=== PATIENT | female | born 1965 | race Caucasian/White ===

== ENCOUNTER 2017-05-16 14:00 | Outpatient (RCR) | payer MEDICARE, SELFPAY ==
--- NOTE | 2017-05-10 11:33 | HP.PTEVAL_ITS ---
Patient's Visit Information CHANTAL SINGH is a 51 year old F referred to Physical Therapy by ROMAINE Hannah with a diagnosis of BACK PAIN AND NECK PAIN. Date of Evaluation: 05/10/17 Physical Therapist: Navid Wiggins PT, - Visit Plan Frequency: 2x /Week Duration: 4 Weeks Plan: AQUATIC PT CERVICAL/LUMBAR ROM,STRENGTH,DLS,UE/LE ROM, - Subjective Subjective: This 51 y/o female presents to physical therapy with back pain and neck pain. Patient has neck and lumbar pain for one year. Patient has been under care DR Kowalski for year with epidural injections which has temporarly helped . Last injection about one month ago. Location of cervical righ side, L- S symmtrical ocassionally left leg. Symptoms worse with standing 5 mins,walking with cane,bending,lifting,sitting 15min. Symptoms better with pain MEDS. C/O GUTIERREZ ,denies tinnutus,nausea. Symptoms worse with sitting,lifting arms,flexion , turning neck . Paient sleeping okay at night. Pain in cedrvical and lumbar affects ADL'S and housework tasks.Patient has rollator. VOCATION: disablity. SOCAIL: single,lives alone Adult day care 4days week. TOOLING MECHANIC 2 days assist bathing ,laundry ,moms meal dilivered - Pain Bilateral Back Pain Intensity (Out of 10): 7 Pain Intensity Range: 8, 10 Right Neck Pain Intensity (Out of 10): 5 Pain Intensity Range: 10 - Objective POSTURE: mild foward posture. PALAPTION: tender L-S symmtrical spinals eretor, UT/levator. NEURO: denies parathesia/tingling,refexes C5-6-7.L3-4,L4-5,L5S1. GAIT: reciprocal pattern with cane,slow kris mild foward posture. AROM: BE WFL. CERVICAL AROM: flexion min loss,lateral flexion /rotation/extension/ mod loss. MMT: BUE 4-/5 grossly,quads/hams/hips 4-/5 ankle 4/5. LUMBAR ROM: flexion /extension mod loss,side glides mod loss. FLEXABLITY: hams mod tight, piriformis mod tight. SPECIAL TEST: diminished heel/toe walking - Special Tests C/S Radiculapathy - Left Upper limb tension test: Negative C/S Radiculapathy - Right Upper limb tension test: Negative C/S Radiculapathy - Left Spurlings: Positive C/S Radiculapathy - Right Spurlings: Positive C/S Radiculapathy - Left Cervical distraction: Negative C/S Radiculapathy - Right Cervical distraction: Negative Vertebral Artery Test: Negative Cervical Sitting: Protrusion - Mechanical Response: No effect Cervical Sitting: Protrusion - Symptoms During Testing: Increases Cervical Sitting: Protrusion - Symptoms After Testing: Worse Cervical Sitting: Retraction - Mechanical Response: No effect Cervical Sitting: Retraction - Symptoms During Testing: Increases Cervical Sitting: Retraction - Symptoms After Testing: Worse L/S Slump test left side: Negative L/S Slump test right side: Negative L/S Left Straight Leg Raise: Negative L/S Right Straight Leg Raise: Negative Lumbar Standing: Flexion - Mechanical Response: No effect Lumbar Standing: Flexion - Symptoms During Testing: Increases Lumbar Standing: Flexion - Symptoms After Testing: Worse Lumbar Standing: Extension - Mechanical Response: No effect Lumbar Standing: Extension - Symptoms During Testing: Increases Lumbar Standing: Extension - Symptoms After Testing: Worse - Goals Goal 1:: Independant with Aquatic therapy. Goal Time Frame: 4-6 Weeks Goal 2:: Patient pain by 40 % or greater to improve function and ADLS' Goal Time Frame: 4-6 Weeks Goal 3:: Patient improve cervical /lumbar ROM to WFL for function of recovery Goal Time Frame: 4-6 Weeks Goal 4:: Patient increase strength of UE/LE 4/5 to improve function. Goal Time Frame: 4-6 Weeks Goal 5:: Patient improve function with ADL'S and housework tasks with min limiations Goal Time Frame: 4-6 Weeks - Rehabilitation Potential Physical Therapy Diagnosis: This patient has multiple comormidities with lumbar and cervical pain with decrease strength ,ROM ,function ,impairs ADL'S and gait walking with decrease endurance Rehabilitation Potential: Good - Anticipated Interventions Patient/Client Instruction: Educate patient on: Condition, Plan of Care For the Purpose of:: To decrease pain, To increase ROM, To improve muscle performance and motor function, To improve ability to perform ADL's, To increase tolerance to activity/condition/position, To decrease level of supervision to perform tasks, To improve ability of physical actions for home/ community/work/leisure, To improve health of tissue, To decrease soft tissue restriction, To increase flexibility/ROM, To improve endurance, To improve health and function, To improve ability to perform tasks related to life management Therapeutic Exercise to Include: Strength training, Endurance training, Body mechanics, Postural training, Flexibilty training, In an aquatic setting, Active ROM For the Purpose of:: To decrease pain, To improve muscle performance and motor function, To increase tolerance to activity/condition/position, To improve performance and independence with ADL's, To improve ability of physical actions for home/community/work/leisure, To improve health of tissue, To decrease soft tissue restriction, To increase flexibility/ROM, To improve endurance, To improve health and function, To improve ability to perform tasks related to life management Thank you for the opportunity to evaluate your patient. For Medicare and Medicare HMO plans, please review the plan of care and approve it. It will need to be FAXED BACK to us at [phone] for Medicare purposes. Please let me know if there are questions or concerns regarding this plan of care. Physician Signature: Date:
--- NOTE | 2017-07-26 10:47 | HP.PTDCNRP_ITS ---
HP - Discharge Summary (1) - Patient Information CHANTAL SINGH was seen in my office for initial evaluation on 05/10/17. The following Plan of Care was established for this patient: Initial Frequency: 2x /Week Initial Duration: 4 Weeks - Anticipated Interventions Patient/Client Instruction: Educate patient on: Condition, Plan of Care For the Purpose of:: To decrease pain, To increase ROM, To improve muscle performance and motor function, To improve ability to perform ADL's, To increase tolerance to activity/condition/position, To decrease level of supervision to perform tasks, To improve ability of physical actions for home/ community/work/leisure, To improve health of tissue, To decrease soft tissue restriction, To increase flexibility/ROM, To improve endurance, To improve health and function, To improve ability to perform tasks related to life management Therapeutic Exercise to Include: Strength training, Endurance training, Body mechanics, Postural training, Flexibilty training, In an aquatic setting, Active ROM For the Purpose of:: To decrease pain, To improve muscle performance and motor function, To increase tolerance to activity/condition/position, To improve performance and independence with ADL's, To improve ability of physical actions for home/community/work/leisure, To improve health of tissue, To decrease soft tissue restriction, To increase flexibility/ROM, To improve endurance, To improve health and function, To improve ability to perform tasks related to life management This patient was last seen in our office 05/16/17. Pertinent comments regarding their Physical therapy will appear below: Patient seen for PT for back and neck pain for Aquatic PT for postural ex's, cervical/lumbar ROM ,strengthening,DLS,thus is d/c. At this point I will be discontinuing this patient from physical therapy. I would be happy to see this patient again in the future if found appropriate by the physician. Thank you! Navid Wiggins, PT,
== END 2017-05-16 19:00 | disposition home or self-care (01) ==
LOC: PT 14:00
PROVIDERS: Visit Provider Anesthesiology Pain Medicine
DX: M54.2 Cervicalgia (principal); M54.9 Dorsalgia, unspecified
CPT/HCPCS: 97113; 97162

== ENCOUNTER 2017-07-04 14:25 | Emergency (ER) | payer MEDICARE, SELFPAY ==
[2017-07-04 14:26] VITALS: BP 114/45; PULSE 74; RESP 20; TEMP 36.8; O2SAT 96; BMI 71.2
--- NOTE | 2017-07-04 15:10 | ED.VISSUMM ---
- ER Visit Summary Date of Service: 07/04/17 Chief Complaint: Hyperglycemia History of Present Illness: The patient is a 51 F evaluation of hypoglycemia over the past week. She is on insulin same doses for the past 4-5 years. Levemir 60 units twice daily, NovoLog 19 units in the morning, 14 units at lunch, 19 units at dinner. Denies any missed doses. No changes in her diet. Complains of polyuria and polydipsia. Patient postop day 1 of umbilical hernia repair by Dr. Quesada at [place]. States her sugars was near 400. After leaving her surgery yesterday, states she had jaw pain which she was taken to [place] ED and evaluated. Her sugars were elevated then also. Try to get reestablished with PCP Dr. Prince. Currently does not see endocrinology. States her sugar was 535 this morning. Status post 60 units of Levemir in 19 units of NovoLog at 6 AM. Also gave herself additional 14 units of NovoLog at noon today when her glucose was 398. Her last meal 9 AM. No upper respiratory symptoms. No vomiting or diarrhea. No nausea. Physical Examination: General: Alert and oriented ?3, no acute distress HEENT: Normocephalic, atraumatic. Moist mucosa membranes Neck: supple, nontender. Cardiovascular: Regular rate and rhythm, no murmurs Respiratory: Normal breath sounds, symmetric, no distress Abdomen: Soft, nontender, nondistended paulie across umbilicus, clean, dry, intact. Extremities: Nontender, no edema, pulses intact ?4 Neuro: no focal neurological deficits. . Test Results: Creatinine 1.26, glucose 403, anion gap 11. UA glucose with no infection Emergency Department Course and Treatment: Patient nontoxic. Initial blood glucose was 441. Given a liter fluids, BMP with a normal anion gap. She given 15 units of NovoLog in the ED. Glucose trending down to 327. Patient monitor her glucose, she is given follow-up with KRYSTIN abad for Endocrinology evaluation. She did state she is seen her in the past and would like to get reestablished. Treatment Plan: [] Disposition: Discharge Impression: Hyperglycemia with history of diabetes This note was generated with Veekeration software. It may contain incorrect words, spelling, and punctuation that were not noted in review of the chart prior to signing ED Disposition - Plan for ED Patient: Disposition: Home or Assisted Living Chief Complaint: Hyperglycemia Diagnosis: Hyperglycemia Instructions: ED Hyperglycemia Diabetic Referrals: [facility] Doctor,Out of [NON-STAFF] - Skye Abad BRICKLAYER'S ASSISTANT-C [Nurse Practitioner] - 2 Days
--- NOTE | 2017-07-04 15:14 | ED.DCSUM_ITS ---
- ER Visit Summary Date of Service: 07/04/17 Chief Complaint: Hyperglycemia History of Present Illness: The patient is a 51 F evaluation of hypoglycemia over the past week. She is on insulin same doses for the past 4-5 years. Levemir 60 units twice daily, NovoLog 19 units in the morning, 14 units at lunch , 19 units at dinner. Denies any missed doses. No changes in her diet. Complains of polyuria and polydipsia. Patient postop day 1 of umbilical hernia repair by Dr. Quesada at [place]. States her sugars was near 400. After leaving her surgery yesterday, states she had jaw pain which she was taken to [place] ED and evaluated. Her sugars were elevated then also. Try to get reestablished with PCP Dr. Prince. Currently does not see endocrinology. States her sugar was 535 this morning. Status post 60 units of Levemir in 19 units of NovoLog at 6 AM. Also gave herself additional 14 units of NovoLog at noon today when her glucose was 398. Her last meal 9 AM. No upper respiratory symptoms. No vomiting or diarrhea. No nausea. Physical Examination: General: Alert and oriented ?3, no acute distress HEENT: Normocephalic, atraumatic. Moist mucosa membranes Neck: supple, nontender. Cardiovascular: Regular rate and rhythm, no murmurs Respiratory: Normal breath sounds, symmetric, no distress Abdomen: Soft, nontender, nondistended paulie across umbilicus, clean, dry, intact. Extremities: Nontender, no edema, pulses intact ?4 Neuro: no focal neurological deficits. . Test Results: Creatinine 1.26, glucose 403, anion gap 11. UA glucose with no infection Emergency Department Course and Treatment: Patient nontoxic. Initial blood glucose was 441. Given a liter fluids, BMP with a normal anion gap. She given 15 units of NovoLog in the ED. Glucose trending down to 327. Patient monitor her glucose, she is given follow-up with KRYSTIN abad for Endocrinology evaluation. She did state she is seen her in the past and would like to get reestablished. Treatment Plan: [] Disposition: Discharge Impression: Hyperglycemia with history of diabetes This note was generated with Explorer.ioation software. It may contain incorrect words, spelling, and punctuation that were not noted in review of the chart prior to signing ED Disposition - Plan for ED Patient: Disposition: Home or Assisted Living Chief Complaint: Hyperglycemia Diagnosis: Hyperglycemia Instructions: ED Hyperglycemia Diabetic Referrals: [facility] Doctor,Out of [NON-STAFF] - Skye Abad MICROFABRICATION ENGINEER MANAGER-C [Nurse Practitioner] - 2 Days
[2017-07-04 15:36] LABS: Bedside Glucose 441 mg/dL (70-110)
[2017-07-04] MEDS: 0.9% Normal Saline 1,000 ML 1000 ML IV (15:44)
[2017-07-04 16:00] LABS: Anion Gap 11 (5-15); BUN 21 mg/dL (7-18); BUN/Creat Ratio 16.7 RATIO (10-20); Calcium,Total 8.2 mg/dL (8.5-10.1); Chloride 101 mmol/L (98-107); Creatinine, Serum 1.26 mg/dL (0.55-1.02); EST Glomerular Filtration Rate 47 mL/min (>60); Est Glom Filt Rate - Afr Amer 57 mL/min (>60); Estimated Creatinine Clearance 130.45 ml/min; Glucose 406 mg/dL (74-106); Potassium 3.8 mmol/L (3.5-5.1); Sodium Level 137 mmol/L (136-145)
[2017-07-04 17:23] LABS: Bacteria 0 SEEN /hpf (None Seen); Mucous, Urine 0 SEEN /hpf (<or=2+); Red Blood Cells-Urine 0 SEEN /hpf (0-5)
[2017-07-04 17:29] LABS: Color, Urine Yellow (Yellow); Glucose, Dipstick 1000 mg/dl (Normal); Ketone-Dipstick Negative (Negative); Leukocyte Esterase-Dipstick Negative /ul (Negative); Nitrite-Dipstick Negative (Negative); Occult Blood-Urine Negative /ul (Negative); Protein-Dipstick Negative (Negative); Specific Gravity, Urine 1.015 (1.002-1.030); Urine Bilirubin Dipstick Negative (Negative); Urine Clarity Sl. Cloudy (Clear); Urine Urobilinogen Normal (Normal)
[2017-07-04 17:49] VITALS: PULSE 70; RESP 18; O2SAT 97
[2017-07-04 18:06] LABS: Squamous Epithelial Cells - UA 0-5 SEEN /hpf (5-10)
[2017-07-04 18:07] LABS: White Blood Cells 0-5 SEEN /hpf (0-5)
[2017-07-04 18:31] LABS: Bedside Glucose 327 mg/dL (70-110)
[2017-07-04 18:40] VITALS: BP 118/74; PULSE 71; RESP 20; O2SAT 98
== END 2017-07-04 18:41 | disposition home or self-care (01) ==
PROVIDERS: Emergency Provider Emergency Medicine
DX: E11.65 Type 2 diabetes mellitus with hyperglycemia (principal); Z79.4 Long term (current) use of insulin; I25.10 Atherosclerotic heart disease of native coronary artery without angina pectoris; I10 Essential (primary) hypertension; E78.00 Pure hypercholesterolemia, unspecified; E66.9 Obesity, unspecified; Z68.45 Body mass index [BMI] 70 or greater, adult; G47.33 Obstructive sleep apnea (adult) (pediatric); F32.9 Major depressive disorder, single episode, unspecified; F41.9 Anxiety disorder, unspecified; Z79.82 Long term (current) use of aspirin; Z79.899 Other long term (current) drug therapy
CPT/HCPCS: 80048; 81001; 82962; 96360; 96361; 99284; J7030; A4216

== ENCOUNTER → 2017-07-25 10:19 | Outpatient (CLI) | payer MEDICARE, SELFPAY ==
--- NOTE | 2017-07-25 10:34 | RAD_ITS ---
STUDY: X-RAY - LEFT KNEE REASON FOR EXAM: Female, 51 years old. Knee pain, no known trauma TECHNIQUE: 4 view(s) of the knee. COMPARISON: Report from prior study of 04/17/2010 FINDINGS: Normal visualized distal femur. Normal visualized proximal tibia and fibula. Normal proximal tibiofibular articulation. There is no demonstrated fracture. There is severe degenerative arthrosis of the medial femorotibial compartment with severe joint space narrowing. There is moderate degenerative arthrosis of the lateral femorotibial compartment with moderate joint space narrowing. There is severe degenerative arthrosis of the patellofemoral articulation. There is no demonstrated joint effusion. The soft tissue structures are unremarkable. RAD/Knee 4 or More Views IMPRESSION: Diffuse degenerative changes. No acute bony abnormality. Electronically Signed: Macario Montgomery DO at 10:27 EDT Tel , Service support ,
== END ==
PROVIDERS: Visit Provider Anesthesiology Pain Medicine
DX: M17.12 Unilateral primary osteoarthritis, left knee (principal)
CPT/HCPCS: 73564

== ENCOUNTER → 2017-08-24 14:38 | Outpatient (CLI) | payer MEDICARE, SELFPAY ==
[2017-08-24 15:19] LABS: Hemoglobin A1c 9.1 % (4.2-6.3)
[2017-08-24 15:20] LABS: AST(SGOT) 15 U/L (15-37); Alanine Aminotransfer ALT/SGPT 35 U/L (13-56); Albumin, Serum 3.8 g/dL (3.2-5.0); Alkaline Phosphatase 144 U/L (45-117); Anion Gap 10 (5-15); BUN 23 mg/dL (7-18); BUN/Creat Ratio 19.5 RATIO (10-20); Chloride 99 mmol/L (98-107); Creatinine, Serum 1.18 mg/dL (0.55-1.02); EST Glomerular Filtration Rate 51 mL/min (>60); Est Glom Filt Rate - Afr Amer 61 mL/min (>60); Glucose 204 mg/dL (74-106); Potassium 4.2 mmol/L (3.5-5.1); Protein, Total 7.8 g/dL (6.4-8.2); Sodium Level 136 mmol/L (136-145)
[2017-08-24 15:24] LABS: Microalbumin,Random Urine 35.3 mg/L (NO RANGE EST.); Microalbumin:Creatinine Ratio 27.4 mg/g CRE (<30 mg/g CRE)
== END ==
PROVIDERS: Family Provider Family Medicine; Visit Provider Nurse Practitioner
DX: E11.9 Type 2 diabetes mellitus without complications (principal)
CPT/HCPCS: 36415; 80053; 82043; 82570; 83036

== ENCOUNTER → 2017-09-15 07:44 | Outpatient (CLI) | payer MEDICARE, SELFPAY ==
[2017-09-15 09:24] LABS: ALB/GLOB Ratio 0.8 RATIO (0.9-2.4); AST(SGOT) 22 U/L (15-37); Alanine Aminotransfer ALT/SGPT 38 U/L (13-56); Albumin, Serum 3.5 g/dL (3.2-5.0); Alkaline Phosphatase 172 U/L (45-117); Anion Gap 11 (5-15); BUN 21 mg/dL (7-18); BUN/Creat Ratio 21.2 RATIO (10-20); Calcium,Total 9.1 mg/dL (8.5-10.1); Chloride 101 mmol/L (98-107); Creatinine, Serum 0.99 mg/dL (0.55-1.02); EST Glomerular Filtration Rate 62 mL/min (>60); Est Glom Filt Rate - Afr Amer 75 mL/min (>60); Globulin 4.2 g/dL (2.2-4.2); Glucose 256 mg/dL (74-106); Potassium 4.4 mmol/L (3.5-5.1); Protein, Total 7.7 g/dL (6.4-8.2); Sodium Level 135 mmol/L (136-145)
== END ==
PROVIDERS: Family Provider Family Medicine; Visit Provider Nurse Practitioner
DX: E11.9 Type 2 diabetes mellitus without complications (principal)
CPT/HCPCS: 36415; 80053

== ENCOUNTER 2017-10-25 17:11 | Emergency (ER) | payer MEDICARE, SELFPAY ==
[2017-10-25 17:12] VITALS: BP 153/78; PULSE 69; RESP 18; TEMP 36.3; O2SAT 97; BMI 68.5
[2017-10-25 17:48] VITALS: RESP 18
--- NOTE | 2017-10-25 18:09 | ED.DCSUM_ITS ---
- ER Visit Summary Date of Service: 10/25/17 Chief Complaint: Frontal headache History of Present Illness: The patient is a 52 F states that she had a frontal headache about 3 hours ago. Gradual in onset. No history of intracranial bleeds or aneurysms. She has had prior CAT scans in the past which were negative. She has had headaches like this in the past. She is on aspirin but no blood thinners. She denies any head trauma, fever or sinus congestion. She denies any neurological symptoms. She does have associated nausea and photophobia. She denies any specific diagnosis for her prior headaches but does get chronic headaches. Physical Examination: Middle-aged obese female vital signs are stable and afebrile. Blood pressure 153/78. She does not look septic or toxic she is in no acute distress. H EENT exam pupils round reactive light. Extra motions are intact. No facial droop. Tongue midline. Normal speech. She has no frontal or maxillary sinus tenderness. Neck is nontender no meningismus. Trachea midline. Able to touch chin to chest. Lungs clear to auscultation bilaterally. Heart regular rhythm no murmur. Abdomen is soft and nontender normal bowel sounds no peritoneal signs. She is moving all 4 extremities. They are neurovascularly intact. She has equal symmetrical 5 out of 5 supervisor curing room strength. She is equal and symmetrical 5 out of 5 dorsi plantarflexion. Fingertip to nose and heel to jane within normal limits. Neurologic exam is normal. Her NIH is 0. Test Results: None Emergency Department Course and Treatment: She will be treated with IV fluids, Toradol, Benadryl and Phenergan. Treatment Plan: Repeat exam 0 patient is doing well. Her headache is resolved completely. Her neurologic exam remains normal. We did obtain a BG T which was 139. She is comfortable be discharged home. Disposition: Discharge Impression: Acute cephalgia with a history of chronic headaches History of insulin-dependent diabetes This note was generated with Tout dictation software. It may contain incorrect words, spelling, and punctuation that were not noted in review of the chart prior to signing ED Disposition - Plan for ED Patient: Chief Complaint: Headache Referrals: Mike Prince [Primary Care Provider] -
[2017-10-25] MEDS: Ketorolac 30 MG/ML Syringe IV (18:32)
[2017-10-25] MEDS: DiphenhydrAMINE 50 MG/ML Syringe 25 MG IV (18:32)
[2017-10-25] MEDS: 0.9% Normal Saline 1,000 ML 1000 ML IV (18:33)
[2017-10-25] MEDS: proMETHazine 25 MG/ML Syringe 12.5 MG IV (18:33)
[2017-10-25 18:46] LABS: Bedside Glucose 139 mg/dL (70-110)
--- NOTE | 2017-10-25 19:13 | ED.DEP ---
ED Disposition - Plan for ED Patient: Disposition: Home or Assisted Living Chief Complaint: Headache Instructions: ED Cephalgia Unspecified Referrals: Mike Prince [Primary Care Provider] - 1-2 Days if not improving Additional Instructions: P.o. fluids and rest. Tylenol and Motrin as needed for headaches. Return if worse.
[2017-10-25 19:25] VITALS: PULSE 74; RESP 18; O2SAT 99
== END 2017-10-25 19:26 | disposition home or self-care (01) ==
PROVIDERS: Emergency Provider Emergency Medicine; Family Provider Family Medicine
DX: R51 Headache (principal); E11.9 Type 2 diabetes mellitus without complications; I25.10 Atherosclerotic heart disease of native coronary artery without angina pectoris; I10 Essential (primary) hypertension; Z79.82 Long term (current) use of aspirin; Z79.4 Long term (current) use of insulin; Z79.899 Other long term (current) drug therapy
CPT/HCPCS: 82962; 96361; 96374; 96375; 99283; J7030; A4216

== ENCOUNTER 2018-05-03 00:36 | Emergency (ER) | payer MEDICARE, SELFPAY ==
[2018-05-03 00:38] VITALS: BP 140/52; PULSE 61; RESP 19; TEMP 36.7; O2SAT 96; BMI 67.9
[2018-05-03 00:46] LABS: Bedside Glucose 65 mg/dL (70-110)
[2018-05-03] MEDS: Dextrose 50%-Water 25 GM/50 ML DISP.SYRIN IV (00:59)
[2018-05-03 01:03] VITALS: BP 133/63; PULSE 61; RESP 26; O2SAT 96
[2018-05-03 01:09] LABS: Absolute Lymphocyte Count 2.39 X10^3/ul (0.83-4.51); Absolute Neutrophil Count 7.7 X10^3/uL (2.0-7.7); Basophil# 0.02 X10^3/uL; Basophil% 0.2 % (0-1); Differential Indicated SCAN CRITERIA MET; Eosinophil# 0.26 X10^3/uL; Eosinophils% 2.3 % (0-5); Hematocrit 44.7 % (37-47); Hemoglobin 14.5 g/dl (12.0-15.0); Lymphocyte # 2.39 X10^3/ul (4.0); Lymphocyte % 20.8 % (19-41); Mean Corp Hgb Conc 32.4 g/gl (32-36); Mean Corpuscular Hgb 28.8 pg (27.0-32.0); Mean Corpuscular Volume 88.9 fL (81-99); Monocyte# 1.06 X10^3/uL; Monocyte% 9.2 % (0-10); Neutrophil # 7.73 X10^3/uL (2.7-7.7); Neutrophil % 67.2 % (47-70); POSITIVE COUNT NO; POSITIVE DIFFERENTIAL NO; POSITIVE MORPHOLOGY YES; Platelet Count 330 K/mm3 (150-450); RBC Distribution Width CV 13.9 % (11.6-14.6); RBC Distribution Width SD 45.2 fl (35.1-43.9); Red Blood Count 5.03 M/mm3 (4.2-5.4); White Blood Count 11.5 K/mm3 (4.4-11.0)
[2018-05-03 01:15] LABS: BUN 19 mg/dL (7-18); Creatinine, Serum 0.97 mg/dL (0.55-1.02); Estimated Creatinine Clearance 159.72 ml/min; Glucose 70 mg/dL (74-106)
[2018-05-03 01:16] LABS: Anion Gap 8 (5-15); BUN/Creat Ratio 19.6 RATIO (10-20); Calcium,Total 8.6 mg/dL (8.5-10.1); Chloride 103 mmol/L (98-107); EST Glomerular Filtration Rate 64 mL/min (>60); Est Glom Filt Rate - Afr Amer 77 mL/min (>60); Potassium 3.6 mmol/L (3.5-5.1); Sodium Level 139 mmol/L (136-145)
[2018-05-03 01:27] LABS: Differential Comment SCANNED
--- NOTE | 2018-05-03 01:31 | ED.RN ---
DR. ELMORE MADE AWARE OF REPEAT BLOOD GLUCOSE OF 159.
[2018-05-03 01:36] LABS: Bedside Glucose 159 mg/dL (70-110)
[2018-05-03 02:01] VITALS: BP 129/67; PULSE 59; RESP 25; O2SAT 95
--- NOTE | 2018-05-03 02:10 | EKG12_ITS ---
Test Reason : HYPOGLYCEMIA Blood Pressure : / mmHG Vent. Rate : 058 BPM Atrial Rate : 058 BPM P-R Int : 172 ms QRS Dur : 138 ms QT Int : 468 ms P-R-T Axes : 054 -05 021 degrees QTc Int : 459 ms Sinus bradycardia Right bundle branch block Possible Lateral infarct , age undetermined Abnormal ECG Confirmed by HEATH ROSENBERG, JESÚS ([id number]), editorial manager SKIP DEVINE ([id number]) on 05/07/2018 1:13:56 PM Referred By: RAMÍREZ Confirmed By:JESÚS JOE MD
[2018-05-03 03:15] LABS: Bedside Glucose 169 mg/dL (70-110)
--- NOTE | 2018-05-03 03:15 | ED.DEP ---
ED Disposition - Plan for ED Patient: Chief Complaint: Hypoglycemia Instructions: ED Diabetes Hypoglycemia Insulin React Referrals: Mike Prince [Primary Care Provider] -
[2018-05-03 03:20] VITALS: BP 126/56; PULSE 63; RESP 18; O2SAT 95
--- NOTE | 2018-05-03 06:55 | ED.VISSUMM ---
- ER Visit Summary Date of Service: 05/03/18 Chief Complaint: Low blood sugar History of Present Illness: The patient is a 52 F who presents with low blood sugar. She began to feel weak dizzy nauseated and sweaty at home. She checked her blood sugar and it was 42. EMS was contacted. She did eat some jelly. Her blood sugar came up to about 90 in route however she was back down in the 60s on arrival here. She is mildly symptomatic currently. He is on insulin and oral medications. No recent medication changes or changes in dosing. Physical Examination: Afebrile vitals unremarkable Heart regular rate and rhythm Lungs clear Abdomen soft Alert Test Results: Initial BG T 65. Labs notable for glucose of 70. She was given D50 and something to eat. On repeat she was 159 and then after period of observation 169. Emergency Department Course and Treatment: Patient was observed here. On reevaluation her glucose has remained above normal. She feels much better. She was discharged. Treatment Plan: [] Disposition: Discharge Impression: Diabetic hypoglycemia This note was generated with [employer] dictation software. It may contain incorrect words, spelling, and punctuation that were not noted in review of the chart prior to signing ED Disposition - Plan for ED Patient: Disposition: Home or Assisted Living Chief Complaint: Hypoglycemia Instructions: ED Diabetes Hypoglycemia Insulin React Referrals: Mike Prince [Primary Care Provider] -
== END 2018-05-03 03:27 | disposition home or self-care (01) ==
LOC: ED 01:24
PROVIDERS: Emergency Provider Emergency Medicine; Family Provider Family Medicine
DX: E11.649 Type 2 diabetes mellitus with hypoglycemia without coma (principal); I25.10 Atherosclerotic heart disease of native coronary artery without angina pectoris; I10 Essential (primary) hypertension; Z79.4 Long term (current) use of insulin; Z79.899 Other long term (current) drug therapy
CPT/HCPCS: 80048; 82962; 85025; 93005; 96374; 99284; A4216

== ENCOUNTER 2018-06-29 12:09 | Day surgery (SDC) | payer MEDICARE, SELFPAY ==
[2018-06-29 12:54] VITALS: BP 127/52; PULSE 67; RESP 18; TEMP 36.9; O2SAT 98; BMI 65.9
[2018-06-29 13:06] LABS: Bedside Glucose 175 mg/dL (70-110)
--- NOTE | 2018-06-29 14:18 | RAD_ITS ---
PROCEDURE: Caudal block. DATE OF EXAMINATION: June 29, 2018. INDICATION: Female, 52 years old. Chronic low back pain. FLUOROSCOPY TIME (if supplied): (0:11) minutes/seconds. Single spot image. Intraoperative imaging provided for caudal block. RAD/Fluor Guidance for Spine Inj IMPRESSION: Intraoperative imaging provided for caudal block. Electronically Signed: Frederick Slater MD at 10:37 EST , Service support ,
[2018-06-29] MEDS: Triamcinolone Acetonide 40 MG/ML Vial (14:27)
[2018-06-29 14:34] VITALS: BP 127/52; BP 82/55; PULSE 65; RESP 18; TEMP 37.1; O2SAT 100
[2018-06-29 14:37] VITALS: BP 103/71; BP 127/52; PULSE 66; RESP 18; O2SAT 97
[2018-06-29 14:40] VITALS: BP 127/52; BP 91/76; PULSE 66; RESP 18; O2SAT 97
[2018-06-29 14:45] VITALS: BP 123/78; BP 127/52; PULSE 69; RESP 18; O2SAT 96
[2018-06-29 14:50] VITALS: BP 127/52; BP 131/68; PULSE 65; RESP 18; TEMP 37.3; O2SAT 98
== END 2018-06-29 15:28 | disposition home or self-care (01) ==
LOC: SDC 12:10 → AC 12:12
PROVIDERS: Family Provider Family Medicine; Referring Provider Anesthesiology Pain Medicine; Visit Provider Anesthesiology Pain Medicine
PROC: 3E0S3BZ Introduction of Anesthetic Agent into Epidural Space, Percutaneous Approach (ICD-10-PCS; CPT 62282; principal; 2018-06-29 13:40)
DX: M54.17 Radiculopathy, lumbosacral region (principal); M54.16 Radiculopathy, lumbar region; M19.90 Unspecified osteoarthritis, unspecified site; I10 Essential (primary) hypertension; E11.9 Type 2 diabetes mellitus without complications; K50.90 Crohn's disease, unspecified, without complications; K21.9 Gastro-esophageal reflux disease without esophagitis; E78.00 Pure hypercholesterolemia, unspecified; F32.9 Major depressive disorder, single episode, unspecified; F41.9 Anxiety disorder, unspecified; I45.10 Unspecified right bundle-branch block; I48.91 Unspecified atrial fibrillation; G47.30 Sleep apnea, unspecified; G25.81 Restless legs syndrome; E66.01 Morbid (severe) obesity due to excess calories; Z68.44 Body mass index [BMI] 60.0-69.9, adult; Z95.5 Presence of coronary angioplasty implant and graft; Z79.4 Long term (current) use of insulin; Z79.82 Long term (current) use of aspirin; Z79.899 Other long term (current) drug therapy; Z79.891 Long term (current) use of opiate analgesic; Z87.891 Personal history of nicotine dependence
CPT/HCPCS: 62323; 64483; 77003; 82962; J7120

== ENCOUNTER 2018-07-01 15:43 | Emergency (ER) | payer MEDICARE, SELFPAY ==
[2018-07-01 15:44] VITALS: BP 133/61; PULSE 60; RESP 18; TEMP 36.4; O2SAT 97; BMI 66.6
--- NOTE | 2018-07-01 15:59 | CT_ITS ---
STUDY: CT BRAIN WITHOUT CONTRAST REASON FOR EXAM: Female, 52 years old. Fell off of toilet hitting head, bruising above the right eye RADIATION DOSAGE (If Supplied By Facility): CTDIvol = ( 44.99 ) mGy, DLP = ( 796.11 ) mGycm TECHNIQUE: Transaxial CT imaging of the brain was performed without administration of intravenous contrast material. Individualized dose optimization techniques were used for this CT. COMPARISON: None. FINDINGS: Localized soft tissue swelling of the right supraorbital scalp. No demonstrated fracture of the calvarium or visualized maxillofacial structures, including orbit. Normal calvarium. Normal size ventricles and extra-axial spaces for the patient's age. Normal white matter tracts of the cerebral hemispheres. Normal basal ganglia and thalami. Normal brainstem. Normal cerebellum. There is no intracranial hemorrhage. There are no findings of an acute ischemic infarction. Normal visualized paranasal sinuses. CT/Brain/Head without Contrast IMPRESSION: 1. No acute intracranial hemorrhage or mass effect. No orbital or calvarial fracture demonstrated. 2. Right supraorbital soft tissue swelling. Electronically Signed: Bhaskar Jordan MD at 16:53 EST , Service support ,
--- NOTE | 2018-07-01 16:18 | RAD_ITS ---
STUDY: X-RAY - LEFT KNEE REASON FOR EXAM: Female, 52 years old. Fall, pain TECHNIQUE: 4 view(s) of the knee. COMPARISON: 07/25/2017 FINDINGS: Normal visualized distal femur. Normal visualized proximal tibia and fibula. Normal proximal tibiofibular articulation. There is severe degenerative arthrosis of the medial femorotibial compartment with severe joint space narrowing. There is moderate degenerative arthrosis of the lateral femorotibial compartment with moderate joint space narrowing. There is severe degenerative arthrosis of the patellofemoral articulation. Sizable enthesophyte of the superior patella noted. Osseous density at the insertion of the patellar tendon suggest old injury. There is no demonstrated joint effusion. The soft tissue structures are unremarkable. RAD/Knee 4 or More Views IMPRESSION: 1. No fracture or malalignment. 2. Tricompartmental osteoarthrosis. Electronically Signed: Bhaskar Jordan MD at 16:32 EST , Service support ,
--- NOTE | 2018-07-01 16:55 | ED.VISSUMM ---
- ER Visit Summary Date of Service: 07/01/18 Chief Complaint: Fall History of Present Illness: The patient is a 52 F who was at a store using the bathroom. She was sitting down when she lost her balance and fell forward. She tried to catch herself with her and struck her head on unknown object. She not sure she lost consciousness. Notes abrasion to her nose. She notes pain in the left knee and bruising to the left hand. She is transported by EMS. She takes a baby aspirin every other day Physical Examination: Afebrile vital signs are stable Gen: Well-nourished well-developed Head: Normocephalic large right forehead hematoma Eyes: Perrl EOMI ENT: TMs clear no rhinorrhea moist mucous membranes there is a superficial nasal abrasion on the right side of the nose. Neck: Supple no lymphadenopathy no JVD nontender CVS: Regular rate rhythm no murmurs normal S1-S2 Respiratory: No distress clear to auscultation bilaterally chest nontender Abdomen: Soft nontender nondistended normal bowel sounds no masses Back: Nontender Extremity: The left knee is tender to palpation. There is significant obesity which limits good examination of the knee there is a small contusion to the palm of the left hand. Normal range of motion. Skin: Normal color no rash Neuro: alert orientated ?3 CN II-XII intact normal strength sensation reflexes gait cerebellar Psych: Normal affect normal mood Test Results: CT the brain was negative for intracranial hemorrhage or fracture. X-ray of the knee demonstrated arthritis but no fracture. Emergency Department Course and Treatment: Patient will be discharged home with follow-up return if worsening or concerns Impression: 1. Forehead hematoma 2. Nasal abrasion 3. Left knee contusion 4. Left hand contusion This note was generated with [employer] dictation software. It may contain incorrect words, spelling, and punctuation that were not noted in review of the chart prior to signing ED Disposition - Plan for ED Patient: Disposition: Home or Assisted Living Instructions: ED Hematoma, ED Head Injury Closed Referrals: Mike Prince [Primary Care Provider] - As Needed
== END 2018-07-01 17:25 | disposition home or self-care (01) ==
PROVIDERS: Emergency Provider Emergency Medicine; Family Provider Family Medicine
DX: S00.83XA Contusion of other part of head, initial encounter (principal); S80.02XA Contusion of left knee, initial encounter; S60.222A Contusion of left hand, initial encounter; S00.31XA Abrasion of nose, initial encounter; W18.11XA Fall from or off toilet without subsequent striking against object, initial encounter; Y93.89 Activity, other specified; Y92.512 Supermarket, store or market as the place of occurrence of the external cause; I25.10 Atherosclerotic heart disease of native coronary artery without angina pectoris; I10 Essential (primary) hypertension; E11.9 Type 2 diabetes mellitus without complications; E66.9 Obesity, unspecified; Z68.44 Body mass index [BMI] 60.0-69.9, adult; Z79.82 Long term (current) use of aspirin; Z79.4 Long term (current) use of insulin; Z79.899 Other long term (current) drug therapy
CPT/HCPCS: 70450; 73564; 99284

== ENCOUNTER 2018-08-18 21:16 | Emergency (ER) | payer MEDICARE, SELFPAY ==
[2018-08-18 21:17] VITALS: BP 108/65; PULSE 64; RESP 20; TEMP 36.4; O2SAT 97; BMI 66.7
--- NOTE | 2018-08-18 21:22 | EKG12_ITS ---
Test Reason : SOB Blood Pressure : / mmHG Vent. Rate : 062 BPM Atrial Rate : 062 BPM P-R Int : 142 ms QRS Dur : 132 ms QT Int : 450 ms P-R-T Axes : 058 -12 005 degrees QTc Int : 456 ms Normal sinus rhythm Right bundle branch block Abnormal ECG Confirmed by NABEEL ROSENBERG, HERI ([id number]), school photograph editor SKIP DEVINE ([id number]) on 08/22/2018 9:00:30 AM Referred By: DANIEL Confirmed By:HERI LEES MD
--- NOTE | 2018-08-18 21:30 | RAD_ITS ---
STUDY: X-RAY CHEST REASON FOR EXAM: Female, 52 years old. Shortness of breath. TECHNIQUE: Single frontal view of the chest. COMPARISON: March 30, 2017 FINDINGS: There is no new focal consolidation. There is cardiomegaly. Normal mediastinum and lakeisha. Normal visualized pulmonary arteries. Normal visualized aortic arch and descending thoracic aorta. There are diffuse degenerative changes of the visualized thoracic spine. Normal visualized ribs, clavicles, and shoulders. There is no demonstrated abnormality of the visualized soft tissue structures of the upper abdomen. RAD/Chest 1 View (Portable) IMPRESSION: Cardiomegaly. Electronically Signed: Josi Horner MD at 21:54 EDT Tel , Service support ,
[2018-08-18 21:34] VITALS: PULSE 62; RESP 16; TEMP 36.4; O2SAT 96
--- NOTE | 2018-08-18 21:40 | ED.VISSUMM ---
- ER Visit Summary Date of Service: 08/18/18 Chief Complaint: [] Runny nose harsh cough for 3 or 4 days History of Present Illness: The patient is a 52 F [] history of diabetes Crohn's disease CAD with 1 stent report she is generally been in good health but over the last few days she has developed a harsh cough with a runny nose she was seen Monday by her physician started on prednisone and inhaler reports that the coughing and the harshness of the breathing intensified and she was brought in for evaluation by EMS she was given aerosol she is feeling better, she had no anginal type chest pain she is been eating and drinking well bowel bladder habits been normal Physical Examination: [] Vital signs are within normal range she has a pulse ox of 97% on room air she has a dry harsh cough General, no distress resting comfortably HEENT is generally unremarkable The neck is supple no adenopathy Cardiovascular, regular rate and rhythm Lungs, clear bilateral very minimal wheezing Abdomen, soft nontender Extremities, no clubbing cyanosis or edema Neurologic, awake alert answering questions appropriately moving all 4 extremities Test Results: [] Emergency Department Course and Treatment: [] All the above she will receive aerosols IV fluid screening labs she is feeling better after aerosols with EMS her other health conditions have been stable she has had no issues with her cardiovascular disease and coronary artery disease, she denies history of DVT or PE Treatment Plan: [] She is screening lab and checks x-ray are unremarkable, on reevaluation she is resting company she states she feels much better she wants to go home, she does not have an inhaler she will be prescribed a Proventil inhaler to use she was given Decadron p.o. I recommended she use Flonase nasal spray as well to help with the rhinorrhea and follow with her doctors continue all of their other recommendations and return for change in symptoms Disposition: [] Home stable Impression: [] URI with harsh cough improved This note was generated with [employer] dictation software. It may contain incorrect words, spelling, and punctuation that were not noted in review of the chart prior to signing ED Disposition - Plan for ED Patient: Referrals: Mike Prince [Primary Care Provider] -
[2018-08-18 21:45] VITALS: PULSE 71; RESP 18; O2SAT 96
[2018-08-18] MEDS: Ipratropium/Albuterol Sulfate 3 ML AMPUL.NEB INHALATION (21:46)
[2018-08-18 21:58] LABS: Absolute Neutrophil Count 10.4 X10^3/uL (2.0-7.7); Hematocrit 41.7 % (37-47); Hemoglobin 13.8 g/dl (12.0-15.0); Lymphocyte % 10.7 % (19-41); Mean Corp Hgb Conc 33.1 g/gl (32-36); Mean Corpuscular Hgb 29.1 pg (27.0-32.0); Mean Platelet Vol. 9.2 fl (6.2-12.0); Monocyte# 0.51 X10^3/uL; Monocyte% 4.2 % (0-10); Neutrophil # 10.36 X10^3/uL (2.7-7.7); Neutrophil % 84.9 % (47-70); Platelet Count 310 K/mm3 (150-450); RBC Distribution Width CV 14.5 % (11.6-14.6); RBC Distribution Width SD 46.6 fl (35.1-43.9); Red Blood Count 4.74 M/mm3 (4.2-5.4); White Blood Count 12.2 K/mm3 (4.4-11.0)
[2018-08-18 22:00] LABS: POSITIVE COUNT NO; POSITIVE DIFFERENTIAL NO; POSITIVE MORPHOLOGY NO
[2018-08-18] MEDS: Oxymetazoline 0.05% 1 SPRAY SPRAY.BTL 2 SPRAY NASAL (22:07)
[2018-08-18 22:09] LABS: Anion Gap 7 (5-15); BUN 32 mg/dL (7-18); BUN/Creat Ratio 28.1 RATIO (10-20); Calcium,Total 8.9 mg/dL (8.5-10.1); Chloride 104 mmol/L (98-107); Creatinine, Serum 1.14 mg/dL (0.55-1.02); EST Glomerular Filtration Rate 53 mL/min (>60); Est Glom Filt Rate - Afr Amer 64 mL/min (>60); Glucose 278 mg/dL (74-106); Sodium Level 138 mmol/L (136-145)
[2018-08-18 22:40] VITALS: BP 133/71; PULSE 63; RESP 16; TEMP 36.8; O2SAT 95
--- NOTE | 2018-08-18 22:56 | ED.DEP ---
ED Disposition - Plan for ED Patient: Instructions: ED Upper Resp Infec No Abx Tx Referrals: Mike Prince [Primary Care Provider] -
--- NOTE | 2018-08-18 22:58 | ED.DEP ---
ED Disposition - Plan for ED Patient: Instructions: ED Upper Resp Infec No Abx Tx Prescriptions: Albuterol Inhaler [Ventolin Hfa] 1 - 2 puff INHALATION Q4H PRN PRN #1 inhaler PRN Reason: Wheezing Referrals: Mike Prince [Primary Care Provider] -
[2018-08-18 23:17] VITALS: BP 134/74; PULSE 65; RESP 16; O2SAT 98
== END 2018-08-18 23:17 | disposition home or self-care (01) ==
LOC: ED 21:51
PROVIDERS: Emergency Provider Emergency Medicine; Family Provider Family Medicine
DX: J06.9 Acute upper respiratory infection, unspecified (principal); R06.09 Other forms of dyspnea; I25.10 Atherosclerotic heart disease of native coronary artery without angina pectoris; E11.9 Type 2 diabetes mellitus without complications; K50.90 Crohn's disease, unspecified, without complications; Z79.82 Long term (current) use of aspirin; Z79.4 Long term (current) use of insulin; Z79.899 Other long term (current) drug therapy
CPT/HCPCS: 71045; 80048; 83880; 84484; 85025; 93005; 94640; 99285; A4216

== ENCOUNTER 2018-10-05 11:10 | Day surgery (SDC) | payer MEDICARE, SELFPAY ==
[2018-10-05 11:34] VITALS: BP 121/55; PULSE 72; RESP 18; TEMP 36.1; O2SAT 99; BMI 64.0
[2018-10-05 11:50] LABS: Bedside Glucose 166 mg/dL (70-110)
--- NOTE | 2018-10-05 14:50 | RAD_ITS ---
PROCEDURE: RIGHT SACROILIAC JOINT INJECTION INDICATION: Female, 52 years old. No clinical history provided. PHYSICIAN: Syd Kowalski MD FLUOROSCOPY TIME (if supplied): 15.2 second. A single fluoroscopic spot view is submitted. RADIATION DOSAGE (If Supplied By Facility): 12.68 mGy TECHNIQUE: Fluoroscopic assistance was provided to Dr. Kowalski. Image demonstrates a needle directed to the inferior margin of the right sacroiliac joint. Mild vague increased density over the mid sacroiliac joint raises question of degenerative subarticular sclerosis versus contrast injection through the needle. RAD/Fluoro Guided Needle Placement IMPRESSION: Fluoroscopic guidance for right sacroiliac joint injection. Electronically Signed: Perez Padron MD at 19:39 EDT , Service support ,
[2018-10-05] MEDS: Bupivacaine 0.25% 30 ML Vial (14:53)
[2018-10-05] MEDS: Triamcinolone Acetonide 40 MG/ML Vial (14:53)
--- NOTE | 2018-10-05 14:55 | RAD_ITS ---
PROCEDURE: LEFT SACROILIAC JOINT INJECTION INDICATION: Female, 52 years old. No clinical history provided. PHYSICIAN: Syd Kowalski MD FLUOROSCOPY TIME (if supplied): 15.2 second. Single fluoroscopic spot view is submitted. RADIATION DOSAGE (If Supplied By Facility): 12.68 mGy TECHNIQUE: Fluoroscopic assistance was provided to Dr. Kowalski. Image demonstrates a needle directed to the inferior margin of the left sacroiliac joint. There is mild hyperlucency within the inferior aspect of the left sacroiliac joint that may reflect infusion of small volume of gas. RAD/Fluoro Guided Needle Placement IMPRESSION: Fluoroscopic guidance for left sacroiliac joint injection. Electronically Signed: Perez Padron MD at 19:25 EDT , Service support ,
[2018-10-05 15:00] VITALS: BP 109/83; BP 121/55; PULSE 63; RESP 18; TEMP 36.8; O2SAT 100
[2018-10-05 15:05] VITALS: BP 121/55; BP 131/85; PULSE 57; RESP 18; O2SAT 99
[2018-10-05 15:10] VITALS: BP 121/55; BP 132/95; PULSE 69; RESP 18; O2SAT 98
[2018-10-05 15:15] VITALS: BP 121/55; BP 123/63; PULSE 67; RESP 18; TEMP 36.9; O2SAT 99
[2018-10-05 15:34] VITALS: BP 121/55
== END 2018-10-05 15:35 | disposition home or self-care (01) ==
LOC: SDC 11:11 → AC 11:13
PROVIDERS: Family Provider Family Medicine; Referring Provider Anesthesiology Pain Medicine; Visit Provider Anesthesiology Pain Medicine
PROC: 3E0U3GC Introduction of Other Therapeutic Substance into Joints, Percutaneous Approach (ICD-10-PCS; CPT 27096; principal; 2018-10-05 12:25)
DX: M46.1 Sacroiliitis, not elsewhere classified (principal); M51.37 Other intervertebral disc degeneration, lumbosacral region; I45.10 Unspecified right bundle-branch block; I10 Essential (primary) hypertension; E11.9 Type 2 diabetes mellitus without complications; E78.00 Pure hypercholesterolemia, unspecified; F32.9 Major depressive disorder, single episode, unspecified; F41.9 Anxiety disorder, unspecified; K21.9 Gastro-esophageal reflux disease without esophagitis; G47.30 Sleep apnea, unspecified; G25.81 Restless legs syndrome; G43.909 Migraine, unspecified, not intractable, without status migrainosus; M19.90 Unspecified osteoarthritis, unspecified site; Z95.5 Presence of coronary angioplasty implant and graft; Z79.82 Long term (current) use of aspirin; Z79.4 Long term (current) use of insulin; Z79.899 Other long term (current) drug therapy; Z87.891 Personal history of nicotine dependence
CPT/HCPCS: 27096; 76000; 77002; 82962; J7120

== ENCOUNTER → 2019-05-07 13:19 | Outpatient (CLI) | payer MEDICARE, SELFPAY ==
[2019-04-16 12:53] VITALS: BMI 67.2
--- NOTE | 2019-05-07 13:20 | ECHOCS_ITS ---
Reason For Study: RAMON Procedure This was a 2D Doppler, Color Flow transthoracic echocardiogram. The study was technically difficult. Exam performed in department. Left Ventricle Normal LV size. The estimated ejection fraction is 65 %. No evidence for diastolic dysfunction. No regional wall motion abnormalities noted. Right Ventricle Normal RV size. Normal systolic function. Atria Normal left atrium. Normal right atrium. No doppler evidence for ASD. Mitral Valve There is no mitral valve stenosis. No mitral valve insufficiency. Tricuspid Valve There is no tricuspid stenosis. No tricuspid valve insufficiency. Unable to estimate RV systolic pressure due to insufficient tricuspid regurgitant envelope. Aortic Valve There is no aortic stenosis. No aortic valve insufficiency. Pulmonic Valve There is no pulmonic valvular stenosis. No pulmonic valve insufficiency. Great Vessels Normal aortic root. Pericardium/Pleural No pericardial effusion. Medication 22 gauge I.V. with prn adaptor inserted into right arm. Diluted definity 3ml given slow IV push to enhance endocardial definition. MMode/2D Measurements & Calculations LVIDd: 4.1 cm IVSd: 1.3 cm Ao root diam: 2.5 cm LVIDs: 2.9 cm LVPWd: 1.3 cm FS: 28.7 % LAV(MOD-bp): 32.0 ml LA A4 area: 16.5 cm2 LA dimension(2D): 3.9 cm LAV(MOD-bp) Indexed: 14.2 ml/m2 LAV(MOD-sp2): 25.6 ml LAV(MOD-sp4): 40.3 ml RA A4 area: 12.9 cm2 Doppler Measurements & Calculations MV E max pete: 69.6 cm/sec Lat Peak E' Pete: 7.8 cm/sec Med Peak E' Pete: 7.2 cm/sec MV A max ptee: 62.3 cm/sec E/E' lat: 9.0 E/E' med: 9.7 MV E/A: 1.1 Ao V2 max: 194.8 cm/sec LV V1 max: 140.1 cm/sec PA V2 max: 120.2 cm/sec Ao max P.2 mmHg LV V1 max P.9 mmHg Ao V2 mean: 125.1 cm/sec LV V1 mean P.1 mmHg Ao mean P.1 mmHg LV V1 mean: 95.4 cm/sec Ao V2 VTI: 34.3 cm LV V1 VTI: 26.5 cm Interpretation Summary The estimated ejection fraction is 65 %. No evidence for diastolic dysfunction. Diluted definity 3ml given slow IV push to enhance endocardial definition. The study was technically difficult. Ordering Physician: Peri Arriaga Referring Physician: Mike Prince Performed By: Maryam Gonzalez RDCS
== END ==
PROVIDERS: Family Provider Family Medicine; Referring Provider Specialist; Visit Provider Specialist
DX: I25.10 Atherosclerotic heart disease of native coronary artery without angina pectoris (principal); I10 Essential (primary) hypertension; R06.09 Other forms of dyspnea; R60.0 Localized edema
CPT/HCPCS: 93306; Q9957; A4216; C8929

== ENCOUNTER 2019-05-13 18:13 | Inpatient (IN) | payer MEDICARE, SELFPAY ==
[2019-04-16 12:53] VITALS: BMI 67.2
[2019-05-13 18:15] VITALS: BP 187/80; PULSE 85; RESP 20; TEMP 36.9; O2SAT 95; BMI 66.2
--- NOTE | 2019-05-13 18:30 | EKG12_ITS ---
Test Reason : DYSRHYTHMIA Blood Pressure : / mmHG Vent. Rate : 068 BPM Atrial Rate : 068 BPM P-R Int : 154 ms QRS Dur : 138 ms QT Int : 438 ms P-R-T Axes : 042 -08 015 degrees QTc Int : 465 ms Normal sinus rhythm Right bundle branch block Possible Lateral infarct , age undetermined , cannot be excluded Abnormal ECG Confirmed by HEATH ROSENBERG, JESÚS ([id number]), offline editor SKIP DEVINE ([id number]) on 05/15/2019 11:01:29 AM Referred By: KESHA Confirmed By:JESÚS JOE MD
[2019-05-13 18:41] VITALS: O2SAT 96
--- NOTE | 2019-05-13 18:47 | RAD_ITS ---
STUDY: X-RAY CHEST REASON FOR EXAM: Female, 53 years old. Short of breath. EKG changes. TECHNIQUE: 2 view chest. COMPARISON: 08/18/2018 chest radiograph. FINDINGS: No evidence of pneumonia, pulmonary edema, pneumothorax or pleural effusion. Cardiac silhouette, hilar and mediastinal contours with no acute findings. Heart size normal. Atherosclerosis of the thoracic aorta. Degenerative osseous changes with no acute osseous abnormality. Surgical clips right upper quadrant of the abdomen. RAD/Chest PA and Lateral IMPRESSION: No acute findings. Electronically Signed: Jayme Mckeon, at 19:11 EST Tel , Service support ,
--- NOTE | 2019-05-13 18:48 | ED.VISSUMM ---
- ER Visit Summary Date of Service: 05/13/19 Chief Complaint: Shortness of breath History of Present Illness: The patient is a 53 F who presents with shortness of breath that is been getting worse over the past 3 days. Patient states her breathing is worse with any exertion. Patient states her breathing improves somewhat with rest. Patient admits to a cough but denies any sputum production. Patient denies any rhinorrhea, sore throat, or ear pain. Patient denies any fevers or chills. Patient denies any chest pain. Patient does admit to some increased swelling in her lower extremities. Physical Examination: Vital signs are stable. Patient is afebrile. Patient is in no acute distress. Oral mucosa is pink and moist. Neck is supple. Trachea is midline. There is no JVD. Heart was regular rate and rhythm. Lungs are clear and equal bilaterally. Abdomen is soft and nontender. Extremities are intact. There is 2+ edema of the lower extremities. Cranial nerves II through XII are intact. There are no focal motor or sensory deficits noted. Test Results: EKG showed sinus rhythm with a rate of 68. There is right bundle branch block pattern noted. There are nonspecific ST-T wave changes noted in V2 which are new compared to previous EKG dated 08/18/2018. CBC and basic metabolic profile were essentially within normal limits. Troponin was normal. BNP was normal. UA and lateral chest x-ray was obtained. There is no acute cardiopulmonary process. This was interpreted by the radiologist and myself. Emergency Department Course and Treatment: Patient was maintained the telemetry monitor. Patient had episode of supraventricular tachycardia with a rate of 145. This converted back to a sinus rhythm spontaneously. Given the new subtle EKG changes and episode of SVT, I recommended to the patient that she be admitted to the hospital. Case was discussed with the hospitalist. Patient will be admitted for observation. Patient understood and was agreeable with the plan. All questions were answered. Disposition: Admit to hospital Impression: 1. SVT 2. EKG changes This note was generated with [email or web address] dictation software. It may contain incorrect words, spelling, and punctuation that were not noted in review of the chart prior to signing ED Disposition - Plan for ED Patient: Disposition: Acute Care Hospital [facility] Diagnosis: Paroxysmal SVT (supraventricular tachycardia), Acute electrocardiogram changes Referrals: Mike Prince [Primary Care Provider] -
[2019-05-13 19:11] LABS: Absolute Lymphocyte Count 2.74 X10^3/uL (0.83-4.51); Absolute Neutrophil Count 5.4 X10^3/uL (2.0-7.7); Basophil# 0.04 X10^3/uL; Basophil% 0.4 % (0-1); Eosinophil# 0.16 X10^3/uL; Eosinophils% 1.8 % (0-5); Hematocrit 44.5 % (37-47); Hemoglobin 14.4 g/dL (12.0-15.0); Lymphocyte # 2.74 X10^3/ul (4.0); Mean Corp Hgb Conc 32.4 g/dL (32-36); Mean Corpuscular Hgb 28.1 pg (27.0-32.0); Mean Corpuscular Volume 86.9 fL (81-99); Mean Platelet Vol. 9.3 fl (6.2-12.0); Monocyte# 0.76 X10^3/uL; Monocyte% 8.3 % (0-10); NRBC Flagged by Analyzer 0 % (0-5); Neutrophil % 59.1 % (47-70); Platelet Count 342 K/mm3 (150-450); RBC Distribution Width CV 14.6 % (11.6-14.6); RBC Distribution Width SD 46.6 fl (35.1-43.9); Red Blood Count 5.12 M/mm3 (4.2-5.4); White Blood Count 9.1 K/mm3 (4.4-11.0)
[2019-05-13 19:14] LABS: Anion Gap 4 (5-15); BUN 15 mg/dL (7-18); BUN/Creat Ratio 13.9 RATIO (10-20); Calcium,Total 9.3 mg/dL (8.5-10.1); Chloride 105 mmol/L (98-107); Creatinine, Serum 1.08 mg/dL (0.55-1.02); EST Glomerular Filtration Rate 56 mL/min (>60); Est Glom Filt Rate - Afr Amer 68 mL/min (>60); Estimated Creatinine Clearance 138.26 ml/min; Glucose 170 mg/dL (74-106); Potassium 3.4 mmol/L (3.5-5.1); Sodium Level 139 mmol/L (136-145)
[2019-05-13 19:49] LABS: BNP,B-Type NATRIURETIC PEPTIDE 27.6 pg/mL (0-100)
[2019-05-13 20:14] VITALS: BP 141/68; PULSE 77; RESP 22; O2SAT 96
--- NOTE | 2019-05-13 20:59 | PCM.HP.STD ---
Problem List (1) Paroxysmal SVT (supraventricular tachycardia) Status: Acute (2) Acute electrocardiogram changes Status: Acute (3) Morbid obesity Status: Chronic (4) Essential hypertension Status: Chronic (5) HLD (hyperlipidemia) Status: Chronic Qualifiers: History of Present Illness Date of Admission: 05/13/19 Chief Complaint: ekg changes, shortness of breath The patient is a 53 year old male patient with a past medical history of coronary artery disease, diabetes, hypertension, hyperlipidemia, anxiety depression, and obstructive sleep apnea presents the emergency room after visiting her primary care physician and found to have EKG changes in the office. Patient states over the past 3 days she has had increase in swelling of her lower extremities is accompanied by increasing shortness of breath with exertion. An EKG was done in the office which showed inverted T waves in the anterior leads V1 through V3. Also during her observation. In the emergency room she was found to go through a bout of supraventricular tachycardia that spontaneously converted. Laboratory studies reveal a white blood cell count of 9.1, hemoglobin 14.4, hematocrit 44.5, platelets 342, sodium 139, potassium 3.4, chloride 105, bicarb 30, BUN 15, creatinine 1.08, blood sugar 170, BNP 27.6, troponin negative, chest x-ray negative for acute findings. Patient denies chest pain at this present time and she will be admitted to progressive care unit for observation and further cardiac work-up Past Medical History Past Medical History (Chronic Problems): Chronic Problems (Last Reviewed 04/16/19 @ 13:26 by Peri Arriaga MD) Atherosclerosis of coronary artery of [place] heart without angina pectoris (Chronic) Xience 2.75 x 23 mm ANU to OM2 01/2010 Morbid obesity (Chronic) Essential hypertension (Chronic) HLD (hyperlipidemia) (Chronic) Medical History: Medical History (Last Reviewed 04/16/19 @ 13:26 by Peri Arriaga MD) Atherosclerosis of coronary artery of [place] heart without angina pectoris (Chronic) I25.10 Xience 2.75 x 23 mm ANU to OM2 01/2010 Morbid obesity (Chronic) E66.01 Essential hypertension (Chronic) I10 HLD (hyperlipidemia) (Chronic) E78.5 Anxiety and depression F41.9, F32.9 Cataracts, bilateral H26.9 Degenerative disc disease GERD (gastroesophageal reflux disease) K21.9 Hearing loss H91.90 Wears hearing aids Hypothyroidism E03.9 JEWELS on CPAP G47.33, Z99.89 Osteoarthritis M19.90 SVT (supraventricular tachycardia) I47.1 Seasonal allergies J30.2 Type 2 diabetes mellitus without complication E11.9 Vision problems H54.7 Acute bronchitis (Resolved) J20.9 Back problem M53.9 GI problem R19.8 Headache R51 History of kidney stones Z87.442 Hypokalemia (Resolved) E87.6 Kidney stones N20.0 Pneumonia J18.9 Crohn's disease K50.90 Anxiety and depression (Inactive) F41.8 Has been on treatment for a period of time. She feels she is doing better over time. No issues with thoughts of self harm or harming others. Diabetes type 2, controlled (Inactive) E11.9 Dx : 2007 Last exacerbation : DKA : 06/25 Hypoglycemic episode : never ER visit : 06/25 Type 2 diabetes mellitus (Inactive) E11.9 Labs obtained. Has checked Bg for this review. BG do climb after breakfast but also drop before dinner. Is doing better with checking her Bg. Did have an injection in her baack for pain control which did create mucher higher Bg for about one week Allergies isosorbide [From Imdur] Allergy (Severe, Verified 05/13/19 18:14) Diarrhea lisinopril [From Zestril] Allergy (Verified 05/13/19 18:14) Anaphylaxis metoprolol tartrate [From Lopressor] Allergy (Verified 05/13/19 18:14) Anaphylaxis bupropion [From Wellbutrin] Adverse Reaction (Verified 05/13/19 18:14) Other enalapril maleate [From Vasotec] Adverse Reaction (Verified 05/13/19 18:14) Swelling enalaprilat dihydrate [From Vasotec] Adverse Reaction (Verified 05/13/19 18:14) Swelling levetiracetam [From Keppra] Adverse Reaction (Verified 05/13/19 18:14) Swelling metformin Adverse Reaction (Verified 05/13/19 18:14) Diarrhea oxcarbazepine [From Trileptal] Adverse Reaction (Verified 05/13/19 18:14) Other tremors pregabalin [From Lyrica] Adverse Reaction (Verified 05/13/19 18:14) Abd cramps/diarrhea rofecoxib [From Vioxx] Adverse Reaction (Verified 05/13/19 18:14) Swelling Home Medications: Ambulatory Orders Medication Instructions Recorded Aspirin [Aspirin, Baby] 81 mg PO QODAY 07/21/14 Atorvastatin Calcium [Lipitor] 40 mg PO QHS 07/21/14 Carvedilol [Coreg (Beta Radha)] 25 mg PO BID 07/21/14 Furosemide [Lasix] 40 mg PO DAILY 07/21/14 Pantoprazole Sodium [Protonix] 40 mg PO BID 07/21/14 Ropinirole HCl [Requip] 0.5 mg PO QHS 07/21/14 Spironolactone [Aldactone] 25 mg PO DAILY 07/21/14 Nitroglycerin (INPATIENT USE) 0.4 mg SUBLINGUAL PRN PRN 03/30/17 [Nitrostat] cetirizine 10 mg tablet 10 mg PO DAILY 08/24/17 insulin aspart U-100 100 unit/mL See Rx Instructions SC TID ml 08/24/17 (3 mL) subcutaneous pen insulin detemir U-100 100 unit/mL 49 units SC BID ml 08/24/17 (3 mL) subcutaneous pen dapagliflozin 5 mg tablet 5 mg PO QAM 10/18/18 dicyclomine 20 mg tablet 20 mg PO Q6H PRN tab 10/18/18 diltiazem HCl 120 mg 120 mg PO DAILY 10/18/18 capsule,extended release 24 hr docusate sodium 100 mg capsule 100 mg PO DAILY PRN PRN 10/18/18 levothyroxine 25 mcg tablet 25 mcg PO DAILY 10/18/18 potassium chloride 10 mEq 10 meq PO DAILY cap 10/18/18 capsule,extended release Surgical History: Surgical History (Last Reviewed 04/16/19 @ 13:26 by Peri Arriaga MD) Presence of stent in coronary artery Z95.5 Xience 2.75 x 23 mm ANU to OM2 01/2010 History of bilateral salpingo-oophorectomy (BSO) Z90.79, Z90.722 and cystoscopy History of carpal tunnel release Z98.890 left History of cholecystectomy Z90.49 History of removal of cyst Z98.890 left foot History of toe surgery Z98.890 removal of 3rd toenail History of umbilical hernia repair Z98.890, Z87.19 Surgical History: - - PCI x 1, cholecystectomy, Partial Hysterectomy. Psychiatric History: Anxiety, Depression INSURANCE RISK MANAGER History: No pertinent INSURANCE RISK MANAGER history Smoking Status: Never smoker - *Family History Maternal Family History: Family History (Last Reviewed 04/16/19 @ 13:26 by Peri Arriaga MD) Sister Asthma Arthritis Diabetes Hypertension High cholesterol Heart disease Sleep apnea Brother Diabetes Hypertension CAD (coronary artery disease) Cancer Mother Diabetes Hypertension CVA (cerebral vascular accident) CAD (coronary artery disease) Grandmother Heart disease Father CVA (cerebral vascular accident) History Items: Diabetes, High Cholesterol, Heart Disease, Hypertension Paternal Family History: Family History (Last Reviewed 04/16/19 @ 13:26 by Peri Arriaga MD) Sister Asthma Arthritis Diabetes Hypertension High cholesterol Heart disease Sleep apnea Brother Diabetes Hypertension CAD (coronary artery disease) Cancer Mother Diabetes Hypertension CVA (cerebral vascular accident) CAD (coronary artery disease) Grandmother Heart disease Father CVA (cerebral vascular accident) History Items: Diabetes, High Cholesterol, Heart Disease, Hypertension Review of Systems Constitutional: Denies: Chills, Fever, Weight Change HEENT: Denies: Head Aches, Sinus Congestion, Sinus Drainage Cardiovascular: Reports: Edema. Denies: Chest Pain, Palpitations Respiratory: Reports: Shortness of breath upon exertion. Denies: Cough, Shortness of breath at rest, Sputum production Gastrointestinal: Denies: Abdominal Pain, Nausea, Vomiting Genitourinary: Denies: Dysuria Musculoskeletal: Denies: Joint Pain, Joint Tenderness Skin: Denies: Rash, Wounds Neurological: Denies: Numbness, Tingling, Focal weakness Psychiatric: Denies: Anxiety, Depression, Homicidal Ideations, Suicidal Ideations Hematologic/ Lymphatic: Denies: Easy Bruising, Easy Bleeding VTE Information - Inpt Only VTE Present on Admission: No VTE Mechan Device Prophylaxis: None VTE Pharm Prophylaxis ordered?: Yes Patient Problems: Active and Suspected Problems (Last Reviewed 04/16/19 @ 13:26 by Peri Arriaga MD) Paroxysmal SVT (supraventricular tachycardia) (Acute) Acute electrocardiogram changes (Acute) - Physical Exam Vitals/I&O's: Vital Signs Temp Pulse Resp BP Pulse Ox 98.5 F 77 22 H 141/68 H 96 05/13/19 18:15 05/13/19 20:14 05/13/19 20:14 05/13/19 20:14 05/13/19 20:14 Oxygen Flow Rate (L/min) 2 Oxygen Delivery Method Nasal Cannula Weight: 328 lb 0.765 oz Body Mass Index (BMI) 66.2 Finger Stick Blood Glucose 169 General: Alert, Oriented x3, Cooperative HEENT: Atraumatic, Normocephalic Neck: Supple Lungs: Clear to auscultation, Normal air movement Cardiovascular: Regular rate, Normal S1, Normal S2, No murmurs Abdomen: Bowel Sounds Present, Soft, Non Tender, Obese Extremities: Capillary Refill Less than 3 Seconds, Edema - 2+ Skin: No rashes Musculoskeletal: No Tenderness to Palpation of Joints or Extremities Neurological: Neuro grossly intact Psych/Mental Status: Normal Affect, Appropriate Laboratory Results 05/13/19 18:40: WBC 9.1, RBC 5.12, Hgb 14.4, Hct 44.5, MCV 86.9, MCH 28.1, MCHC 32.4, RDW Std Deviation 46.6 H, RDW Coeff of Veronica 14.6, Plt Count 342, MPV 9.3, Immature Gran % (Auto) 0.400, Neut % (Auto) 59.1, Lymph % (Auto) 30.0, [place] % (Auto) 8.3, Eos % (Auto) 1.8, Baso % (Auto) 0.4, Absolute Neuts (auto) 5.4, Absolute Lymphs (auto) 2.74, Nucleated RBC % 0 05/13/19 18:40: Sodium 139, Potassium 3.4 L, Chloride 105, Carbon Dioxide 30.0, Anion Gap 4 L, BUN 15, Creatinine 1.08 H, Estim Creat Clear Calc 138.26, Est GFR (MDRD) Af Amer 68, Est GFR (MDRD) Non-Af 56 L, BUN/Creatinine Ratio 13.9, Glucose 170 H, Calcium 9.3, Troponin I < 0.015 05/13/19 18:40: B-Natriuretic Peptide 27.6 Assessment/Plan All Active Problems (Last Reviewed 04/16/19 @ 13:26 by Peri Arriaga MD) Paroxysmal SVT (supraventricular tachycardia) (Acute) Acute electrocardiogram changes (Acute) Preop cardiovascular exam (Acute) Acute bronchitis (Resolved) Hypokalemia (Resolved) Chronic Problems (Last Reviewed 04/16/19 @ 13:26 by Peri Arriaga MD) Atherosclerosis of coronary artery of [place] heart without angina pectoris (Chronic) Xience 2.75 x 23 mm ANU to OM2 01/2010 Morbid obesity (Chronic) Essential hypertension (Chronic) HLD (hyperlipidemia) (Chronic) Plan 1. shortness of breath with exertion, edema, EKG changes?admit to progressive care unit for observation cycle cardiac markers, order nuclear exercise stress test for the a.m. patient states she thinks she can do the treadmill, CBC BMP in the morning 2. Diabetes?continue home medication 3. Hypertension?continue home medication 4. Anxiety and depression?call [facility] in the morning to find out her new SSRI 5. Obstructive sleep apnea?continue CPAP 6. DVT prophylaxis?low molecular weight heparin Code Visit OBSV E&M: [id number] Initial observation care L2
[2019-05-13 21:38] VITALS: BMI 65.6; BMI 66.3
[2019-05-13 21:42] VITALS: PULSE 68
[2019-05-13 21:45] VITALS: BP 153/48; PULSE 68; RESP 18; TEMP 36.7; O2SAT 98
[2019-05-13 22:00] VITALS: PULSE 68; RESP 18; O2SAT 98
[2019-05-13] MEDS: Pantoprazole Sodium 40 MG Tablet PO (22:02)
[2019-05-13] MEDS: Carvedilol 25 MG Tablet PO (22:02)
[2019-05-13] MEDS: Pramipexole Di-HCl 0.25 MG Tablet PO (22:02)
[2019-05-13] MEDS: Atorvastatin Calcium 40 MG Tablet PO (22:02)
[2019-05-13] MEDS: Insulin Lispro 100 UNIT/ML INSULN.PEN SC (22:09)
[2019-05-13 22:11] LABS: Bedside Glucose 218 mg/dL (70-110)
[2019-05-14] VITALS (12 sets, daily range): BP systolic 107–150; BP diastolic 60–73; PULSE 59–74; RESP 15–20; TEMP 36.3–36.6; O2SAT 97–100
[2019-05-14 04:46] LABS: Absolute Lymphocyte Count 2.53 X10^3/uL (0.83-4.51); Absolute Neutrophil Count 4.6 X10^3/uL (2.0-7.7); Basophil# 0.03 X10^3/uL; Basophil% 0.4 % (0-1); Eosinophil# 0.21 X10^3/uL; Eosinophils% 2.6 % (0-5); Hematocrit 41.7 % (37-47); Hemoglobin 13.1 g/dL (12.0-15.0); Lymphocyte # 2.53 X10^3/ul (4.0); Lymphocyte % 31.1 % (19-41); Mean Corp Hgb Conc 31.4 g/dL (32-36); Mean Corpuscular Hgb 27.4 pg (27.0-32.0); Mean Corpuscular Volume 87.2 fL (81-99); Mean Platelet Vol. 9.1 fl (6.2-12.0); Monocyte# 0.77 X10^3/uL; Monocyte% 9.5 % (0-10); NRBC Flagged by Analyzer 0 % (0-5); Neutrophil # 4.58 X10^3/uL (2.7-7.7); Neutrophil % 56.2 % (47-70); Platelet Count 297 K/mm3 (150-450); RBC Distribution Width CV 14.9 % (11.6-14.6); RBC Distribution Width SD 47.8 fl (35.1-43.9); Red Blood Count 4.78 M/mm3 (4.2-5.4); White Blood Count 8.1 K/mm3 (4.4-11.0)
[2019-05-14 05:19] LABS: Anion Gap 3 (5-15); BUN 14 mg/dL (7-18); BUN/Creat Ratio 14.8 RATIO (10-20); Calcium,Total 8.4 mg/dL (8.5-10.1); Chloride 106 mmol/L (98-107); Creatinine, Serum 0.95 mg/dL (0.55-1.02); EST Glomerular Filtration Rate 65 mL/min (>60); Est Glom Filt Rate - Afr Amer 79 mL/min (>60); Glucose 141 mg/dL (74-106); Potassium 3.4 mmol/L (3.5-5.1); Sodium Level 141 mmol/L (136-145); Thyroid Stim Hormone (TSH) 3.85 uIU/mL (0.358-3.74)
[2019-05-14] MEDS: Levothyroxine 25 MCG TABLET PO (05:51)
--- NOTE | 2019-05-14 05:55 | EKG12_ITS ---
Test Reason : AM EKG Blood Pressure : / mmHG Vent. Rate : 055 BPM Atrial Rate : 055 BPM P-R Int : 154 ms QRS Dur : 138 ms QT Int : 492 ms P-R-T Axes : 045 -08 008 degrees QTc Int : 470 ms Sinus bradycardia Right bundle branch block Abnormal ECG Confirmed by HEATH ROSENBERG, JESÚS ([id number]), editor publications SKIP DEVINE ([id number]) on 05/15/2019 11:43:34 AM Referred By: DR HARRIS Confirmed By:JESÚS JOE MD
[2019-05-14 07:00] LABS: Bedside Glucose 121 mg/dL (70-110)
[2019-05-14 07:51] LABS: Free T3 2.9 pg/mL (2.18-3.98); Magnesium 2.2 mg/dL (1.6-2.6); T4 Free Direct 1.15 ng/dL (0.76-1.46); T4 Total, Thyroxin 9.3 ug/dL (4.8-13.9)
--- NOTE | 2019-05-14 09:02 | STRESSREP ---
Stress Test Report Date: 05-14-2019 Procedure: Pharmacologic stress nuclear imaging study Indications: Shortness of breath/dyspnea on exertion; abnormal ECG; CAD; PCI Consent: Per the patient Procedure: The patient underwent pharmacologic (Regadenoson) evaluation with a peak heart rate of 86 beats per minute (52 %predicted maximal heart rate) and a peak blood pressure of 102/68 mmHg. The baseline ECG demonstrated sinus bradycardia; right bundle branch block. The peak pharmacologic ECG demonstrated continued right bundle branch block with nonspecific T wave abnormality. There were no cardiac dysrhythmias pretest, during pharmacologic infusion, or recovery. There was no complaint of chest discomfort during pharmacologic infusion or recovery. The examination was discontinued secondary to completion of protocol. Impression: 1. Pharmacologic (Regadenoson) evaluation 2. Peak pharmacologic ECG with continued right bundle branch block with nonspecific T wave abnormality. 3. There were no cardiac dysrhythmias pretest, during pharmacologic infusion, or recovery. 4. Nuclear images pending Myocardial perfusion imaging study: Technique: The patient was injected with 14.7 millicuries of technetium 99m Cardiolite and subsequently rest SPECT Cardiolite nuclear imaging was obtained in the horizontal long, vertical long, and short axis views. The patient underwent pharmacologic (Regadenoson) evaluation with a peak heart rate of 86 beats per minute (52 % percent predicted maximal heart rate) and a peak blood pressure of 102/68 mmHg. The patient was injected with 45.0 millicuries of technetium 99m Cardiolite and subsequently stress SPECT Cardiolite nuclear imaging was obtained in the horizontal long, vertical long, and short axis views. A gated Cardiolite study at peak stress was obtained. Interpretation: Rest and stress SPECT Cardiolite nuclear imaging status post realignment, normalization, and attenuation correction demonstrate at rest the appearance of relative uniform tracer uptake. Status post stress there is an area of diminished tracer uptake in portions of the distal anterolateral segments. There are similar type findings on the stress polar map images. There is end systolic thickening and brightening. The gated Cardiolite study demonstrates myocardial thickening and inward wall motion. The reported LVEF is 80 %. Impression: 1. Rest and stress SPECT Cardiolite nuclear imaging demonstrate myocardial perfusion changes concerning for an area of stress-induced myocardial ischemia in portions of the distal anterolateral segments. 2. The gated Cardiolite study reports an LVEF of 80 %. This note was generated with Dragon dictation software. It may contain incorrect words, spelling, and punctuation that were not noted in checking the note before signing.
[2019-05-14] MEDS: Pantoprazole Sodium 40 MG Tablet PO ×2 (11:01→21:32)
[2019-05-14] MEDS: Loratadine 10 MG Tablet PO (11:02)
[2019-05-14] MEDS: Carvedilol 25 MG Tablet PO ×2 (11:02→21:31)
[2019-05-14] MEDS: Furosemide 40 MG Tablet PO (11:02)
[2019-05-14] MEDS: dilTIAZem CD 120 MG Capsule PO (11:03)
[2019-05-14] MEDS: Spironolactone 25 MG Tablet PO (11:03)
[2019-05-14] MEDS: Empagliflozin 10 MG Tablet PO (11:17)
[2019-05-14] MEDS: Insulin Lispro 100 UNIT/ML INSULN.PEN SC ×3 (11:19→22:28)
[2019-05-14 11:35] LABS: Bedside Glucose 173 mg/dL (70-110)
--- NOTE | 2019-05-14 12:11 | PCM.PROGNOTE ---
Patient Problems: Active and Suspected Problems (Last Updated 05/14/19 @ 12:01 by Naresh Walls MD) Paroxysmal SVT (supraventricular tachycardia) (Acute) Acute electrocardiogram changes (Acute) Subjective: Chief complaint: Follow-up after admission for shortness of breath and questionable EKG changes as well as episode of SVT. Patient seen and examined. No acute events overnight. Today, she denied any shortness of breath or chest pain. She feels okay. He mentioned that over the last couple of weeks, she has been having episodes of shortness of breath with palpitation, lasts for several seconds and resolve spontaneously. During those episodes, she denied any chest pain, syncope or presyncope. At this time, her vital signs are stable. - Physical Exam Vitals/I&O's: Vital Signs Temp Pulse Resp BP Pulse Ox 97.8 F 65 15 124/73 H 98 05/14/19 10:57 05/14/19 10:57 05/14/19 10:57 05/14/19 10:57 05/14/19 11:27 Oxygen Flow Rate (L/min) 2 Oxygen Delivery Method Room Air Weight: 324 lb 15.382 oz Body Mass Index (BMI) 65.6 Finger Stick Blood Glucose 169 Intake and Output for Last 24 Hours 05/12/19 05/13/19 05/14/19 23:59 23:59 23:59 Intake Total 1160 / 1160 Balance 1160 / 1160 General: Alert, Oriented x3, Cooperative, No apparent distress HEENT: Atraumatic, PERRLA, EOMI, Normocephalic Oral: Moist Mucosa, No Gingival or Mucosal Lesions/ Ulcerations Neck: Supple, No JVD, Negative Carotid Bruits, Trachea Midline, Thyroid Normal Size and Texture Lungs: Clear to auscultation, Normal air movement, No rhonchi, No wheeze, No rales, Diminished Cardiovascular: Regular rate, Regular Rhythm, Normal S1, Normal S2, PMI Normal Abdomen: Bowel Sounds Present, Soft, Non Tender, Non-Distended, No Hepato-splenomegaly, Obese Extremities: No clubbing, No cyanosis, No edema Skin: No rashes, No breakdown Lymphatic: No Cervical, Supraclavicular, or Inguinal Adenopathy Neurological: Cranial nerves II-XII grossly intact, Motor Exam 5/5 strength throughout Psych/Mental Status: Normal Affect, Appropriate, Alert and oriented to time, place, person, mood and affect Laboratory Results 05/13/19 18:40: WBC 9.1, RBC 5.12, Hgb 14.4, Hct 44.5, MCV 86.9, MCH 28.1, MCHC 32.4, RDW Std Deviation 46.6 H, RDW Coeff of Veronica 14.6, Plt Count 342, MPV 9.3, Immature Gran % (Auto) 0.400, Neut % (Auto) 59.1, Lymph % (Auto) 30.0, [place] % (Auto) 8.3, Eos % (Auto) 1.8, Baso % (Auto) 0.4, Absolute Neuts (auto) 5.4, Absolute Lymphs (auto) 2.74, Nucleated RBC % 0 05/13/19 18:40: Sodium 139, Potassium 3.4 L, Chloride 105, Carbon Dioxide 30.0, Anion Gap 4 L, BUN 15, Creatinine 1.08 H, Estim Creat Clear Calc 138.26, Est GFR (MDRD) Af Amer 68, Est GFR (MDRD) Non-Af 56 L, BUN/Creatinine Ratio 13.9, Glucose 170 H, Calcium 9.3, Troponin I < 0.015 05/13/19 18:40: B-Natriuretic Peptide 27.6 05/13/19 21:53: Troponin I < 0.015 05/13/19 21:59: POC Glucose 218 H 05/14/19 00:38: Troponin I < 0.015 05/14/19 04:36: WBC 8.1, RBC 4.78, Hgb 13.1, Hct 41.7, MCV 87.2, MCH 27.4, MCHC 31.4 L, RDW Std Deviation 47.8 H, RDW Coeff of Veronica 14.9 H, Plt Count 297, MPV 9.1, Immature Gran % (Auto) 0.200, Neut % (Auto) 56.2, Lymph % (Auto) 31.1, [place] % (Auto) 9.5, Eos % (Auto) 2.6, Baso % (Auto) 0.4, Absolute Neuts (auto) 4.6, Absolute Lymphs (auto) 2.53, Nucleated RBC % 0 05/14/19 04:36: Sodium 141, Potassium 3.4 L, Chloride 106, Carbon Dioxide 32.0, Anion Gap 3 L, BUN 14, Creatinine 0.95, Estim Creat Clear Calc 155.70, Est GFR (MDRD) Af Amer 79, Est GFR (MDRD) Non-Af 65, BUN/Creatinine Ratio 14.8, Glucose 141 H, Calcium 8.4 L, TSH 3.85 H 05/14/19 04:36: Magnesium 2.2, Free T4 1.15, Thyroxine (T4) 9.3, Free T3 pg/dL 2.9 05/14/19 06:50: POC Glucose 121 H 05/14/19 11:06: POC Glucose 173 H Clinical Impression(s) from Imaging Studies Chest X-Ray 05/13/19 18:47 IMPRESSION: No acute findings. Electronically Signed: Jayme Mckeon, at 19:11 EST Tel , Service support , Current Medications Acetaminophen (Tylenol) 650 mg PO Q6H PRN PRN PRN Reason: Pain Score 1-10/Temp > 100.7 F Aspirin (Aspirin, Baby) 81 mg PO QODAY@0800 [facility] Atorvastatin Calcium (Lipitor) 40 mg PO QHS [facility] Last Admin: 05/13/19 22:02 Dose: 40 mg Documented by: Carvedilol (Coreg) 25 mg PO BID [facility] Last Admin: 05/14/19 11:02 Dose: 25 mg Documented by: Dicyclomine HCl (Bentyl) 20 mg PO Q6H PRN PRN Diltiazem HCl (Cardizem Cd) 120 mg PO DAILY [facility] Last Admin: 05/14/19 11:03 Dose: 120 mg Documented by: Docusate Sodium (Colace) 100 mg PO DAILY PRN PRN PRN Reason: Constipation Empagliflozin (Jardiance) 10 mg PO QAM [facility] Last Admin: 05/14/19 11:17 Dose: 10 mg Documented by: Enoxaparin Sodium (Lovenox) 40 mg SC DAILY [facility] Furosemide (Lasix) 40 mg PO DAILY [facility] Last Admin: 05/14/19 11:02 Dose: 40 mg Documented by: Glucagon () 1 mg IM .X1 PRN PRN Reason: Hypoglycemia Dextrose (Dextrose 10%-Water) 250 mls @ 999 mls/hr IV .Q16M PRN; Protocol PRN Reason: HYPOGLYCEMIA Sodium Chloride () 250 mls @ 15 mls/hr IV .[id number] PRN PRN Reason: Saline Flush Sodium Chloride () 250 mls @ 15 mls/hr IV .[id number] PRN PRN Reason: Additional IVPB Infusion Insulin Glargine (Lantus ([facility])) 49 units SC BID [facility] Last Admin: 05/14/19 11:17 Dose: 49 units Documented by: Insulin Human Lispro (Humalog Kwikpen ([facility])) 0 unit SC ACHS [facility]; Protocol Last Admin: 05/14/19 11:19 Dose: 2 units Documented by: Levothyroxine Sodium (Synthroid) 25 mcg PO DAILY@0600 [facility] Last Admin: 05/14/19 05:51 Dose: 25 mcg Documented by: Loratadine (Claritin) 10 mg PO DAILY [facility] Last Admin: 05/14/19 11:02 Dose: 10 mg Documented by: Nitroglycerin (Nitrostat) 0.4 mg SUBLINGUAL PRN PRN PRN Reason: chest pain Pantoprazole Sodium (Protonix) 40 mg PO BID [facility] Last Admin: 05/14/19 11:01 Dose: 40 mg Documented by: Potassium Chloride (K-Dur) 10 meq PO DAILY [facility] Last Admin: 05/14/19 11:02 Dose: 10 meq Documented by: Pramipexole Dihydrochloride (Mirapex) 0.25 mg PO QHS [facility] Last Admin: 05/13/19 22:02 Dose: 0.25 mg Documented by: Sodium Chloride () 10 - 40 ml IV UD PRN PRN Reason: SALINE FLUSH Spironolactone (Aldactone) 25 mg PO DAILY [facility] Last Admin: 05/14/19 11:03 Dose: 25 mg Documented by: Medical Necessity - Tobacco Use Smoking Status: Never smoker Tobacco Use: Non-smoker Assessment/Plan All Active Problems (Last Updated 05/14/19 @ 12:01 by Naresh Walls MD) Paroxysmal SVT (supraventricular tachycardia) (Acute) Acute electrocardiogram changes (Acute) This is a 53 years old female patient presented to the emergency room because of shortness of breath, found to have questionable EKG changes and she had episode of SVT and was admitted for evaluation. #1 shortness of breath/questionable EKG changes: EKG reviewed, no evidence of acute ischemic changes, revealed nonspecific T wave changes with PVCs. Troponin negative x3. Patient mentioned that she has been having intermittent episodes of shortness of breath with palpitation over the last couple of weeks, denies chest pain. Chest x-ray showed no acute findings. Her vital signs are stable. She will history of CAD status post stents. Repeat EKG from today reviewed, no acute segment changes. She underwent never stress test which reported as abnormal with evidence of area of stress-induced myocardial ischemia of the distal anterolateral segment. She is on aspirin, Plavix, statins, Coreg. Plan: Cardiology consult. #2 CAD status post stents x1: Plan as above, continue aspirin, statins, beta-blockers and Plavix. #3 type 2 diabetes mellitus: Blood sugar stable, continue Lantus twice daily, Jardiance and sliding scale. #4 hypertension: Blood pressure stable, continue Coreg and Aldactone. #5 hyperlipidemia: Continue statins. #6 hypothyroidism: Continue levothyroxine. TSH was slight elevated, T4 and T3 were normal. #7 Crohn's disease: Stable, no acute issues. Patient was on budesonide but she has been off it for the last 3 months and she has no symptoms. Denied abdominal pain, diarrhea or bloody stool. #8 DVT prophylaxis: Subcu Lovenox. This note was generated with Hum dictation software. It may contain incorrect words, spelling, and punctuation that were not noted in checking the note before signing. Code Visit OBSV E&M: 87098 Subsequent observation care L2
--- NOTE | 2019-05-14 14:22 | CON.PCM_ITS ---
Problem List (1) Abnormal stress test Status: Acute (2) CAD in [place] artery Status: Chronic (3) S/P PTCA (percutaneous transluminal coronary angioplasty) Status: Chronic (4) Paroxysmal SVT (supraventricular tachycardia) Status: Acute (5) HLD (hyperlipidemia) Status: Chronic Qualifiers: (6) Essential hypertension Status: Chronic (7) Type 2 diabetes mellitus Status: Chronic (8) Obstructive sleep apnea Status: Chronic (9) Morbid obesity Status: Chronic Reason for Consult Date of Consultation: 05/14/19 History of Present Illness: The patient is a 53 year [id number]-jja white female who has previously been diagnosed with underlying CAD, status post PCI-to the [id number], PSVT, hyperlipidemia, hypertension, diabetes mellitus, obstructive sleep apnea, and morbid obesity who presents for cardiovascular consultation based upon concerns of shortness of breath/dyspnea and an abnormal pharmacologic stress nuclear imaging study. She states her main concerns have been progressive shortness of breath/dyspnea and lower extremity edema. She was evaluated by her PCP and recommended to present to the hospital for further evaluation. She has been undergoing noninvasive evaluation thus far. This has included cardiac enzymes which have been negative. An ECG demonstrated sinus rhythm/sinus bradycardia with a right bundle branch block pattern. A chest x- ray interpreted by radiology was reported as demonstrating no acute findings. She underwent a pharmacologic stress nuclear imaging study. This raise concerns of an area of stress-induced myocardial ischemia in portions of the distal anterolateral segments. She was referred for additional cardiovascular consultation. She has denied any episodes of acute orthopnea or PND. She states she has had peripheral pitting edema. There has been no near syncope or syncope. She was noted to have telemetry recordings compatible with an underlying PSVT although she does not appear to recall any obvious palpitations or rapid heart rate sensations. There is been no near syncope or syncope. [] Past Medical History Allergies/Adverse Reactions: Allergies isosorbide [From Imdur] Allergy (Severe, Verified 05/13/19 21:44) Diarrhea lisinopril [From Zestril] Allergy (Verified 05/13/19 21:44) Anaphylaxis metoprolol tartrate [From Lopressor] Allergy (Verified 05/13/19 21:44) Anaphylaxis bupropion [From Wellbutrin] Adverse Reaction (Verified 05/13/19 21:44) Other enalapril maleate [From Vasotec] Adverse Reaction (Verified 05/13/19 21:44) Swelling enalaprilat dihydrate [From Vasotec] Adverse Reaction (Verified 05/13/19 21:44) Swelling levetiracetam [From Keppra] Adverse Reaction (Verified 05/13/19 21:44) Swelling metformin Adverse Reaction (Verified 05/13/19 21:44) Diarrhea oxcarbazepine [From Trileptal] Adverse Reaction (Verified 05/13/19 21:44) Other tremors pregabalin [From Lyrica] Adverse Reaction (Verified 05/13/19 21:44) Abd cramps/diarrhea rofecoxib [From Vioxx] Adverse Reaction (Verified 05/13/19 21:44) Swelling Home Medications: Ambulatory Orders Medication Instructions Recorded Aspirin [Aspirin, Baby] 81 mg PO QODAY 07/21/14 Atorvastatin Calcium [Lipitor] 40 mg PO QHS 07/21/14 Carvedilol [Coreg (Beta Radha)] 25 mg PO BID 07/21/14 Furosemide [Lasix] 40 mg PO DAILY 07/21/14 Pantoprazole Sodium [Protonix] 40 mg PO BID 07/21/14 Ropinirole HCl [Requip] 0.5 mg PO QHS 07/21/14 Spironolactone [Aldactone] 25 mg PO DAILY 07/21/14 Nitroglycerin (INPATIENT USE) 0.4 mg SUBLINGUAL PRN PRN 03/30/17 [Nitrostat] cetirizine 10 mg tablet 10 mg PO DAILY 08/24/17 insulin aspart U-100 100 unit/mL See Rx Instructions SC TID ml 08/24/17 (3 mL) subcutaneous pen insulin detemir U-100 100 unit/mL 49 units SC BID ml 08/24/17 (3 mL) subcutaneous pen dapagliflozin 5 mg tablet 5 mg PO QAM 10/18/18 dicyclomine 20 mg tablet 20 mg PO Q6H PRN tab 10/18/18 diltiazem HCl 120 mg 120 mg PO DAILY 10/18/18 capsule,extended release 24 hr docusate sodium 100 mg capsule 100 mg PO DAILY PRN PRN 10/18/18 levothyroxine 25 mcg tablet 25 mcg PO DAILY 10/18/18 potassium chloride 10 mEq 10 meq PO DAILY cap 10/18/18 capsule,extended release Past Medical History (Chronic Problems): Chronic Problems (Last Updated 05/14/19 @ 12:01 by Naresh Walls MD) CAD in [place] artery (Chronic) S/P PTCA (percutaneous transluminal coronary angioplasty) (Chronic) Hypothyroidism (Chronic) Obstructive sleep apnea (Chronic) Type 2 diabetes mellitus (Chronic) Atherosclerosis of coronary artery of [place] heart without angina pectoris (Chronic) Xience 2.75 x 23 mm ANU to OM2 01/2010 Morbid obesity (Chronic) Essential hypertension (Chronic) HLD (hyperlipidemia) (Chronic) Surgical History: - - PCI x 1, cholecystectomy, Partial Hysterectomy. 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 - *Family History Maternal Family History: Family History (Last Reviewed 04/16/19 @ 13:26 by Peri Arriaga MD) Sister Asthma Arthritis Diabetes Hypertension High cholesterol Heart disease Sleep apnea Brother Diabetes Hypertension CAD (coronary artery disease) Cancer Mother Diabetes Hypertension CVA (cerebral vascular accident) CAD (coronary artery disease) Grandmother Heart disease Father CVA (cerebral vascular accident) History Items: Diabetes, High Cholesterol, Heart Disease, Hypertension Paternal Family History: Family History (Last Reviewed 04/16/19 @ 13:26 by Peri Arriaga MD) Sister Asthma Arthritis Diabetes Hypertension High cholesterol Heart disease Sleep apnea Brother Diabetes Hypertension CAD (coronary artery disease) Cancer Mother Diabetes Hypertension CVA (cerebral vascular accident) CAD (coronary artery disease) Grandmother Heart disease Father CVA (cerebral vascular accident) History Items: Diabetes, High Cholesterol, Heart Disease, Hypertension Smoking Status: Never smoker Tobacco Use: Non-smoker Review of Systems - Review of Systems General: Denies: Fever, Night Sweats, Fatigue Cardiovascular: Reports: Shortness of Breath, Shortness of Breath with Exertion, Peripheral Edema. Denies: Chest Discomfort, Orthopnea, PND, Palpitations, Lightheadedness, Dizziness, Near Syncope, Syncope Respiratory: Denies: Cough, Sputum Production, Hemoptysis Gastrointestinal: Denies: Hematemesis, Hematochezia, Melena Genitourinary: Denies: Dysuria, Hematuria Skin: Denies: Rash Subjectve: This is a 53-year-old obese white female who appears to be resting comfortably at the moment in no acute distress. Objective: Vital Signs Temp Pulse Resp BP Pulse Ox 97.8 F 61 15 124/73 H 98 05/14/19 10:57 05/14/19 11:55 05/14/19 10:57 05/14/19 10:57 05/14/19 11:27 Oxygen Flow Rate (L/min) 2 Oxygen Delivery Method Room Air Weight: 324 lb 15.382 oz Body Mass Index (BMI) 65.6 Finger Stick Blood Glucose 169 Intake and Output for Last 24 Hours 05/12/19 05/13/19 05/14/19 23:59 23:59 23:59 Intake Total 1160 / 1160 Balance 1160 / 1160 General: Awake, Alert, Oriented x 3, Cooperative, No Acute Distress, Obese HEENT: Atraumatic, Normocephalic, PERRL, EOMI, Sclera Non Icteric Oral: Moist Mucosa Neck: Supple, Good ROM, No JVD Lungs: - - No obvious rales or rhonchi Cardiovascular: Regular Rhythm, Normal S1, Normal S2 Vascular: No Carotid Bruits Abdomen: Bowel Sounds Present, Soft, Non Tender Extremities: No edema Neurological: No Focal Motor or Sensory Deficit Psych/Mental Status: Appropriate 05/13/19 18:40: WBC 9.1, RBC 5.12, Hgb 14.4, Hct 44.5, MCV 86.9, MCH 28.1, MCHC 32.4, Plt Count 342, MPV 9.3, Immature Gran % (Auto) 0.400, Neut % (Auto) 59.1, Lymph % (Auto) 30.0, Miller % (Auto) 8.3, Eos % (Auto) 1.8, Baso % (Auto) 0.4, Absolute Neuts (auto) 5.4, Nucleated RBC % 0 05/13/19 18:40: Sodium 139, Potassium 3.4 L, Chloride 105, Carbon Dioxide 30.0, Anion Gap 4 L, BUN 15, Creatinine 1.08 H, Est GFR (MDRD) Af Amer 68, Est GFR (MDRD) Non-Af 56 L, BUN/Creatinine Ratio 13.9, Glucose 170 H, Calcium 9.3, Troponin I < 0.015 05/13/19 18:40: B-Natriuretic Peptide 27.6 05/13/19 21:53: Troponin I < 0.015 05/14/19 00:38: Troponin I < 0.015 05/14/19 04:36: WBC 8.1, RBC 4.78, Hgb 13.1, Hct 41.7, MCV 87.2, MCH 27.4, MCHC 31.4 L, Plt Count 297, MPV 9.1, Immature Gran % (Auto) 0.200, Neut % (Auto) 56.2, Lymph % (Auto) 31.1, Miller % (Auto) 9.5, Eos % (Auto) 2.6, Baso % (Auto) 0.4, Absolute Neuts (auto) 4.6, Nucleated RBC % 0 05/14/19 04:36: Sodium 141, Potassium 3.4 L, Chloride 106, Carbon Dioxide 32.0, Anion Gap 3 L, BUN 14, Creatinine 0.95, Est GFR (MDRD) Af Amer 79, Est GFR (MDRD) Non-Af 65, BUN/Creatinine Ratio 14.8, Glucose 141 H, Calcium 8.4 L 05/14/19 04:36: Magnesium 2.2 Rhythm: Sinus rhythm; PSVT EKG: As noted above ECHO: 05-10-19: Technically diminished quality study; left ventricle reported as normal with respect to systolic function with an LVEF at 65%; please see official report Stress Test: Stress Test Report Date: 05-14-2019 Procedure: Pharmacologic stress nuclear imaging study Indications: Shortness of breath/dyspnea on exertion; abnormal ECG; CAD; PCI Consent: Per the patient Procedure: The patient underwent pharmacologic (Regadenoson) evaluation with a peak heart rate of 86 beats per minute (52 %predicted maximal heart rate) and a peak blood pressure of 102/68 mmHg. The baseline ECG demonstrated sinus bradycardia; right bundle branch block. The peak pharmacologic ECG demonstrated continued right bundle branch block with nonspecific T wave abnormality. There were no cardiac dysrhythmias pretest, during pharmacologic infusion, or recovery. There was no complaint of chest discomfort during pharmacologic infusion or recovery. The examination was discontinued secondary to completion of protocol. Impression: 1. Pharmacologic (Regadenoson) evaluation 2. Peak pharmacologic ECG with continued right bundle branch block with nonspecific T wave abnormality. 3. There were no cardiac dysrhythmias pretest, during pharmacologic infusion, or recovery. 4. Nuclear images pending Myocardial perfusion imaging study: Technique: The patient was injected with 14.7 millicuries of technetium 99m Cardiolite and subsequently rest SPECT Cardiolite nuclear imaging was obtained in the horizontal long, vertical long, and short axis views. The patient underwent pharmacologic (Regadenoson) evaluation with a peak heart rate of 86 beats per minute (52 % percent predicted maximal heart rate) and a peak blood pressure of 102/68 mmHg. The patient was injected with 45.0 millicuries of technetium 99m Cardiolite and subsequently stress SPECT Cardiolite nuclear imaging was obtained in the horizontal long, vertical long, and short axis views. A gated Cardiolite study at peak stress was obtained. Interpretation: Rest and stress SPECT Cardiolite nuclear imaging status post realignment, normalization, and attenuation correction demonstrate at rest the appearance of relative uniform tracer uptake. Status post stress there is an area of diminished tracer uptake in portions of the distal anterolateral segments. There are similar type findings on the stress polar map images. There is end systolic thickening and brightening. The gated Cardiolite study demonstrates myocardial thickening and inward wall motion. The reported LVEF is 80 %. Impression: 1. Rest and stress SPECT Cardiolite nuclear imaging demonstrate myocardial perfusion changes concerning for an area of stress-induced myocardial ischemia in portions of the distal anterolateral segments. 2. The gated Cardiolite study reports an LVEF of 80 %. This note was generated with Spect[employer] dictation software. It may contain incorrect words, spelling, and punctuation that were not noted in checking the note before signing. Cardiac Cath/PCI: 02-02-2010: [facility] Per the report left main coronary artery normal; LAD no significant disease; LCx/OM1 90% stenosis; RCA reported as having stenosis greater than 50%; PCI of the LCx/OM1 system with a ANU CXR: As noted above: Please see official report Assessment/Plan 1. Abnormal stress nuclear imaging study The patient does have an abnormal stress nuclear imaging study. It is unclear whether this represents ongoing CAD with myocardial ischemia to explain her symptoms or whether this could be related to soft tissue attenuation/artifact based upon her morbid obesity, etc. At the present time based upon her cardiovascular history and her ongoing symptoms and her pharmacologic stress nuclear imaging findings it would be reasonable to continue to monitor her, continue cardiovascular medical therapy as deemed appropriate, and to proceed with further evaluation of her coronary anatomy with diagnostic cardiac catheterization. The procedure and risks were discussed with her. She was agreeable to this approach. In the interim she will continue medical management as deemed appropriate. 2. CAD status post PCI-remote Her previous cardiac catheterization/PCI report is as noted above. The present time she presents with symptoms of progressive shortness of breath and dyspnea mainly with exertional activity and an abnormal stress nuclear imaging study. Thus she will continue medical management and be referred for further evaluation with diagnostic cardiac catheterization. 3. Hyperlipidemia She will need to continue medical therapy as deemed appropriate. 4. Hypertension Her blood pressure will be monitored. Her medications can be adjusted as needed. 5. Diabetes mellitus She will continue under the care of internal medicine. 6. Obstructive sleep apnea She will continue evaluation care by internal medicine as deemed appropriate. 8. Morbid obesity She has been counseled on the need to manage diet and activity as well as her other medical conditions in attempt to bring her weight under better control to improve her overall cardiovascular risk factors/status. Comment: The above was discussed and reviewed with the patient and her primary piece goods packer Dr. Arriaga. This note was generated using a voice recognition system and there may be incorrect words, spelling or punctuation that were not noted when reviewing the office note prior to saving.
--- NOTE | 2019-05-14 14:30 | CASEMGMT ---
According to the [facility] website, the following are in-network tertiary facilities: [facility], [facility], [facility], [facility], [facility], [facility], [facility], and . Kei MARLOW CM
--- NOTE | 2019-05-14 14:54 | CASEMGMT ---
This RN SKYE to room with YUNG form at this time, explanation done-pt voices understanding, and signs YUNG form at this time. Original to chart and copy to pt at this time. Pt voices no further questions/concerns/needs at this time. SStaten ELE CHEUNG
[2019-05-14] MEDS: Clopidogrel Bisulfate 300 MG Tablet PO (15:41)
[2019-05-14 18:21] LABS: Bedside Glucose 234 mg/dL (70-110)
[2019-05-14] MEDS: Pramipexole Di-HCl 0.25 MG Tablet PO (21:32)
[2019-05-14] MEDS: Atorvastatin Calcium 40 MG Tablet PO (21:32)
[2019-05-14] MEDS: Acetaminophen 325 MG Tablet 650 MG PO (21:34)
[2019-05-14 23:01] LABS: Bedside Glucose 172 mg/dL (70-110)
--- NOTE | 2019-05-14 23:33 | CPS ---
PT STATES WANTS TO TRY 2-3 L/M VIA NC FOR TONIGHT AND IF HAVE TO BE HERE ANOTHER NIGHT WILL HAVE FAMILY BRING IN OWN
[2019-05-15] VITALS (26 sets, daily range): BP systolic 115–162; BP diastolic 58–94; PULSE 57–84; RESP 16–27; TEMP 36.4–36.7; O2SAT 92–100; BMI 65.4
[2019-05-15 05:15] LABS: Bedside Glucose 156 mg/dL (70-110)
[2019-05-15] MEDS: 0.9% Saline Lock 10 ML Syringe IV (05:40)
[2019-05-15] MEDS: Ondansetron 4 MG/2 ML Vial IV ×2 (05:40→17:32)
--- NOTE | 2019-05-15 05:55 | EKG12_ITS ---
Test Reason : AM Blood Pressure : / mmHG Vent. Rate : 054 BPM Atrial Rate : 054 BPM P-R Int : 162 ms QRS Dur : 134 ms QT Int : 466 ms P-R-T Axes : 047 -04 019 degrees QTc Int : 441 ms Sinus bradycardia Right bundle branch block Abnormal ECG When compared with ECG of 14-MAY-2019 06:05, MANUAL COMPARISON REQUIRED, DATA IS UNCONFIRMED Confirmed by ARNALDO SAUL ([id number]), newspaper photo editor SKIP DEVINE ([id number]) on 05/16/2019 11:24:12 AM Referred By: ISHAN Confirmed By:ARNALDO SAUL
[2019-05-15 06:14] LABS: Prothrombin Time (Protime)PT. 13.4 SECONDS (11.7-14.9)
[2019-05-15] MEDS: Clopidogrel Bisulfate 75 MG Tablet PO (06:15)
[2019-05-15] MEDS: Levothyroxine 25 MCG TABLET PO (06:15)
[2019-05-15] MEDS: Carvedilol 25 MG Tablet PO ×2 (06:15→21:52)
[2019-05-15] MEDS: Aspirin 81 MG TAB.CHEW PO (06:15)
[2019-05-15] MEDS: dilTIAZem CD 120 MG Capsule PO (06:15)
[2019-05-15] MEDS: Pantoprazole Sodium 40 MG Tablet PO ×2 (06:16→21:53)
[2019-05-15 06:36] LABS: Anion Gap 5 (5-15); BUN 15 mg/dL (7-18); BUN/Creat Ratio 15.6 RATIO (10-20); Calcium,Total 9.6 mg/dL (8.5-10.1); Chloride 105 mmol/L (98-107); Creatinine, Serum 0.96 mg/dL (0.55-1.02); EST Glomerular Filtration Rate 64 mL/min (>60); Est Glom Filt Rate - Afr Amer 77 mL/min (>60); Estimated Creatinine Clearance 154.07 ml/min; Glucose 169 mg/dL (74-106); Potassium 3.5 mmol/L (3.5-5.1); Sodium Level 139 mmol/L (136-145)
[2019-05-15 06:45] LABS: Bedside Glucose 162 mg/dL (70-110)
--- NOTE | 2019-05-15 08:31 | NURSING ---
Report called to matlab developer given to Mirna MARLOW
--- NOTE | 2019-05-15 11:00 | EKG12_ITS ---
Test Reason : POST PROCEDURE Blood Pressure : / mmHG Vent. Rate : 064 BPM Atrial Rate : 326 BPM P-R Int : 000 ms QRS Dur : 124 ms QT Int : 474 ms P-R-T Axes : 000 -17 016 degrees QTc Int : 489 ms Normal sinus rhythm Right bundle branch block Abnormal ECG No previous ECGs available Confirmed by ARNALDO SAUL ([id number]), manuscript editor SKIP DEVINE ([id number]) on 05/16/2019 11:24:57 AM Referred By: Iam GOTTLIEB Confirmed By:ARNALDO SAUL
--- NOTE | 2019-05-15 11:16 | CL.I_ITS ---
Patient Name: CHANTAL SINGH Study Date: 05/15/2019 Performing: Edmundo Arriaga MD Ht: 59.05 inches 150 cm : 1965 Wt: 324.08 lbs 147 kg Age: 53 Gender: female BSA: 2.27 PROCEDURE(S) PERFORMED [id number]/LV [id number] GUIDED ACCESS [id number] W OR WO PTCA, SINGLE CORONARY ARTERY CLINICAL PROFILE AND CO-MORBIDITIES Indications: Suspected CAD Heart Failure: None Stress/Imaging Stress Test w/SPECT MPI: Yes Result: Positive Intermediate Risk Stress Test with S PECT MPI: Positive Intermediate Risk CAD Presentations: Unstable angina. CONCLUSIONS CAD as described. Preserved EF. No significant or MR. Successful PCI of RCA with ANU RECOMMENDATIONS ASA Indefinitley Plavix for at least 12 months Follow up with primary manager of merchandising DESCRIPTION OF PROCEDURE The patient arrived to the procedure lab. The risks and benefits of the procedure as well as a full d escription of our services here and lack of surgical backup were fully explained to the patient and/o r their significant other prior to the catheterization. The Timeout was completed, verifying the danny ect patient and procedure. The patient's procedural site was prepped and draped in the usual fashion. Local anesthetic was given subcutaneously to right radial region with Lidocaine 2%. Using a modified Seldinger technique, and ultrasound guidance,arterial access was obtained via the right radial arter y, a 6Fr sheath was inserted.. LV to AO pullback pressures were then recorded. Left Coronary Artery selective angiography was performed in multiple views using a 5 Fr. JL3.5 catheter. Right Coronary Ar mary selective angiography was then performed in multiple views using a 5 Fr. JR 4 catheter. Left Yuan triculography was performed in [place] projection using a 5 Fr JR 4.The images were reviewed and options discussed. A decision was then made to proceed with an Intervention, IVUS or other adjunc t procedure. JR 4 Guide catheter was inserted and engaged into the RCA. BMW Guide wire was advanced to the RCA . 2.0 x 12 Emerge Balloon catheter was advanced across lesion in the right coronary, mid. Angiogram p erformed pre balloon dilatation. PTCA balloon inflated at 10 atms for 15 secs. PTCA balloon inflated at 10 atms for 8 secs. PTCA balloon inflated at 10 atms for 8 secs. Angiogram performed post balloon dilatation. 2.5 x 38 Synergy Drug Eluting stent was advanced across the lesion in the right coronary, mid. Angiogram performed pre stent deployment. Angiogram performed post stent deployment. 2.5 x 15 N C Emerge Balloon catheter was inserted post stent. Angiogram performed pre balloon dilatation. Angiog linad performed post balloon dilatation. The arterial sheath was pulled and a TR Band was applied for hemostasis 14cc air CORONARY ANGIOGRAPHY DOMINANCE: Co- Dominant LEFT HEART ASSESSMENT Left Ventricular Ejection Fraction: by LV Gram 70 % Normal LV wall motion LEFT MAIN: Angiographically normal LEFT ANTERIOR DESCENDING ARTERY: Previously placed stent is patent PROX LAD: 50 % Stenosis MID LAD: 60 % Stenosis CIRCUMFLEX ARTERY: Mild luminal irregularities RIGHT CORONARY ARTERY: 90 % Stenosis PROX RCA: 70 % Stenosis VALVE FINDINGS: No Aortic Valve Stenosis No Mitral Insufficency INTERVENTION INFORMATION LESION SITE: RCA (Mid) Lesion Complexity: High/C, chronic total occlusion: No, lesion at bifurcation: Yes, thrombus present: No, lesion length: 18 mm, culprit lesion: Yes, Previously treated lesion: No Pre Stenosis: 90 % Pre intervention HARRIETT flow: 3 PROCEDURE: Drug Eluting Stent with pre and post dilatation The stent was deployed to cover the proximal lesion in addition to the mid lesion. Post Stenosis: 0 % Post intervention HARRIETT flow: 3 Lesion Devices: Cardinal 6 Fr JR4 100cm Guide Catheter Garcia .014 BMW [place] Straight 190cm Haseeb Sci EMERGE MR 2.00x12 BALLOON Haseeb Sci Synergy MR ANU 2.50x38 Haseeb Sci NC EMERGE MR 2.50x15 BALLOON COMPLICATIONS No Complications PROCEDURE MEDICATIONS Fentanyl 50 mcg IV Versed 1 mg IV Oxygen: 2 L/min via nasal cannula Heparin given IA 05/15/2019 10:05:40 Heparin 6000 unit(s) IV 05/15/2019 10:21:08 Plavix 300 mg PO 05/15/2019 10:57:24 Verapamil 2.5mg, Ntg 100mcgs, 3000 units of Heparin given IA 05/15/2019 10:05:40 SUMMARY OF HEMODYNAMIC DATA Time AIR REST LV 140/-6, 0 10:08:47 LV 146/-8, -1 10:08:52 LVp 147/-7, 7 10:08:57 AOp 115/62 (77) 10:09:02 AO 116/64 (84) SA 10:09:11 LV 131/6, 25 10:15:18 LV 134/3, 0 10:15:23 LVp 129/6, 21 10:16:11 AOp 126/60 (88) 10:16:16 Signed By Edmundo Arriaga MD On 05/15/2019 11:15:47 Edmundo Arriaga MD
--- NOTE | 2019-05-15 11:38 | NURSING ---
Report called to ICU. Report given to ELE Adames.
[2019-05-15] MEDS: 0.9% Normal Saline 1,000 ML 75 ML IV (12:03)
[2019-05-15 12:20] LABS: Bedside Glucose 161 mg/dL (70-110)
--- NOTE | 2019-05-15 12:37 | PCM.PROGNOTE ---
Patient Problems: Active and Suspected Problems (Last Updated 05/14/19 @ 12:01 by Naresh Walls MD) Abnormal stress test (Acute) Paroxysmal SVT (supraventricular tachycardia) (Acute) Acute electrocardiogram changes (Acute) Subjective: Chief complaint: From after admission for shortness of breath, EKG changes as well as an episode of SVT, found to have abnormal stress test status post cardiac catheterization today. Patient seen and examined. No acute events overnight. Today, she denies any more shortness of breath, no chest pain. She denied palpitation, dizziness or lightheadedness. Her vitals are stable. - Physical Exam Vitals/I&O's: Vital Signs Temp Pulse Resp BP Pulse Ox 97.6 F L 60 19 H 162/74 H 100 05/15/19 12:00 05/15/19 12:00 05/15/19 12:00 05/15/19 12:00 05/15/19 12:00 Oxygen Flow Rate (L/min) 2 Oxygen Delivery Method Nasal Cannula Weight: 324 lb 15.382 oz Body Mass Index (BMI) 65.6 Finger Stick Blood Glucose 169 Intake and Output for Last 24 Hours 05/13/19 05/14/19 05/15/19 23:59 23:59 23:59 Intake Total 2109 Balance 2109 General: Alert, Oriented x3, Cooperative, No apparent distress HEENT: Atraumatic, PERRLA, EOMI, Normocephalic Oral: Moist Mucosa, No Gingival or Mucosal Lesions/ Ulcerations Neck: Supple, No JVD, Negative Carotid Bruits, Trachea Midline, Thyroid Normal Size and Texture Lungs: Clear to auscultation, Normal air movement, No rhonchi, No wheeze, No rales, Diminished Cardiovascular: Regular rate, Regular Rhythm, Normal S1, Normal S2 Abdomen: Bowel Sounds Present, Soft, Non Tender, Non-Distended, No Hepato-splenomegaly, Obese Extremities: No clubbing, No cyanosis, No edema Skin: No rashes, No breakdown Lymphatic: No Cervical, Supraclavicular, or Inguinal Adenopathy Neurological: Cranial nerves II-XII grossly intact, Neuro grossly intact Psych/Mental Status: Normal Affect, Appropriate, Alert and oriented to time, place, person, mood and affect Laboratory Results 05/14/19 18:12: POC Glucose 234 H 05/14/19 21:30: POC Glucose 172 H 05/15/19 05:08: POC Glucose 156 H 05/15/19 05:25: PT 13.4, INR 1.0 05/15/19 05:25: Sodium 139, Potassium 3.5, Chloride 105, Carbon Dioxide 29.0, Anion Gap 5, BUN 15, Creatinine 0.96, Estim Creat Clear Calc 154.07, Est GFR (MDRD) Af Amer 77, Est GFR (MDRD) Non-Af 64, BUN/Creatinine Ratio 15.6, Glucose 169 H, Calcium 9.6 05/15/19 06:23: POC Glucose 162 H 05/15/19 12:13: POC Glucose 161 H Current Medications Acetaminophen (Tylenol) 650 mg PO Q6H PRN PRN PRN Reason: Pain Score 1-10/Temp > 100.7 F Last Admin: 05/14/19 21:34 Dose: 650 mg Documented by: Aspirin (Aspirin, Baby) 81 mg PO QODAY@0800 [facility] Last Admin: 05/15/19 06:15 Dose: 81 mg Documented by: Atorvastatin Calcium (Lipitor) 40 mg PO QHS [facility] Last Admin: 05/14/19 21:32 Dose: 40 mg Documented by: Atropine Sulfate () 0.5 mg IV UD PRN PRN Reason: HR <50 bpm Carvedilol (Coreg) 25 mg PO BID [facility] Last Admin: 05/15/19 06:15 Dose: 25 mg Documented by: Clopidogrel Bisulfate (Plavix) 75 mg PO DAILY [facility] Last Admin: 05/15/19 06:15 Dose: 75 mg Documented by: Dicyclomine HCl (Bentyl) 20 mg PO Q6H PRN PRN Diltiazem HCl (Cardizem Cd) 120 mg PO DAILY [facility] Last Admin: 05/15/19 06:15 Dose: 120 mg Documented by: Docusate Sodium (Colace) 100 mg PO DAILY PRN PRN PRN Reason: Constipation Empagliflozin (Jardiance) 10 mg PO QAM [facility] Last Admin: 05/14/19 11:17 Dose: 10 mg Documented by: Enoxaparin Sodium (Lovenox) 40 mg SC DAILY [facility] Last Admin: 05/15/19 06:44 Dose: Not Given Documented by: Furosemide (Lasix) 40 mg PO DAILY [facility] Last Admin: 05/14/19 11:02 Dose: 40 mg Documented by: Glucagon () 1 mg IM .X1 PRN PRN Reason: Hypoglycemia Heparin Sodium (Beef Lung) (Heparin 500 Unit/5 Ml (100/Ml)) 500 unit IV UD PRN PRN Reason: HEPARIN FLUSH Dextrose (Dextrose 10%-Water) 250 mls @ 999 mls/hr IV .Q16M PRN; Protocol PRN Reason: HYPOGLYCEMIA Sodium Chloride () 250 mls @ 15 mls/hr IV .[id number] PRN PRN Reason: Saline Flush Sodium Chloride () 250 mls @ 15 mls/hr IV .[id number] PRN PRN Reason: Additional IVPB Infusion Sodium Chloride () 1,000 mls @ 0 mls/hr IV .Q0M DUSTIN Sodium Chloride () 1,000 mls @ 75 mls/hr IV .[id number] [facility] Last Admin: 05/15/19 12:03 Dose: 75 mls/hr Documented by: Insulin Glargine (Lantus ([facility])) 49 units SC BID [facility] Last Admin: 05/14/19 23:07 Dose: Not Given Documented by: Insulin Human Lispro (Humalog Kwikpen ([facility])) 0 unit SC ACHS [facility]; Protocol Last Admin: 05/15/19 06:46 Dose: Not Given Documented by: Levothyroxine Sodium (Synthroid) 25 mcg PO DAILY@0600 [facility] Last Admin: 05/15/19 06:15 Dose: 25 mcg Documented by: Loratadine (Claritin) 10 mg PO DAILY [facility] Last Admin: 05/14/19 11:02 Dose: 10 mg Documented by: Nitroglycerin (Nitrostat) 0.4 mg SUBLINGUAL PRN PRN PRN Reason: chest pain Ondansetron HCl (Zofran) 4 mg IV Q6H PRN PRN PRN Reason: NAUSEA Last Admin: 05/15/19 05:40 Dose: 4 mg Documented by: Pantoprazole Sodium (Protonix) 40 mg PO BID [facility] Last Admin: 05/15/19 06:16 Dose: 40 mg Documented by: Potassium Chloride (K-Dur) 10 meq PO DAILY [facility] Last Admin: 05/15/19 06:15 Dose: 10 meq Documented by: Pramipexole Dihydrochloride (Mirapex) 0.25 mg PO QHS [facility] Last Admin: 05/14/19 21:32 Dose: 0.25 mg Documented by: Sodium Chloride () 10 - 40 ml IV UD PRN PRN Reason: SALINE FLUSH Last Admin: 05/15/19 05:40 Dose: 10 ml Documented by: Sodium Chloride () 500 ml IV BOLUS PRN PRN Reason: VASO-VAGAL PROTOCOL Spironolactone (Aldactone) 25 mg PO DAILY [facility] Last Admin: 05/14/19 11:03 Dose: 25 mg Documented by: Medical Necessity - Tobacco Use Smoking Status: Never smoker Tobacco Use: Non-smoker Assessment/Plan All Active Problems (Last Updated 05/14/19 @ 12:01 by Naresh Walls MD) Abnormal stress test (Acute) Paroxysmal SVT (supraventricular tachycardia) (Acute) Acute electrocardiogram changes (Acute) This is a 53 years old female patient presented to the emergency room because of shortness of breath, found to have questionable EKG changes and she had episode of SVT and was admitted for evaluation. #1 Unstable angina/EKG changes/abnormal nuclear stress test: Status post cardiac catheterization, found to have 90% stenosis of the mid RCA, status post PTCA/ANU. She is on aspirin, Plavix, statins, Coreg. Troponin negative x3. Vital signs are stable. Chest x-ray showed no acute findings. Her vital signs are stable. Reportedly, patient had episode of SVT in the ED, heart rate went up to 160s and she returned back to normal sinus rhythm. She has been in sinus rhythm since then, heart rate stable. Serum electrolytes are normal. Cardiology on the case. Plan to continue same treatment. #2 CAD status post stents x1: Plan as above, continue aspirin, statins, beta-blockers and Plavix. #3 type 2 diabetes mellitus: Blood sugar stable, continue Lantus twice daily, Jardiance and sliding scale. #4 hypertension: Blood pressure stable, continue Coreg and Aldactone. #5 hyperlipidemia: Continue statins. #6 hypothyroidism: Continue levothyroxine. TSH was slight elevated, T4 and T3 were normal. #7 Crohn's disease: Stable, no acute issues. Patient was on budesonide but she has been off it for the last 3 months and she has no symptoms. #8 DVT prophylaxis: Subcu Lovenox. This note was generated with [employer] software. It may contain incorrect words, spelling, and punctuation that were not noted in checking the note before signing. Code Visit Inpatient E&M: 35804 Subs Hosp L2
[2019-05-15] MEDS: Spironolactone 25 MG Tablet PO (13:11)
[2019-05-15] MEDS: Empagliflozin 10 MG Tablet PO (13:12)
[2019-05-15] MEDS: Furosemide 40 MG Tablet PO (13:12)
[2019-05-15] MEDS: Loratadine 10 MG Tablet PO (13:12)
[2019-05-15] MEDS: Insulin Lispro 100 UNIT/ML INSULN.PEN SC ×3 (13:12→21:50)
--- NOTE | 2019-05-15 15:00 | CASEMGMT ---
RN CM SHADE MAKER CM to room to meet with patient for initial transition planning/care coordination assessment. ELE CHEUNG introduced self and role at [facility]. Pt voices understanding and consents to assessment at this time. Pt resting in bed in no distress at this time. Pt is A/O at this time and answers all questions appropriately. Care providers, pharmacy, and demographics verified/updated at this time. PCP: Dr Prince Specialists: Dr Arriaga--cardiology [facility]erred [facility]acy[facility] Insurance: [employer] [facility] Dual Prescription Benefit: Yes Living Will/HPOA: has both LW and HCPOA, who is her sister, Kiesha. Pt is going to try and have paperwork brought in to be placed on file @ [facility]. LNOK: 4 sisters and 1 brother Living Arrangements: Lives alone. Has Waiver program and has aides through [facility] Mon and Wed for 4 hrs each day to assist with bathing, dressing, grocery shopping, laundry, and cleaning. [facility] her sister assists w/bathing on days the aide is not there. [facility] has transit planning manager, Samina Conner. Silke SPENCE, made aware Transportation: Gets transportation through [employer] for appts. DME: [facility] has the following DME: shower chair, cane, grab bars, hand held shower, rollator, medical alert button, CPAP through [employer] in [place]. [facility] would like to get a regular walker. [facility] she did get her rollator through insurance. Was made aware that insurance will not cover for cost of standard walker in addition to the rollator. HHC/SNF: No hx of SNF. [facility] has had therapy through [facility] in the past. Denies need for HHC. [facility] plans on following up with Cardiac Rehab. Pt wishes to return home and [facility] has no concerns with going home at time of discharge. CM to follow for any further discharge planning/needs. Pt voices no further concerns/needs at this time. Advised pt to ask for CM if any further questions/concerns/needs arise. Voices understanding. PLAN: Home w/continuation of aides through [facility]. PCI 05/15. Anticipate home on Plavix and ASA. Cardiac Rehab when ready. Ana HURST RN, CM
--- NOTE | 2019-05-15 15:15 | CRPHASE1_ITS ---
Patient Communication PHII Cardiac Rehab Discussed with Patient:: Yes Guide to Cardiac Rehab Given to Patient:: Yes Cardiac Rehab Facility Choice List Given to Patient:: Yes - [facility] Choice Program [facility] CR PHII:: Communication Given to CR Career Placement Services Counselor:: Peri Arriaga PCP:: Mike Prince Sessions:: 36 sessions - 3 days/wk, 12 weeks Risk Factors/Lifestyle Smoking Status: Never smoker Hx Hypertension: Yes Hx Diabetes Mellitus Type 2: Yes Hx Metabolic Disorders: Yes Hx Dyslipidemia: Yes Hx Obesity: Yes Height: 1.5 m Weight:: 147.4 kg BMI: 65.4 Post-Menopausal: Yes ETOH: No Caffeine: Yes Substance Abuse: No Risk Factor for Sedentary Lifestyle: Highest Risk Family History: Family History (Last Reviewed 04/16/19 @ 13:26 by Peri Arriaga MD) Sister Asthma Arthritis Diabetes Hypertension High cholesterol Heart disease Sleep apnea Brother Diabetes Hypertension CAD (coronary artery disease) Cancer Mother Diabetes Hypertension CVA (cerebral vascular accident) CAD (coronary artery disease) Grandmother Heart disease Father CVA (cerebral vascular accident) Family History: Heart Disease, Hypertension, Pulmonary Disease Past Cardiac Illness: Coronary Artery Disease, Previous PCI w/Stent Phase I Education Given On:: [place], Nutrition, Antiplatelet medication, CHF, Smoking cessation, Diabetes - Type II Issues Affecting Care:: None Hospital Course Pain Description: Tightness Cardiac Cath Date:: 05/15/19 Medical/Surgical History Angina:: Yes Pulmonary:: Yes COPD:: Yes JEWELS:: Yes Diabetes Type II:: Yes Hypertension:: Yes Dyslipidemia:: Yes Thyroid:: Yes PTCA:: Yes Discharge/Home/Social Eval Discharge Disposition: Home Cardiac Rehabilitation Info Cardiac Rehabilitation Program Information: Cardiac Rehabilitation is important for patients like you who are recovering from a heart problem. Cardiac rehabilitation programs are recognized as integral to the continued care of the patient with coronary heart disease. The cardiac rehabilitation program is designed to optimize a patient's physical, psychological, and social functioning. Health manager primary care work in cardiac rehabilitation programs and assist you with getting the treatments you need to get stronger and healthier - like exercise, healthy eating habits, and medications. Cardiac rehabilitation has been show to help people with heart problems live longer and have better life enjoyment than people who do not go to cardiac rehabilitation. Please contact the Cardiac Rehabilitation Program at [facility] at in two weeks if you have not heard from them.
--- NOTE | 2019-05-15 15:27 | CASEMGMT ---
Social Work Per Yvette MARLOWCM, pt has services through the Waiver program. SW placed phone call to [employer] Samina Conner and VM left informing of pt hospitalization. Per pt, she has aid services Monday and Monday for 4 hours through [facility]. DARLENE Phillips
[2019-05-15 16:40] LABS: Bedside Glucose 209 mg/dL (70-110)
[2019-05-15] MEDS: Atorvastatin Calcium 40 MG Tablet PO (21:51)
[2019-05-15] MEDS: LORazepam 1 MG Tablet 2 MG PO (21:52)
[2019-05-15] MEDS: Pramipexole Di-HCl 0.25 MG Tablet PO (21:52)
[2019-05-15 22:05] LABS: Bedside Glucose 192 mg/dL (70-110)
[2019-05-16] VITALS (15 sets, daily range): BP systolic 95–142; BP diastolic 57–77; PULSE 62–81; RESP 15–26; TEMP 36.4–36.7; O2SAT 91–100
[2019-05-16 03:47] LABS: Hemoglobin 13.9 g/dL (12.0-15.0); Mean Corp Hgb Conc 31.6 g/dL (32-36); Mean Corpuscular Hgb 27.3 pg (27.0-32.0); Mean Corpuscular Volume 86.4 fL (81-99); Mean Platelet Vol. 8.9 fl (6.2-12.0); Platelet Count 304 K/mm3 (150-450); RBC Distribution Width CV 15.1 % (11.6-14.6); RBC Distribution Width SD 47.8 fl (35.1-43.9); Red Blood Count 5.09 M/mm3 (4.2-5.4); White Blood Count 9.5 K/mm3 (4.4-11.0)
[2019-05-16 05:05] LABS: ALB/GLOB Ratio 0.8 RATIO (0.9-2.4); AST(SGOT) 33 U/L (15-37); Alanine Aminotransfer ALT/SGPT 54 U/L (13-56); Albumin, Serum 3.1 g/dL (3.2-5.0); Alkaline Phosphatase 150 U/L (45-117); Anion Gap 7 (5-15); BUN 15 mg/dL (7-18); BUN/Creat Ratio 11.6 RATIO (10-20); Calcium,Total 8.4 mg/dL (8.5-10.1); Chloride 102 mmol/L (98-107); Creatinine, Serum 1.29 mg/dL (0.55-1.02); EST Glomerular Filtration Rate 46 mL/min (>60); Est Glom Filt Rate - Afr Amer 55 mL/min (>60); Estimated Creatinine Clearance 114.66 ml/min; Globulin 3.8 g/dL (2.2-4.2); Glucose 124 mg/dL (74-106); Potassium 3.8 mmol/L (3.5-5.1); Protein, Total 6.9 g/dL (6.4-8.2); Sodium Level 141 mmol/L (136-145)
[2019-05-16] MEDS: Levothyroxine 25 MCG TABLET PO (05:11)
[2019-05-16] MEDS: 0.9% Saline Lock 10 ML Syringe IV (05:12)
[2019-05-16 07:01] LABS: Bedside Glucose 147 mg/dL (70-110)
[2019-05-16] MEDS: Spironolactone 25 MG Tablet PO (09:27)
[2019-05-16] MEDS: Furosemide 40 MG Tablet PO (09:27)
[2019-05-16] MEDS: Loratadine 10 MG Tablet PO (09:27)
[2019-05-16] MEDS: Carvedilol 25 MG Tablet PO (09:27)
[2019-05-16] MEDS: Empagliflozin 10 MG Tablet PO (09:27)
[2019-05-16] MEDS: Clopidogrel Bisulfate 75 MG Tablet PO (09:27)
[2019-05-16] MEDS: Pantoprazole Sodium 40 MG Tablet PO (09:27)
[2019-05-16] MEDS: dilTIAZem CD 120 MG Capsule PO (09:27)
[2019-05-16] MEDS: Enoxaparin 40 MG/0.4 ML Syringe SC (09:28)
--- NOTE | 2019-05-16 09:30 | DCINST_ITS ---
- Discharge Diagnoses Current Active Problems: Current Active and Chronic Problems (Last Updated 05/14/19 @ 12:01 by Naresh Walls MD) Abnormal stress test (Acute) CAD in [place] artery (Chronic) S/P PTCA (percutaneous transluminal coronary angioplasty) (Chronic) Hypothyroidism (Chronic) Obstructive sleep apnea (Chronic) Type 2 diabetes mellitus (Chronic) Paroxysmal SVT (supraventricular tachycardia) (Acute) Acute electrocardiogram changes (Acute) You will use the following diet at home:: Calorie/Carbohydrate Controlled (specify 1200, 1400, etc) - 1800 tyrese., Cardiac Your food should be the consistency of: Regular Discharge Activity: Return to Normal Activity Weight Bearing Status: Weight bearing as tolerated Call your doctor if you observe: Fever of 101 or Higher, Shortness of breath, Dizziness, Fainting spells, Swelling in the ankles, Chest pain, Increased palpitations (irregular heartbeat), Uncontrolled pain Instructions: Coronary Stents Allergies/Adverse Reactions: Allergies isosorbide [From Imdur] Allergy (Severe, Verified 05/13/19 21:44) Diarrhea lisinopril [From Zestril] Allergy (Verified 05/13/19 21:44) Anaphylaxis metoprolol tartrate [From Lopressor] Allergy (Verified 05/13/19 21:44) Anaphylaxis bupropion [From Wellbutrin] Adverse Reaction (Verified 05/13/19 21:44) Other enalapril maleate [From Vasotec] Adverse Reaction (Verified 05/13/19 21:44) Swelling enalaprilat dihydrate [From Vasotec] Adverse Reaction (Verified 05/13/19 21:44) Swelling levetiracetam [From Keppra] Adverse Reaction (Verified 05/13/19 21:44) Swelling metformin Adverse Reaction (Verified 05/13/19 21:44) Diarrhea oxcarbazepine [From Trileptal] Adverse Reaction (Verified 05/13/19 21:44) Other tremors pregabalin [From Lyrica] Adverse Reaction (Verified 05/13/19 21:44) Abd cramps/diarrhea rofecoxib [From Vioxx] Adverse Reaction (Verified 05/13/19 21:44) Swelling Medications to take at Discharge Aspirin [Aspirin, Baby] 81 mg PO QODAY 07/21/14 Atorvastatin Calcium [Lipitor] 40 mg PO QHS 07/21/14 Carvedilol [Coreg (Beta Radha)] 25 mg PO BID 07/21/14 Furosemide [Lasix] 40 mg PO DAILY 07/21/14 Pantoprazole Sodium [Protonix] 40 mg PO BID 07/21/14 Ropinirole HCl [Requip] 0.5 mg PO QHS 07/21/14 Spironolactone [Aldactone] 25 mg PO DAILY 07/21/14 Nitroglycerin (INPATIENT USE) [Nitrostat] 0.4 mg SUBLINGUAL PRN PRN 03/30/17 cetirizine 10 mg tablet 10 mg PO DAILY 08/24/17 insulin aspart U-100 100 unit/mL (3 mL) subcutaneous pen See Rx Instructions SC TID ml 08/24/17 insulin detemir U-100 100 unit/mL (3 mL) subcutaneous pen 49 units SC BID ml 08/24/17 dapagliflozin 5 mg tablet 5 mg PO QAM 10/18/18 dicyclomine 20 mg tablet 20 mg PO Q6H PRN tab 10/18/18 diltiazem HCl 120 mg capsule,extended release 24 hr 120 mg PO DAILY 10/18/18 docusate sodium 100 mg capsule 100 mg PO DAILY PRN PRN 10/18/18 levothyroxine 25 mcg tablet 25 mcg PO DAILY 10/18/18 potassium chloride 10 mEq capsule,extended release 10 meq PO DAILY cap 10/18/18 Clopidogrel Bisulfate [Plavix] 75 mg PO DAILY #90 tab 05/16/19 The following prescriptions were given: Clopidogrel Bisulfate [Plavix] 75 mg PO DAILY #90 tab Transmission Status: Pending to [facility], [place] - [place] - [address] Primary Care Physician: Mike Prince [Primary Care Provider] - Please follow up with your Primary Care Physician in: 1-2 weeks. Test Results: Test results from this visit will be discussed in further detail at your follow- up appointment, if applicable. Please Follow Up With: Genaro Bueno Please Follow Up With: meena When: 2-4 weeks.
--- NOTE | 2019-05-16 09:57 | CASEMGMT ---
Social Work VM left with Samina Conner at [facility] to inform her that pt is being discharged on this date. DARLENE Phillips
--- NOTE | 2019-05-16 10:00 | EKG12_ITS ---
Test Reason : CP Blood Pressure : / mmHG Vent. Rate : 064 BPM Atrial Rate : 064 BPM P-R Int : 166 ms QRS Dur : 132 ms QT Int : 450 ms P-R-T Axes : 040 -14 007 degrees QTc Int : 464 ms Normal sinus rhythm Right bundle branch block Possible Lateral infarct (cited on or before 18-MAY-2019) Abnormal ECG Confirmed by BULL ROSENBERG, DAVID ([id number]), purchase request editor NETTE BURNETT ([id number]) on 05/24/2019 10:01:35 AM Referred By: RAJIV Confirmed By:ARTURO GOTTLIEB MD
--- NOTE | 2019-05-16 13:10 | DS.PCM_ITS ---
Discharge Date and Diagnosis Date of Admission: 05/13/19 Date of Discharge: 05/16/19 - Primary Discharge Diagnosis Active and Suspected Problems (Last Updated 05/14/19 @ 12:01 by Naresh Walls MD) Unstable angina, status post cardiac catheterization, found to have 90% stenosis of the mid RCA, status post PTCA/ANU. - Secondary Discharge Diagnosis Chronic Problems (Last Updated 05/14/19 @ 12:01 by Naresh Walls MD) CAD in [place] artery (Chronic) S/P PTCA (percutaneous transluminal coronary angioplasty) (Chronic) Hypothyroidism (Chronic) Obstructive sleep apnea (Chronic) Type 2 diabetes mellitus (Chronic) Atherosclerosis of coronary artery of [place] heart without angina pectoris (Chronic) Xience 2.75 x 23 mm ANU to OM2 01/2010 Morbid obesity (Chronic) Essential hypertension (Chronic) HLD (hyperlipidemia) (Chronic) Hospital Course and Treatment Imaging Results: Clinical Impression(s) from Imaging Studies Chest X-Ray 05/13/19 18:47 IMPRESSION: No acute findings. Electronically Signed: Jayme Mckeon, at 19:11 EST Tel , Service support , Dr. Arriaga, cardiology. Operations: None Procedures: Cardiac catheterization, EKG, Stress test Summary of Care Provided: Patient seen and examined on the day of discharge and appeared to be stable to discharge home. She denied any more shortness of breath. Denied chest pain. She needed some oxygen without evidence of cardiac arrhythmias. Her vital signs are stable. The patient is a 53 year old F patient presented to the emergency room because of shortness of breath and she was found to have questionable EKG changes and she had an episode of SVT while in the ED. Her EKG revealed no evidence of significant acute ischemic changes. She had one episode when her heart rate went up to 160s and she was in SVT but she returned back to normal sinus rhythm spontaneously. Her troponin was negative x3. Chest x-ray showed no acute findings. She underwent nuclear stress test that was reported as abnormal with an area of stress-induced myocardial ischemia in the distal veronica-lateral segments with gated ejection fraction of 80%. Cardiology was consulted and patient underwent cardiac catheterization. She was found to have 90% stenosis of the mid RCA and she had placement of drug eluting stent to mid RCA. She was treated with aspirin, Plavix, statins and Coreg. Her routine blood work was unremarkable and her electrolytes was normal. TSH was minimally elevated but free T4, total T4 and free T3 were normal. After treatment, patient had no more symptoms and she remained in sinus rhythm. Her vital signs remained stable. Patient discharged home in a stable condition, discharged on aspirin, Plavix, Lipitor, Coreg, continued on her other previous home medications without any changes, plan to follow-up with cardiology in 2 to 4 weeks, recommended follow- up with PCP in 1 to 2 weeks. - Physical Exam Vitals/I&O's: Vital Signs Temp Pulse Resp BP Pulse Ox 98.0 F 75 16 122/75 H 98 05/16/19 11:36 05/16/19 11:36 05/16/19 11:36 05/16/19 11:36 05/16/19 11:36 Oxygen Flow Rate (L/min) 3 Oxygen Delivery Method Room Air Weight: 324 lb 15.382 oz Body Mass Index (BMI) 65.6 Finger Stick Blood Glucose 169 Intake and Output for Last 24 Hours 05/14/19 05/15/19 05/16/19 23:59 23:59 23:59 Intake Total 2109 945 / 945 120 / 120 Balance 2109 945 / 945 120 / 120 General: Alert, Oriented x3, Cooperative, No apparent distress HEENT: Atraumatic, PERRLA, EOMI, Normocephalic Oral: Moist Mucosa, No Gingival or Mucosal Lesions/ Ulcerations Neck: Supple, No JVD, Negative Carotid Bruits, Trachea Midline, Thyroid Normal Size and Texture Lungs: Clear to auscultation, Normal air movement, No rhonchi, No wheeze, No rales, Diminished Cardiovascular: Regular rate, Regular Rhythm, Normal S1, Normal S2, PMI Normal Abdomen: Bowel Sounds Present, Soft, Non Tender, Non-Distended, No Hepato- splenomegaly, Obese Extremities: No clubbing, No cyanosis, No edema Skin: No rashes, No breakdown Lymphatic: No Cervical, Supraclavicular, or Inguinal Adenopathy Neurological: Cranial nerves II-XII grossly intact, Motor Exam 5/5 strength throughout Psych/Mental Status: Normal Affect, Appropriate Laboratory Results 05/15/19 16:34: POC Glucose 209 H 05/15/19 21:48: POC Glucose 192 H 05/16/19 03:40: WBC 9.5, RBC 5.09, Hgb 13.9, Hct 44.0, MCV 86.4, MCH 27.3, MCHC 31.6 L, RDW Std Deviation 47.8 H, RDW Coeff of Veronica 15.1 H, Plt Count 304, MPV 8.9 05/16/19 03:40: Sodium 141, Potassium 3.8, Chloride 102, Carbon Dioxide 32.0, Anion Gap 7, BUN 15, Creatinine 1.29 H, Estim Creat Clear Calc 114.66, Est GFR (MDRD) Af Amer 55 L, Est GFR (MDRD) Non-Af 46 L, BUN/Creatinine Ratio 11.6, Glucose 124 H, Calcium 8.4 L, Total Bilirubin 0.40, AST 33, ALT 54, Alkaline Gisele sphatase 150 H, Total Protein 6.9, Albumin 3.1 L, Globulin 3.8, Albumin/Globulin Ratio 0.8 L 05/16/19 06:44: POC Glucose 147 H Current Medications Acetaminophen (Tylenol) 650 mg PO Q6H PRN PRN PRN Reason: Pain Score 1-10/Temp > 100.7 F Last Admin: 05/14/19 21:34 Dose: 650 mg Documented by: Aspirin (Aspirin, Baby) 81 mg PO QODAY@0800 [facility] Last Admin: 05/15/19 06:15 Dose: 81 mg Documented by: Atorvastatin Calcium (Lipitor) 40 mg PO QHS [facility] Last Admin: 05/15/19 21:51 Dose: 40 mg Documented by: Atropine Sulfate () 0.5 mg IV UD PRN PRN Reason: HR <50 bpm Carvedilol (Coreg) 25 mg PO BID [facility] Last Admin: 05/16/19 09:27 Dose: 25 mg Documented by: Clopidogrel Bisulfate (Plavix) 75 mg PO DAILY [facility] Last Admin: 05/16/19 09:27 Dose: 75 mg Documented by: Dicyclomine HCl (Bentyl) 20 mg PO Q6H PRN PRN PRN Reason: Irritable Bowel Syndrome Diltiazem HCl (Cardizem Cd) 120 mg PO DAILY [facility] Last Admin: 05/16/19 09:27 Dose: 120 mg Documented by: Docusate Sodium (Colace) 100 mg PO DAILY PRN PRN PRN Reason: Constipation Empagliflozin (Jardiance) 10 mg PO QAM [facility] Last Admin: 05/16/19 09:27 Dose: 10 mg Documented by: Enoxaparin Sodium (Lovenox) 40 mg SC DAILY [facility] Last Admin: 05/16/19 09:28 Dose: 40 mg Documented by: Furosemide (Lasix) 40 mg PO DAILY [facility] Last Admin: 05/16/19 09:27 Dose: 40 mg Documented by: Glucagon () 1 mg IM .X1 PRN PRN Reason: Hypoglycemia Heparin Sodium (Beef Lung) (Heparin 500 Unit/5 Ml (100/Ml)) 500 unit IV UD PRN PRN Reason: HEPARIN FLUSH Sodium Chloride () 1,000 mls @ 0 mls/hr IV .Q0M [facility] Insulin Glargine (Lantus (Bk)) 49 units SC BID [facility] Last Admin: 05/16/19 09:27 Dose: 49 units Documented by: Insulin Human Lispro (Humalog Kwikpen ([facility])) 0 unit SC ACHS [facility]; Protocol Last Admin: 05/16/19 07:34 Dose: Not Given Documented by: Levothyroxine Sodium (Synthroid) 25 mcg PO DAILY@0600 [facility] Last Admin: 05/16/19 05:11 Dose: 25 mcg Documented by: Loratadine (Claritin) 10 mg PO DAILY [facility] Last Admin: 05/16/19 09:27 Dose: 10 mg Documented by: Nitroglycerin (Nitrostat) 0.4 mg SUBLINGUAL PRN PRN PRN Reason: chest pain Ondansetron HCl (Zofran) 4 mg IV Q6H PRN PRN PRN Reason: NAUSEA Last Admin: 05/15/19 17:32 Dose: 4 mg Documented by: Pantoprazole Sodium (Protonix) 40 mg PO BID [facility] Last Admin: 05/16/19 09:27 Dose: 40 mg Documented by: Potassium Chloride (K-Dur) 10 meq PO DAILY [facility] Last Admin: 05/16/19 09:26 Dose: 10 meq Documented by: Pramipexole Dihydrochloride (Mirapex) 0.25 mg PO QHS [facility] Last Admin: 05/15/19 21:52 Dose: 0.25 mg Documented by: Sodium Chloride () 10 - 40 ml IV UD PRN PRN Reason: SALINE FLUSH Last Admin: 05/16/19 05:12 Dose: 20 ml Documented by: Spironolactone (Aldactone) 25 mg PO DAILY [facility] Last Admin: 05/16/19 09:27 Dose: 25 mg Documented by: Discharge Activity: Return to Normal Activity Weight Bearing Status: Weight bearing as tolerated Call your doctor if you observe: Fever of 101 or Higher, Shortness of breath, Dizziness, Fainting spells, Swelling in the ankles, Chest pain, Increased palpitations (irregular heartbeat), Uncontrolled pain Home Medications: Medications to take at Discharge Aspirin [Aspirin, Baby] 81 mg PO QODAY 07/21/14 Atorvastatin Calcium [Lipitor] 40 mg PO QHS 07/21/14 Carvedilol [Coreg (Beta Radha)] 25 mg PO BID 07/21/14 Furosemide [Lasix] 40 mg PO DAILY 07/21/14 Pantoprazole Sodium [Protonix] 40 mg PO BID 07/21/14 Ropinirole HCl [Requip] 0.5 mg PO QHS 07/21/14 Spironolactone [Aldactone] 25 mg PO DAILY 07/21/14 Nitroglycerin (INPATIENT USE) [Nitrostat] 0.4 mg SUBLINGUAL PRN PRN 03/30/17 cetirizine 10 mg tablet 10 mg PO DAILY 08/24/17 insulin aspart U-100 100 unit/mL (3 mL) subcutaneous pen See Rx Instructions SC TID ml 08/24/17 insulin detemir U-100 100 unit/mL (3 mL) subcutaneous pen 49 units SC BID ml 08/24/17 dapagliflozin 5 mg tablet 5 mg PO QAM 10/18/18 dicyclomine 20 mg tablet 20 mg PO Q6H PRN tab 10/18/18 diltiazem HCl 120 mg capsule,extended release 24 hr 120 mg PO DAILY 10/18/18 docusate sodium 100 mg capsule 100 mg PO DAILY PRN PRN 10/18/18 levothyroxine 25 mcg tablet 25 mcg PO DAILY 10/18/18 potassium chloride 10 mEq capsule,extended release 10 meq PO DAILY cap 10/18/18 Clopidogrel Bisulfate [Plavix] 75 mg PO DAILY #90 tab 05/16/19 Following Prescrptions Were Given to Patient: Clopidogrel Bisulfate [Plavix] 75 mg PO DAILY #90 tab Transmission Status: Received by [facility] - [place] - [id number] Primary Care Physician: Mike Prince [Primary Care Provider] - Please follow up with your Primary Care Physician in: 1-2 weeks. Please Follow Up With: Genaro Bueno Please Follow Up With: meena When: 2-4 weeks. Patient Instructions: Coronary Stents Disposition: Home Minutes spent on discharge:: 32 Patient Condition:: Stable Medical Necessity - Tobacco Use Smoking Status: Never smoker Tobacco Use: Non-smoker Meaningful Use Info Meaningful Use Diagnoses (Choose all that apply): None applicable Code Visit Inpatient E&M: 11510 Disch Hosp
--- NOTE | 2019-05-17 14:15 | CASEMGMT ---
ELE DC PHONE CALL DC DATE: 05.16.2019 DC Disposition: Home Diagnosis on Discharge: PCI STRATA: 3 Attempted call to phone. No answer and machine did not have name identifier. Belgica HURST RN ACM
== END 2019-05-16 13:00 | disposition home or self-care (01) | DRG 247 ==
LOC: ED 20:50 → PCU 21:20 → ICU 05-15 12:16
PROVIDERS: Internal Medicine; Specialist; Admitting Provider Family Medicine; Emergency Provider Emergency Medicine; Family Provider Family Medicine; Visit Provider Hospitalist
DX: I25.110 Atherosclerotic heart disease of native coronary artery with unstable angina pectoris (principal); Z68.44 Body mass index [BMI] 60.0-69.9, adult; I47.1 Supraventricular tachycardia; K50.90 Crohn's disease, unspecified, without complications; I10 Essential (primary) hypertension; E11.9 Type 2 diabetes mellitus without complications; E78.5 Hyperlipidemia, unspecified; E03.9 Hypothyroidism, unspecified; G47.33 Obstructive sleep apnea (adult) (pediatric); E66.01 Morbid (severe) obesity due to excess calories; R94.39 Abnormal result of other cardiovascular function study; Z79.890 Hormone replacement therapy; Z79.82 Long term (current) use of aspirin; Z79.4 Long term (current) use of insulin; Z79.899 Other long term (current) drug therapy
CPT/HCPCS: 36415; 71046; 76937; 78452; 80048; 80053; 82962; 83735; 83880; 84436; 84439; 84443; 84481; 84484; 85025; 85027; 85610; 92928; 93005; 93017; 93458; 94660; 99152; 99153; 99283; A9500; J7030; J7040; A4216; C1725; C1769; C1874; C1887; C1894; C9600; J2405; J2785; Q9967

== ENCOUNTER 2019-05-18 16:10 | Observation (INO) | payer MEDICARE, SELFPAY ==
[2019-05-13 21:38] VITALS: BMI 65.6
[2019-05-15 15:21] VITALS: BMI 65.4
[2019-05-18] VITALS (10 sets, daily range): BP systolic 123–161; BP diastolic 47–82; PULSE 64–76; RESP 18–22; TEMP 36.3–36.5; O2SAT 96–100; BMI 66.9; BMI 65.8; BMI 65.9
--- NOTE | 2019-05-18 16:22 | EKG12_ITS ---
Test Reason : WEAKNESS Blood Pressure : / mmHG Vent. Rate : 062 BPM Atrial Rate : 062 BPM P-R Int : 176 ms QRS Dur : 142 ms QT Int : 464 ms P-R-T Axes : 057 -17 011 degrees QTc Int : 470 ms Normal sinus rhythm Right bundle branch block Possible Lateral infarct , age undetermined Abnormal ECG Confirmed by HEATH ROSENBERG, JESÚS ([id number]), newspaper copy editor LOLA HERRING ([id number]) on 05/20/2019 10:05:07 AM Referred By: RAJIV Confirmed By:JESÚS JOE MD
--- NOTE | 2019-05-18 16:24 | RAD_ITS ---
STUDY: X-RAY CHEST REASON FOR EXAM: Female, 53 years old. SOB, WEAKNESS AND LEG SWELLING -- PT HAD HEART STENT PLACED 3 DAYS AGO TECHNIQUE: Single AP portable view of the chest. COMPARISON: 05/13/2019 FINDINGS: The lungs are clear and expanded. There is no demonstrated pleural abnormality. Normal size heart. Normal mediastinum and lakeisha. Normal visualized pulmonary arteries. Normal visualized aortic arch and descending thoracic aorta. Normal visualized thoracic spine. Normal visualized ribs, clavicles, and shoulders. There is no demonstrated abnormality of the visualized soft tissue structures of the upper abdomen. RAD/Chest 1 View (Portable) IMPRESSION: No acute pulmonary process Electronically Signed: Perez Reddy MD at 16:37 EST , Service support ,
[2019-05-18 16:32] LABS: Absolute Lymphocyte Count 2.34 X10^3/uL (0.83-4.51); Absolute Neutrophil Count 5.9 X10^3/uL (2.0-7.7); Basophil# 0.02 X10^3/uL; Basophil% 0.2 % (0-1); Eosinophil# 0.29 X10^3/uL; Eosinophils% 3.1 % (0-5); Hematocrit 45.6 % (37-47); Hemoglobin 14.4 g/dL (12.0-15.0); Lymphocyte # 2.34 X10^3/ul (4.0); Lymphocyte % 24.8 % (19-41); Mean Corp Hgb Conc 31.6 g/dL (32-36); Mean Corpuscular Hgb 27.7 pg (27.0-32.0); Mean Corpuscular Volume 87.9 fL (81-99); Mean Platelet Vol. 9.3 fl (6.2-12.0); Monocyte% 9.5 % (0-10); NRBC Flagged by Analyzer 0 % (0-5); Neutrophil # 5.86 X10^3/uL (2.7-7.7); Platelet Count 312 K/mm3 (150-450); RBC Distribution Width CV 14.7 % (11.6-14.6); Red Blood Count 5.19 M/mm3 (4.2-5.4); White Blood Count 9.5 K/mm3 (4.4-11.0)
[2019-05-18 16:49] LABS: Anion Gap 9 (5-15); BUN 24 mg/dL (7-18); BUN/Creat Ratio 20.5 RATIO (10-20); Calcium,Total 9.2 mg/dL (8.5-10.1); Chloride 103 mmol/L (98-107); Creatinine, Serum 1.17 mg/dL (0.55-1.02); EST Glomerular Filtration Rate 51 mL/min (>60); Est Glom Filt Rate - Afr Amer 62 mL/min (>60); Estimated Creatinine Clearance 128.82 ml/min; Glucose 232 mg/dL (74-106); Sodium Level 138 mmol/L (136-145)
--- NOTE | 2019-05-18 16:54 | ED.DCSUM_ITS ---
- ER Visit Summary Date of Service: 05/18/19 Chief Complaint: Dizzy, lightheaded, weak, short of breath History of Present Illness: The patient is a 53 F presents with weakness, dizziness, lightheadedness and short of breath. This started after she left the hospital. She was admitted for a stent placement. She has not had any chest pain with this. She admits to shortness of breath, worse with exertion. She is now on Plavix after the stent insertion. She is also on Lasix. She denies any falls or trauma. No fevers. Physical Examination: Vital signs reviewed. HEENT exam unremarkable. Heart is regular rate and rhythm without murmurs. Lungs are clear to auscultation. Abd omen is soft and nontender. Extremities reveal no edema. Skin exam normal. Neurologic exam normal. Test Results: EKG is normal sinus rhythm with right bundle branch block. Rate of 62. Nonspecific changes are noted. This is unchanged. Chest x-ray normal. Laboratory studies normal. Emergency Department Course and Treatment: The patient's work-up is fairly negative. She has a normal troponin, BNP, chest x-ray. Her EKG is unchanged. I discussed with Dr. Barry. We discussed the patient's work-up and the fact that it is negative. He states that the patient looks well that she can follow- up on Monday as scheduled. The patient ambulated in the emergency department with a walker which she normally does at home. She had no symptoms. She was not hypoxic. She is not tachycardic. I feel she can be discharged to continue her home medications. She will follow-up on Monday Treatment Plan: [] Disposition: Discharge Impression: Lightheaded This note was generated with [employer] dictation software. It may contain incorrect words, spelling, and punctuation that were not noted in review of the chart prior to signing ED Disposition - Plan for ED Patient: Referrals: Mike Prince [Primary Care Provider] -
--- NOTE | 2019-05-18 17:44 | ED.DEP ---
ED Disposition - Plan for ED Patient: Disposition: Home or Assisted Living Instructions: WEAKNESS, Unk Cause Referrals: Mike Prince [Primary Care Provider] -
--- NOTE | 2019-05-18 21:01 | PCM.HP.STD ---
Problem List (1) CAD in [place] artery Status: Chronic (2) Hypothyroidism Status: Chronic Qualifiers: Hypothyroidism type: unspecified Qualified Code(s): E03.9 - Hypothyroidism, unspecified (3) Obstructive sleep apnea Status: Chronic (4) Type 2 diabetes mellitus Status: Chronic Qualifiers: Diabetes mellitus intermediate project manager insulin use: with intermediate project manager use Diabetes mellitus complication status: with other specified complication Qualified Code(s): E11.69 - Type 2 diabetes mellitus with other specified complication; Z79.4 - [facility] (current) use of insulin (5) Paroxysmal SVT (supraventricular tachycardia) Status: Chronic (6) Morbid obesity Status: Chronic (7) Essential hypertension Status: Chronic (8) HLD (hyperlipidemia) Status: Chronic Qualifiers: Hyperlipidemia type: unspecified Qualified Code(s): E78.5 - Hyperlipidemia, unspecified History of Present Illness Date of Admission: 05/18/19 Chief Complaint: Dizziness - 2 days The patient is a 53 year old F with multiple comorbidities significant for super morbid obesity, status post PCI with ANU to mid RCA(05/15/19), hypertension, type II DM who comes in with complaints of dizziness since her discharge on 05/16/19. Patient describes this dizziness as a room spinning. She has had a couple of falls. She feels off balance. Dizziness comes on even at rest. She complains of ringing in the ears but no decrease in hearing. Denied any upper respiratory illness or gastroenteritis. Vitals in the ED showed temperature of 97.6 7F, heart rate 64, blood pressure 151/82, respiratory rate was 20, SPO2 was 99% on room air. WBC count is 9.5, hemoglobin 14.4, platelet count 312, BMP is unremarkable except for BUN of 24, creatinine 1.17, troponins 0.015. Chest x-ray shows no acute cardiopulmonary process.. EKG showed RBBB, no acute ST-T changes Past Medical History Past Medical History (Chronic Problems): Chronic Problems (Last Updated 05/14/19 @ 12:01 by Naresh Walls MD) CAD in [place] artery (Chronic) S/P PTCA (percutaneous transluminal coronary angioplasty) (Chronic) Hypothyroidism (Chronic) Obstructive sleep apnea (Chronic) Type 2 diabetes mellitus (Chronic) Paroxysmal SVT (supraventricular tachycardia) (Chronic) Atherosclerosis of coronary artery of [place] heart without angina pectoris (Chronic) Xience 2.75 x 23 mm ANU to OM2 01/2010 Morbid obesity (Chronic) Essential hypertension (Chronic) HLD (hyperlipidemia) (Chronic) Medical History: Medical History (Last Updated 05/14/19 @ 12:01 by Naresh Walls MD) Atherosclerosis of coronary artery of [place] heart without angina pectoris (Chronic) I25.10 Xience 2.75 x 23 mm ANU to OM2 01/2010 Morbid obesity (Chronic) E66.01 Essential hypertension (Chronic) I10 HLD (hyperlipidemia) (Chronic) E78.5 Anxiety and depression F41.9, F32.9 Cataracts, bilateral H26.9 Degenerative disc disease GERD (gastroesophageal reflux disease) K21.9 Hypothyroidism E03.9 JEWELS on CPAP G47.33, Z99.89 Osteoarthritis M19.90 SVT (supraventricular tachycardia) I47.1 History of kidney stones Z87.442 Crohn's disease K50.90 Allergies isosorbide [From Imdur] Allergy (Severe, Verified 05/18/19 16:16) Diarrhea lisinopril [From Zestril] Allergy (Verified 05/18/19 16:16) Anaphylaxis metoprolol tartrate [From Lopressor] Allergy (Verified 05/18/19 16:16) Anaphylaxis bupropion [From Wellbutrin] Adverse Reaction (Verified 05/18/19 16:16) Other enalapril maleate [From Vasotec] Adverse Reaction (Verified 05/18/19 16:16) Swelling enalaprilat dihydrate [From Vasotec] Adverse Reaction (Verified 05/18/19 16:16) Swelling levetiracetam [From Keppra] Adverse Reaction (Verified 05/18/19 16:16) Swelling metformin Adverse Reaction (Verified 05/18/19 16:16) Diarrhea oxcarbazepine [From Trileptal] Adverse Reaction (Verified 05/18/19 16:16) Other tremors pregabalin [From Lyrica] Adverse Reaction (Verified 05/18/19 16:16) Abd cramps/diarrhea rofecoxib [From Vioxx] Adverse Reaction (Verified 05/18/19 16:16) Swelling Home Medications: Ambulatory Orders Medication Instructions Recorded Aspirin [Aspirin, Baby] 81 mg PO QODAY 03/16/15 Atorvastatin Calcium [Lipitor] 40 mg PO QHS 07/21/14 Furosemide [Lasix] 40 mg PO DAILY 07/21/14 Pantoprazole Sodium [Protonix] 40 mg PO BID 07/21/14 Ropinirole HCl [Requip] 0.5 mg PO QHS 07/21/14 Spironolactone [Aldactone] 25 mg PO DAILY 07/21/14 Nitroglycerin (INPATIENT USE) 0.4 mg SUBLINGUAL PRN PRN 03/30/17 [Nitrostat] cetirizine 10 mg tablet 10 mg PO DAILY 08/24/17 insulin aspart U-100 100 unit/mL See Rx Instructions SC TID ml 08/24/17 (3 mL) subcutaneous pen insulin detemir U-100 100 unit/mL 49 units SC BID ml 08/24/17 (3 mL) subcutaneous pen dapagliflozin 5 mg tablet 5 mg PO QAM 10/18/18 dicyclomine 20 mg tablet 20 mg PO Q6H PRN tab 10/18/18 diltiazem HCl 120 mg 120 mg PO DAILY 10/18/18 capsule,extended release 24 hr docusate sodium 100 mg capsule 100 mg PO DAILY PRN PRN 10/18/18 levothyroxine 25 mcg tablet 25 mcg PO DAILY 10/18/18 potassium chloride 10 mEq 10 meq PO DAILY cap 10/18/18 capsule,extended release Clopidogrel Bisulfate [Plavix] 75 mg PO DAILY #90 tab 05/16/19 carvedilol 25 mg tablet 25 mg PO BID #30 tab 05/17/19 Desvenlafaxine [Desvenlafaxine ER] 50 mg PO DAILY 05/18/19 Surgical History: Surgical History (Last Updated 05/15/19 @ 11:20 by Danna Horta) Presence of stent in coronary artery Z95.5 Xience 2.75 x 23 mm ANU to OM2 01/2010, Synergy MR 2.50 x 38mm ANU to mRCA 05/15/19 History of bilateral salpingo-oophorectomy (BSO) Z90.79, Z90.722 and cystoscopy History of carpal tunnel release Z98.890 left History of cholecystectomy Z90.49 History of removal of cyst Z98.890 left foot History of umbilical hernia repair Z98.890, Z87.19 Surgical History: - - PCI x 1, cholecystectomy, Partial Hysterectomy. 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 Lives: Alone Smoking Status: Former smoker Tobacco Use: Non-smoker Alcohol: None Drugs: None - *Family History Maternal Family History: Family History (Last Reviewed 04/16/19 @ 13:26 by Peri Arriaga MD) Sister Asthma Arthritis Diabetes Hypertension High cholesterol Heart disease Sleep apnea Brother Diabetes Hypertension CAD (coronary artery disease) Cancer Mother Diabetes Hypertension CVA (cerebral vascular accident) CAD (coronary artery disease) Grandmother Heart disease Father CVA (cerebral vascular accident) History Items: Diabetes, High Cholesterol, Heart Disease, Hypertension Paternal Family History: Family History (Last Reviewed 04/16/19 @ 13:26 by Peri Arriaga MD) Sister Asthma Arthritis Diabetes Hypertension High cholesterol Heart disease Sleep apnea Brother Diabetes Hypertension CAD (coronary artery disease) Cancer Mother Diabetes Hypertension CVA (cerebral vascular accident) CAD (coronary artery disease) Grandmother Heart disease Father CVA (cerebral vascular accident) History Items: Diabetes, High Cholesterol, Heart Disease, Hypertension Review of Systems Constitutional: Reports: Weakness, Fatigue. Denies: Anorexia, Chills, Fever, Malaise, Weight Change Eyes: Denies: Blurred vision, Cataracts, Conjunctivae Inflammation HEENT: Denies: Head Aches, Hearing Changes, Sinus Congestion, Sinus Drainage Cardiovascular: Reports: Light Headedness. Denies: Chest Pain, Claudication, Orthopnea, Palpitations, Paroxysmal Noc. Dyspnea, Syncope Respiratory: Denies: Cough, Hemoptysis, Shortness of breath at rest, Shortness of breath upon exertion, Sputum production Gastrointestinal: Denies: Abdominal Pain, Constipation, Nausea, Vomiting Genitourinary: Denies: Dysuria Musculoskeletal: Denies: Joint Pain, Joint stiffness, Joint swelling, Joint Tenderness Skin: Denies: Rash, Wounds Neurological: Reports: Balance problems, - - frequent falls. Denies: Focal weakness, Numbness, Tingling Psychiatric: Denies: Anxiety, Depression, Homicidal Ideations, Suicidal Ideations Hematologic/ Lymphatic: Denies: Easy Bruising, Easy Bleeding VTE Information - Inpt Only VTE Present on Admission: No VTE Pharm Prophylaxis ordered?: Yes - Physical Exam Vitals/I&O's: Vital Signs Temp Pulse Resp BP Pulse Ox 97.7 F L 70 21 H 161/80 H 98 05/18/19 16:11 05/18/19 20:10 05/18/19 20:10 05/18/19 20:10 05/18/19 20:10 Oxygen Delivery Method Room Air Weight: 150.2 kg Body Mass Index (BMI) 66.9 Finger Stick Blood Glucose 169 General: Alert, Oriented x3, Cooperative, No apparent distress, - - super morbidly obese HEENT: Atraumatic, PERRLA, EOMI, Normocephalic Oral: Moist Mucosa Neck: Supple, No JVD, Negative Carotid Bruits Lungs: Clear to auscultation, Normal air movement Cardiovascular: Regular rate, Regular Rhythm, Normal S1, Normal S2, No murmurs Abdomen: Bowel Sounds Present, Soft, Non Tender, Non-Distended, No Hepato-splenomegaly Extremities: No edema Skin: No rashes, No breakdown Musculoskeletal: No Tenderness to Palpation of Joints or Extremities Lymphatic: No Cervical, Supraclavicular, or Inguinal Adenopathy Neurological: Cranial nerves II-XII grossly intact, Neuro grossly intact Psych/Mental Status: Normal Affect, Appropriate Laboratory Results 05/18/19 16:20: WBC 9.5, RBC 5.19, Hgb 14.4, Hct 45.6, MCV 87.9, MCH 27.7, MCHC 31.6 L, RDW Std Deviation 47.0 H, RDW Coeff of Veronica 14.7 H, Plt Count 312, MPV 9.3, Immature Gran % (Auto) 0.400, Neut % (Auto) 62.0, Lymph % (Auto) 24.8, [place] % (Auto) 9.5, Eos % (Auto) 3.1, Baso % (Auto) 0.2, Absolute Neuts (auto) 5.9, Absolute Lymphs (auto) 2.34, Nucleated RBC % 0 05/18/19 16:20: Sodium 138, Potassium 4.0, Chloride 103, Carbon Dioxide 26.0, Anion Gap 9, BUN 24 H, Creatinine 1.17 H, Estim Creat Clear Calc 128.82, Est GFR (MDRD) Af Amer 62, Est GFR (MDRD) Non-Af 51 L, BUN/Creatinine Ratio 20.5 H, Glucose 232 H, Calcium 9.2, Troponin I < 0.015 05/18/19 16:20: B-Natriuretic Peptide 11.0 Assessment/Plan All Active Problems (Last Updated 05/14/19 @ 12:01 by Naresh Walls MD) Abnormal stress test (Acute) Acute electrocardiogram changes (Acute) 53 year old F with multiple comorbidities significant for super morbid obesity, status post PCI with ANU to mid RCA(05/15/19), hypertension, type II DM who comes in with complaints of dizziness since her discharge on 05/16/19. 1. Dizziness likely secondary to acute vertigo likely from BPPV She admits to bilateral tinnitus but no hearing loss. No neurological deficits Stable vitals, EKG shows NSR, RBBB Will check orthostatic vitals, monitor on telemetry, trial of meclizine, PT/OT evaluation 2. CAD, s/p recent PCI with ANU to mid-RCA, on aspirin, Plavix, coreg, atorvastatin 3. Type 2 DM, continue on home insulin regimen, Jardiance, blood glucose checks with ISS 4. Hypertension, controlled, on Coreg, Diltiazem, Spironolactone 5. JEWELS on CPAP 6. Hypothyroidism, on levothyroxine 7. Super morbid obesity, BMI 65.9 8. DVT PPx- Lovenox 40mg BID Code Visit OBSV E&M: [id number] Initial observation care L2
[2019-05-19] VITALS (7 sets, daily range): BP systolic 113–145; BP diastolic 67–81; PULSE 62–75; RESP 18–20; TEMP 36.3–36.6; O2SAT 96–100
[2019-05-19] MEDS: Insulin Lispro 100 UNIT/ML INSULN.PEN SC ×2 (00:14→06:39)
[2019-05-19] MEDS: Atorvastatin Calcium 40 MG Tablet PO (00:18)
[2019-05-19] MEDS: Carvedilol 25 MG Tablet PO ×2 (00:18→10:37)
[2019-05-19] MEDS: 0.9% Normal Saline 1,000 ML 100 ML IV (00:19)
[2019-05-19] MEDS: Pramipexole Di-HCl 0.25 MG Tablet PO (00:19)
[2019-05-19] MEDS: Pantoprazole Sodium 40 MG Tablet PO ×2 (00:19→10:33)
[2019-05-19 00:42] LABS: Bedside Glucose 169 mg/dL (70-110)
--- NOTE | 2019-05-19 02:32 | CPS ---
Pts. home CPAP machine setup at bedside. Water chamber filled. CPAP 14 with no oxygen bled in. Mask placed on with comfort. Call light within reach and pt. understands to let RN to call JEW[employer] if any problems occur with machine throughout night.
[2019-05-19 05:43] LABS: Absolute Lymphocyte Count 1.84 X10^3/uL (0.83-4.51); Absolute Neutrophil Count 6.2 X10^3/uL (2.0-7.7); Basophil# 0.03 X10^3/uL; Basophil% 0.3 % (0-1); Eosinophil# 0.29 X10^3/uL; Eosinophils% 3.1 % (0-5); Hematocrit 43.8 % (37-47); Hemoglobin 13.8 g/dL (12.0-15.0); Lymphocyte # 1.84 X10^3/ul (4.0); Lymphocyte % 19.8 % (19-41); Mean Corp Hgb Conc 31.5 g/dL (32-36); Mean Corpuscular Hgb 27.7 pg (27.0-32.0); Mean Corpuscular Volume 87.8 fL (81-99); Mean Platelet Vol. 9.2 fl (6.2-12.0); Monocyte# 0.89 X10^3/uL; Monocyte% 9.6 % (0-10); NRBC Flagged by Analyzer 0 % (0-5); Neutrophil # 6.17 X10^3/uL (2.7-7.7); Neutrophil % 66.6 % (47-70); Platelet Count 276 K/mm3 (150-450); RBC Distribution Width SD 48.1 fl (35.1-43.9); Red Blood Count 4.99 M/mm3 (4.2-5.4); White Blood Count 9.3 K/mm3 (4.4-11.0)
[2019-05-19 06:06] LABS: ALB/GLOB Ratio 0.8 RATIO (0.9-2.4); AST(SGOT) 19 U/L (15-37); Alanine Aminotransfer ALT/SGPT 44 U/L (13-56); Alkaline Phosphatase 136 U/L (45-117); Anion Gap 7 (5-15); BUN 19 mg/dL (7-18); BUN/Creat Ratio 22.4 RATIO (10-20); Calcium,Total 8.7 mg/dL (8.5-10.1); Chloride 106 mmol/L (98-107); Creatinine, Serum 0.85 mg/dL (0.55-1.02); EST Glomerular Filtration Rate 74 mL/min (>60); Est Glom Filt Rate - Afr Amer 89 mL/min (>60); Estimated Creatinine Clearance 174.72 ml/min; Globulin 3.6 g/dL (2.2-4.2); Glucose 174 mg/dL (74-106); Potassium 3.6 mmol/L (3.5-5.1); Protein, Total 6.6 g/dL (6.4-8.2); Sodium Level 139 mmol/L (136-145)
[2019-05-19 06:41] LABS: Bedside Glucose 171 mg/dL (70-110)
[2019-05-19] MEDS: Levothyroxine 25 MCG TABLET PO (06:59)
[2019-05-19] MEDS: Aspirin 81 MG TAB.CHEW PO (10:33)
[2019-05-19] MEDS: Clopidogrel Bisulfate 75 MG Tablet PO (10:33)
[2019-05-19] MEDS: Empagliflozin 10 MG Tablet PO (10:37)
[2019-05-19] MEDS: dilTIAZem CD 120 MG Capsule PO (10:37)
[2019-05-19] MEDS: Loratadine 10 MG Tablet PO (10:37)
[2019-05-19] MEDS: Furosemide 40 MG Tablet PO (10:38)
[2019-05-19] MEDS: Spironolactone 25 MG Tablet PO (10:46)
--- NOTE | 2019-05-19 11:35 | PCM.DC ---
You will use the following diet at home:: Cardiac Your food should be the consistency of: Regular Your liquids should be the consistency of: Regular/Thin Discharge Activity: Return to Normal Activity Weight Bearing Status: Weight bearing as tolerated Call your doctor if you observe: Fever of 101 or Higher, Shortness of breath, Dizziness, Fainting spells, Swelling in the ankles, Chest pain Instructions: WEAKNESS, Unk Cause, Understanding Dizziness, Balance Problems, and Fainting, Inner Ear Problems: Causes of Dizziness (Vertigo), Possible Causes of Dizziness or Fainting Allergies/Adverse Reactions: Allergies isosorbide [From Imdur] Allergy (Severe, Verified 05/18/19 16:16) Diarrhea lisinopril [From Zestril] Allergy (Verified 05/18/19 16:16) Anaphylaxis metoprolol tartrate [From Lopressor] Allergy (Verified 05/18/19 16:16) Anaphylaxis bupropion [From Wellbutrin] Adverse Reaction (Verified 05/18/19 16:16) Other enalapril maleate [From Vasotec] Adverse Reaction (Verified 05/18/19 16:16) Swelling enalaprilat dihydrate [From Vasotec] Adverse Reaction (Verified 05/18/19 16:16) Swelling levetiracetam [From Keppra] Adverse Reaction (Verified 05/18/19 16:16) Swelling metformin Adverse Reaction (Verified 05/18/19 16:16) Diarrhea oxcarbazepine [From Trileptal] Adverse Reaction (Verified 05/18/19 16:16) Other tremors pregabalin [From Lyrica] Adverse Reaction (Verified 05/18/19 16:16) Abd cramps/diarrhea rofecoxib [From Vioxx] Adverse Reaction (Verified 05/18/19 16:16) Swelling Medications to take at Discharge Aspirin [Aspirin, Baby] 81 mg PO QODAY 07/21/14 Atorvastatin Calcium [Lipitor] 40 mg PO QHS 07/21/14 Furosemide [Lasix] 40 mg PO DAILY 07/21/14 Pantoprazole Sodium [Protonix] 40 mg PO BID 07/21/14 Ropinirole HCl [Requip] 0.5 mg PO QHS 07/21/14 Spironolactone [Aldactone] 25 mg PO DAILY 03/16/15 Nitroglycerin (INPATIENT USE) [Nitrostat] 0.4 mg SUBLINGUAL PRN PRN 03/30/17 cetirizine 10 mg tablet 10 mg PO DAILY 08/24/17 insulin aspart U-100 100 unit/mL (3 mL) subcutaneous pen See Rx Instructions SC TID ml 08/24/17 insulin detemir U-100 100 unit/mL (3 mL) subcutaneous pen 49 units SC BID ml 08/24/17 dapagliflozin 5 mg tablet 5 mg PO QAM 10/18/18 dicyclomine 20 mg tablet 20 mg PO Q6H PRN tab 10/18/18 diltiazem HCl 120 mg capsule,extended release 24 hr 120 mg PO DAILY 10/18/18 docusate sodium 100 mg capsule 100 mg PO DAILY PRN PRN 10/18/18 levothyroxine 25 mcg tablet 25 mcg PO DAILY 10/18/18 potassium chloride 10 mEq capsule,extended release 10 meq PO DAILY cap 10/18/18 Clopidogrel Bisulfate [Plavix] 75 mg PO DAILY #90 tab 05/16/19 carvedilol 25 mg tablet 25 mg PO BID #30 tab 05/17/19 Desvenlafaxine [Desvenlafaxine ER] 50 mg PO DAILY 05/18/19 Meclizine HCl [Antivert] 12.5 mg PO 4X/DAY PRN PRN #30 tab 05/19/19 The following prescriptions were given: Meclizine HCl [Antivert] 12.5 mg PO 4X/DAY PRN PRN #30 tab PRN Reason: Vertigo Transmission Status: Pending to [facility] [place] - [id number] Primary Care Physician: Mike Prince [Primary Care Provider] - Please follow up with your Primary Care Physician in: one week Test Results: Test results from this visit will be discussed in further detail at your follow-up appointment, if applicable. Proposed Discharge Date: 05/19/19
--- NOTE | 2019-05-19 11:37 | PCM.DC.SUM ---
Discharge Date and Diagnosis Date of Admission: 05/18/19 Date of Discharge: 05/19/19 - Primary Discharge Diagnosis BPPV - Secondary Discharge Diagnosis Chronic Problems (Last Updated 05/14/19 @ 12:01 by Naresh Walls MD) CAD in [place] artery (Chronic) S/P PTCA (percutaneous transluminal coronary angioplasty) (Chronic) Hypothyroidism (Chronic) Obstructive sleep apnea (Chronic) Type 2 diabetes mellitus (Chronic) Paroxysmal SVT (supraventricular tachycardia) (Chronic) Atherosclerosis of coronary artery of [place] heart without angina pectoris (Chronic) Xience 2.75 x 23 mm ANU to OM2 01/2010 Morbid obesity (Chronic) Essential hypertension (Chronic) HLD (hyperlipidemia) (Chronic) Hospital Course and Treatment Imaging Results: Diagnostic Data Chest X-Ray 05/18/19 16:24 IMPRESSION: No acute pulmonary process Electronically Signed: Perez Reddy MD at 16:37 EST , Service support , Operations: None Procedures: None Summary of Care Provided: The patient is a 53 year old F 10 extensive past medical history as listed was admitted through the ED with a complaint of dizziness which he described as the room spinning and she had had a few falls. Patient stated that she had ringing in her ears and denied any antecedent upper respiratory illness or gastroenteritis. Of note, patient stated that the dizziness was worse when she tried to move around especially when she was trying to get out of bed. Labs done were unremarkable and EKG showed right bundle branch block with no acute ST changes. She was admitted and managed for dizziness likely due to vertigo from BPPV. She remained stable and dizziness improved. She was started on meclizine. She had evaluation by physical therapy who did not think she needed any additional therapy upon discharge. Of note, orthostatics were negative. Patient remained stable and was discharged home on 05/19/2019 with a prescription for p.o. meclizine. She is to follow-up with her primary care doctor and if symptoms persist, to be referred to ENT as deemed appropriate. Patient seen and examined prior to discharge. She had no complaints. Review of signs otherwise negative. Labs and vitals reviewed. Home medication reviewed and reconciled. o/e: Vital Signs Height 4 ft 11 in Weight: 326 lb 4.546 oz Weight in Pounds 326.3 lbs BMI 65.4 Pulse Ox 100 Temperature 97.3 F Pulse Rate [Standing] 75 Pulse Rate [Sitting] 73 Pulse Rate [Lying] 75 Pulse Rate 74 Respiratory Rate 20 Blood Pressure [Standing] 141/76 Blood Pressure [Sitting] 141/73 Blood Pressure [Lying] 143/81 Blood Pressure 145/67 Blood Pressure Position Sitting [] General: Alert, Oriented x3, Cooperative, No apparent distress, - - super morbid obesity HEENT: Atraumatic, PERRLA, EOMI, Normocephalic Oral: Moist Mucosa Neck: Supple, No JVD, Negative Carotid Bruits Lungs: Clear to auscultation, Normal air movement Cardiovascular: Regular rate, Regular Rhythm, Normal S1, Normal S2, No murmurs Abdomen: Bowel Sounds Present, Soft, Non Tender, Non-Distended, No Hepato-splenomegaly Extremities: No edema Skin: No rashes, No breakdown Musculoskeletal: No Tenderness to Palpation of Joints or Extremities Lymphatic: No Cervical, Supraclavicular, or Inguinal Adenopathy Neurological: Cranial nerves II-XII grossly intact, Neuro grossly intact Psych/Mental Status: Normal Affect, Appropriate Plan as above. - Physical Exam Vitals/I&O's: Vital Signs Temp Pulse Resp BP Pulse Ox 97.3 F L 68 20 H 145/67 H 100 05/19/19 10:30 05/19/19 10:30 05/19/19 10:30 05/19/19 10:30 05/19/19 10:30 Oxygen Delivery Method Room Air Weight: 326 lb 4.546 oz Body Mass Index (BMI) 65.8 Finger Stick Blood Glucose 169 Orthostatic Vital Signs Start: 05/19/19 02:04 Freq: q24h Status: Active Protocol: Activity Type Activity Date Activity User E-Sign Co-Sign Detail Recorded Client Recorded Date Recorded By Document 05/19/19 02:04 LAUREN [id number] 05/19/19 02:28 LAUREN 05/19/19 02:04 Orthostatic Vitals Standing -Blood Pressure (90/60-120/80) 141/76 H -Extremity Use Right Arm -Pulse Rate (60-100) 75 Sitting -Blood Pressure (90/60-120/80) 141/73 H -Extremity Use Right Arm -Pulse Rate (60-100) 73 Lying -Blood Pressure (90/60-120/80) 143/81 H -Extremity Use Right Arm -Pulse Rate (60-100) 75 Intake and Output for Last 24 Hours 05/17/19 05/18/19 05/19/19 23:59 23:59 23:59 Intake Total 240 / 240 1000 / 1000 Output Total Balance 239 / 239 1000 / 1000 Laboratory Results 05/18/19 16:20: WBC 9.5, RBC 5.19, Hgb 14.4, Hct 45.6, MCV 87.9, MCH 27.7, MCHC 31.6 L, RDW Std Deviation 47.0 H, RDW Coeff of Veronica 14.7 H, Plt Count 312, MPV 9.3, Immature Gran % (Auto) 0.400, Neut % (Auto) 62.0, Lymph % (Auto) 24.8, [place] % (Auto) 9.5, Eos % (Auto) 3.1, Baso % (Auto) 0.2, Absolute Neuts (auto) 5.9, Absolute Lymphs (auto) 2.34, Nucleated RBC % 0 05/18/19 16:20: Sodium 138, Potassium 4.0, Chloride 103, Carbon Dioxide 26.0, Anion Gap 9, BUN 24 H, Creatinine 1.17 H, Estim Creat Clear Calc 128.82, Est GFR (MDRD) Af Amer 62, Est GFR (MDRD) Non-Af 51 L, BUN/Creatinine Ratio 20.5 H, Glucose 232 H, Calcium 9.2, Troponin I < 0.015 05/18/19 16:20: B-Natriuretic Peptide 11.0 05/19/19 00:05: POC Glucose 169 H 05/19/19 01:05: Troponin I < 0.015 05/19/19 05:10: Sodium 139, Potassium 3.6, Chloride 106, Carbon Dioxide 26.0, Anion Gap 7, BUN 19 H, Creatinine 0.85, Estim Creat Clear Calc 174.72, Est GFR (MDRD) Af Amer 89, Est GFR (MDRD) Non-Af 74, BUN/Creatinine Ratio 22.4 H, Glucose 174 H, Calcium 8.7, Total Bilirubin 0.40, AST 19, ALT 44, Alkaline Phosphatase 136 H, Troponin I < 0.015, Total Protein 6.6, Albumin 3.0 L, Globulin 3.6, Albumin/Globulin Ratio 0.8 L 05/19/19 05:10: WBC 9.3, RBC 4.99, Hgb 13.8, Hct 43.8, MCV 87.8, MCH 27.7, MCHC 31.5 L, RDW Std Deviation 48.1 H, RDW Coeff of Veronica 15.0 H, Plt Count 276, MPV 9.2, Immature Gran % (Auto) 0.600, Neut % (Auto) 66.6, Lymph % (Auto) 19.8, [place] % (Auto) 9.6, Eos % (Auto) 3.1, Baso % (Auto) 0.3, Absolute Neuts (auto) 6.2, Absolute Lymphs (auto) 1.84, Nucleated RBC % 0 05/19/19 06:35: POC Glucose 171 H Current Medications Acetaminophen (Tylenol) 650 mg PO Q6H PRN PRN PRN Reason: Pain Score 1-10/Temp > 100.7 F Aspirin (Aspirin, Baby) 81 mg PO QODAY@0800 [facility] Last Admin: 05/19/19 10:33 Dose: 81 mg Documented by: Atorvastatin Calcium (Lipitor) 40 mg PO QHS [facility] Last Admin: 05/19/19 00:18 Dose: 40 mg Documented by: Carvedilol (Coreg) 25 mg PO BID [facility] Last Admin: 05/19/19 10:37 Dose: 25 mg Documented by: Clopidogrel Bisulfate (Plavix) 75 mg PO DAILY [facility] Last Admin: 05/19/19 10:33 Dose: 75 mg Documented by: Dicyclomine HCl (Bentyl) 20 mg PO Q6H PRN PRN PRN Reason: IBS SYMPTOMS Diltiazem HCl (Cardizem Cd) 120 mg PO DAILY [facility] Last Admin: 05/19/19 10:37 Dose: 120 mg Documented by: Docusate Sodium (Colace) 100 mg PO DAILY PRN PRN PRN Reason: Constipation Empagliflozin (Jardiance) 10 mg PO DAILY [facility] Last Admin: 05/19/19 10:37 Dose: 10 mg Documented by: Enoxaparin Sodium (Lovenox) 40 mg SC BID [facility] Furosemide (Lasix) 40 mg PO DAILY [facility] Last Admin: 05/19/19 10:38 Dose: 40 mg Documented by: Glucagon () 1 mg IM .X1 PRN PRN Reason: Hypoglycemia Sodium Chloride () 1,000 mls @ 100 mls/hr IV .Q10H [facility] Stop: 05/19/19 14:08 Last Infusion: 05/19/19 10:36 Dose: Infused Documented by: Dextrose (Dextrose 10%-Water) 250 mls @ 999 mls/hr IV .Q16M PRN; Protocol PRN Reason: HYPOGLYCEMIA Insulin Glargine (Lantus ([facility])) 49 units SC BID [facility] Last Admin: 05/19/19 10:44 Dose: 49 u Documented by: Insulin Human Lispro (Humalog Kwikpen ([facility])) 0 unit SC ACHS [facility]; Protocol Last Admin: 05/19/19 06:39 Dose: 1 u Documented by: Levothyroxine Sodium (Synthroid) 25 mcg PO DAILY@0600 [facility] Last Admin: 05/19/19 06:59 Dose: 25 mcg Documented by: Loratadine (Claritin) 10 mg PO DAILY [facility] Last Admin: 05/19/19 10:37 Dose: 10 mg Documented by: Magnesium Hydroxide (Milk Of Magnesia) 30 ml PO DAILY PRN PRN PRN Reason: Constipation Meclizine HCl (Antivert) 12.5 mg PO 4X/DAY PRN PRN PRN Reason: Vertigo Nitroglycerin (Nitrostat) 0.4 mg SUBLINGUAL Q5M PRN PRN Reason: CARDIAC/CHEST PAIN Ondansetron HCl (Zofran) 4 mg IV Q8H PRN PRN PRN Reason: NAUSEA/VOMITING Pantoprazole Sodium (Protonix) 40 mg PO BID [facility] Last Admin: 05/19/19 10:33 Dose: 40 mg Documented by: Potassium Chloride (K-Dur) 10 meq PO DAILYCM [facility] Last Admin: 05/19/19 10:33 Dose: 10 meq Documented by: Pramipexole Dihydrochloride (Mirapex) 0.25 mg PO QHS [facility] Last Admin: 05/19/19 00:19 Dose: 0.25 mg Documented by: Psyllium Hydrophilic Mucilloid (Metamucil) 1 packet PO DAILY PRN PRN PRN Reason: Constipation Sodium Chloride () 10 - 40 ml IV UD PRN PRN Reason: SALINE FLUSH Spironolactone (Aldactone) 25 mg PO DAILY [facility] Last Admin: 05/19/19 10:46 Dose: 25 mg Documented by: Venlafaxine HCl (Effexor Xr) 37.5 mg PO DAILY [facility] Last Admin: 05/19/19 10:45 Dose: Not Given Documented by: Discharge Diet: Low fat/ Low Cholesterol Discharge Activity: Return to Normal Activity Weight Bearing Status: Weight bearing as tolerated Call your doctor if you observe: Fever of 101 or Higher, Shortness of breath, Dizziness, Fainting spells, Swelling in the ankles, Chest pain Home Medications: Medications to take at Discharge Aspirin [Aspirin, Baby] 81 mg PO QODAY 07/21/14 Atorvastatin Calcium [Lipitor] 40 mg PO QHS 07/21/14 Furosemide [Lasix] 40 mg PO DAILY 07/21/14 Pantoprazole Sodium [Protonix] 40 mg PO BID 07/21/14 Ropinirole HCl [Requip] 0.5 mg PO QHS 07/21/14 Spironolactone [Aldactone] 25 mg PO DAILY 07/21/14 Nitroglycerin (INPATIENT USE) [Nitrostat] 0.4 mg SUBLINGUAL PRN PRN 03/30/17 cetirizine 10 mg tablet 10 mg PO DAILY 08/24/17 insulin aspart U-100 100 unit/mL (3 mL) subcutaneous pen See Rx Instructions SC TID ml 08/24/17 insulin detemir U-100 100 unit/mL (3 mL) subcutaneous pen 49 units SC BID ml 08/24/17 dapagliflozin 5 mg tablet 5 mg PO QAM 10/18/18 dicyclomine 20 mg tablet 20 mg PO Q6H PRN tab 10/18/18 diltiazem HCl 120 mg capsule,extended release 24 hr 120 mg PO DAILY 10/18/18 docusate sodium 100 mg capsule 100 mg PO DAILY PRN PRN 10/18/18 levothyroxine 25 mcg tablet 25 mcg PO DAILY 10/18/18 potassium chloride 10 mEq capsule,extended release 10 meq PO DAILY cap 10/18/18 Clopidogrel Bisulfate [Plavix] 75 mg PO DAILY #90 tab 05/16/19 carvedilol 25 mg tablet 25 mg PO BID #30 tab 05/17/19 Desvenlafaxine [Desvenlafaxine ER] 50 mg PO DAILY 05/18/19 Meclizine HCl [Antivert] 12.5 mg PO 4X/DAY PRN PRN #30 tab 05/19/19 Following Prescrptions Were Given to Patient: Meclizine HCl [Antivert] 12.5 mg PO 4X/DAY PRN PRN #30 tab PRN Reason: Vertigo Transmission Status: [facility] [place] [facility] [id number] Primary Care Physician: Mike Prince [Primary Care Provider] - Please follow up with your Primary Care Physician in: one week Patient Instructions: Understanding Dizziness, Balance Problems, and Fainting, Possible Causes of Dizziness or Fainting, Inner Ear Problems: Causes of Dizziness (Vertigo), WEAKNESS, Unk Cause Disposition: Home Minutes spent on discharge:: 35 Patient Condition:: Stable Medical Necessity - Tobacco Use Smoking Status: Former smoker Tobacco Use: Non-smoker Meaningful Use Info Meaningful Use Diagnoses (Choose all that apply): None applicable Code Visit OBSV E&M: 01833 Observation care discharge
[2019-05-19 12:21] LABS: Bedside Glucose 226 mg/dL (70-110)
== END 2019-05-19 11:37 | disposition home or self-care (01) ==
LOC: ED 17:44 → PCU 21:09
PROVIDERS: Admitting Provider Internal Medicine; Emergency Provider Emergency Medicine; Family Provider Family Medicine; Visit Provider Student in an Organized Health Care Education/Training Program
DX: H81.10 Benign paroxysmal vertigo, unspecified ear (principal); R06.02 Shortness of breath; E78.5 Hyperlipidemia, unspecified; I10 Essential (primary) hypertension; E66.01 Morbid (severe) obesity due to excess calories; I25.10 Atherosclerotic heart disease of native coronary artery without angina pectoris; G47.33 Obstructive sleep apnea (adult) (pediatric); E03.9 Hypothyroidism, unspecified; E11.9 Type 2 diabetes mellitus without complications; K21.9 Gastro-esophageal reflux disease without esophagitis; F41.9 Anxiety disorder, unspecified; F32.9 Major depressive disorder, single episode, unspecified; M19.90 Unspecified osteoarthritis, unspecified site; K50.90 Crohn's disease, unspecified, without complications; I47.1 Supraventricular tachycardia; Z68.44 Body mass index [BMI] 60.0-69.9, adult; Z71.3 Dietary counseling and surveillance; Z79.899 Other long term (current) drug therapy; Z79.82 Long term (current) use of aspirin; Z79.4 Long term (current) use of insulin; Z79.02 Long term (current) use of antithrombotics/antiplatelets; Z87.891 Personal history of nicotine dependence; I45.10 Unspecified right bundle-branch block
CPT/HCPCS: 36415; 71045; 80048; 80053; 82962; 83880; 84484; 85025; 93005; 96360; 96361; 97162; 97166; 99218; 99285; J7030; A4216; G0378

== ENCOUNTER 2019-05-22 10:31 | Emergency (ER) | payer MEDICARE, SELFPAY ==
[2019-05-15 15:21] VITALS: BMI 65.4
[2019-05-18 21:33] VITALS: BMI 65.8
[2019-05-22 10:32] VITALS: BP 139/69; PULSE 71; RESP 16; TEMP 36.9; O2SAT 99; BMI 67.8
--- NOTE | 2019-05-22 10:41 | RAD_ITS ---
STUDY: X-RAY CHEST REASON FOR EXAM: Female, 53 years old. Chest pain, difficulty breathing TECHNIQUE: Single AP portable view of the chest. COMPARISON: Comparison is made with prior study dated May 18, 2019. FINDINGS: EKG electrodes are seen. The lungs are clear and expanded. There is no demonstrated pleural abnormality. Normal size heart. Normal mediastinum and lakeisha. Normal visualized pulmonary arteries. There is atherosclerotic calcification of the aortic arch with tortuosity. There are degenerative changes of the visualized thoracic spine. Normal visualized ribs, clavicles, and shoulders. There is no demonstrated abnormality of the visualized soft tissue structures of the upper abdomen. RAD/Chest 1 View (Portable) IMPRESSION: No acute abnormality is seen. Electronically Signed: Frederick Slater, at 11:09 EST , Service support ,
--- NOTE | 2019-05-22 10:42 | ED.VISSUMM ---
- ER Visit Summary Date of Service: 05/22/19 Chief Complaint: Chest pain History of Present Illness: The patient is a 53 F who returns to the ER with chest pain. She states it started last night and she still felt that this morning. It sharp and tight in the lower part of her chest. Exertion makes it worse, rest makes it better. No shortness of breath. No nausea or vomiting. She took a nitroglycerin at home but it did not help her symptoms. She had a stent placed on May 16 at this facility. She was discharged to home and then returned back on May 18 because she was having chest pain, shortness of breath and dizziness. Her work-up was negative but she was still admitted because she could not ambulate without being symptomatic. While in inpatient they determined it was vertigo causing her symptoms and sent home with meclizine. Her dizziness is improved. Physical Examination: Vital signs reviewed. HEENT exam unremarkable. Heart is regular rate and rhythm without murmurs. Lungs are clear to auscultation. Chest is tender in the lower sternal region. Abdomen is soft with epigastric tenderness. Patient states she has a known hiatal hernia. Extremities reveal no edema. Peripheral pulses are equal. Skin exam normal. Neurologic exam normal. Test Results: EKG is sinus rhythm with a rate of 64. Right bundle branch block. Unchanged from previous. Chest x-ray unremarkable. Laboratory studies normal except for glucose of 212. Her troponin is normal. Emergency Department Course and Treatment: The patient was given aspirin and nitroglycerin by EMS. The patient's troponin is normal. This is her fourth normal troponin in the last 5 days. I do not feel that this is cardiac in nature. It could be related to her hiatal hernia. At this point feel she can be discharged to home. She will take [id number] medications for pain. She will call her conductor/brakeman for follow-up Treatment Plan: [] Disposition: Discharge Impression: Chest pain This note was generated with Tr[employer] dictation software. It may contain incorrect words, spelling, and punctuation that were not noted in review of the chart prior to signing ED Disposition - Plan for ED Patient: Disposition: Home or Assisted Living Instructions: CHEST PAIN, Uncertain Cause Referrals: Mike Prince [Primary Care Provider] -
[2019-05-22 11:02] LABS: Absolute Lymphocyte Count 2.03 X10^3/uL (0.83-4.51); Absolute Neutrophil Count 5.1 X10^3/uL (2.0-7.7); Basophil# 0.03 X10^3/uL; Basophil% 0.4 % (0-1); Eosinophils% 2.5 % (0-5); Hematocrit 43.9 % (37-47); Hemoglobin 13.9 g/dL (12.0-15.0); Lymphocyte # 2.03 X10^3/ul (4.0); Lymphocyte % 25.1 % (19-41); Mean Corp Hgb Conc 31.7 g/dL (32-36); Mean Corpuscular Hgb 27.4 pg (27.0-32.0); Mean Corpuscular Volume 86.6 fL (81-99); Mean Platelet Vol. 9.6 fl (6.2-12.0); Monocyte# 0.67 X10^3/uL; Monocyte% 8.3 % (0-10); NRBC Flagged by Analyzer 0 % (0-5); Neutrophil # 5.13 X10^3/uL (2.7-7.7); Neutrophil % 63.2 % (47-70); Platelet Count 279 K/mm3 (150-450); RBC Distribution Width CV 14.9 % (11.6-14.6); RBC Distribution Width SD 47.3 fl (35.1-43.9); Red Blood Count 5.07 M/mm3 (4.2-5.4); White Blood Count 8.1 K/mm3 (4.4-11.0)
[2019-05-22 11:11] VITALS: O2SAT 98
[2019-05-22 11:14] LABS: ALB/GLOB Ratio 0.7 RATIO (0.9-2.4); AST(SGOT) 49 U/L (15-37); Alanine Aminotransfer ALT/SGPT 44 U/L (13-56); Albumin, Serum 3.1 g/dL (3.2-5.0); Alkaline Phosphatase 159 U/L (45-117); Anion Gap 5 (5-15); BUN 19 mg/dL (7-18); BUN/Creat Ratio 20.1 RATIO (10-20); Calcium,Total 8.9 mg/dL (8.5-10.1); Chloride 106 mmol/L (98-107); Creatinine, Serum 0.95 mg/dL (0.55-1.02); EST Glomerular Filtration Rate 65 mL/min (>60); Est Glom Filt Rate - Afr Amer 79 mL/min (>60); Estimated Creatinine Clearance 160.98 ml/min; Globulin 4.2 g/dL (2.2-4.2); Glucose 212 mg/dL (74-106); Lipase 52 U/L (73-393); Protein, Total 7.3 g/dL (6.4-8.2); Sodium Level 139 mmol/L (136-145)
[2019-05-22 11:38] VITALS: BP 149/80; PULSE 69; RESP 18; O2SAT 99
[2019-05-22 12:14] VITALS: BP 116/58; PULSE 63; RESP 18; O2SAT 99
[2019-05-22 12:39] VITALS: BP 116/58; PULSE 64; RESP 18; O2SAT 99
== END 2019-05-22 12:39 | disposition home or self-care (01) ==
PROVIDERS: Emergency Provider Emergency Medicine; Family Provider Family Medicine
DX: R07.9 Chest pain, unspecified (principal); I25.10 Atherosclerotic heart disease of native coronary artery without angina pectoris; I10 Essential (primary) hypertension; E11.9 Type 2 diabetes mellitus without complications; E03.9 Hypothyroidism, unspecified; Z79.4 Long term (current) use of insulin; Z79.82 Long term (current) use of aspirin; Z79.02 Long term (current) use of antithrombotics/antiplatelets
CPT/HCPCS: 71045; 80053; 83690; 84484; 85025; 93005; 99285; A4216

== ENCOUNTER → 2019-06-05 14:12 | Outpatient (CLI) | payer MEDICARE, MEDICAID, SELFPAY ==
[2019-05-15 15:21] VITALS: BMI 65.4
[2019-06-05 13:25] VITALS: BMI 67.2
--- NOTE | 2019-06-05 14:54 | RAD_ITS ---
STUDY: X-RAY - PELVIS AND LEFT HIP REASON FOR EXAM: Female, 53 years old. Left hip pain. TECHNIQUE: 3 views of the pelvis and hip. COMPARISON: None. FINDINGS: There is a non-specific bowel gas pattern. Normal visualized soft tissue structures. Normal bilateral iliac wings, sacroiliac joints and visualized sacrum. Normal bilateral superior and inferior pubic rami. Normal pubic symphysis. Normal bilateral ischial tuberosities. Normal visualized left femoral head. Normal left acetabulum. There is mild articular joint space narrowing of the lateral hip. RAD/HIP, UNI W/ Pelvis 2-3 Views IMPRESSION: Degenerative changes left hip without acute fracture or dislocation. Electronically Signed: Nino Moody DO at 20:00 EST Tel [phone], Service support ,
== END ==
PROVIDERS: Referring Provider Anesthesiology Pain Medicine; Visit Provider Anesthesiology Pain Medicine
DX: M25.552 Pain in left hip (principal)
CPT/HCPCS: 73502

== ENCOUNTER → 2019-10-18 | Outpatient (CLI) | payer MEDICARE, SELFPAY ==
[2019-05-15 15:21] VITALS: BMI 65.4
[2019-10-15 13:55] VITALS: BMI 67.2
== END | disposition home or self-care (01) ==
LOC: LABSPEC 12:02
PROVIDERS: Referring Provider Family Medicine; Visit Provider Family Medicine
DX: Z20.828 Contact with and (suspected) exposure to other viral communicable diseases (principal)
CPT/HCPCS: 87635; G2023; U0003

== ENCOUNTER 2020-05-25 09:45 | Emergency (ER) | payer MEDICARE, MEDICAID, SELFPAY ==
[2019-05-15 15:21] VITALS: BMI 65.4
[2019-10-15 13:55] VITALS: BMI 67.2
[2020-05-25 09:46] VITALS: BP 139/62; PULSE 71; RESP 21; TEMP 36.8; O2SAT 97; BMI 69.0
--- NOTE | 2020-05-25 09:49 | RAD_ITS ---
STUDY: X-RAY CHEST REASON FOR EXAM: Female, 54 years old. SHORT OF BREATH, CHEST PAIN TECHNIQUE: Single AP portable view of the chest. COMPARISON: Comparison is made with prior study dated 05/22/2019. FINDINGS: EKG electrodes are seen. The lungs are clear and expanded. There is no demonstrated pleural abnormality. Normal size heart. Normal mediastinum and lakeisha. Normal visualized pulmonary arteries. There is atherosclerotic calcification of the aortic arch with tortuosity. There are diffuse degenerative changes of the visualized thoracic spine. Normal visualized ribs, clavicles, and shoulders. There is no demonstrated abnormality of the visualized soft tissue structures of the upper abdomen. RAD/Chest 1 View (Portable) IMPRESSION: No acute abnormality is seen. Electronically Signed: Frederick Slater MD at 10:56 EST , Service support ,
--- NOTE | 2020-05-25 09:49 | EKG12_ITS ---
Test Reason : Blood Pressure : / mmHG Vent. Rate : 063 BPM Atrial Rate : 063 BPM P-R Int : 180 ms QRS Dur : 132 ms QT Int : 434 ms P-R-T Axes : 045 -09 007 degrees QTc Int : 444 ms Normal sinus rhythm Right bundle branch block Abnormal ECG Confirmed by HEATH ROSENBERG, JESÚS ([id number]), scientific publications editor SKIP DEVINE ([id number]) on 05/27/2020 7:54:12 AM Referred By: GIULIA Confirmed By:JESÚS JOE MD
--- NOTE | 2020-05-25 09:50 | ED.DCSUM_ITS ---
History of Present Illness Chief Complaint: Chest Pain Informant: Patient Narrative: 54-year-old female brought in by EMS with concern for coughing and chest pain. Patient states that she began to have a slight cough last night. Persistent. States that she began having a coughing fit this morning and became dyspneic and had slight chest pain. Describes it is aching in nature. Retrosternal nonradiating. Denies any nausea, vomiting, fever, chills, abdominal pain. Past Medical History - Allergies and Home Meds Allergies/Adverse Reactions: Allergies isosorbide [From Imdur] Allergy (Severe, Verified 05/25/20 09:46) Diarrhea lisinopril [From Zestril] Allergy (Verified 05/25/20 09:46) Anaphylaxis metoprolol tartrate [From Lopressor] Allergy (Verified 05/25/20 09:46) Anaphylaxis bupropion [From Wellbutrin] Adverse Reaction (Verified 05/25/20 09:46) Other enalapril maleate [From Vasotec] Adverse Reaction (Verified 05/25/20 09:46) Swelling enalaprilat dihydrate [From Vasotec] Adverse Reaction (Verified 05/25/20 09:46) Swelling levetiracetam [From Keppra] Adverse Reaction (Verified 05/25/20 09:46) Swelling metformin Adverse Reaction (Verified 05/25/20 09:46) Diarrhea oxcarbazepine [From Trileptal] Adverse Reaction (Verified 05/25/20 09:46) Other tremors pregabalin [From Lyrica] Adverse Reaction (Verified 05/25/20 09:46) Abd cramps/diarrhea rofecoxib [From Vioxx] Adverse Reaction (Verified 05/25/20 09:46) Swelling Primary Care Physician: Mike Prince [Primary Care Provider] - Prior records reviewed: Yes Past Medical History: - - HTN, DM, CAD Surgical History: - - PCI x 1, cholecystectomy, Partial Hysterectomy. Lives: Alone Smoking Status: Former smoker Alcohol: None Drugs: None - Family History Maternal Family History: Family History (Last Reviewed 10/15/19 @ 14:[address] Peri Arriaga MD) Sister Asthma Arthritis Diabetes Hypertension High cholesterol Heart disease Sleep apnea Brother Diabetes Hypertension CAD (coronary artery disease) Cancer Mother Diabetes Hypertension CVA (cerebral vascular accident) CAD (coronary artery disease) Grandmother Heart disease Father CVA (cerebral vascular accident) Family History: Reports: Diabetes, High Cholesterol, Heart Disease, Hypertension Paternal Family History: Family History (Last Reviewed 10/15/19 @ 14:[address] Peri Arriaga MD) Sister Asthma Arthritis Diabetes Hypertension High cholesterol Heart disease Sleep apnea Brother Diabetes Hypertension CAD (coronary artery disease) Cancer Mother Diabetes Hypertension CVA (cerebral vascular accident) CAD (coronary artery disease) Grandmother Heart disease Father CVA (cerebral vascular accident) Family History: Reports: Diabetes, High Cholesterol, Heart Disease, Hypertension Review of Systems General: Denies: Chills, Fever, Sweats Eyes: Denies: Visual changes - bilaterally, Diplopia ENT: Denies: Rhinorrhea, Sore throat Cardiovascular: Reports: Chest pain. Denies: Palpitations Respiratory: Reports: Dyspnea, Cough. Denies: Dyspnea on exertion Gastrointestinal: Denies: Abdominal pain, Nausea, Vomiting, Diarrhea, Melena, Hematochezia Genitourinary: Denies: Dysuria, Hematuria, Frequency Musculoskeletal: Denies: Back pain, Extremity Pain Skin: Denies: Rash, Wounds Neurological: Denies: Headache, Weakness, Numbness Physical Exam Inital Vital Signs reviewed: Yes General: Well nourished, Well developed, No Acute Distress Head: Normocephalic, Atraumatic Eyes: Perrl, EOMI ENT: Moist mucous membranes, No rhinorrhea Neck: Supple, Nontender Cardiovascular: Regular rate, Regular rhythm, No murmurs Respiratory: No distress, CTA bilaterally, Chest nontender Abdomen: Soft, Nontender, Nondistended, Normal bowel sounds Back: Nontender, Normal Inspection Extremities: Nontender, No edema Skin: Normal color, No rash Neurological: Alert, Oriented x3, Cranial nerves II-XII grossly intact, Normal Strength, Normal Sensation Psychological: Normal affect, Normal Mood Diagnostic/Tx/Re-eval Chest X-Ray - ED: 1 View, Read by ED Physician, Read by Radiologist, Normal Clinical Impression(s) from Imaging Studies Chest X-Ray 05/25/20 09:49 IMPRESSION: No acute abnormality is seen. Electronically Signed: Frederick Slater MD at 10:56 EST , Service support , Chest CTA 05/25/20 11:30 IMPRESSION: Normal CTA chest examination, without a demonstrated pulmonary embolism or arterial dissection. Electronically Signed: Frederick Slater MD at 12:26 EST , Service support , Laboratory Data 05/25/20 05/25/20 05/25/20 10:10 10:10 14:11 WBC 7.9 RBC 5.12 Hgb 14.3 Hct 44.3 MCV 86.5 MCH 27.9 MCHC 32.3 RDW Std Deviation 43.9 RDW Coeff of Veronica 13.8 Plt Count 286 MPV 9.3 Immature Gran % (Auto) 0.400 Neut % (Auto) 67.7 Lymph % (Auto) 21.5 [place] % (Auto) 7.1 Eos % (Auto) 2.9 Baso % (Auto) 0.4 Absolute Neuts (auto) 5.4 Absolute Lymphs (auto) 1.70 Nucleated RBC % 0 Sodium 140 Potassium 3.7 Chloride 105 Carbon Dioxide 30.0 Anion Gap 5 BUN 24 H Creatinine 1.04 H Estim Creat Clear Calc 147.80 Est GFR (MDRD) Af Amer 70 Est GFR (MDRD) Non-Af 58 L BUN/Creatinine Ratio 23.1 H Glucose 184 H Calcium 9.1 Troponin I < 0.015 < 0.015 - Rhythm Strip Rhythm Strip: Sinus Rhythm Rate: 63 Ectopy: None - EKG Initial EKG Interpretation: Sinus Rhythm - Sinus rhythm at 63 bpm. SC interval of 180 ms. QTC of 444 ms. Right bundle branch block. - Medical Decision Making Appears well and nontoxic. EKG nonischemic. Lab work within normal limits. CXR interpreted by myself shows no evidence of acute process. Radiology concurs. CTA was done given the patient's persistent pain and right bundle branch block. No evidence of dissection or pulmonary embolism. 2 troponins by 3 hours negative. Negative COVID. After discussion with the patient should be discharged home and follow-up with her primary care provider. Patient agreeable and discharged home in stable condition. Impression: 1. Atypical chest pain 2. URI ED Disposition - Plan for ED Patient: Disposition: Home or Assisted Living Instructions: ED Chest Pain, Uncertain Cause Referrals: Mike Prince [Primary Care Provider] - 2 Days
[2020-05-25 09:53] VITALS: O2SAT 97
[2020-05-25 09:57] VITALS: BP 139/62; PULSE 68; RESP 22; TEMP 36.8; O2SAT 97
--- NOTE | 2020-05-25 10:08 | NURSING ---
ICU [facility]
[2020-05-25 10:16] LABS: Absolute Neutrophil Count 5.4 X10^3/uL (2.0-7.7); Basophil# 0.03 X10^3/uL; Basophil% 0.4 % (0-1); Eosinophil# 0.23 X10^3/uL; Eosinophils% 2.9 % (0-5); Hematocrit 44.3 % (37-47); Hemoglobin 14.3 g/dL (12.0-15.0); Lymphocyte % 21.5 % (19-41); Mean Corp Hgb Conc 32.3 g/dL (32-36); Mean Corpuscular Hgb 27.9 pg (27.0-32.0); Mean Corpuscular Volume 86.5 fL (81-99); Mean Platelet Vol. 9.3 fl (6.2-12.0); Monocyte# 0.56 X10^3/uL; Monocyte% 7.1 % (0-10); NRBC Flagged by Analyzer 0 % (0-5); Neutrophil # 5.37 X10^3/uL (2.7-7.7); Neutrophil % 67.7 % (47-70); Platelet Count 286 K/mm3 (150-450); RBC Distribution Width CV 13.8 % (11.6-14.6); RBC Distribution Width SD 43.9 fl (35.1-43.9); Red Blood Count 5.12 M/mm3 (4.2-5.4); White Blood Count 7.9 K/mm3 (4.4-11.0)
[2020-05-25 10:38] LABS: Anion Gap 5 (5-15); BUN 24 mg/dL (7-18); BUN/Creat Ratio 23.1 RATIO (10-20); Calcium,Total 9.1 mg/dL (8.5-10.1); Chloride 105 mmol/L (98-107); Creatinine, Serum 1.04 mg/dL (0.55-1.02); EST Glomerular Filtration Rate 58 mL/min (>60); Est Glom Filt Rate - Afr Amer 70 mL/min (>60); Glucose 184 mg/dL (74-106); Potassium 3.7 mmol/L (3.5-5.1); Sodium Level 140 mmol/L (136-145)
--- NOTE | 2020-05-25 11:30 | CT_ITS ---
STUDY: CTA CHEST REASON FOR EXAM: Female, 54 years old. CHEST PAIN, COUGH RADIATION DOSAGE (If Supplied By Facility): CTDIvol = ( 13.85 ) mGy, DLP = ( 484.74 ) mGycm TECHNIQUE: The examination was performed with the intravenous administration of . Post-processing of the angiographic images was performed, with multiplanar reformation and 3D reconstruction. Individualized dose optimization techniques were used for this CT. COMPARISON: Comparison is made with prior chest radiograph done earlier in the day and prior CT scan dated 06/17/2014. FINDINGS: Normal enhancement of the main pulmonary artery and right and left pulmonary arteries. Normal enhancement of the bilateral peripheral pulmonary arteries. There is no demonstrated pulmonary embolism. Normal thoracic aorta and visualized great vessels. There is no demonstrated aortic dissection. There are calcifications of the coronary arteries. Normal mediastinum. Normal hilar regions. Normal visualized trachea and bronchi. The lungs are well expanded. Normal pulmonary parenchyma. Normal pleura. Normal chest wall structures. There are degenerative changes of thoracic spine. Small hiatal hernia. CT/CTA Chest W/WO Contrast IMPRESSION: Normal CTA chest examination, without a demonstrated pulmonary embolism or arterial dissection. Electronically Signed: Frederick Slater MD at 12:26 EST , Service support ,
[2020-05-25 15:42] VITALS: BP 90/67; PULSE 60; PULSE 61; RESP 16; RESP 17; TEMP 36.8; O2SAT 98
== END 2020-05-25 16:07 | disposition home or self-care (01) ==
PROVIDERS: Emergency Provider Emergency Medicine
DX: R07.89 Other chest pain (principal); J06.9 Acute upper respiratory infection, unspecified; I25.10 Atherosclerotic heart disease of native coronary artery without angina pectoris; I10 Essential (primary) hypertension; E11.9 Type 2 diabetes mellitus without complications; Z79.4 Long term (current) use of insulin; Z79.02 Long term (current) use of antithrombotics/antiplatelets; Z79.899 Other long term (current) drug therapy; Z87.891 Personal history of nicotine dependence
CPT/HCPCS: 71045; 71275; 80048; 84484; 85025; 87426; 93005; 99285; Q9967; A4216

== ENCOUNTER → 2020-06-10 07:14 | Outpatient (CLI) | payer MEDICARE, MEDICAID, SELFPAY ==
[2019-05-15 15:21] VITALS: BMI 65.4
[2020-05-29 13:45] VITALS: BMI 66.6
--- NOTE | 2020-06-10 13:24 | STRESSREP_ITS ---
Stress Test Report Pharmacologic myocardial perfusion stress test. 53-year-old lady with a history of coronary artery disease status post previous angioplasty and stenting of the left anterior descending artery and right coronary artery. Stress protocol: Resting KG demonstrates normal sinus rhythm with a rate of 57 bpm normal intervals are noted right bundle branch block is present. Resting blood pressure is 122/72 mmHg. 0.4 mg of regadenoson was infused per usual protocol followed by rapid venous saline flush injection continuous EKG monitoring was performed. The maximum heart rate was 77 bpm which was 46% of max impacted heart rate the maximum workload was 1 metabolic equivalent. At rest there were no ST or T wave changes noted to suggest abnormal flow reserve at peak infusion nonspecific ST changes were noted with no meet the criteria for ischemia. No clinical angina was noted. Myocardial perfusion protocol. 15.0 mCi of technetium 99m sestamibi was injected at rest. 0.4 mg of regadenoson was infused per usual protocol at peak infusion 44.8 mCi of technetium 99m sestamibi was injected stress images were obtained stress and rest images were reconstructed and compared in the short axis vertical long horizontal long axis. Gated images were also obtained Perfusion SPECT analysis: Review of the stress images demonstrate a medium size defect noted in the mid anterior wall with normal perfusion noted in the septum and lateral wall and inferior wall. During the resting images there was near normal improvement in the mid anterior wall suggesting mid anterior ischemia present. Gated SPECT analysis: The gated ejection fraction is 65%. Conclusion: Abnormal pharmacologic myocardial perfusion stress test with evidence of mid an terior ischemia. Preserved ejection fraction.
== END ==
PROVIDERS: Referring Provider Nurse Practitioner Family; Visit Provider Nurse Practitioner Family
DX: I25.119 Atherosclerotic heart disease of native coronary artery with unspecified angina pectoris (principal); Z95.5 Presence of coronary angioplasty implant and graft; E66.01 Morbid (severe) obesity due to excess calories; I10 Essential (primary) hypertension; E78.5 Hyperlipidemia, unspecified; E11.9 Type 2 diabetes mellitus without complications; G47.33 Obstructive sleep apnea (adult) (pediatric)
CPT/HCPCS: 78452; 93017; A9500; A4216; J2785

== ENCOUNTER 2020-06-15 07:26 | Day surgery (SDC) | payer MEDICARE, MEDICAID, SELFPAY ==
[2019-05-15 15:21] VITALS: BMI 65.4
[2020-05-29 13:45] VITALS: BMI 66.6
[2020-06-12 09:23] VITALS: BMI 66.6
[2020-06-15] VITALS (13 sets, daily range): BP systolic 116–152; BP diastolic 58–82; PULSE 58–73; RESP 17–24; TEMP 36.1–36.6; O2SAT 93–100
--- NOTE | 2020-06-15 06:00 | HP_ITS ---
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 Patient denies any anginal symptoms. She does get palpitations about once a week which lasts about 3 minutes this is significantly less than what she used to have in the past. Patient has been stable with this for a long time. 04/16/2019: Patient is doing fairly well overall. She has noticed worsening lower extremity edema. She also says she has dyspnea on exertion which is however at baseline. 06/05/2019: Since last visit patient had a stress test which was abnormal and she underwent coronary angiography which revealed significant stenosis in the RCA that was treated with stent placement (Synergy 2.5X 38 mm). Patient has been doing well since then. No significant cardiac complaints. 05/29/2020: Since her ER visit she has noted center chest pain that radiates to her neck and left lower chest. This is aggravated by activity. This is improved with rest. She describes this as pressure, stabbing, tightness, and that her whole chest is real real hot. She not taken NTG or OTC medication. She states associated SOB, diaphoresis, and nausea. She states one episode of vomiting. She rates this 3/10 at worse a 10/10. She state dizziness that is new. She states one episode of PND. She states dry cough and headache. She states increase in fatigue. Intake Vital Signs 05/29/20 Height 4 ft 11 in 05/29/20 Weight: 330 lb 05/29/20 BP 130/72 H 05/29/20 Blood Pressure Location Lt brachial 05/29/20 Position Sitting 05/29/20 Respiration 18 05/29/20 Pulse 64 05/29/20 Pulse Source Monitor 05/29/20 Pulse Oximetry (%) 97 Intake Visit Reasons: 6 M FU Abstract Maker Required: No Is patient in pain?: No Allergies isosorbide [From Imdur] Allergy (Severe, Verified 05/29/20 13:40) Diarrhea lisinopril [From Zestril] Allergy (Verified 05/29/20 13:40) Anaphylaxis metoprolol tartrate [From Lopressor] Allergy (Verified 05/29/20 13:40) Anaphylaxis bupropion [From Wellbutrin] Adverse Reaction (Verified 05/29/20 13:40) Other enalapril maleate [From Vasotec] Adverse Reaction (Verified 05/29/20 13:40) Swelling enalaprilat dihydrate [From Vasotec] Adverse Reaction (Verified 05/29/20 13:40) Swelling levetiracetam [From Keppra] Adverse Reaction (Verified 05/29/20 13:40) Swelling metformin Adverse Reaction (Verified 05/29/20 13:40) Diarrhea oxcarbazepine [From Trileptal] Adverse Reaction (Verified 05/29/20 13:40) Other pregabalin [From Lyrica] Adverse Reaction (Verified 05/29/20 13:40) Abd cramps/diarrhea rofecoxib [From Vioxx] Adverse Reaction (Verified 05/29/20 13:40) Swelling Medications Pantoprazole Sodium [Protonix] 40 mg PO BID 07/21/14 [History Confirmed 05/29/20] Ropinirole HCl [Requip] 0.5 mg PO QHS 07/21/14 [History Confirmed 05/29/20] Spironolactone [Aldactone] 25 mg PO DAILY 07/21/14 [History Confirmed 05/29/20] Nitroglycerin (INPATIENT USE) [Nitrostat] 0.4 mg SUBLINGUAL PRN PRN 03/30/17 [History Confirmed 05/29/20] cetirizine 10 mg tablet 10 mg PO DAILY 08/24/17 [History Confirmed 05/29/20] insulin aspart U-100 100 unit/mL (3 mL) subcutaneous pen See Rx Instructions SC TID ml 08/24/17 [History Confirmed 05/29/20] insulin detemir U-100 100 unit/mL (3 mL) subcutaneous pen 49 units SC BID ml 08/24/17 [History Confirmed 05/29/20] dapagliflozin 5 mg tablet 5 mg PO QAM 10/18/18 [History Confirmed 05/29/20] dicyclomine 20 mg tablet 20 mg PO Q6H PRN tab 10/18/18 [History Confirmed 05/29/20] docusate sodium 100 mg capsule 100 mg PO DAILY PRN PRN 10/18/18 [History Confirmed 05/29/20] aspirin 81 mg chewable tablet 81 mg PO QODAY #30 tab 06/05/19 [Rx Confirmed 05/29/20] atorvastatin 40 mg tablet 40 mg PO QHS #30 tab 06/05/19 [Rx Confirmed 05/29/20] carvedilol 12.5 mg tablet 12.5 mg PO BID #60 tab 06/05/19 [Rx Confirmed 05/29/20] clopidogrel 75 mg tablet 75 mg PO DAILY #30 tab 06/05/19 [Rx Confirmed 05/29/20] furosemide 40 mg tablet 40 mg PO DAILY #30 tab 06/05/19 [Rx Confirmed 05/29/20] potassium chloride 10 mEq capsule,extended release 10 meq PO DAILY #30 cap 06/05/19 [Rx Confirmed 05/29/20] hydroxyzine HCl 25 mg tablet 25 mg PO QHS 05/29/20 [History Confirmed 05/29/20] levothyroxine 25 mcg tablet 75 mcg PO DAILY tab 05/29/20 [History Confirmed 05/29/20] [facility] Medical History Atherosclerosis of coronary artery of [place] heart without angina pectoris (Chronic) Morbid obesity (Chronic) Essential hypertension (Chronic) HLD (hyperlipidemia) (Chronic) Anxiety and depression (Chronic) Cataracts, bilateral (Chronic) Degenerative disc disease (Chronic) GERD (gastroesophageal reflux disease) (Chronic) Hypothyroidism (Chronic) JEWELS on CPAP (Chronic) Osteoarthritis (Chronic) SVT (supraventricular tachycardia) (Chronic) History of kidney stones (Resolved) Crohn's disease (Ruled-out) Surgical History (Updated 05/28/20 @ 15:32 by Cristine Welch) Presence of stent in coronary artery (Chronic) History of bilateral salpingo-oophorectomy (BSO) (Resolved) History of carpal tunnel release (Resolved) History of cholecystectomy (Resolved) History of removal of cyst (Resolved) History of umbilical hernia repair (Resolved) Family History Sister Asthma Arthritis Diabetes Hypertension High cholesterol Heart disease Sleep apnea Brother Diabetes Hypertension CAD (coronary artery disease) CABG Cancer lymphoma Mother Diabetes Hypertension CVA (cerebral vascular accident) CAD (coronary artery disease) Grandmother Heart disease Father CVA (cerebral vascular accident) Social History (Updated 05/29/20 @ 16:03 by Live Rowell NP, [employer]) Smoking Status: Former smoker how long ago did patient quit smokin alcohol intake: never substance use type: does not use caffeine: No ROS Const Const: Positive for headache(s); negative for fatigue, weakness, body ache, fever(s) or chills ENT ENT: Positive for headache(s) and dizziness Cardio Chest Pain: Yes Palpitations: No Edema: None Muscle aches with walking: None Resp Respiratory: Positive for SOB with activity, Cough and paroxysmal nocturnal dyspnea; negative for SOB at rest or SOB orthopnea\SOB lying down GI GI: Negative nausea, vomiting blood/hematemesis, bright, red blood in stools or black,tarry stools : Negative for hematuria or frequent nighttime urination/ nocturia Musc Musc: Positive for joint pain; negative for muscle aches/ myalgia Skin Skin: Negative non-healing lesions or rash Neuro Neuro: Positive for dizziness and headache(s); negative for lightheadedness, near syncope, syncope, orthostatic symptoms or weakness Endo Endo: Negative for fatigue Allergy Allergy/Immunology: Negative for rash Cardiology Exam Const Appearance: cooperative, healthy appearing, comfortable and no acute distress Nutritional Appearance: well nourished and obese Orientation: alert, awake and oriented x3 Head Head: normal to inspection Ears: hearing grossly normal bilaterally Nose: external nose normal Face and Sinus: face symmetric Mouth: oral mucosae normal Eyes General: appearance normal, both eyes and all related structures Eyelids: eyelids normal EOM: EOM intact bilaterally Neck Neck: normal visual inspection and no JVD Carotids: normal carotid upstroke Chest Chest inspection: normal inspection of the chest, symmetric chest movement and normal respiratory effort; negative cough Auscultation: Bilateral: Clear to Auscultation Cardio Rate: regular rate Rhythm: regular rhythm Heart sounds: S1 normal and S2 normal; negative rub, gallop or murmur GI GI: normal to inspection and obese Neuro General: alert, awake, oriented x3 and CN's II-XI intact bilaterally Skin Skin: no rashes or lesions noted Extremities Pulses: Normal: Right Radial Pulse, Left Radial Pulse, Diminished: Right Posterior Tibial Pulse, Left Posterior Tibial Pulse Lower Extremity Edema: None: Bilateral Psych Psychological: normal affect Assessment & Plan 1. Atherosclerosis of [place] coronary artery of [place] heart without angina pectoris I25.10 Xience 2.75 x 23 mm ANU to OM2 01/2010 Plan Patient's ER work-up on 05/25/2020 was nonrevealing. Her EKG did not reveal any significant acute changes and her cardiac enzyme was negative x2. She continues to have ongoing chest discomfort since ER visit. Her EKG shows sinus rhythm at a rate of 67 bpm, LA interval 166, QTc 440, and QRS 138. There are no acute ST or T wave changes. Due to ongoing chest discomfort, she was asked to undergo stress test to evaluate coronary artery disease component. Based on results, further recommendation will be made. Orders Orders: 12 Lead EKG performed by [facility] Today 2. Presence of stent in coronary artery Z95.5 Xience 2.75 x 23 mm ANU to OM2 01/2010, [facility] Plan She will continue current medical therapy. Orders Orders: Nuclear Stress Test - Chemical Today 3. Paroxysmal SVT (supraventricular tachycardia) I47.1 Plan This appears stable. She will continue current beta-iggy. We will continue to monitor. 4. Essential hypertension I10 Plan Patient's blood pressure is well-controlled. We will continue to monitor. We will not make any medication regimen changes. Orders Orders: Nuclear Stress Test - Chemical Today 5. Hyperlipidemia, unspecified hyperlipidemia type E78.5 Plan She will continue current statin medication. Orders Orders: Nuclear Stress Test - Chemical Today Plan Detail Other Orders Orders: 12 Lead EKG performed by [facility] Today Z98.61 Nuclear Stress Test - Chemical Today E11.9, E66.01, G47.33, I25.119 Additional Comments Thank you for allowing us to participate in the patients plan of care, if you have any questions please do not hesitate to call. This note was generated using a voice recognition system and there may be incorrect words, spelling or punctuation that were not noted when reviewing the office note prior to saving. Follow Up 1 Month ([employer] phone) Coding Level of Care Code Off vis,est,level 4 Diagnoses Atherosclerosis of [place] coronary artery of [place] heart without angina pectoris I25.10 ??Coronary Disease-Associated Artery/Lesion type: [place] artery Presence of stent in coronary artery Z95.5 Paroxysmal SVT (supraventricular tachycardia) I47.1 Essential hypertension I10 Hyperlipidemia, unspecified hyperlipidemia type E78.5 ??Hyperlipidemia type: unspecified Coding Level of Care Code Off vis,est,level 4 Diagnoses Atherosclerosis of [place] coronary artery of [place] heart without angina pectoris I25.10 ??Coronary Disease-Associated Artery/Lesion type: [place] artery Presence of stent in coronary artery Z95.5 Paroxysmal SVT (supraventricular tachycardia) I47.1 Essential hypertension I10 Hyperlipidemia, unspecified hyperlipidemia type E78.5 ??Hyperlipidemia type: unspecified Supplemental Info Supplemental Information Heart catheterization from 05/15/2019: CONCLUSIONS CAD as described. Preserved EF. No significant or MR. Successful PCI of RCA with ANU RECOMMENDATIONS ASA Indefinitely Plavix for at least 12 months Follow up with primary rehabilitation psychologist CORONARY ANGIOGRAPHY DOMINANCE: Co- Dominant LEFT HEART ASSESSMENT Left Ventricular Ejection Fraction: by LV Gram 70 % Normal LV wall motion LEFT MAIN: Angiographically normal LEFT ANTERIOR DESCENDING ARTERY: Previously placed stent is patent PROX LAD: 50 % Stenosis MID LAD: 60 % Stenosis CIRCUMFLEX ARTERY: Mild luminal irregularities RIGHT CORONARY ARTERY: 90 % Stenosis PROX RCA: 70 % Stenosis VALVE FINDINGS: No Aortic Valve Stenosis No Mitral Insufficiency Echocardiogram from 05/07/2019: Interpretation Summary The estimated ejection fraction is 65 %. No evidence for diastolic dysfunction. Diluted definity 3ml given slow IV push to enhance endocardial definition. The study was technically difficult. Labs LDL Cholesterol 60 mg/dL (0-130) 03/30/17 HDL Cholesterol 40 mg/dL (40-) 03/30/17 Triglycerides 135 mg/dL (-199) 03/30/17 VLDL Cholesterol 27 mg/dL (5-40) 03/30/17 Diagnostics Electrocardiogram 05/29/20 Echocardiogram 05/07/19 Stress Test Nuclear Medicine 05/14/19 Stress Test 05/14/19 Chest X-Ray 05/25/20
--- NOTE | 2020-06-15 10:12 | CL.D_ITS ---
Patient Name: CHANTAL SINGH Study Date: 06/15/2020 Performing: Theodore Arias MD Ht: 59.05 inches 150 cm : 1965 Wt: 330.69 lbs 150 kg Age: 54 Gender: female BSA: 2.28 PROCEDURE(S) PERFORMED MM30-WPB/COR/LV CLINICAL PROFILE AND INDICATIONS Indications: Suspected CAD Heart Failure: None Stress/Imaging Date: 06/05/20ress Test with SPECT MPI: Positive Intermediate Risk CAD Presentations: Stable angina. CONCLUSIONS Previously placed stent in the left anterior descending artery is noted to be patent; previously plac ed stent in the proximal and mid right coronary artery is noted to be patent with a hazy area in the proximal right coronary artery stent. RECOMMENDATIONS Referred for immediate PCI DESCRIPTION OF PROCEDURE The patient arrived to the procedure lab. The risks and benefits of the procedure as well as a full d escription of our services here and current unavailability of surgical backup were fully explained to the patient and/or their significant other prior to the catheterization. The Timeout was completed, verifying the correct patient and procedure. The patient's procedural site was prepped and draped in the usual fashion. Local anesthetic was given subcutaneously to right radial region with Lidocaine 2% . Using a modified Seldinger technique, arterial access was obtained via the right ulnar artery, a 6F r sheath was inserted. Left Coronary Artery selective angiography was performed in multiple views us ing a 5 Fr. 4.0 Ancram catheter. Right Coronary Artery selective angiography was then performed in mul tiple views using a 5 Fr. 4.0 Ancram catheter. Left Ventriculography was performed in [place] projection u sing a 5 Fr. Pigtail catheter. LV to AO pullback pressures were then recorded. CORONARY ANGIOGRAPHY DOMINANCE: Co- Dominant LEFT HEART ASSESSMENT Left Ventricular Ejection Fraction: by LV Gram 60 % Normal Left Ventricular systolic function LEFT MAIN: Angiographically normal LEFT ANTERIOR DESCENDING ARTERY: Mild luminal irregularities MID LAD: Previously placed stent is patent CIRCUMFLEX ARTERY: MID CIRC: 85 % Stenosis OM 1: Proximal - 75 % Stenosis RIGHT CORONARY ARTERY: PROX RCA: Previously placed stent has an instent 50 % restenosis MID RCA: Previously placed stent is patent COMPLICATIONS PROCEDURE MEDICATIONS Fentanyl 50 mcg IV Versed 1 mg IV Oxygen: 2 L/min via nasal cannula Heparin diluted in 23cc Heparinized saline. Patient given 10cc IA of this solution. 06/15/2020 09:49:4 4 Heparin 29374 unit(s) IV 06/15/2020 10:06:52 Verapamil 2.5mg, Ntg 100mcgs, 2000 units of Heparin diluted in 23cc Heparinized saline. Patient give n 10cc IA of this solution. 06/15/2020 09:49:44 SUMMARY OF HEMODYNAMIC DATA Time AIR REST ECG 07:53:42 AO 135/77 (100) SA 09:52:13 LV 149/26, 33 09:58:28 LV 144/18, 29 09:58:34 LV 134/21, 32 10:00:03 LVp 139/23, 28 10:00:08 AOp 145/77 (105) 10:00:13 Signed By Theodore Arias MD On 06/15/2020 10:11:55 AM Theodore Arias MD
--- NOTE | 2020-06-15 11:00 | EKG12_ITS ---
Test Reason : POST PCI Blood Pressure : / mmHG Vent. Rate : 060 BPM Atrial Rate : 060 BPM P-R Int : 186 ms QRS Dur : 146 ms QT Int : 482 ms P-R-T Axes : 053 -23 -01 degrees QTc Int : 482 ms Normal sinus rhythm Right bundle branch block Abnormal ECG When compared with ECG of 25-MAY-2020 10:00, Nonspecific T wave abnormality, worse in Anterior leads Confirmed by NABEEL ROSENBERG, THEODORE ([id number]), general expeditor LOLA HERRING ([id number]) on 06/16/2020 8:38:54 AM Referred By: Theodore Arias Confirmed By:THEODORE ARIAS MD
[2020-06-15] MEDS: 0.9% Normal Saline 1,000 ML 60 ML IV (11:15)
--- NOTE | 2020-06-15 11:15 | CRPHASE1_ITS ---
Patient Communication Former Patient:: Phase I - 05/15/2019 PHII Cardiac Rehab Discussed with Patient:: Yes Guide to Cardiac Rehab Given to Patient:: Yes Cardiac Rehab Facility Choice List Given to Patient:: Yes Choice Program [facility] PHII:: Communication Given to CR, Refer to [facility] Superintendent Communications:: Peri Arriaga Refer Phase II Cardiac Rehab:: Yes Sessions:: 36 sessions - 2 days/wk, 18 weeks Cardiac Rehabilitation Info Cardiac Rehabilitation Program Information: Cardiac Rehabilitation is important for patients like you who are recovering from a heart problem. Cardiac rehabilitation programs are recognized as integral to the continued care of the patient with coronary heart disease. The cardiac rehabilitation program is designed to optimize a patient's physical, psychological, and social functioning. Health foster care worker work in cardiac rehabilitation programs and assist you with getting the treatments you need to get stronger and healthier - like exercise, healthy eating habits, and medications. Cardiac rehabilitation has been show to help people with heart problems live longer and have better life enjoyment than people who do not go to cardiac rehabilitation. Please contact the Cardiac Rehabilitation Program at [facility] at in two weeks if you have not heard from them.
--- NOTE | 2020-06-15 11:16 | CRPH1.INSTRU ---
General Education CAD and cardiac anatomy and function:: Patient communicates acknowledgment Explanation of diagnoses and procedures:: Patient communicates acknowledgment Sign/Symptoms of [place]:: Patient communicates acknowledgment Antiplatelet therapy: Patient communicates acknowledgment Proper use of NTG-SL: Patient communicates acknowledgment Emergency procedures and activation of EMS: Patient communicates acknowledgment Compliance of all prescribed medications: Patient communicates acknowledgment Dyslipidemia Patient Dyslipidemia Risk Factors Are:: Total Cholesterol, Triglycerides, HDL, LDL Recommendations Include:: Lipid profile not available - last available lab was 03/30/2017 Dyslipidemia Response Code:: Patient communicates acknowledgment Overweight/Obesity Patient Overweight/Obesity Risk Factors Are:: Obesity - > or = 30 - Morbid Obesity BMI 65.4 Recommendations Include:: Weight loss of 5-10%, Reduced calorie diet, Exercise 5-7 times/week Overweight/Obesity:: Patient communicates acknowledgment, Needs reinforcement Hypertension Recommendations Include:: Maintain BP <130/85, BP <130/80 if diabetic, DASH dietary guidelines, Decrease/maintain normal body weight Hypertension:: Patient communicates acknowledgment, Needs reinforcement Heart Disease Patient Heart Disease Risk Factors Are:: Previous cardiac event Recommendations Include:: Educated family members of their risk, Educated family members of importance of prevention of heart disease Heart Disease Response Code:: Patient communicates acknowledgment Diabetes Patient Diabetes Risk Factors Are:: Elevated blood sugars, Post-op hyperglycemia Recommendations Include:: Maintain fasting blood sugars 70-110 md/dL, Maintain HgbA1c of 6% or less, Monitor blood sugar as prescribed, Diabetic dietary guidelines, Decrease/maintain body weight Diabetes:: Patient communicates acknowledgment, Needs reinforcement Metabolic Syndrome Patient Metabolic Syndrome Risk Factors Are [3 of 5]:: Fasting blood sugar > 100 mg/dL, Waist circumference > 35 [female] or 40 [male], Hypertension, Low HDL <40 [male] or < 50 [female] Recommendations Include:: Reinforce compliance to risk factor modifications, Patient is diabetic, Encouraged follow-up with Primary Care Physician Metabolic Syndrome Response Code:: Patient communicates acknowledgment, Needs reinforcement Sedentary Patient Sedentary Risk Factors Are:: Lack of regular exercise Recommendations Include:: Aerobic exercise 5-7 times/week for 20-30 minutes continuously, Benefits of regular exercise, Discussed home walking program, Monitored Outpatient Cardiac Rehab Sedentary Response Code:: Patient communicates acknowledgment
--- NOTE | 2020-06-15 11:27 | CL.I_ITS ---
Patient Name: CHANTAL SINGH Study Date: 06/15/2020 Performing: Edmundo Arriaga MD Ht: 59 inches 150 cm : 1965 Wt: 331.1 lbs 150 kg Age: 54 Gender: female BSA: 2.28 PROCEDURE(S) PERFORMED [id number] W OR WO PTCA, SINGLE CORONARY ARTERY [id number] W OR WO PTCA, EACH ADD'L ARTERY, SAME MAJOR [id number], SINGLE CORONARY ARTERY CLINICAL PROFILE AND CO-MORBIDITIES Indications: Suspected CAD Heart Failure: None Stress/Imaging Date: 06/05/20 Stress Test with SPECT MPI: Positive Intermediate Risk CAD Presentations: Stable angina. CONCLUSIONS Successful PCI of pLCx and OM1 with ANU. Successful Cutting balloon angioplasty of ISR of RCA RECOMMENDATIONS DESCRIPTION OF PROCEDURE The patient arrived to the procedure lab. The risks and benefits of the procedure as well as a full d escription of our services here and current unavailability of surgical backup were fully explained to the patient and/or their significant other prior to the catheterization. The Timeout was completed, verifying the correct patient and procedure. The patient's procedural site was prepped and draped in the usual fashion. Local anesthetic was given subcutaneously to right radial region with Lidocaine 2% Using a modified Seldinger technique,arterial access was obtained via the right ulnar artery, a 6Fr sheath was inserted. Left Coronary Artery selective angiography was performed in multiple views using a 5 Fr. 4.0 Morning View catheter. Right Coronary Artery selective angiography was then performed in multip le views using a 5 Fr. 4.0 Morning View catheter. Left Ventriculography was performed in [place] projection usin g a 5 Fr. Pigtail catheter. LV to AO pullback pressures were then recorded.The images were reviewed and options discussed. A decision was then made to proceed with an Intervention, IVUS or oth er adjunct procedure. XB 3.5 Guide catheter was inserted and engaged into the LCA. BMW Guide wire was advanced to the C ircumflex. 2x12 Emerge Balloon catheter was inserted. 2x12 Emerge Balloon catheter was advanced acros s lesion in the first obtuse marginal, ostial. PTCA balloon inflated at 8 atms for 20 secs. PTCA ball oon inflated at 4 atms for 15 secs. PTCA balloon inflated at 8 atms for 10 secs. PTCA balloon inflate d at 6 atms for 5 secs. Balloon catheter was advanced across lesion in the circumflex, proximal. PTCA balloon inflated at 14 atms for 8 secs. PTCA balloon inflated at 14 atms for 8 secs. 2.5x16 Synergy Drug Eluting stent was inserted. 2.5x16 Synergy Drug Eluting stent was advanced across the lesion in the first obtuse marginal, ostial. Angiogram performed post stent deployment. 3.5x16 Synergy Drug Elu ting stent was inserted. Drug Eluting stent was advanced across the lesion in the circumflex, proxima l. Angiogram performed post stent deployment. JR 4 Guide catheter was inserted and engaged into the RCA. BMW Guide wire was advanced to the RCA. 2.5x10 Polvadera Cutting balloon catheter was i nserted 2.5x10 Polvadera Cutting balloon catheter was inserted Cutting balloon catheter was advanced to the lesion in the right coronary, proximal. Cutting balloon catheter was advanced to the lesion in the right coronary, proximal. Angiogram performed post balloon dilatation. The arterial sheath was pulled and a TR Band was applied for hemostasis. 12cc of air INTERVENTION INFORMATION LESION SITE: 1st OM (Ostial) Lesion Complexity: High/C, chronic total occlusion: No, lesion at bifurcation: Yes, thrombus present: No, lesion length: 12 mm, culprit lesion: Yes, Previously treated lesion: No Pre Stenosis: 90 % Pre intervention HARRIETT flow: 3 PROCEDURE: Drug Eluting Stent with pre dilatation. Post Stenosis: 0 % Post intervention HARRIETT flow: 3 Lesion Devices: Garcia .014 BMW [place] Straight 190cm Cardinal 6 Fr XB3.5 100cm Guide Catheter Haseeb Sci EMERGE MR 2.00x12 BALLOON Haseeb Sci Synergy MR ANU 2.50x16 LESION SITE: Circumflex (Proximal) Lesion Complexity: High/C, chronic total occlusion: No, lesion at bifurcation: No, thrombus present: No, lesion length: 12 mm, culprit lesion: Yes, Previously treated lesion: No Pre Stenosis: 90 % Pre intervention HARRIETT flow: 3 PROCEDURE: Drug Eluting Stent with pre dilatation. Post Stenosis: 0 % Post intervention HARRIETT flow: 3 Lesion Devices: Garcia .014 BMW [place] Straight 190cm Cardinal 6 Fr XB3.5 100cm Guide Catheter Haseeb Sci EMERGE MR 2.00x12 BALLOON Haseeb Sci Synergy MR ANU 3.50x16 LESION SITE: RCA (Proximal) Lesion Complexity: High/C, chronic total occlusion: No, lesion at bifurcation: No, thrombus present: No, lesion length: 10 mm, culprit lesion: Yes, Previously treated lesion: Yes, Timeframe of previous treatment: 1-2 years, Previously treated with a stent: Yes Stent Type: with ANU, In-stent restenosis: Yes Pre Stenosis: 80 % Pre intervention HARRIETT flow: 3 PROCEDURE: Cutting Balloon Angioplasty 20 % Post intervention HARRIETT flow: 3 Lesion Devices: [employer]in[employer] 6 Fr JR4.0 100cm Guide Catheter Haseeb [employer] cutting balloon 2.5x10 COMPLICATIONS No Complications PROCEDURE MEDICATIONS Fentanyl 50 mcg IV Versed 1 mg IV Oxygen: 2 L/min via nasal cannula Heparin diluted in 23cc Heparinized saline. Patient given 10cc IA of this solution. 06/15/2020 09:49:4 4 Heparin 58809 unit(s) IV 06/15/2020 10:06:52 Heparin 1000 unit(s) IV 06/15/2020 10:40:25 Verapamil 2.5mg, Ntg 100mcgs, 2000 units of Heparin diluted in 23cc Heparinized saline. Patient give n 10cc IA of this solution. 06/15/2020 09:49:44 SUMMARY OF HEMODYNAMIC DATA Time AIR REST ECG 07:53:42 AO 135/77 (100) SA 09:52:13 LV 149/26, 33 09:58:28 LV 144/18, 29 09:58:34 LV 134/21, 32 10:00:03 LVp 139/23, 28 10:00:08 AOp 145/77 (105) 10:00:13 AO 140/69 (97) 10:11:39 Signed By Edmundo Arriaga MD On 06/15/2020 11:26:01 Edmundo Arriaga MD
--- NOTE | 2020-06-15 15:29 | CASEMGMT ---
JORDY received a call from Samina with [employer], she is patient's disability case manager. She said patient has aides through [facility]. 3 hours on and , 2 hours on and , and 1 hour on Monday. She also gets 10 home delivered meals every other week and she has an emergency response button. She asked that JORDY fax her d/c paperwork. Emma ZAMORA MSW
--- NOTE | 2020-06-15 17:22 | NURSING ---
Observed R radial heart cath site at this time with off-going RN. Site clean and dry without s/s hematoma. Pt denies pain.
[2020-06-15] MEDS: Carvedilol 12.5 MG Tablet PO (21:56)
[2020-06-15] MEDS: Pramipexole Di-HCl 0.25 MG Tablet PO (21:56)
[2020-06-15] MEDS: Atorvastatin Calcium 40 MG Tablet PO (21:56)
[2020-06-15] MEDS: hydrOXYzine PAM 25 MG Capsule PO (21:56)
[2020-06-15] MEDS: Pantoprazole Sodium 40 MG Tablet PO (21:57)
[2020-06-15 22:06] LABS: Bedside Glucose 206 mg/dL (70-110)
[2020-06-16] VITALS (7 sets, daily range): BP systolic 110–123; BP diastolic 49–62; PULSE 56–66; RESP 16–18; TEMP 36.4–36.6; O2SAT 94–99
[2020-06-16] MEDS: Levothyroxine 75 MCG Tablet PO (06:08)
[2020-06-16 06:20] LABS: Hematocrit 45.2 % (37-47); Hemoglobin 14.4 g/dL (12.0-15.0); Mean Corp Hgb Conc 31.9 g/dL (32-36); Mean Corpuscular Hgb 28.2 pg (27.0-32.0); Mean Corpuscular Volume 88.5 fL (81-99); Mean Platelet Vol. 9.2 fl (6.2-12.0); Platelet Count 274 K/mm3 (150-450); RBC Distribution Width CV 13.9 % (11.6-14.6); RBC Distribution Width SD 44.7 fl (35.1-43.9); Red Blood Count 5.11 M/mm3 (4.2-5.4); White Blood Count 8.4 K/mm3 (4.4-11.0)
[2020-06-16 06:46] LABS: ALB/GLOB Ratio 0.9 RATIO (0.9-2.4); AST(SGOT) 15 U/L (15-37); Alanine Aminotransfer ALT/SGPT 26 U/L (13-56); Alkaline Phosphatase 159 U/L (45-117); Anion Gap 5 (5-15); BUN 24 mg/dL (7-18); BUN/Creat Ratio 27.1 RATIO (10-20); Calcium,Total 8.5 mg/dL (8.5-10.1); Chloride 109 mmol/L (98-107); Creatinine, Serum 0.89 mg/dL (0.55-1.02); EST Glomerular Filtration Rate 70 mL/min (>60); Est Glom Filt Rate - Afr Amer 85 mL/min (>60); Estimated Creatinine Clearance 166.78 ml/min; Globulin 3.4 g/dL (2.2-4.2); Glucose 191 mg/dL (74-106); Potassium 3.9 mmol/L (3.5-5.1); Protein, Total 6.4 g/dL (6.4-8.2); Sodium Level 139 mmol/L (136-145)
--- NOTE | 2020-06-16 08:31 | PCM.PN.CARD ---
Subjectve: Patient seen and evaluated. Appears to be doing well. No complaints overnight. Objective: Vital Signs Temp Pulse Resp BP Pulse Ox 97.8 F 56 L 16 110/62 99 06/16/20 06:12 06/16/20 07:00 06/16/20 06:12 06/16/20 06:12 06/16/20 06:12 Oxygen Delivery Method Room Air Weight: 330 lb Body Mass Index (BMI) 66.6 Finger Stick Blood Glucose 169 Intake and Output for Last 24 Hours 06/14/20 06/15/20 06/16/20 23:59 23:59 23:59 Intake Total 360 / 360 Balance 360 / 360 General: Awake, Alert, Oriented x 3 HEENT: PERRL, EOMI, Sclera Non Icteric Neck: Supple, Good ROM, No Lymph Node Enlargement Lungs: Clear to auscultation Cardiovascular: Regular Rhythm, Normal S1, Normal S2, No Murmurs, No Rubs, No Gallops 06/16/20 06:14: WBC 8.4, RBC 5.11, Hgb 14.4, Hct 45.2, MCV 88.5, MCH 28.2, MCHC 31.9 L, Plt Count 274, MPV 9.2 06/16/20 06:14: Sodium 139, Potassium 3.9, Chloride 109 H, Carbon Dioxide 25.0, Anion Gap 5, BUN 24 H, Creatinine 0.89, Est GFR (MDRD) Af Amer 85, Est GFR (MDRD) Non-Af 70, BUN/Creatinine Ratio 27.1 H, Glucose 191 H, Calcium 8.5, Total Bilirubin 0.40 Rhythm: EKG: ECHO: Stress Test: Cardiac Cath: PCI: CT Surgery: Holter monitor: EPS: PPM: CXR: Chest CT Scan: Medical Necessity - Tobacco Use Smoking Status: Former smoker Assessment/Plan Status post angioplasty and stenting of the circumflex artery, and obtuse marginal branch, and Cutting Balloon angioplasty to the proximal right coronary artery.. Patient tolerated the procedure well. Will be discharged today on same medications and will be seen in the office for cardiac rehabilitation instructions.
--- NOTE | 2020-06-16 08:34 | PCM.DC.CCA ---
Discharge Diet: Low fat/ Low Cholesterol Lifting Restrictions: 10 pounds and also avoid any pushing or pulling for 3 days after your test. Additional Activity Instructions:: You must have someone drive you home. Do not drive until instructed by your doctor. You must have someone stay with you all night after your test. Rest in bed or on the couch until the next morning. Limit the number of times you go up and down stairs the day of your test. Apply pressure to the puncture site if you sneeze or cough. Call your doctor if your incision/area has: Increased Pain/ Swelling, Increased Redness, Foul Smelling Discharge, Swelling at the incision site Call your doctor if you observe: Fever of 101 or Higher Additional Dressing/Incision Instructions:: Keep the dressing (bandage) on until the next morning. You may then shower, but do not take a tub bath for 5 days after your test. It is normal to have some tenderness and discomfort at the puncture site. Sometimes bruising also occurs. However, if pain, numbness, or coldness occurs below the puncture site (in your leg, toes, arms or fingers) call your doctor at once. You may have a small, marble sized knot at the puncture site. This is normal. Do not rub it. It will go away in 4-6 weeks. Bleeding can occur from the area where the puncture was done. Blood may spurt or drip from the site. If blood spurts, apply pressure right away to stop bleeding and call 911. Although rare, bleeding into the tissue (hematoma) can also occur. If this happens, a large, firm area goose egg under the skin will appear. If any of these occur, lie down as flat as you can and have someone apply firm pressure to the cath site with a gauze pad or a clean washcloth for 10-15 minutes. Call 911 or go to the Emergency Department. Allergies/Adverse Reactions: Allergies isosorbide [From Imdur] Allergy (Severe, Verified 05/29/20 13:40) Diarrhea lisinopril [From Zestril] Allergy (Verified 05/29/20 13:40) Anaphylaxis metoprolol tartrate [From Lopressor] Allergy (Verified 05/29/20 13:40) Anaphylaxis bupropion [From Wellbutrin] Adverse Reaction (Verified 05/29/20 13:40) Other enalapril maleate [From Vasotec] Adverse Reaction (Verified 05/29/20 13:40) Swelling enalaprilat dihydrate [From Vasotec] Adverse Reaction (Verified 05/29/20 13:40) Swelling levetiracetam [From Keppra] Adverse Reaction (Verified 05/29/20 13:40) Swelling metformin Adverse Reaction (Verified 05/29/20 13:40) Diarrhea oxcarbazepine [From Trileptal] Adverse Reaction (Verified 05/29/20 13:40) Other tremors pregabalin [From Lyrica] Adverse Reaction (Verified 05/29/20 13:40) Abd cramps/diarrhea rofecoxib [From Vioxx] Adverse Reaction (Verified 05/29/20 13:40) Swelling Medications to take at Discharge Pantoprazole Sodium [Protonix] 40 mg PO BID 07/21/14 Ropinirole HCl [Requip] 0.5 mg PO QHS 07/21/14 Spironolactone [Aldactone] 25 mg PO DAILY 07/21/14 Nitroglycerin (INPATIENT USE) [Nitrostat] 0.4 mg SUBLINGUAL PRN PRN 03/30/17 cetirizine 10 mg tablet 10 mg PO DAILY 08/24/17 insulin aspart U-100 100 unit/mL (3 mL) subcutaneous pen See Rx Instructions SC TID ml 08/24/17 insulin detemir U-100 100 unit/mL (3 mL) subcutaneous pen 49 units SC BID ml 08/24/17 dapagliflozin 5 mg tablet 5 mg PO QAM 10/18/18 dicyclomine 20 mg tablet 20 mg PO Q6H PRN tab 10/18/18 docusate sodium 100 mg capsule 100 mg PO DAILY PRN PRN 10/18/18 potassium chloride 10 mEq capsule,extended release 10 meq PO DAILY #30 cap 06/05/19 hydroxyzine HCl 25 mg tablet 25 mg PO QHS 05/29/20 levothyroxine 25 mcg tablet 75 mcg PO DAILY tab 05/29/20 atorvastatin 40 mg tablet 40 mg PO QHS #90 tab 06/01/20 carvedilol 12.5 mg tablet 12.5 mg PO BID #180 tab 06/01/20 clopidogrel 75 mg tablet 75 mg PO DAILY #90 tab 06/01/20 furosemide 40 mg tablet 40 mg PO DAILY #90 tab 06/01/20 Aspirin 81 mg PO DAILY 06/12/20 Orders to be completed after discharge: Phase II, Outpatient Cardiac Rehab Location: None Selected Primary Care Physician: Mike Prince [Primary Care Provider] - Test Results: Test results from this visit will be discussed in further detail at your follow-up appointment, if applicable. When: The heart group office will call for appointment Proposed Discharge Date: 06/16/20 Cardiac Rehabilitation Info Cardiac Rehabilitation Program Information: Cardiac Rehabilitation is important for patients like you who are recovering from a heart problem. Cardiac rehabilitation programs are recognized as integral to the continued care of the patient with coronary heart disease. The cardiac rehabilitation program is designed to optimize a patient's physical, psychological, and social functioning. Health acute care registered nurse work in cardiac rehabilitation programs and assist you with getting the treatments you need to get stronger and healthier - like exercise, healthy eating habits, and medications. Cardiac rehabilitation has been show to help people with heart problems live longer and have better life enjoyment than people who do not go to cardiac rehabilitation. Please contact the Cardiac Rehabilitation Program at [facility] at in two weeks if you have not heard from them.
[2020-06-16] MEDS: Furosemide 40 MG Tablet PO ×2 (08:39)
[2020-06-16] MEDS: Empagliflozin 10 MG Tablet PO (08:39)
[2020-06-16] MEDS: Carvedilol 12.5 MG Tablet PO (08:39)
[2020-06-16] MEDS: Pantoprazole Sodium 40 MG Tablet PO (08:39)
[2020-06-16] MEDS: Aspirin 81 MG TAB.CHEW PO (08:40)
[2020-06-16] MEDS: Clopidogrel Bisulfate 75 MG Tablet PO (08:40)
[2020-06-16] MEDS: Loratadine 10 MG Tablet PO (08:40)
[2020-06-16] MEDS: Spironolactone 25 MG Tablet PO (08:40)
[2020-06-16 08:51] LABS: Bedside Glucose 192 mg/dL (70-110)
--- NOTE | 2020-06-16 09:40 | CASEMGMT ---
JORDY called Samina Conner and left her a voice mail letting her know patient is being discharged home today. JORDY faxed d/c instructions to her as well. Emma ZAMORA MSW
--- NOTE | 2020-06-16 10:00 | EKG12_ITS ---
Test Reason : AM EKG Blood Pressure : / mmHG Vent. Rate : 063 BPM Atrial Rate : 063 BPM P-R Int : 176 ms QRS Dur : 142 ms QT Int : 468 ms P-R-T Axes : 058 -06 -01 degrees QTc Int : 478 ms Normal sinus rhythm Right bundle branch block Abnormal ECG Confirmed by HEATH ROSENBERG, JESÚS ([id number]), restaurant expeditor NETTE BURNETT ([id number]) on 06/17/2020 8:59:22 AM Referred By: Theodore Arias Confirmed By:JESÚS JOE MD
--- NOTE | 2020-06-16 10:30 | PHA.DC.MR ---
Pharmacy Service has performed discharge medication reconciliation for this patient. No new medications at time of discharge review. Medications reviewed are from previously reported home medications. Home Medications Pantoprazole Sodium [Protonix] 40 mg PO BID 07/21/14 Ropinirole HCl [Requip] 0.5 mg PO QHS 07/21/14 Spironolactone [Aldactone] 25 mg PO DAILY 07/21/14 Nitroglycerin (INPATIENT USE) [Nitrostat] 0.4 mg SUBLINGUAL PRN PRN 03/30/17 cetirizine 10 mg tablet 10 mg PO DAILY 08/24/17 insulin aspart U-100 100 unit/mL (3 mL) subcutaneous pen See Rx Instructions SC TID ml 08/24/17 insulin detemir U-100 100 unit/mL (3 mL) subcutaneous pen 49 units SC BID ml 08/24/17 dapagliflozin 5 mg tablet 5 mg PO QAM 10/18/18 dicyclomine 20 mg tablet 20 mg PO Q6H PRN tab 10/18/18 docusate sodium 100 mg capsule 100 mg PO DAILY PRN PRN 10/18/18 potassium chloride 10 mEq capsule,extended release 10 meq PO DAILY #30 cap 06/05/19 hydroxyzine HCl 25 mg tablet 25 mg PO QHS 05/29/20 levothyroxine 25 mcg tablet 75 mcg PO DAILY tab 05/29/20 atorvastatin 40 mg tablet 40 mg PO QHS #90 tab 06/01/20 carvedilol 12.5 mg tablet 12.5 mg PO BID #180 tab 06/01/20 clopidogrel 75 mg tablet 75 mg PO DAILY #90 tab 06/01/20 furosemide 40 mg tablet 40 mg PO DAILY #90 tab 06/01/20 Aspirin 81 mg PO DAILY 06/12/20 The patient's discharge medication list was reviewed for discrepancies and discrepancies were resolved.
== END 2020-06-16 08:34 | disposition home or self-care (01) ==
LOC: CLSP 07:28 → PCU 06-16 11:35
PROVIDERS: Specialist; Referring Provider Internal Medicine Cardiovascular Disease; Visit Provider Internal Medicine Cardiovascular Disease
DX: I25.118 Atherosclerotic heart disease of native coronary artery with other forms of angina pectoris (principal); I47.1 Supraventricular tachycardia; I10 Essential (primary) hypertension; E78.5 Hyperlipidemia, unspecified; K21.9 Gastro-esophageal reflux disease without esophagitis; E03.9 Hypothyroidism, unspecified; M19.90 Unspecified osteoarthritis, unspecified site; G47.33 Obstructive sleep apnea (adult) (pediatric); E66.01 Morbid (severe) obesity due to excess calories; Z95.5 Presence of coronary angioplasty implant and graft; Z79.4 Long term (current) use of insulin; Z79.82 Long term (current) use of aspirin; Z79.899 Other long term (current) drug therapy; Z87.891 Personal history of nicotine dependence
CPT/HCPCS: 36415; 80053; 82962; 85027; 92920; 92928; 92929; 93005; 93458; 99152; 99153; C1725; J7030; J7040; Q9967; C1769; C1874; C1887; C1894; C9600; C9601

== ENCOUNTER → 2020-06-19 08:40 | Outpatient (CLI) | payer MEDICARE, MEDICAID, SELFPAY ==
[2019-05-15 15:21] VITALS: BMI 65.4
[2020-06-12 09:23] VITALS: BMI 66.6
== END ==
PROVIDERS: Referring Provider Internal Medicine Cardiovascular Disease; Visit Provider Internal Medicine Cardiovascular Disease
DX: R09.89 Other specified symptoms and signs involving the circulatory and respiratory systems (principal)
CPT/HCPCS: 93931

== ENCOUNTER → 2020-06-26 12:58 | Outpatient (CLI) | payer MEDICARE, MEDICAID, SELFPAY ==
[2019-05-15 15:21] VITALS: BMI 65.4
[2020-06-12 09:23] VITALS: BMI 66.6
--- NOTE | 2020-06-26 13:03 | CR.ITP_ITS ---
Diagnosis - General Information Admitting Diagnosis: PCI w/ coronary stenting Personal Learning Style:: Audio/Visual, Written Barriers to Learning: Vision Impairment Stage of change r/t lifestyle modifications:: Action Gave educational material for:: Treating Heart Disease, Emotions & Heart Disease, Stress Management & Relaxation, Sleep Disorders & Heart Disease, How The Heart Works, What it means to have Heart Disease, How Coronary Artery Disease is Diagnosed, Heart Procedures, What Heart Medications Do, Risk Factors & Modifications, Living an Active Life, Nutrition - Education/Goals Individual Counseling: Initial Assessment: Abnormal Cholesterol Levels, High Blood Pressure, Overweight/Obesity, Diabetes, Metabolic Syndrome (as evidenced by 3 of 5 A-E below), A. Fasting Blood Sugar >100 - 191 A1c 9.1, B. Waist Circumference >35/Females >40/Males, Hypertension - 110/62, Low HDL <40/Males or <50/Females - HDL 40, Sedentary Lifestyle Cardiac Rehabilitation Goals: 1. Maintain the individual as the primary focus of care. 2. To improve the patient's quality of life. 3. Identification of cardiac risk factors and provide cardiac risk factor management. 4. Enhance the psychosocial status of the patient. 5. Reconditioning enough to allow the patient to resume customary activities. 6. Control symptoms of cardiac disease Personal Goals: Initial Assessment: Improve diet and eating habits (eat healthier), Control risk factors (learn risk factor modification) Scale for measuring improvement of personal goals: Enter appropriate number in Comments. 2 = Unchanged. 3 = Slightly Better. 4 = Moderate Improvement. 5 = Met my Goal - Diagnosis & Disease Process Outcomes/Goals: Pt IDs own risk factors & lifestyle modifications by Session 10, Verbalizes symptoms of angina & response by session 3., Pt independently manages Plan/Interventions: Assist Pt to ID & engage in lifestyle modification to reduce CVD risk, Instruct on individual risk factors, Review symptoms of angina & emergency actions, Review secondary diagnosis & identify educational needs. - Safety Referral to Physical Therapy: No Referral to [facility] Case Management: No Fall Risk Assessed:: Yes Assistive Devices:: Wheelchair Exercise - Initial Assessment - Visit Date of Eval: 06/26/20 Session #:: 0 - pre-cardiac rehab Mets: Pre-: >5 METS for 30 minutes by discharge - Stress Test Date: 06/10/20 Protocol:: Regadenoson Resting HR (bpm):: 59 Maximum HR (bpm):: 77 Blood Pressure: 122/72 Maximum Blood Pressure: 138/72 EKG: NSR with right bundle branch block - Physician Prescribed Exercise Modalities: NuStep, SciFit Frequency: 3x/week for 12 weeks [36 sessions] Intensity: 60-80% of age predicted maximum heart rate reserve Current METSs:: 2.0 Target Heart Rate:: 106-123 Resting Blood Pressure: 110/62 EKG Type: NSR w/RBBB - Outcomes & Goals Goals:: Verbalizes understanding of THR, RPE & goal METS by session 6, Documents in home exercise log/reports 30 min aerobic 5 day/wk by DC, Demonstrates accurate pulse taking by DC - Intervention & Plan Exercise Program Goals: Instruct on personal THR & RPE, Instruct on MET level & personal MET goal, Show patient to take own pulse /validate performance until accurate, Instruct on home exercise - Physical Activity Home Exercise Physical Activity - Home Exercise: Safe Exercise, Warm-up, Self-monitoring, Cool-Down, Home Exercise > 30 min Daily, Sitting Time <3 hours/daily - Outcomes & Goals Outcomes/Goals: Demonstrates correct Warm-up/exercise Cool-Down (S3) if = 2.5 METs, Verbalizes symptoms of exercise intolerance by Session 3 (S3), Demonstrate safe equipment use (S3) & follows exercise prescrition (6) - Intervention & Plan Plan/Intervention: Instruct warm-up & cool-down if exercising at > 2 METs, Instruct on symptoms of exercise intolerance & actions to take, Instruct & monitor on saf, Assess intial functional capacity & safety risk Nutrition - Initial Assessment - Program Goals Nutrition Program Goals: LDL <100 optimal. 100 - 129 Near optimal. 130 - 159 Borderline High. 160 - 189 High. Total Cholesterol <200 desirable. 200 - 239 Borderline High. >/= 240 High. HDL < 40 Low >/=60 High. Triglycerides <150 desirable. <199 optimal. VlDL 5 - 40. HgbA1C <7%. BMI <25 Patient has diagnosis of Hyperlipidemia (ICD E78)?: Yes - Visit Date of Assessment:: 06/26/20 Session #:: 0 - pre-cardiac rehab - Cholesterol/Lipids Triglycerides (mg/dL): 135 - last results on record from 03/30/2017 Total Cholesterol (mg/dL): 127 LDL Cholesterol (mg/dL): 60 HDL Cholesterol (mg/dL): 40 Determine presence & major risk factors that modify LDL goal: Hypertension or hypertensive medication, Low HDL cholesterol <40 mg/dL*, Age men > 45 years; women >/= 55 years Outcomes/Goals: Pt IDs own risk factors & lifestyle modifications by Session 10, Verbalizes symptoms of angina & response by session 3., Pt independently manages Intervention/Plan: Instruct on personal lipid levels & lipid goals/NCEP guidelines, Instruct on cholesterol Referral to dietitian:: Yes - Diabetes (Other Core Measures) Diabetes Type: Diagnosis Type II ICD-10 E11 Insulin dependent injection/pump?: Yes Non-Insulin Dependent?: Yes Do you monitor your blood sugar at home?: Yes Referral to Diabetic Clinic:: Yes Outcomes/Goals:: Able to state symptoms of, Able to state, Able to state Intervention/Plan:: Instruct on, Refer to, Instruct on - Weight Mgt (Other Care) Not Applicable: No Height: 4 ft 11 in Weight:: 330 lb BMI: 66.6 Diagnosis Overweight/Obesity BMI> 30% ICD-10 E66: Yes Diagnosis High BMI/Morbid Obesity BMI> 35% ICD-10 Z68: Yes Outcomes/Goals: Pt sets, maintains & shows weight loss goal & trend during rehab Intervention/Plan: Instruct on ideal BMI & set weight loss goal w/patient, Assist pt to ID & incorporate diet changes for weight loss by S9, Refer to Structured Weight Loss program as appropriate, Encourage goal of using 250- 300dcal per session for weight loss - Healthy Eating Habits Will attend diet classes:: Yes Outcomes/Goals:: Consume diet rich in vegs,fruits,whole grain/high fiber,fish,lean meat, Limit sat/trans fats,cholesterol & added salts & sugars Intervention/Plan:: Assess current eating habits - Education Gave educational materials for:: Signs & symptoms of hypoglycemia, Signs & symptoms of hyperglycemia, Relate diabetes to coronary artery disease, Healthy eating Medical - Initial Assessment - Visit Date of Eval: 06/26/20 Session #:: 0 - pre-cardiac rehab - Medication Compliance Preventative Medication(s):: Aspirin, Clopidogrel/P2Y12 inhibit, Statin/lipid, Beta iggy H/O mental health issues: depression, anxiety, or addiction?: Yes Doesn?t believe in the benefits of treatment?: No Believes medications are unnecessary or harmful?: No Has a concern about medication side effects?: No Expresses concern over the cost of medications?: No Outcomes/Goals: Verbalizes medications,desired effect & common side effects @ DC, Pt self-reports following medication regimen, Keeps card in wallet w/medications listed by DC Interventions/plans: Instruct on medication effects & side effects, Review medication list w/patient every two weeks, Instruct importance of taking meds as ordered & assist problem solving - Tobacco Use Tobacco Use: Non-smoker - Hypertension Hypertension Diagnosis:: Hypertension ICD-10 I10 Resting Blood Pressure:: 110/62 [place] [employer] Hypertension Guidelines: [place] [employer] Hypertension Guidelines. Normal BP Less than 120/80. Elevated BP 120/80. Hypertension Stage 1: BP 130-139/80-89. Hypertesnion Stage 2: BP 140 or higher/90 or higher. Hypertension Crisis: BP higher than 180/120 Peak Exercise Blood Pressure:: 138/72 Outcomes/Goals: Able to verbalize/achieve optimal blood pressure <130/80 Interventions/plan: Instruct on optimal blood pressure, hypertension & medications, Instruct on effects of sodium, alcohol, stress, exercise &hypertension - Tobacco Cessation Referral Smoking Cessation Referral:: No Individual Education/Counseling:: No Education Schedule Given:: Yes Psychosocial - Initial Assess - VIsit Date of Eval: 06/26/20 Session #:: 0 - Pre-cardiac rehab Not Applicable: No History of previous Mental disease:: Yes History of Emotional Disorders: Anxious, Depression - Target Goals Target Goals: Assess presence or absence of depression. Using a valid screening tool, maximizes coping skills. Positive support system - Psychosocial Test Tool Used:: [employer] QOL Cardiac, PHQ-9 Questionnaire phq-9 Severity: Severity. 1-4 Minimal Depression. 5-9 Mild Depression. 10-14 Moderate Depression. 15-19 Moderately Sever Depression. 20-27 Severe Depression. Rule: - Referral to Behavioral Health PS - Interventions: Yes Attend Stress Management Classes, No Referral to Behavioral Health if PHQ-9 score >9:, No Referral to [facility], No Referral to Physician if PHQ-9 if score is 5-9: - Outcomes/Goals: See list Psychosocial Outcomes/Goals:: ID's personal stressors & 2 strategies to manage stress by discharge - Intervention/Plan: See List Interventions/Plan:: Assess stressors,coping strategies & signs of derpression on admission, Instruct/assist pt to develop coping & personal stress Mgt strategies, Instruct patient to recognize signs & symptoms of depression, Instruct patient to recog Patient Health Questionnaire Initial Assessment 1. Little interest or pleasure in doing things: More than half the days 2. Feeling down, depressed, or hopeless: Not at all 3. Trouble falling or staying asleep, or sleeping too much: More than half the days 4. Feeling tired or having little energy: Nearly every day 5. Poor appetite or overeating: Nearly every day 6. Feeling bad about yourself -- or that you are a failure or have let yourself or your family down: Not at all 7. Trouble concentrating on things, such as reading the newspaper or watching television: Not at all 8. Moving or speaking so slowly that other people could have noticed. Or the opposite - being so fidgety or restless that you have been moving around a lot more than usual: Not at all 9. Thoughts that you would be better off , or of hurting yourself in some way: Not at all How difficult have these problems made it for you to do your work, take care of things at home, or get along with other people?: Somewhat difficult Total Score: 10 [place]-Q SV Test - Statements CAD is a disease of the arteries in the heart: False Examples of risk factors for heart disease: True Angina is chest pain or discomfort: True The benefits of resistance training include: True Eating more meat and dairy products: True Anti-platelet medications such as aspirin are important: False The only effective way to manage stress: False An exercise warm-up slowly increases heart rate: True Prepared, processed foods usually have high sodium: False Depression is common after a heart attack: True The statin medications lower cholesterol: True To control blood pressure, lower the amount of sodium: I Don't Know If someone gets chest discomfort during walking: False Transfats are partially hydrogenated vegetable oils: True Sleep apnea that is not treated increases the risk: True To control cholesterol, one should become a vegetarian: False Someone knows if he/she is exercising at the right level: True Diabetes cannot be prevented with exercise & health eating: True Stress is a large risk for heart attack: True A diet that can help lower blood pressure is rich in: True - Total Score Total Correct Responses: 14 Self-Efficacy Initial Assessment We would like to know how confident you are in doing certain activities. Please select your confidence level for:: Select your confidence level for the following using the scale 1-10 where 1 is not at all confident and 10 is totally confident. Your score is the average of all 6 responses. Fatigue: How confident are you that you can keep the fatigue caused by your disease from interfering with the things you want to do? Select Number: 1 Physical Discomfort or Pain: How confident are you that you can keep the physical discomfort or pain of your disease from interfering with the things you want to do? Select Number: 10 Emotional Distress: How confident are you that you can keep the emotional distress caused by your disease from interfering with the things you want to do? Select Number: 10 Other Symptoms or Health Problems: How confident are you that you can keep other symptoms or health problems from interfering with the things you want to do? Select Number: 1 Different Tasks and Activities: How confident are you that you can do the different tasks and activities needed to manage your health condition so as to reduce your need to see a doctor? Select Number: 10 Medication: How confident are you that you can do things other than just taking medication to reduce how much your illness affects your everyday life? Select Number: 10 Total Score:: 7 Nutrition Survey - Nutrition Survey Instructions Scoring Instructions: Scoring is as follows: Yes = 1 points. No = 0 point. Patient score that is >/=12 is considered to be at potential nutritional risk and could benefit from a referral to a registered dietitian. - Nutrition Survey Initial Have you lost >10 lbs over the past 2 months without trying?: Yes Are you following a special diet at home for diabetes, low fat, or low salt?: Yes Are you interested in meeting with a dietitian for help understanding your t?: No Do you eat less than 3 meals a day?: No Do you eat fatty meats (sanders, sausage, ribs, etc), fried foods, desserts, large amounts of salad dressings, margarine, butter, or cheese most days?: No Do you have food allergies? [Enter types in comment field]: No Do you eat in restaurants more than 3 times a week?: No Do you season food with salt, seasoning salt, or garlic salt?: No Do you used canned, boxed, frozen meals, or soups, seasoning packets?: No Total Score:: 2
--- NOTE | 2020-06-26 13:03 | CR.HP_ITS ---
CR - History & Physical - General Arrival date:: 06/26/20 Arrival time:: 13:03 Date of Referral:: 06/15/20 Date of CR Evaluation:: 06/26/20 Referring Physician: Dr. Arias Primary Diagnosis: PCI w/coronary stent placement - History of Present Cardiac Event Onset Date: Enter Onset Date of cardiac illnesses in Comment field below PTCA or coronary stenting:: Yes - 06/15/2020 Type of Symptoms:: chest hurting, upper neck and jaw area. Scheduled for stress test, then taken over for heart cath adn had stents put in. Interventions with present event:: heart cath done and placement of coronary stents - Medications Home Medications: Ambulatory Orders Medication Instructions Recorded Pantoprazole Sodium [Protonix] 40 mg PO BID 07/21/14 Ropinirole HCl [Requip] 0.5 mg PO QHS 07/21/14 Spironolactone [Aldactone] 25 mg PO DAILY 07/21/14 Nitroglycerin (INPATIENT USE) 0.4 mg SUBLINGUAL PRN PRN 03/30/17 [Nitrostat] cetirizine 10 mg tablet 10 mg PO DAILY 08/24/17 insulin aspart U-100 100 unit/mL See Rx Instructions SC TID ml 08/24/17 (3 mL) subcutaneous pen insulin detemir U-100 100 unit/mL 49 units SC BID ml 08/24/17 (3 mL) subcutaneous pen dapagliflozin 5 mg tablet 5 mg PO QAM 10/18/18 dicyclomine 20 mg tablet 20 mg PO Q6H PRN tab 10/18/18 docusate sodium 100 mg capsule 100 mg PO DAILY PRN PRN 10/18/18 potassium chloride 10 mEq 10 meq PO DAILY #30 cap 06/05/19 capsule,extended release hydroxyzine HCl 25 mg tablet 25 mg PO QHS 05/29/20 levothyroxine 25 mcg tablet 75 mcg PO DAILY tab 05/29/20 atorvastatin 40 mg tablet 40 mg PO QHS #90 tab 06/01/20 carvedilol 12.5 mg tablet 12.5 mg PO BID #180 tab 06/01/20 clopidogrel 75 mg tablet 75 mg PO DAILY #90 tab 06/01/20 furosemide 40 mg tablet 40 mg PO DAILY #90 tab 06/01/20 Aspirin 81 mg PO DAILY 06/12/20 - Allergies Allergies/Adverse Reactions: Allergies isosorbide [From Imdur] Allergy (Severe, Verified 05/29/20 13:40) Diarrhea lisinopril [From Zestril] Allergy (Verified 05/29/20 13:40) Anaphylaxis metoprolol tartrate [From Lopressor] Allergy (Verified 05/29/20 13:40) Anaphylaxis bupropion [From Wellbutrin] Adverse Reaction (Verified 05/29/20 13:40) Other enalapril maleate [From Vasotec] Adverse Reaction (Verified 05/29/20 13:40) Swelling enalaprilat dihydrate [From Vasotec] Adverse Reaction (Verified 05/29/20 13:40) Swelling levetiracetam [From Keppra] Adverse Reaction (Verified 05/29/20 13:40) Swelling metformin Adverse Reaction (Verified 05/29/20 13:40) Diarrhea oxcarbazepine [From Trileptal] Adverse Reaction (Verified 05/29/20 13:40) Other tremors pregabalin [From Lyrica] Adverse Reaction (Verified 05/29/20 13:40) Abd cramps/diarrhea rofecoxib [From Vioxx] Adverse Reaction (Verified 05/29/20 13:40) Swelling - Sleep Disorder Evaluation Hx of Sleep Apnea: Yes Do you snore loudly (louder than talking or can be heard through closed doors)?: Yes Do you often feel tired/ fatigued/ sleepy during daytime?: Yes Has anyone observed you stop breathing during sleep?: Yes History of Hypertension (for STOP score): Yes - Patient diagnosed with JEWELS and is on CPAP at home. STOP Results: Positive Advanced Directives - Advanced Directives Power of Hotel Night Auditor: No Living Will: No Advance Directives Information Provided: Yes Advance Directives on File: No DNR Order?:: No - MOLST See MOLST form: No Past Medical History - Covid-19 Screening Fever: No Unexplained muscle aches: No Current respiratory symptoms: No Upper respiratory infections symptoms: No Gastro-intestinal symptoms: Yes - H/O GERD, Chron's Disease Plx-Pnrk-Cuodjg symptoms: No Has tested positive for COVID-19 in last 30 days: No Had contact w/person w/symptoms or Covid-19 (+) last 14 days: No Has High Risk Exposures ID'd by Health dept/Inf Control team: No 65 years or older:: No Lives in Assisted Living facility:: No Has a chronic lung disease or moderate to severe asthma:: No Has a serious heart condition:: Yes Immunocompromised:: No Severely obese (Body Mass Index of 40 or higher):: Yes Diabetic:: Yes Has chronic kidney disease undergoing dialysis:: No Has liver disease:: No - Past Medical Illness Medical History: Past Medical History (Last Updated 06/19/20 @ 09:17 by Cristine Welch) Decreased radial pulse (Acute) R09.89 Pain of right hand (Acute) M79.641 Injury of right radial artery (Acute) S55.101A Numbness of right hand (Acute) R20.0 Atherosclerosis of coronary artery of [place] heart without angina pectoris (Chronic) I25.10 Right bundle branch block (RBBB) (Chronic) I45.10 Paroxysmal SVT (supraventricular tachycardia) (Chronic) I47.1 Essential hypertension (Chronic) I10 HLD (hyperlipidemia) (Chronic) E78.5 Morbid obesity (Chronic) E66.01 Anxiety and depression F41.9, F32.9 Cataracts, bilateral H26.9 Degenerative disc disease GERD (gastroesophageal reflux disease) K21.9 Hypothyroidism E03.9 Hypothyroidism E03.9 JEWELS on CPAP G47.33, Z99.89 Obstructive sleep apnea G47.33 Osteoarthritis M19.90 SVT (supraventricular tachycardia) I47.1 Type 2 diabetes mellitus E11.9 History of kidney stones Z87.442 Crohn's disease K50.90 - Past Surgical History Surgical History: Past Surgical History (Last Updated 06/15/20 @ 13:49 by Luisa Michaels) History of coronary artery stent placement (Resolved) Onset Date: 06/15/20 Z95.5 PCI-NAU-OM2 2.75 x 23 mm Xience 01/2010, PCI-ANU-Mid RCA w/ 2.50 x 38 mm Synergy MR 05/15/19; PCI-Cutting Balloon Angioplasty to ISR-Proc RCA and ANU-Prox LCx w/ 3.5 x 16 mm Synergy Stent and ANU-Prox OM1 w/ 2.5 x 16 mm Synergy Stent 06/15/2020 History of bilateral salpingo-oophorectomy (BSO) Z90.79, Z90.722 and cystoscopy History of carpal tunnel release Z98.890 left History of cholecystectomy Z90.49 History of removal of cyst Z98.890 left foot History of umbilical hernia repair Z98.890, Z87.19 Surgical History: - - PCI x 1, cholecystectomy, Partial Hysterectomy. - Family History Summary Family History: Family History (Last Reviewed 10/15/19 @ 14:[address] Peri Arriaga MD) Sister Asthma Arthritis Diabetes Hypertension High cholesterol Heart disease Sleep apnea Brother Diabetes Hypertension CAD (coronary artery disease) CABG Cancer lymphoma Mother Diabetes Hypertension CVA (cerebral vascular accident) CAD (coronary artery disease) Grandmother Heart disease Father CVA (cerebral vascular accident) Social History - Smoking History Smoking Status: Former smoker Years Smokin - quit in 1991 Hx Tobacco Use: No Hx Smoking Exposure: No - Alcohol Use Alcohol Usage: No - Substance Abuse Hx Substance Use: No - Occupation Occupation (List type of work in comments):: Retired - Disability - Hobbies, Recreation, Social Activities Hobbies: Reading - books, computer etc, Other Recreational Activities: I am able to engage in a few activities Social Environment - Status Marital Status: Single - Current Living Arrangements Living Environment:: Alone - Safety Do you feel safe in your surroundings?: Yes - Assistance Do you need any assistance at home?: installation service representative that comes in to help with housekeeping etc. Review of Systems - Review of Systems Hints: Right click = Denies (Slash). Left click = Reports (Leslie) Review of Present Symptoms: Reports: Shortness of Breath with Exertion, Heart Arrhythmia/Irregularities - Right Bundle Branch Block, Appetite - Normal, Appetite - Special Diet - following 1800 calorie diet no added salt., Sleep - Normal. Denies: Shortness of Breath at Rest, Wound Healing, Dizziness/Lightheadedness, Fatigue - has greatly improved since having the stent placed. - Pain Is Patient Pain Free?: No Pain Location: none, back - H/O Degenerative Disc Disease Pain Level: 0/10 Risk Factor Assessment - Vital Signs Temperature: 97.3 F Respiratory Rate: 16 Pulse Ox: 99 Blood Pressure: 110/62 - Pulse Pulse Rate: 56 Pulse Rhythm: Regular - Hypertension How long have you been treated?: 20 On medication(s)?: yes Blood Pressure Sitting - Left Arm: 110/62 - Blood Cholesterol/Lipids Total Cholesterol (mg/dL) Goal = less than 200 mg/dL: 127 - 03/30/2017* HDL Cholesterol (mg/dL) Goal = less than 40 mg/dL: 40 LDL Cholesterol (mg/dL) Goal = less than 70 mg/dL: 60 Triglycerides (mg/dL) Goal = less than 150 mg/dL: 135 - Diabetes Diabetic History: Type II, Medication Dependent, Insulin Dependent - Obesity Height: 4 ft 11 in Weight:: 330 lb Weight in Pounds: 330.0 lbs Weight Source: Stated by Patient Body Mass Index (BMI): 66.6 Nutritional Referral for Obesity: Yes - Physical Inactivity Physical Inactivity: None - Risk Stratification Risk Guidelines: Lowest Risk: Risk Factor for Smoking, Risk Factor for Hypertension - 110/62, Moderate Risk: Risk Factor for Dyslipidemia, Risk Factor for Diabetes - Glucose 191, hBA1c 9.1 06/16/2020, Risk Factor for Depression, Highest Risk: Risk Factor for Sedentary Lifestyle - For Smoking Smoking Risk Guidelines: Smoking Low Risk: None or quit greater than 6 months ago. Smoking Moderate Risk: Smoker or quit 6 months or less ago. Smoking High Risk: Smoker - For Dyslipidemia Dyslipidemia Risk Guidelines: Low Risk: Moderate Risk: High Risk: 15-25% fat 25.1-29% fat >/= 30% fat. <7% sat fat 7-9% sat fat >9% sat fat. <150 mg chol 150-299 mg chol >/= 300 mg chol. LDL <100 LDL 100-129 LDL >/= 130. Chol/HDL ratio <5.0 Chol/HDL ratio 5.0-6.0 Chol/HDL ratio >6.0. Triglycerides <100 Triglycerides 100-149 Triglycerides >/= 150 - For Diabetes Mellitus Diabetes Risk Guidelines: Diabetes Low Risk: HgA1c <6.5% and/or FBG <120. Diabetes Moderate Risk: HgA1c 6.6-7.9% and/or FBG 120-180. Diabetes High Risk: HgA1c >/= 8% and/or FBG >180 - For Obesity/Overweight Obesity/Overweight Risk Guidelines: Obesity Low Risk: BMI <25.0. Obesity Moderate Risk: BMI 25-29.9. Obesity High Risk: BMI >/= 30.0 - For Hypertension Hypertension Risk Guidelines: Hypertension Low Risk: Systolic <120 and Diastolic <80. Hypertension Moderate Risk: Systolic 120-139 and Diastolic 80-89. Hypertension High Risk: Systolic >/= 140 and Diastolic >/= 90 - For Sedentary Lifestyle Sedentary Lifestyle Risk Guidelines: Sedentary Lifestyle Low Risk: >/= 1,500 kcal/week. Sedentary Lifestyle Moderate Risk: 700-1,499 kcal/week. Sedentary Lifestyle High Risk: < 700 kcal/week - For Depression Depression Risk Guidelines: Depression Low Risk: Not clinically depressed. Depression Moderate Risk: Mildly depressed. Depression High Risk: Clinically depressed - Family History Family History: Family History (Last Reviewed 10/15/19 @ 14:[address] Peri Arriaga MD) Sister Asthma Arthritis Diabetes Hypertension High cholesterol Heart disease Sleep apnea Brother Diabetes Hypertension CAD (coronary artery disease) Cancer Mother Diabetes Hypertension CVA (cerebral vascular accident) CAD (coronary artery disease) Grandmother Heart disease Father CVA (cerebral vascular accident) Motivation - Motivation to Participate On a scale of 1 to 10, how prepared are you to commit to attending program?: 8 What do you see as barriers to successfully being able to complete the program?: ambulating What do you see as the benefits of succesfully completing the program? In other words, what do you hope to get out of participating in the program?: getting stronger, improving health Do you have a spouse or signficant other, family or friends who will help support you to complete the program?: yes, good support system
[2020-06-26 13:25] VITALS: BP 110/62; BP 122/72; BP 138/72; BMI 66.6
[2020-06-26 13:32] VITALS: BP 110/62; PULSE 56; RESP 16; TEMP 36.3; O2SAT 99; BMI 66.6
== END ==
PROVIDERS: Referring Provider Internal Medicine Cardiovascular Disease; Visit Provider Internal Medicine Cardiovascular Disease
DX: Z95.5 Presence of coronary angioplasty implant and graft (principal); I25.10 Atherosclerotic heart disease of native coronary artery without angina pectoris; I45.10 Unspecified right bundle-branch block; I47.1 Supraventricular tachycardia; I10 Essential (primary) hypertension; E78.5 Hyperlipidemia, unspecified; K21.9 Gastro-esophageal reflux disease without esophagitis; E66.01 Morbid (severe) obesity due to excess calories; Z68.44 Body mass index [BMI] 60.0-69.9, adult

== ENCOUNTER 2020-07-03 07:28 | Outpatient (RCR) | payer MEDICARE, SELFPAY ==
[2020-06-26 13:25] VITALS: BMI 66.6
[2020-06-26 13:32] VITALS: BMI 66.6
== END 2020-07-05 23:59 ==
LOC: CR 07:28
PROVIDERS: Referring Provider Internal Medicine Cardiovascular Disease; Visit Provider Internal Medicine Cardiovascular Disease
DX: I25.10 Atherosclerotic heart disease of native coronary artery without angina pectoris (principal); I45.10 Unspecified right bundle-branch block; I47.1 Supraventricular tachycardia; I10 Essential (primary) hypertension; E78.5 Hyperlipidemia, unspecified; E66.01 Morbid (severe) obesity due to excess calories; Z95.5 Presence of coronary angioplasty implant and graft
CPT/HCPCS: 93798

== ENCOUNTER 2020-07-20 12:06 | Outpatient (RCR) | payer MEDICARE, MEDICAID, SELFPAY ==
[2020-06-26 13:25] VITALS: BMI 66.6
[2020-06-26 13:32] VITALS: BMI 66.6
== END 2020-08-05 23:59 ==
LOC: DC 12:06
PROVIDERS: Visit Provider Internal Medicine Cardiovascular Disease
DX: E11.9 Type 2 diabetes mellitus without complications (principal)
CPT/HCPCS: 97802

== ENCOUNTER 2020-07-31 14:15 | Outpatient (RCR) | payer MEDICARE, MEDICAID, SELFPAY ==
[2020-06-26 13:25] VITALS: BMI 66.6
[2020-06-26 13:32] VITALS: BMI 66.6
--- NOTE | 2020-07-22 10:52 | CR.ITP_ITS ---
Exercise - 30-day Assessment - Visit Date of Eval: 07/22/20 Session #:: 4 - Physician Prescribed Exercise Modalities: NuStep, SciFit Frequency: 3x/week for 12 weeks [36 sessions] Intensity: 60-80% of age predicted maximum heart rate reserve Current METSs:: 2.0 Target Heart Rate:: 106-123 Current RPE:: 9-11 Maximum Excercise HR:: 85 Resting Blood Pressure: 172/80 Maximum Exercise Blood Pressure: 172/80 EKG Type: SB to NSR with BBB - Outcomes & Goals Goals:: Verbalizes understanding of THR, RPE & goal METS by session 6, Documents in home exercise log/reports 30 min aerobic 5 day/wk by DC, Demonstrates accurate pulse taking by DC, Other additional outcome/goals: see below - Intervention & Plan Exercise Program Goals: Instruct on personal THR & RPE, Instruct on MET level & personal MET goal, Show patient to take own pulse /validate performance until accurate, Instruct on home exercise, Other additional plan/int - 30-day Reassessments 30 day Reassessments:: Progressing - Physical Activity Home Exercise Physical Activity - Home Exercise: Safe Exercise, Warm-up, Self-monitoring, Cool-Down, Home Exercise > 30 min Daily, Sitting Time <3 hours/daily - Outcomes & Goals Outcomes/Goals: Demonstrates correct Warm-up/exercise Cool-Down (S3) if = 2.5 METs, Verbalizes symptoms of exercise intolerance by Session 3 (S3), Demonstrate safe equipment use (S3) & follows exercise prescrition (6), Other: See below - Intervention & Plan Plan/Intervention: Instruct warm-up & cool-down if exercising at > 2 METs, Instruct on symptoms of exercise intolerance & actions to take, Instruct & monitor on saf, Assess intial functional capacity & safety risk, Other See below - 30-day Reassessments 30 day Reassessments:: Progressing Nutrition - 30-Day Assessment - Program Goals Nutrition Program Goals: LDL <100 optimal. 100 - 129 Near optimal. 130 - 159 Borderline High. 160 - 189 High. Total Cholesterol <200 desirable. 200 - 239 Borderline High. >/= 240 High. HDL < 40 Low >/=60 High. Triglycerides <150 desirable. <199 optimal. VlDL 5 - 40. HgbA1C <7%. BMI <25 Patient has diagnosis of Hyperlipidemia (ICD E78)?: Yes - Visit Date of Assessment:: 07/22/20 Session #:: 4 - Cholesterol/Lipids Determine presence & major risk factors that modify LDL goal: Hypertension or hypertensive medication, Low HDL cholesterol <40 mg/dL*, Family history of premature CHD in Male < 55 years: female <65 yearsFa, Age men > 45 years; women >/= 55 years Outcomes/Goals: Pt IDs own risk factors & lifestyle modifications by Session 10, Verbalizes symptoms of angina & response by session 3., Pt independently manages, Other Additional Outcomes/Goals: Intervention/Plan: Advocate for lipid panel cholesterol medication if ap plicable, Instruct on personal lipid levels & lipid goals/NCEP guidelines, Instruct on cholesterol, Other additional plan/int Referral to dietitian:: Yes 30-day Reassessments:: Progressing - Diabetes (Other Core Measures) Diabetes Type: Diagnosis Type II ICD-10 E11 Insulin dependent injection/pump?: Yes Non-Insulin Dependent?: Yes Do you monitor your blood sugar at home?: Yes Referral to Diabetic Clinic:: Yes Outcomes/Goals:: Able to state symptoms of, Able to state, Able to state, Other additional Intervention/Plan:: Instruct on, Refer to, Instruct on, Other 30-day Reassessments:: Progressing - Weight Mgt (Other Care) Not Applicable: No Height: 4 ft 11 in Weight:: 149.685 kg BMI: 66.6 Diagnosis Overweight/Obesity BMI> 30% ICD-10 E66: Yes Outcomes/Goals: Pt sets, maintains & shows weight loss goal & trend during rehab, Other additional outcomes/goals Intervention/Plan: Instruct on ideal BMI & set weight loss goal w/patient, Assist pt to ID & incorporate diet changes for weight loss by S9, Refer to Structured Weight Loss program as appropriate, Encourage goal of using 250- 300dcal per session for weight loss, Other additional plan/interventions 30 day Reassessments:: Progressing - Healthy Eating Habits Will attend diet classes:: Yes Outcomes/Goals:: Consume diet rich in vegs,fruits,whole grain/high fiber,fish,lean meat, Limit sat/trans fats,cholesterol & added salts & sugars, Other additional outcome/goals: Intervention/Plan:: Assess current eating habits, Other Additional plan/interventions 30-day Reassessments:: Progressing - Education Gave educational materials for:: Signs & symptoms of hypoglycemia, Signs & symptoms of hyperglycemia, Relate diabetes to coronary artery disease, Healthy eating Medical- 30-Day Assessment - Visit Date of Eval: 07/22/20 Session #:: 4 - Medication Compliance Preventative Medication(s):: Aspirin, Clopidogrel/P2Y12 inhibit, Statin/lipid, Beta iggy H/O mental health issues: depression, anxiety, or addiction?: Yes Doesn?t believe in the benefits of treatment?: No Believes medications are unnecessary or harmful?: No Has a concern about medication side effects?: No Expresses concern over the cost of medications?: No Outcomes/Goals: Verbalizes medications,desired effect & common side effects @ DC, Pt self-reports following medication regimen, Keeps card in wallet w/medications listed by DC, Other additional outcome/goals: Interventions/plans: Instruct on medication effects & side effects, Review medication list w/patient every two weeks, Instruct importance of taking meds as ordered & assist problem solving, Other additional 30-day Reassessments:: Progressing - Tobacco Use Tobacco Use: Non-smoker - Hypertension Hypertension Diagnosis:: Hypertension ICD-10 I10 Resting Blood Pressure:: 172/80 [place] [employer] Hypertension Guidelines: [place] [employer] Hypertension Guidelines. Normal BP Less than 120/80. Elevated BP 120/80. Hypertension Stage 1: BP 130-139/80-89. Hypertesnion Stage 2: BP 140 or higher/90 or higher. Hypertension Crisis: BP higher than 180/120 Peak Exercise Blood Pressure:: 172/80 Interventions/plan: Instruct on optimal blood pressure, hypertension & medications, Instruct on effects of sodium, alcohol, stress, exercise &hypertension, Other additional plan/interventions 30 day Reassessments:: Progressing - Tobacco Cessation Referral Smoking Cessation Referral:: No Individual Education/Counseling:: No Education Schedule Given:: Yes Psychosocial - 30-Day Assess - VIsit Date of Eval: 07/22/20 Session #:: 4 History of previous Mental disease:: Yes History of Emotional Disorders: Anxious, Depression - Target Goals Target Goals: Assess presence or absence of depression. Using a valid screening tool, maximizes coping skills. Positive support system - Psychosocial Test phq-9 Severity: Severity. 1-4 Minimal Depression. 5-9 Mild Depression. 10-14 Moderate Depression. 15-19 Moderately Sever Depression. 20-27 Severe Depression. Rule: - Referral to Behavioral Health PS - Interventions: Yes Attend Stress Management Classes - Outcomes/Goals: See list Psychosocial Outcomes/Goals:: ID's personal stressors & 2 strategies to manage stress by discharge, Other Additional outcome/goals: - Intervention/Plan: See List Interventions/Plan:: Assess stressors,coping strategies & signs of derpression on admission, Instruct/assist pt to develop coping & personal stress Mgt strategies, Refer to Behavioral Health if appropriate, Refer to Physician if appropriate, Instruct patient to recognize signs & symptoms of depression, Instruct patient to recog, Other additional plan/intervention - 30-day Reassessments: 30 day Reassessments:: Progressing Patient Health Questionnaire Initial Assessment 1. Little interest or pleasure in doing things: More than half the days 2. Feeling down, depressed, or hopeless: Not at all 3. Trouble falling or staying asleep, or sleeping too much: More than half the days 4. Feeling tired or having little energy: Nearly every day 5. Poor appetite or overeating: Nearly every day 6. Feeling bad about yourself -- or that you are a failure or have let yourself or your family down: Not at all 7. Trouble concentrating on things, such as reading the newspaper or watching television: Not at all 8. Moving or speaking so slowly that other people could have noticed. Or the opposite - being so fidgety or restless that you have been moving around a lot more than usual: Not at all 9. Thoughts that you would be better off , or of hurting yourself in some way: Not at all How difficult have these problems made it for you to do your work, take care of things at home, or get along with other people?: Somewhat difficult Total Score: 10 Self-Efficacy Initial Assessment We would like to know how confident you are in doing certain activities. Please select your confidence level for:: Select your confidence level for the following using the scale 1-10 where 1 is not at all confident and 10 is totally confident. Your score is the average of all 6 responses. Fatigue: How confident are you that you can keep the fatigue caused by your disease from interfering with the things you want to do? Select Number: 1 Physical Discomfort or Pain: How confident are you that you can keep the physical discomfort or pain of your disease from interfering with the things you want to do? Select Number: 10 Emotional Distress: How confident are you that you can keep the emotional distress caused by your disease from interfering with the things you want to do? Select Number: 10 Other Symptoms or Health Problems: How confident are you that you can keep other symptoms or health problems from interfering with the things you want to do? Select Number: 1 Different Tasks and Activities: How confident are you that you can do the different tasks and activities needed to manage your health condition so as to reduce your need to see a doctor? Select Number: 10 Medication: How confident are you that you can do things other than just taking medication to reduce how much your illness affects your everyday life? Select Number: 10 Total Score:: 7
[2020-07-22 11:02] VITALS: BP 172/80; BMI 66.6
== END 2020-08-05 23:59 ==
LOC: CR 14:15
PROVIDERS: Referring Provider Internal Medicine Cardiovascular Disease; Visit Provider Internal Medicine Cardiovascular Disease
DX: I25.10 Atherosclerotic heart disease of native coronary artery without angina pectoris (principal); Z95.5 Presence of coronary angioplasty implant and graft; I45.10 Unspecified right bundle-branch block; I47.1 Supraventricular tachycardia; I10 Essential (primary) hypertension; E78.5 Hyperlipidemia, unspecified; E66.01 Morbid (severe) obesity due to excess calories
CPT/HCPCS: 93798

== ENCOUNTER 2020-08-14 14:15 | Outpatient (RCR) | payer MEDICARE, MEDICAID, SELFPAY ==
[2020-06-26 13:32] VITALS: BMI 66.6
[2020-07-22 11:02] VITALS: BMI 66.6
[2020-08-06 00:45] VITALS: BP 172/80
--- NOTE | 2020-08-20 10:27 | PCM.CR.ITP ---
Exercise - 60-day Assessment - Visit Date of Eval: 08/20/20 Session #:: 16 - Patient has missed 12 scheduled sessions to date. Comments:: Patient started on 07/08/2020, has only attended 8 scheduled sessions and has missed 12 scheduled sessions. - Physician Prescribed Exercise Modalities: NuStep Frequency: 3x/week for 12 weeks [36 sessions] Intensity: 60-80% of age predicted maximum heart rate reserve Current METSs:: 2.0 unchanged Target Heart Rate:: 106-123 Maximum Excercise HR:: 83 Resting Blood Pressure: 128/68 - 07/31/2020 Maximum Exercise Blood Pressure: 130/80 - 07/31/2020 EKG Type: NSR with BBB rare PACs. - Outcomes & Goals Goals:: Verbalizes understanding of THR, RPE & goal METS by session 6 - Intervention & Plan Exercise Program Goals: Instruct on personal THR & RPE, Instruct on MET level & personal MET goal, Show patient to take own pulse /validate performance until accurate, Instruct on home exercise - 30-day Reassessments 30 day Reassessments:: Not Met - Physical Activity Home Exercise Physical Activity - Home Exercise: Safe Exercise, Warm-up, Self-monitoring, Cool-Down, Home Exercise > 30 min Daily, Sitting Time <3 hours/daily - Outcomes & Goals Outcomes/Goals: Demonstrates correct Warm-up/exercise Cool-Down (S3) if = 2.5 METs, Verbalizes symptoms of exercise intolerance by Session 3 (S3), Demonstrate safe equipment use (S3) & follows exercise prescrition (6) - Intervention & Plan Plan/Intervention: Instruct warm-up & cool-down if exercising at > 2 METs, Instruct on symptoms of exercise intolerance & actions to take, Assess intial functional capacity & safety risk - 30-day Reassessments 30 day Reassessments:: Not Met Nutrition - 60-Day Assessment - Program Goals Nutrition Program Goals: LDL <100 optimal. 100 - 129 Near optimal. 130 - 159 Borderline High. 160 - 189 High. Total Cholesterol <200 desirable. 200 - 239 Borderline High. >/= 240 High. HDL < 40 Low >/=60 High. Triglycerides <150 desirable. <199 optimal. VlDL 5 - 40. HgbA1C <7%. BMI <25 Patient has diagnosis of Hyperlipidemia (ICD E78)?: Yes - Visit Date of Assessment:: 08/20/20 Session #:: 8 - Cholesterol/Lipids Determine presence & major risk factors that modify LDL goal: Hypertension or hypertensive medication, Low HDL cholesterol <40 mg/dL*, Family history of premature CHD in Male < 55 years: female <65 yearsFa, Age men > 45 years; women >/= 55 years Outcomes/Goals: Pt IDs own risk factors & lifestyle modifications by Session 10, Verbalizes symptoms of angina & response by session 3., Pt independently manages Intervention/Plan: Instruct on personal lipid levels & lipid goals/NCEP guidelines, Instruct on cholesterol Referral to dietitian:: No - attended 07/20/2020 - Diabetes (Other Core Measures) Diabetes Type: Diagnosis Type II ICD-10 E11 Insulin dependent injection/pump?: Yes Non-Insulin Dependent?: Yes Do you monitor your blood sugar at home?: Yes Referral to Diabetic Clinic:: No - attended session 07/20/2020 Outcomes/Goals:: Able to state symptoms of, Able to state, Able to state Intervention/Plan:: Instruct on, Instruct on 30-day Reassessments:: Progressing - Weight Mgt (Other Care) Not Applicable: No Height: 4 ft 11 in Weight:: 325 lb BMI: 65.6 Diagnosis Overweight/Obesity BMI> 30% ICD-10 E66: Yes Diagnosis High BMI/Morbid Obesity BMI> 35% ICD-10 Z68: Yes Outcomes/Goals: Pt sets, maintains & shows weight loss goal & trend during rehab Intervention/Plan: Instruct on ideal BMI & set weight loss goal w/patient, Assist pt to ID & incorporate diet changes for weight loss by S9, Encourage goal of using 250-300dcal per session for weight loss 30 day Reassessments:: Not Met - Healthy Eating Habits Will attend diet classes:: Yes Outcomes/Goals:: Consume diet rich in vegs,fruits,whole grain/high fiber,fish,lean meat, Limit sat/trans fats,cholesterol & added salts & sugars Intervention/Plan:: Assess current eating habits 30-day Reassessments:: Progressing - Education Gave educational materials for:: Signs & symptoms of hypoglycemia, Signs & symptoms of hyperglycemia, Relate diabetes to coronary artery disease, Healthy eating Medical- 60-Day Assessment - Visit Date of Eval: 08/20/20 Session #:: 8 - Medication Compliance Preventative Medication(s):: Aspirin, Clopidogrel/P2Y12 inhibit, Statin/lipid, Beta iggy H/O mental health issues: depression, anxiety, or addiction?: Yes Doesn?t believe in the benefits of treatment?: No Believes medications are unnecessary or harmful?: No Has a concern about medication side effects?: No Expresses concern over the cost of medications?: Yes Outcomes/Goals: Verbalizes medications,desired effect & common side effects @ DC, Pt self-reports following medication regimen, Keeps card in wallet w/medications listed by DC Interventions/plans: Instruct on medication effects & side effects, Review medication list w/patient every two weeks, Instruct importance of taking meds as ordered & assist problem solving 30-day Reassessments:: Progressing - Tobacco Use Tobacco Use: Non-smoker - Hypertension Hypertension Diagnosis:: Hypertension ICD-10 I10 Resting Blood Pressure:: 128/68 Citizen [place] [employer] Hypertension Guidelines: Citizen [place] [employer] Hypertension Guidelines. Normal BP Less than 120/80. Elevated BP 120/80. Hypertension Stage 1: BP 130-139/80-89. Hypertesnion Stage 2: BP 140 or higher/90 or higher. Hypertension Crisis: BP higher than 180/120 Peak Exercise Blood Pressure:: 130/80 Outcomes/Goals: Able to verbalize/achieve optimal blood pressure <130/80, Incorporates diet changes & exercise for blood pressure control by DC Interventions/plan: Instruct on optimal blood pressure, hypertension & medications, Instruct on effects of sodium, alcohol, stress, exercise &hypertension 30 day Reassessments:: Progressing - Tobacco Cessation Referral Smoking Cessation Referral:: No Individual Education/Counseling:: No Education Schedule Given:: Yes Psychosocial - 60-Day Assess - VIsit Date of Eval: 08/20/20 Session #:: 8 Not Applicable: No History of previous Mental disease:: Yes History of Emotional Disorders: Depression, H/O Mental disease - Target Goals Target Goals: Assess presence or absence of depression. Using a valid screening tool, maximizes coping skills. Positive support system - Psychosocial Test phq-9 Severity: Severity. 1-4 Minimal Depression. 5-9 Mild Depression. 10-14 Moderate Depression. 15-19 Moderately Sever Depression. 20-27 Severe Depression. Rule: - Outcomes/Goals: See list Psychosocial Outcomes/Goals:: ID's personal stressors & 2 strategies to manage stress by discharge - Intervention/Plan: See List Interventions/Plan:: Assess stressors,coping strategies & signs of derpression on admission, Instruct/assist pt to develop coping & personal stress Mgt strategies, Instruct patient to recognize signs & symptoms of depression, Instruct patient to recog - 30-day Reassessments: 30 day Reassessments:: Not Met
[2020-08-20 10:36] VITALS: BP 128/68; BP 130/80; BMI 65.6
== END 2020-09-04 23:59 ==
LOC: CR 14:15
PROVIDERS: Referring Provider Internal Medicine Cardiovascular Disease; Visit Provider Internal Medicine Cardiovascular Disease
DX: I25.10 Atherosclerotic heart disease of native coronary artery without angina pectoris (principal); Z95.5 Presence of coronary angioplasty implant and graft; I45.10 Unspecified right bundle-branch block; I47.1 Supraventricular tachycardia; I10 Essential (primary) hypertension; E78.5 Hyperlipidemia, unspecified; E66.01 Morbid (severe) obesity due to excess calories
CPT/HCPCS: 93798

== ENCOUNTER 2020-11-24 11:54 | Emergency (ER) | payer MEDICARE, MEDICAID, SELFPAY ==
[2020-06-26 13:32] VITALS: BMI 66.6
[2020-11-24 11:54] VITALS: BP 134/80; PULSE 60; RESP 18; TEMP 36.6; O2SAT 97; BMI 65.8
--- NOTE | 2020-11-24 12:28 | EKG12_ITS ---
Test Reason : SOB Blood Pressure : / mmHG Vent. Rate : 064 BPM Atrial Rate : 064 BPM P-R Int : 172 ms QRS Dur : 138 ms QT Int : 460 ms P-R-T Axes : 051 -16 005 degrees QTc Int : 474 ms Normal sinus rhythm Right bundle branch block Abnormal ECG Confirmed by HEATH ROSENBERG, JESÚS ([id number]), editor publications LOLA HERRING ([id number]) on 11/27/2020 9:54:42 AM Referred By: SWATHI Confirmed By:JESÚS JOE MD
[2020-11-24 12:45] VITALS: BP 137/77; PULSE 68; RESP 25; O2SAT 95
[2020-11-24 12:49] LABS: Absolute Lymphocyte Count 2.21 X10^3/uL (0.83-4.51); Absolute Neutrophil Count 5.2 X10^3/uL (2.0-7.7); Basophil# 0.05 X10^3/uL; Basophil% 0.6 % (0-1); Eosinophil# 0.25 X10^3/uL; Eosinophils% 2.9 % (0-5); Hematocrit 44.9 % (37-47); Hemoglobin 14.4 g/dL (12.0-15.0); Lymphocyte # 2.21 X10^3/ul (0.83-4.51); Lymphocyte % 25.6 % (19-41); Mean Corp Hgb Conc 32.1 g/dL (32-36); Mean Corpuscular Hgb 28.5 pg (27.0-32.0); Mean Corpuscular Volume 88.7 fL (81-99); Mean Platelet Vol. 9.6 fl (6.2-12.0); Monocyte# 0.83 X10^3/uL; Monocyte% 9.6 % (0-10); NRBC Flagged by Analyzer 0 % (0-5); Neutrophil # 5.21 X10^3/uL (2.7-7.7); Neutrophil % 60.5 % (47-70); Platelet Count 239 K/mm3 (150-450); RBC Distribution Width CV 13.7 % (11.6-14.6); RBC Distribution Width SD 44.2 fl (35.1-43.9); Red Blood Count 5.06 M/mm3 (4.2-5.4); White Blood Count 8.6 K/mm3 (4.4-11.0)
[2020-11-24 12:51] VITALS: O2SAT 95
--- NOTE | 2020-11-24 13:00 | RAD_ITS ---
STUDY: X-RAY CHEST REASON FOR EXAM: Female, 55 years old. Chest pain TECHNIQUE: Single AP portable view of the chest. COMPARISON: Comparison is made with prior study dated 05/25/2020. FINDINGS: EKG electrodes are seen. The lungs are clear and expanded. There is no demonstrated pleural abnormality. There is borderline cardiomegaly. Normal mediastinum and lakeisha. Normal visualized pulmonary arteries. Normal visualized aortic arch and descending thoracic aorta. Normal visualized thoracic spine. Normal visualized ribs, clavicles, and shoulders. There is no demonstrated abnormality of the visualized soft tissue structures of the upper abdomen. RAD/Chest 1 View (Portable) IMPRESSION: Borderline cardiomegaly. Electronically Signed: Frederick Slater MD at 13:20 EDT , Service support ,
--- NOTE | 2020-11-24 13:02 | EDS_ITS ---
HPI History of Present Illness Chief Complaint: Shortness of Breath Informant: patient Narrative Narrative: 55-year-old female presents to the emergency department with dyspnea of 2 days duration and cramping in her bilateral calfs. She went to see her primary care and was referred to the emergency department out of concern for DVT PE. Patient has no DVT or PE risk factors. She is treated for hyperlipidemia known right bundle branch block SVT and has had coronary stent placement. She states that today when she woke up she noted some swelling of the bilateral lower legs. No history of congestive heart failure. No fevers. She does note a dry hacking cough. [facility] Medical History Anxiety and depression Atherosclerosis of coronary artery of [place] heart without angina pectoris Cataracts, bilateral Crohn's disease Decreased radial pulse Degenerative disc disease Essential hypertension GERD (gastroesophageal reflux disease) History of kidney stones HLD (hyperlipidemia) Hypothyroidism Hypothyroidism Injury of right radial artery Morbid obesity Numbness of right hand Obstructive sleep apnea JEWELS on CPAP Osteoarthritis Pain of right hand Paroxysmal SVT (supraventricular tachycardia) Right bundle branch block (RBBB) SVT (supraventricular tachycardia) Type 2 diabetes mellitus Home Medications pantoprazole 40 mg PO BID 07/21/14 [History Last Taken 06/15/20] ropinirole 0.5 mg PO QHS 07/21/14 [History Last Taken 05/12/19] spironolactone 25 mg PO DAILY 07/21/14 [History Last Taken 05/13/19] nitroglycerin 0.4 mg SUBLINGUAL PRN PRN 03/30/17 [History Last Taken 03/30/17] cetirizine 10 mg tablet 10 mg PO DAILY 08/24/17 [History Last Taken 05/13/19] insulin aspart U-100 100 unit/mL (3 mL) subcutaneous pen See Rx Instructions SC TID ml 08/24/17 [History Last Taken 05/13/19] insulin detemir U-100 100 unit/mL (3 mL) subcutaneous pen 49 units SC BID ml 08/24/17 [History Last Taken 05/13/19] dapagliflozin 5 mg tablet 5 mg PO QAM 10/18/18 [History Last Taken 05/13/19] dicyclomine 20 mg tablet 20 mg PO Q6H PRN tab 10/18/18 [History Last Taken 05/13/19] docusate sodium 100 mg capsule 100 mg PO DAILY PRN PRN 10/18/18 [History Last Taken 05/10/19] hydroxyzine HCl 25 mg tablet 25 mg PO QHS 05/29/20 [History Last Taken Unknown] atorvastatin 40 mg tablet 40 mg PO QHS #90 tab 06/01/20 [Rx Last Taken Unknown] carvedilol 12.5 mg tablet 12.5 mg PO BID #180 tab 06/01/20 [Rx Last Taken 06/15/20] clopidogrel 75 mg tablet 75 mg PO DAILY #90 tab 06/01/20 [Rx Last Taken 06/15/20] furosemide 40 mg tablet 40 mg PO DAILY #90 tab 06/01/20 [Rx Last Taken Unknown] aspirin 81 mg chewable tablet 81 mg PO DAILY #90 tab 07/16/20 [Rx Last Taken Unknown] levothyroxine 88 mcg tablet 88 mcg PO DAILY #1 tablet 08/19/20 [Rx Last Taken Unknown] potassium chloride 10 mEq capsule,extended release 10 meq PO DAILY #30 cap 09/01/20 [Rx Last Taken Unknown] Allergy/AdvReac Type Severity Reaction Status Date / Time isosorbide [From Imdur] Allergy Severe Diarrhea Verified 11/24/20 12:47 lisinopril [From Zestril] Allergy Anaphylaxis Verified 11/24/20 12:47 metoprolol tartrate Allergy Anaphylaxis Verified 11/24/20 12:47 [From Lopressor] bupropion [From Wellbutrin] AdvReac Other Verified 11/24/20 12:47 desvenlafaxine AdvReac Other Verified 11/24/20 12:47 enalapril maleate AdvReac Swelling Verified 11/24/20 12:47 [From Vasotec] enalaprilat dihydrate AdvReac Swelling Verified 11/24/20 12:47 [From Vasotec] levetiracetam [From Keppra] AdvReac Swelling Verified 11/24/20 12:47 metformin AdvReac Diarrhea Verified 11/24/20 12:47 oxcarbazepine AdvReac Other Verified 11/24/20 12:47 [From Trileptal] pregabalin [From Lyrica] AdvReac Abd Verified 11/24/20 12:47 cramps/diarrhea rofecoxib [From Vioxx] AdvReac Swelling Verified 11/24/20 12:47 Family History Sister Asthma Arthritis Diabetes Hypertension High cholesterol Heart disease Sleep apnea Brother Diabetes Hypertension CAD (coronary artery disease) CABG Cancer lymphoma Mother Diabetes Hypertension CVA (cerebral vascular accident) CAD (coronary artery disease) Grandmother Heart disease Father CVA (cerebral vascular accident) Surgical History History of bilateral salpingo-oophorectomy (BSO) History of carpal tunnel release History of cholecystectomy History of coronary artery stent placement (06/15/20) History of removal of cyst History of umbilical hernia repair Social History Smoking Status: Former smoker how long ago did patient quit smokin alcohol intake: never substance use type: does not use caffeine: No ROS ROS ED Constitutional Constitutional ED: Denies chills or weight loss Eyes Eyes: Denies change in vision or diplopia ENT ENT ED: Denies ear pain, rhinorrhea or sore throat Cardiovascular Cardiovascular: Denies chest pain, orthopnea, palpitations or racing heartbeat Respiratory/Chest Respiratory/Chest: Reports cough, dyspnea and dyspnea on exertion; Denies orthopnea Gastrointestinal Gastrointestinal: Denies abdominal pain, diarrhea, nausea or vomiting Genitourinary Genitourinary ED: Denies dysuria, hematuria or urinary frequency Musculoskeletal Musculoskeletal: Reports other Details: Bilateral calf cramps and swelling ; Denies arthralgias or myalgias Integumentary Denies abscess or rash Neurologic Neurologic: Denies headache(s) or weakness Psychiatric Psychiatric: Denies anxiety, depression, suicidal ideation or suicidal thoughts Endocrine Endocrinology: Denies polydipsia, polyphagia or polyuria Allergic/Immunologic Allergic/Immunologic ED: Denies mouth swelling, tongue swelling or urticaria EXAM Physical Exam Const Vital Signs: 11/24/20 11:54 11/24/20 12:45 11/24/20 12:51 Temperature 97.8 F Temperature Source Temporal Pulse Rate 60 68 Respiratory Rate 18 25 H Respiratory Effort Short of Breath Labored Respiratory Depth Shallow Respiratory Pattern Tachypnea Blood Pressure 134/80 H 137/77 H Blood Pressure Mean 98 97 Pulse Ox 97 95 Oxygen Delivery Method Room Air Room Air Room Air Positive well nourished and well developed General Appearance ED: well developed HEENT Reports normocephalic, head/scalp atraumatic and moist mucous membranes Eyes PERRL and EOMs intact bilaterally Neck no lymphadenopathy, supple and no JVD Resp normal respiratory effort and clear to auscultation bilaterally Cardio regular rate, regular rhythm and no murmurs GI normal to inspection, nondistended, normoactive bowel sounds and non-tender Palpation: soft Back/Spine no CVA tenderness and normal ROM Extremity normal to inspection General Extremety ED: Yes edema General Extremity: edema Neuro oriented x3 and CN's II-XII intact bilaterally Sensorium / Orientation: alert Motor Exam: strength 5/5 throughout Psych mental status grossly normal Mood & Affect: Negative for depressed or tearful Skin no rashes or lesions noted and no wounds MDM MDM MDM Narrative Medical decision making narrative: My interpretation of the chest x-ray is no acute process. Radiology notes borderline cardiomegaly. Troponin negative. D-dimer is also normal. Lab Data Attestation: I reviewed the patient's lab results. Labs: Laboratory Results - last 24 hr 11/24/20 11/24/20 11/24/20 12:40 12:40 12:40 WBC 8.6 RBC 5.06 Hgb 14.4 Hct 44.9 MCV 88.7 MCH 28.5 MCHC 32.1 RDW Std Deviation 44.2 H RDW Coeff of Veronica 13.7 Plt Count 239 MPV 9.6 Immature Gran % (Auto) 0.800 Neut % (Auto) 60.5 Lymph % (Auto) 25.6 [place] % (Auto) 9.6 Eos % (Auto) 2.9 Baso % (Auto) 0.6 Absolute Neuts (auto) 5.2 Absolute Lymphs (auto) 2.21 Nucleated RBC % 0 D-Dimer Quant (PE/DVT) 0.35 Sodium 138 Potassium 4.0 Chloride 105 Carbon Dioxide 25.0 Anion Gap 8 BUN 34 H Creatinine 1.13 H Estim Creat Clear Calc 128.22 Est GFR (MDRD) Af Amer 64 Est GFR (MDRD) Non-Af 53 L BUN/Creatinine Ratio 30.1 H Glucose 245 H Calcium 8.8 Magnesium 2.3 Troponin I High Sens 6.0 B-Natriuretic Peptide 11/24/20 12:40 WBC RBC Hgb Hct MCV MCH MCHC RDW Std Deviation RDW Coeff of Veronica Plt Count MPV Immature Gran % (Auto) Neut % (Auto) Lymph % (Auto) [place] % (Auto) Eos % (Auto) Baso % (Auto) Absolute Neuts (auto) Absolute Lymphs (auto) Nucleated RBC % D-Dimer Quant (PE/DVT) Sodium Potassium Chloride Carbon Dioxide Anion Gap BUN Creatinine Estim Creat Clear Calc Est GFR (MDRD) Af Amer Est GFR (MDRD) Non-Af BUN/Creatinine Ratio Glucose Calcium Magnesium Troponin I High Sens B-Natriuretic Peptide 30.4 Radiography Diagnostic Testing: Radiology Impression Chest X-Ray 11/24/20 13:00 IMPRESSION: Borderline cardiomegaly. Electronically Signed: Frederick Slater MD at 13:20 EDT , Service support , EKG Initial EKG: Attestation: I personally reviewed and interpreted this EKG as follows: Interpretation: Sinus Rhythm Comments: EKG demonstrates a normal sinus rhythm at a rate of 64 with right bundle branch block. Discharge Plan Triage Chief Complaint: Shortness of Breath ED Provider: Kenrick Lewis Dx/Rx/DC Orders Clinical Impression: Lymphedema, Acute dyspnea Instructions: ED Peripheral Edema, Bilateral Prescriptions: No Action cetirizine 10 mg tablet 10 mg PO DAILY RF: 0 insulin aspart U-100 [Novolog Flexpen U-100 Insulin] 100 unit/mL insulin pen See Rx Instructions SC TID RF: 0 insulin detemir U-100 [Levemir FlexTouch U-100 Insuln] 100 unit/mL (3 mL) insulin pen 49 units SC BID RF: 0 dapagliflozin 5 mg tablet 5 mg PO QAM RF: 0 dicyclomine 20 mg tablet 20 mg PO Q6H PRN (Reason: ibs) RF: 0 docusate sodium [DOK] 100 mg capsule 100 mg PO DAILY PRN PRN (Reason: Constipation) RF: 0 hydroxyzine HCl 25 mg tablet 25 mg PO QHS RF: 0 spironolactone 25 MG tablet 25 mg PO DAILY RF: 0 ropinirole 0.25 MG tablet 0.5 mg PO QHS RF: 0 pantoprazole 40 MG tablet 40 mg PO BID RF: 0 nitroglycerin 0.4 MG tablet 0.4 mg SUBLINGUAL PRN PRN (Reason: chest pain) RF: 0 atorvastatin 40 mg tablet 40 mg PO QHS Qty: 90 RF: 3 carvedilol 12.5 mg tablet 12.5 mg PO BID Qty: 180 RF: 3 clopidogrel 75 mg tablet 75 mg PO DAILY Qty: 90 RF: 3 furosemide 40 mg tablet 40 mg PO DAILY Qty: 90 RF: 3 aspirin 81 mg tablet,chewable 81 mg PO DAILY Qty: 90 RF: 3 levothyroxine 88 mcg tablet 88 mcg PO DAILY Qty: 1 RF: 0 potassium chloride 10 mEq capsule, extended release 10 meq PO DAILY Qty: 30 RF: 11 Primary Care Provider: Mike Prince Referrals: Mike Prince [Primary Care Provider] - 5-7 Days Activity Restrictions/Additional Instructions: Increase your Lasix to 40 mg twice a day. Call today to schedule a follow-up appointment with your doctor. Disposition Disposition: Home, Self Care
[2020-11-24 13:04] LABS: D-Dimer Quantitative (DVT/PE) 0.35 FEU/ug/m (0.27-0.49)
[2020-11-24 13:07] LABS: Anion Gap 8 (5-15); BUN 34 mg/dL (7-18); BUN/Creat Ratio 30.1 RATIO (10-20); Calcium,Total 8.8 mg/dL (8.5-10.1); Chloride 105 mmol/L (98-107); Creatinine, Serum 1.13 mg/dL (0.55-1.02); EST Glomerular Filtration Rate 53 mL/min (>60); Est Glom Filt Rate - Afr Amer 64 mL/min (>60); Estimated Creatinine Clearance 128.22 ml/min; Glucose 245 mg/dL (74-106); Magnesium 2.3 mg/dL (1.6-2.6); Sodium Level 138 mmol/L (136-145)
[2020-11-24 13:09] LABS: BNP,B-Type NATRIURETIC PEPTIDE 30.4 pg/mL (0-100)
[2020-11-24 14:13] VITALS: BP 127/60; PULSE 67; RESP 26; O2SAT 98
== END 2020-11-24 14:15 | disposition home or self-care (01) ==
PROVIDERS: Emergency Provider Emergency Medicine
DX: I89.0 Lymphedema, not elsewhere classified (principal); R06.02 Shortness of breath; I25.10 Atherosclerotic heart disease of native coronary artery without angina pectoris; I10 Essential (primary) hypertension; I47.1 Supraventricular tachycardia; E11.36 Type 2 diabetes mellitus with diabetic cataract; E78.5 Hyperlipidemia, unspecified; E03.9 Hypothyroidism, unspecified; G47.33 Obstructive sleep apnea (adult) (pediatric); M19.90 Unspecified osteoarthritis, unspecified site; E66.01 Morbid (severe) obesity due to excess calories; Z68.44 Body mass index [BMI] 60.0-69.9, adult; Z95.5 Presence of coronary angioplasty implant and graft; Z79.02 Long term (current) use of antithrombotics/antiplatelets; Z79.82 Long term (current) use of aspirin; Z79.4 Long term (current) use of insulin; Z79.899 Other long term (current) drug therapy; Z87.891 Personal history of nicotine dependence
CPT/HCPCS: 71045; 80048; 83735; 83880; 84484; 85025; 85379; 93005; 99285; A4216

== ENCOUNTER → 2021-02-26 07:58 | Outpatient (CLI) | payer MEDICARE, MEDICAID, SELFPAY ==
--- NOTE | 2021-02-26 08:20 | RAD_ITS ---
STUDY: AIR-CONTRAST UPPER GI SERIES AND SMALL BOWEL FOLLOW-THROUGH EXAMINATION. REASON FOR EXAM: Female, 55 years old. ABD PAIN / NAUSEA FLUOROSCOPY TIME (if supplied): ( 35 seconds ) minutes/seconds. 15 images were obtained. TECHNIQUE: The patient ingested barium. Multiple images of the esophagus, stomach and duodenum were obtained. Following this, a small bowel follow-through examination was performed. COMPARISON: None. FINDINGS: There is evidence of a small sliding hiatal hernia with gastroesophageal reflux. No evidence of esophageal mass or ulceration. The stomach is unremarkable. No evidence of ulceration. No mass lesion is seen. A small bowel follow-through examination was performed. Contrast is seen within the colon within 30 minutes. RAD/Upper GI/w Small Bowel IMPRESSION: Small sliding hiatal hernia with gastroesophageal reflux. Electronically Signed: Frederick Slater MD at 9:45 EDT , Service support ,
== END ==
PROVIDERS: Referring Provider Nurse Practitioner; Visit Provider Nurse Practitioner
DX: K21.9 Gastro-esophageal reflux disease without esophagitis (principal); K44.9 Diaphragmatic hernia without obstruction or gangrene
CPT/HCPCS: 74246; 74248

== ENCOUNTER 2021-04-01 21:34 | Observation (INO) | payer MEDICARE, MEDICAID, SELFPAY ==
[2021-04-01 21:34] VITALS: BP 149/60; PULSE 78; RESP 24; TEMP 36.4; O2SAT 96; BMI 70.5
--- NOTE | 2021-04-01 21:45 | RAD_ITS ---
STUDY: X-RAY CHEST REASON FOR EXAM: Female, 55 years old. dyspnea TECHNIQUE: Single AP portable view of the chest. COMPARISON: November 24, 2020 FINDINGS: The lungs are clear and expanded. There is no demonstrated pleural abnormality. Normal size heart. Normal mediastinum and lakeisha. Normal visualized pulmonary arteries. There is atherosclerotic calcification of the aortic arch with tortuosity. Stable visualized osseous structures. There is no demonstrated abnormality of the visualized soft tissue structures of the upper abdomen. RAD/Chest 1 View (Portable) IMPRESSION: No acute process Electronically Signed: Kristian Peraza MD at 23:42 EST , Service support ,
--- NOTE | 2021-04-01 21:45 | EKG12_ITS ---
Test Reason : DYSRHYTHMIA Blood Pressure : / mmHG Vent. Rate : 076 BPM Atrial Rate : 076 BPM P-R Int : 160 ms QRS Dur : 130 ms QT Int : 410 ms P-R-T Axes : 056 -10 017 degrees QTc Int : 461 ms Normal sinus rhythm Right bundle branch block Abnormal ECG Confirmed by NABEEL ROSENBERG, HERI ([id number]), editor managing director LOLA HERRING ([id number]) on 04/02/2021 11:47:43 AM Referred By: MARIA C Confirmed By:HERI LEES MD
--- NOTE | 2021-04-01 22:02 | EX.ED.DYSGE1 ---
HPI History of Present Illness Chief Complaint: Hyperglycemia Narrative Narrative: 55-year-old female presenting with dysuria and urinary frequency. She states she had this and was seen by her primary care yesterday and was given a prescription for an unknown antibiotic which she did not start because her pharmacy was closed. She states he is going to fill this tomorrow. She states that earlier today she had macaroni and cheese, biscuits, popcorn chicken. Patient states that her initial blood sugars were about 150. Patient states that after eating a sugar-free campos pie this evening her blood sugars went up to 600. She took 40 units of insulin before she came to the ER at 930. She has not rechecked her blood sugar. It was in the 400s for EMS. I asked the patient what her sliding scale insulin is and she does not know. She is unable to answer the question. She states she has written down somewhere. Patient does state that she has shortness of breath which is worse on exertion. She states this is new for her and she is not usually short of breath. She denies chest pain. She denies any fever, chills, myalgias. [facility] Medical History Anxiety and depression Atherosclerosis of coronary artery of [place] heart without angina pectoris Cataracts, bilateral Crohn's disease Decreased radial pulse Degenerative disc disease Essential hypertension GERD (gastroesophageal reflux disease) History of kidney stones HLD (hyperlipidemia) Hypothyroidism Hypothyroidism Injury of right radial artery Morbid obesity Numbness of right hand Obstructive sleep apnea JEWELS on CPAP Osteoarthritis Pain of right hand Paroxysmal SVT (supraventricular tachycardia) Right bundle branch block (RBBB) SVT (supraventricular tachycardia) Type 2 diabetes mellitus Home Medications pantoprazole 40 mg PO BID 07/21/14 [History Last Taken 06/15/20] ropinirole 0.5 mg PO QHS 07/21/14 [History Last Taken 05/12/19] spironolactone 25 mg PO DAILY 07/21/14 [History Last Taken 05/13/19] nitroglycerin 0.4 mg SUBLINGUAL PRN PRN 03/30/17 [History Last Taken 03/30/17] insulin aspart U-100 100 unit/mL (3 mL) subcutaneous pen See Rx Instructions SC TID ml 08/24/17 [History Last Taken 05/13/19] insulin detemir U-100 100 unit/mL (3 mL) subcutaneous pen 49 units SC BID ml 08/24/17 [History Last Taken 05/13/19] dapagliflozin 5 mg tablet 5 mg PO QAM 10/18/18 [History Last Taken 05/13/19] dicyclomine 20 mg tablet 20 mg PO Q6H PRN tab 10/18/18 [History Last Taken 05/13/19] hydroxyzine HCl 25 mg tablet 25 mg PO QHS 05/29/20 [History Last Taken Unknown] aspirin 81 mg chewable tablet 81 mg PO DAILY #90 tab 07/16/20 [Rx Last Taken Unknown] levothyroxine 88 mcg tablet 88 mcg PO DAILY #1 tablet 08/19/20 [Rx Last Taken Unknown] atorvastatin 40 mg tablet 40 mg PO QHS #90 tab 02/04/21 [Rx Last Taken Unknown] carvedilol 12.5 mg tablet 12.5 mg PO BID #180 tab 02/04/21 [Rx Last Taken Unknown] clopidogrel 75 mg tablet 75 mg PO DAILY #90 tab 02/04/21 [Rx Last Taken Unknown] furosemide 40 mg tablet 40 mg PO BID #180 tab 02/04/21 [Rx Last Taken Unknown] potassium chloride 10 mEq capsule,extended release 10 meq PO DAILY #90 cap 02/04/21 [Rx Last Taken Unknown] Allergy/AdvReac Type Severity Reaction Status Date / Time isosorbide [From Imdur] Allergy Severe Diarrhea Verified 04/01/21 21:44 lisinopril [From Zestril] Allergy Anaphylaxis Verified 04/01/21 21:44 metoprolol tartrate Allergy Anaphylaxis Verified 04/01/21 21:44 [From Lopressor] bupropion [From Wellbutrin] AdvReac Other Verified 04/01/21 21:44 desvenlafaxine AdvReac Other Verified 04/01/21 21:44 enalapril maleate AdvReac Swelling Verified 04/01/21 21:44 [From Vasotec] enalaprilat dihydrate AdvReac Swelling Verified 04/01/21 21:44 [From Vasotec] levetiracetam [From Keppra] AdvReac Swelling Verified 04/01/21 21:44 metformin AdvReac Diarrhea Verified 04/01/21 21:44 oxcarbazepine AdvReac Other Verified 04/01/21 21:44 [From Trileptal] pregabalin [From Lyrica] AdvReac Abd Verified 04/01/21 21:44 cramps/diarrhea rofecoxib [From Vioxx] AdvReac Swelling Verified 04/01/21 21:44 Family History Sister Asthma Arthritis Diabetes Hypertension High cholesterol Heart disease Sleep apnea Brother Diabetes Hypertension CAD (coronary artery disease) CABG Cancer lymphoma Mother Diabetes Hypertension CVA (cerebral vascular accident) CAD (coronary artery disease) Grandmother Heart disease Father CVA (cerebral vascular accident) Surgical History History of bilateral salpingo-oophorectomy (BSO) History of carpal tunnel release History of cholecystectomy History of coronary artery stent placement (06/15/20) History of removal of cyst History of umbilical hernia repair Social History Smoking Status: Former smoker how long ago did patient quit smokin alcohol intake: never substance use type: does not use caffeine: No ROS ROS ED Constitutional Constitutional ED: Denies chills or fever(s) Eyes Eyes: Denies blurry vision or diplopia ENT ENT ED: Denies rhinorrhea or sore throat Cardiovascular Cardiovascular: Reports palpitations; Denies chest pain Respiratory/Chest Respiratory/Chest: Reports dyspnea and dyspnea on exertion Gastrointestinal Gastrointestinal: Denies abdominal pain, nausea or vomiting Genitourinary Genitourinary ED: Reports dysuria Musculoskeletal Musculoskeletal: Denies arthralgias or myalgias Integumentary Denies abscess or rash Neurologic Neurologic: Denies headache(s) or paresthesias Psychiatric Psychiatric: Denies anxiety or depression EXAM Physical Exam Const Vital Signs: 04/01/21 21:34 04/01/21 23:49 Temperature 97.6 F L 97.6 F L Temperature Source Temporal Temporal Pulse Rate 78 70 Respiratory Rate 24 H 24 H Blood Pressure 149/60 H 119/81 H Blood Pressure Mean 89 93 Pulse Ox 96 93 Oxygen Delivery Method Room Air Room Air Positive obese General Appearance ED: NAD Nutritional Appearance: obese HEENT Reports moist mucous membranes Negative for trauma Eyes PERRL and EOMs intact bilaterally Neck no lymphadenopathy and supple Resp normal respiratory effort and clear to auscultation bilaterally GI normal to inspection, nondistended, normoactive bowel sounds Back/Spine no CVA tenderness Neuro oriented x3, CN's II-XII intact bilaterally and no sensory deficits noted Sensorium / Orientation: alert Motor Exam: strength 5/5 throughout Psych mental status grossly normal Skin no rashes or lesions noted MDM MDM MDM Narrative Medical decision making narrative: Patient presenting with inability to get around her apartment and hyperglycemia. She does admit to eating macaroni and cheese, biscuits, popcorn chicken, sugar-free campos pie earlier today. Her blood sugar did go up to 9600 and she states she took 29 units of insulin. I did discuss a sliding scale with her but she is unable to articulate what her sliding scale is. States that she does have written down at home. She does tell me that she is able to get around the house previously but today she is just unable to get up and move without becoming weak and short of breath. She not have any fever or chills. She not having chest pain. She has been able to eat and drink normally. 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 Her urinalysis was checked today and this is negative for infection. CBC is normal. CMP shows that her creatinine is 1.2 which is slightly above her baseline. Glucose is elevated at 330 and she is given insulin 15 units subcutaneously electrolytes are normal. BNP is 32 and therefore normal. D-dimer is normal. EKG shows a sinus rhythm with a ventricular to 76 bpm with a right bundle branch block on my interpretation. Chest x-ray my interpretation shows no acute cardiopulmonary process and radiologist agree. Attempted to get the patient up to ambulate and she made it 1 step and is clutching her cane and holding onto the nurse that she is unable to get around. At this point patient will need to be admitted for care home and rehab and is amenable to this. Impression: 1. Debility 2. Hyperglycemia Lab Data Attestation: I reviewed the patient's lab results. Labs: Laboratory Results - last 24 hr 04/01/21 04/01/21 04/01/21 22:00 22:00 22:00 WBC 7.2 RBC 4.86 Hgb 14.3 Hct 42.6 MCV 87.7 MCH 29.4 MCHC 33.6 RDW Std Deviation 45.2 H RDW Coeff of Veronica 14.0 Plt Count 260 MPV 9.3 Immature Gran % (Auto) 1.000 H Neut % (Auto) 54.5 Lymph % (Auto) 31.8 [place] % (Auto) 10.2 H Eos % (Auto) 2.1 Baso % (Auto) 0.4 Absolute Neuts (auto) 3.9 Absolute Lymphs (auto) 2.29 Nucleated RBC % 0 D-Dimer Quant (PE/DVT) 0.42 Sodium 139 Potassium 4.4 Chloride 102 Carbon Dioxide 28.0 Anion Gap 9 BUN 39 H Creatinine 1.20 H Estim Creat Clear Calc 129.34 Est GFR (MDRD) Af Amer 59 L Est GFR (MDRD) Non-Af 49 L BUN/Creatinine Ratio 32.5 H Glucose 330 H Calcium 8.7 Total Bilirubin 0.30 AST 13 L ALT 35 Alkaline Phosphatase 137 H B-Natriuretic Peptide Total Protein 6.7 Albumin 2.9 L Globulin 3.8 Albumin/Globulin Ratio 0.8 L Urine Color Urine Clarity Urine pH Ur Specific [place] Urine Protein Urine Glucose (UA) Urine Ketones Urine Occult Blood Urine Nitrite Urine Bilirubin Urine Urobilinogen Ur Leukocyte Esterase Urine RBC Urine WBC Ur Squamous Epith Cells Urine Bacteria Urine Mucus 04/01/21 04/01/21 22:00 22:14 WBC RBC Hgb Hct MCV MCH MCHC RDW Std Deviation RDW Coeff of Veronica Plt Count MPV Immature Gran % (Auto) Neut % (Auto) Lymph % (Auto) [place] % (Auto) Eos % (Auto) Baso % (Auto) Absolute Neuts (auto) Absolute Lymphs (auto) Nucleated RBC % D-Dimer Quant (PE/DVT) Sodium Potassium Chloride Carbon Dioxide Anion Gap BUN Creatinine Estim Creat Clear Calc Est GFR (MDRD) Af Amer Est GFR (MDRD) Non-Af BUN/Creatinine Ratio Glucose Calcium Total Bilirubin AST ALT Alkaline Phosphatase B-Natriuretic Peptide 32.1 Total Protein Albumin Globulin Albumin/Globulin Ratio Urine Color Yellow Urine Clarity Clear Urine pH 5.0 Ur Specific [place] 1.010 Urine Protein 15 H Urine Glucose (UA) 1000 H Urine Ketones Negative Urine Occult Blood Negative Urine Nitrite Negative Urine Bilirubin Negative Urine Urobilinogen Normal Ur Leukocyte Esterase Negative Urine RBC 0 SEEN Urine WBC 0-5 SEEN Ur Squamous Epith Cells 0 SEEN Urine Bacteria 1+ Urine Mucus 0 SEEN Radiography Diagnostic Testing: Clinical Impression(s) from Imaging Studies Chest X-Ray 04/01/21 21:45 IMPRESSION: No acute process Electronically Signed: Kristian Peraza MD at 23:42 EST , Service support , Discharge Plan Triage Chief Complaint: Hyperglycemia ED Provider: Amadeo Conway Dx/Rx/DC Orders Prescriptions: No Action insulin aspart U-100 [Novolog Flexpen U-100 Insulin] 100 unit/mL insulin pen See Rx Instructions SC TID RF: 0 insulin detemir U-100 [Levemir FlexTouch U-100 Insuln] 100 unit/mL (3 mL) insulin pen 49 units SC BID RF: 0 dapagliflozin 5 mg tablet 5 mg PO QAM RF: 0 dicyclomine 20 mg tablet 20 mg PO Q6H PRN (Reason: ibs) RF: 0 hydroxyzine HCl 25 mg tablet 25 mg PO QHS RF: 0 spironolactone 25 MG tablet 25 mg PO DAILY RF: 0 ropinirole 0.25 MG tablet 0.5 mg PO QHS RF: 0 pantoprazole 40 MG tablet 40 mg PO BID RF: 0 nitroglycerin 0.4 MG tablet 0.4 mg SUBLINGUAL PRN PRN (Reason: chest pain) RF: 0 aspirin 81 mg tablet,chewable 81 mg PO DAILY Qty: 90 RF: 3 levothyroxine 88 mcg tablet 88 mcg PO DAILY Qty: 1 RF: 0 atorvastatin 40 mg tablet 40 mg PO QHS Qty: 90 RF: 3 carvedilol 12.5 mg tablet 12.5 mg PO BID Qty: 180 RF: 3 clopidogrel 75 mg tablet 75 mg PO DAILY Qty: 90 RF: 3 furosemide 40 mg tablet 40 mg PO BID Qty: 180 RF: 3 potassium chloride 10 mEq capsule, extended release 10 meq PO DAILY Qty: 90 RF: 3 Primary Care Provider: Mike Prince
[2021-04-01 22:05] LABS: Absolute Lymphocyte Count 2.29 X10^3/uL (0.83-4.51); Absolute Neutrophil Count 3.9 X10^3/uL (2.0-7.7); Basophil# 0.03 X10^3/uL; Basophil% 0.4 % (0-1); Eosinophil# 0.15 X10^3/uL; Eosinophils% 2.1 % (0-5); Hematocrit 42.6 % (37-47); Hemoglobin 14.3 g/dL (12.0-15.0); Lymphocyte # 2.29 X10^3/ul (0.83-4.51); Lymphocyte % 31.8 % (19-41); Mean Corp Hgb Conc 33.6 g/dL (32-36); Mean Corpuscular Hgb 29.4 pg (27.0-32.0); Mean Corpuscular Volume 87.7 fL (81-99); Mean Platelet Vol. 9.3 fl (6.2-12.0); Monocyte# 0.73 X10^3/uL; Monocyte% 10.2 % (0-10); NRBC Flagged by Analyzer 0 % (0-5); Neutrophil # 3.92 X10^3/uL (2.7-7.7); Neutrophil % 54.5 % (47-70); Platelet Count 260 K/mm3 (150-450); RBC Distribution Width SD 45.2 fl (35.1-43.9); Red Blood Count 4.86 M/mm3 (4.2-5.4); White Blood Count 7.2 K/mm3 (4.4-11.0)
[2021-04-01 22:20] LABS: Mucous, Urine 0 SEEN /hpf (<or=2+); Red Blood Cells-Urine 0 SEEN /hpf (0-5); Squamous Epithelial Cells - UA 0 SEEN /hpf (5-10)
[2021-04-01 22:22] LABS: Color, Urine Yellow (Yellow); Glucose, Dipstick 1000 mg/dl (Normal); Ketone-Dipstick Negative (Negative); Leukocyte Esterase-Dipstick Negative /ul (Negative); Nitrite-Dipstick Negative (Negative); Occult Blood-Urine Negative /ul (Negative); Protein-Dipstick 15 mg/dl (Negative); Urine Bilirubin Dipstick Negative (Negative); Urine Clarity Clear (Clear); Urine Urobilinogen Normal (Normal)
[2021-04-01 22:23] LABS: D-Dimer Quantitative (DVT/PE) 0.42 FEU/ug/m (0.27-0.49)
[2021-04-01 22:32] LABS: Bacteria 1+ /hpf (None Seen); White Blood Cells 0-5 SEEN /hpf (0-5)
[2021-04-01 22:37] LABS: ALB/GLOB Ratio 0.8 RATIO (0.9-2.4); AST(SGOT) 13 U/L (15-37); Alanine Aminotransfer ALT/SGPT 35 U/L (13-56); Albumin, Serum 2.9 g/dL (3.2-5.0); Alkaline Phosphatase 137 U/L (45-117); Anion Gap 9 (5-15); BUN 39 mg/dL (7-18); BUN/Creat Ratio 32.5 RATIO (10-20); Calcium,Total 8.7 mg/dL (8.5-10.1); Chloride 102 mmol/L (98-107); EST Glomerular Filtration Rate 49 mL/min (>60); Est Glom Filt Rate - Afr Amer 59 mL/min (>60); Estimated Creatinine Clearance 129.34 ml/min; Globulin 3.8 g/dL (2.2-4.2); Glucose 330 mg/dL (74-106); Potassium 4.4 mmol/L (3.5-5.1); Protein, Total 6.7 g/dL (6.4-8.2); Sodium Level 139 mmol/L (136-145)
[2021-04-01 22:42] LABS: BNP,B-Type NATRIURETIC PEPTIDE 32.1 pg/mL (0-100)
[2021-04-01 23:49] VITALS: BP 119/81; PULSE 70; RESP 24; TEMP 36.4; O2SAT 93
[2021-04-01] MEDS: Insulin Lispro 100 UNIT/ML INSULN.PEN 15 UNIT SC (23:57)
[2021-04-02] VITALS (7 sets, daily range): BP systolic 123–149; BP diastolic 52–78; PULSE 63–73; RESP 16–18; TEMP 36.3–36.7; O2SAT 96–100; BMI 70.4
--- NOTE | 2021-04-02 00:02 | HP.PCM.HOS_ITS ---
HPI - General General Date of Admission: 04/01/21 HPI Narrative CHANTAL SINGH, is a 55 F with a significant history of diabetes mellitus and morbid obesity who presents to the emergency department with dyspnea on exertion that started a day before presentation and progressively worsened. Also patient reports elevated blood glucose with blood glucose of 600 after eating multiple food. At the emergent department an initial decision was made to discharge patient. However patient could not take more than 1 step with ambulation so a decision was made to keep her at the hospital for rehab evaluation the patient was agreeable to. A day before presentation she was seen at the doctors office for burning urination and difficulty urination. She reported she was diagnosed with UTI and prescribed antibiotics that she has not started taking because of pharmacy shop was closed. On this presentation she denies burning with urination but reports difficulty urinating. Patient did receive 2 doses of COVID-19 vaccination with doses received around August or September. [facility] Medical History Anxiety and depression Atherosclerosis of coronary artery of [place] heart without angina pectoris Cataracts, bilateral Crohn's disease Decreased radial pulse Degenerative disc disease Essential hypertension GERD (gastroesophageal reflux disease) History of kidney stones HLD (hyperlipidemia) Hypothyroidism Hypothyroidism Injury of right radial artery Morbid obesity Numbness of right hand Obstructive sleep apnea JEWELS on CPAP Osteoarthritis Pain of right hand Paroxysmal SVT (supraventricular tachycardia) Right bundle branch block (RBBB) SVT (supraventricular tachycardia) Type 2 diabetes mellitus Home Medications pantoprazole 40 mg PO BID 07/21/14 [History Last Taken 06/15/20] ropinirole 0.5 mg PO QHS 07/21/14 [History Last Taken 05/12/19] spironolactone 25 mg PO DAILY 07/21/14 [History Last Taken 05/13/19] nitroglycerin 0.4 mg SUBLINGUAL PRN PRN 03/30/17 [History Last Taken 03/30/17] insulin aspart U-100 100 unit/mL (3 mL) subcutaneous pen See Rx Instructions SC TID ml 08/24/17 [History Last Taken 05/13/19] insulin detemir U-100 100 unit/mL (3 mL) subcutaneous pen 49 units SC BID ml 08/24/17 [History Last Taken 05/13/19] dapagliflozin 5 mg tablet 5 mg PO QAM 10/18/18 [History Last Taken 05/13/19] dicyclomine 20 mg tablet 20 mg PO Q6H PRN tab 10/18/18 [History Last Taken 05/13/19] hydroxyzine HCl 25 mg tablet 25 mg PO QHS 05/29/20 [History Last Taken Unknown] aspirin 81 mg chewable tablet 81 mg PO DAILY #90 tab 07/16/20 [Rx Last Taken Unknown] levothyroxine 88 mcg tablet 88 mcg PO DAILY #1 tablet 08/19/20 [Rx Last Taken Unknown] atorvastatin 40 mg tablet 40 mg PO QHS #90 tab 02/04/21 [Rx Last Taken Unknown] carvedilol 12.5 mg tablet 12.5 mg PO BID #180 tab 02/04/21 [Rx Last Taken Unknown] clopidogrel 75 mg tablet 75 mg PO DAILY #90 tab 02/04/21 [Rx Last Taken Unknown] furosemide 40 mg tablet 40 mg PO BID #180 tab 02/04/21 [Rx Last Taken Unknown] potassium chloride 10 mEq capsule,extended release 10 meq PO DAILY #90 cap 02/04/21 [Rx Last Taken Unknown] Allergy/AdvReac Type Severity Reaction Status Date / Time isosorbide [From Imdur] Allergy Severe Diarrhea Verified 04/01/21 21:44 lisinopril [From Zestril] Allergy Anaphylaxis Verified 04/01/21 21:44 metoprolol tartrate Allergy Anaphylaxis Verified 04/01/21 21:44 [From Lopressor] bupropion [From Wellbutrin] AdvReac Other Verified 04/01/21 21:44 desvenlafaxine AdvReac Other Verified 04/01/21 21:44 enalapril maleate AdvReac Swelling Verified 04/01/21 21:44 [From Vasotec] enalaprilat dihydrate AdvReac Swelling Verified 04/01/21 21:44 [From Vasotec] levetiracetam [From Keppra] AdvReac Swelling Verified 04/01/21 21:44 metformin AdvReac Diarrhea Verified 04/01/21 21:44 oxcarbazepine AdvReac Other Verified 04/01/21 21:44 [From Trileptal] pregabalin [From Lyrica] AdvReac Abd Verified 04/01/21 21:44 cramps/diarrhea rofecoxib [From Vioxx] AdvReac Swelling Verified 04/01/21 21:44 Family History Sister Asthma Arthritis Diabetes Hypertension High cholesterol Heart disease Sleep apnea Brother Diabetes Hypertension CAD (coronary artery disease) CABG Cancer lymphoma Mother Diabetes Hypertension CVA (cerebral vascular accident) CAD (coronary artery disease) Grandmother Heart disease Father CVA (cerebral vascular accident) Surgical History History of bilateral salpingo-oophorectomy (BSO) History of carpal tunnel release History of cholecystectomy History of coronary artery stent placement (06/15/20) History of removal of cyst History of umbilical hernia repair Social History Smoking Status: Former smoker how long ago did patient quit smokin alcohol intake: never substance use type: does not use caffeine: No ROS ROS Narrative Constitutional: Denies fever, chills, anorexia and change in weight Eyes: Denies blurry vision, change in eye color, change in vision, discharge from eye(s), double vision, erythema, eye pain, loss of vision or other HEENT: Denies abnormal hearing, dysphagia, ear pain, epistaxis, headache(s), hearing loss, nasal congestion, nasal discharge, post nasal drip, sinus pressure, sore throat or other Cardiovascular: Denies chest pain or palpitations. Reports dyspnea on exertion, orthopnea and paroxysmal nocturnal dyspnea Respiratory/Chest: Reports cough; no phelgm production Gastrointestinal: Denies abdominal pain, coffee ground emesis, constipation, diarrhea, dyspepsia, hematemesis, hematochezia, loose stools, melena, nausea, vomiting or other Genitourinary: Reports difficulty urination. Denies burning urination. Musculoskeletal: Denies arthralgias, back pain, joint pain, joint stiffness, joint swelling, myalgias, neck pain or other Neurologic: Denies abnormal gait, abnormal speech, confusion, disequilibrium, dizziness, focal weakness, headache(s), numbness, paresthesias, seizure-like activity, seizures, syncope, tingling, tremor(s) or other Psychiatric: Denies anxiety, depression, homicidal ideation, suicidal ideation or other Endocrinology: Denies change in body appearance, cold intolerance, excessive sweating, heat intolerance, polydipsia, polyuria or other Hematologic/Lymphatic: Denies anemia, easy bleeding, easy bruising, lymphadenopathy or other Integumentary: Denies rashes Allergic/Immunologic: Denies rhinitis, hives, eczema, asthma or other Vital Signs Vital Signs Vital Signs: 04/01/21 21:34 04/01/21 23:49 Temperature 97.6 F L 97.6 F L Temperature Source Temporal Temporal Pulse Rate 78 70 Respiratory Rate 24 H 24 H Blood Pressure 149/60 H 119/81 H Blood Pressure Mean 89 93 Pulse Ox 96 93 Oxygen Delivery Method Room Air Room Air Weight Weight: 158.4 kg Body Mass Index (BMI) 70.5 Physical Exam Narrative Physical exam: General: Morbidly obese Head: Normocephalic, atraumatic, no tenderness Eyes: PERRLA, EOMI ENT, no trauma, moist mucous membranes, no rhinorrhea Neck: Nontender, full range of motion, no spinal tenderness, deformities, step- off CVS: Regular rate and rhythm. S1-S2 present. No murmur, gallop or rub. Respiratory : clear to auscultation bilaterally, chest wall nontender, no wheezing Abdomen: Soft, nontender, nondistended, normal bowel sounds, no masses : Deferred Back: Nontender, no CVA tenderness, no midline spinal tenderness, deformities, step-offs Extremities: Nontender full range of motion, no trauma Skin: Normal color, no trauma, abrasions Neuro: Alert, oriented, cranial nerves II through XII grossly intact. Psychiatry: Normal mood. Normal affect. Not depressed. Not anxious. Results Lab / Micro Data Result Diagrams: 04/01/21 22:00 04/01/21 22:00 Labs: Laboratory Results - last 24 hr 04/01/21 22:00: WBC 7.2, RBC 4.86, Hgb 14.3, Hct 42.6, MCV 87.7, MCH 29.4, MCHC 33.6, RDW Std Deviation 45.2 H, RDW Coeff of Veronica 14.0, Plt Count 260, MPV 9.3, Immature Gran % (Auto) 1.000 H, Neut % (Auto) 54.5, Lymph % (Auto) 31.8, [place] % (Auto) 10.2 H, Eos % (Auto) 2.1, Baso % (Auto) 0.4, Absolute Neuts (auto) 3.9, Absolute Lymphs (auto) 2.29, Nucleated RBC % 0 04/01/21 22:00: D-Dimer Quant (PE/DVT) 0.42 04/01/21 22:00: Sodium 139, Potassium 4.4, Chloride 102, Carbon Dioxide 28.0, Anion Gap 9, BUN 39 H, Creatinine 1.20 H, Estim Creat Clear Calc 129.34, Est GFR (MDRD) Af Amer 59 L, Est GFR (MDRD) Non-Af 49 L, BUN/Creatinine Ratio 32.5 H, Glucose 330 H, Calcium 8.7, Total Bilirubin 0.30, AST 13 L, ALT 35, Alkaline Phosphatase 137 H, Total Protein 6.7, Albumin 2.9 L, Globulin 3.8, Albumin/Globulin Ratio 0.8 L 04/01/21 22:00: B-Natriuretic Peptide 32.1 04/01/21 22:14: Urine Color Yellow, Urine Clarity Clear, Urine pH 5.0, Ur Specific [place] 1.010, Urine Protein 15 H, Urine Glucose (UA) 1000 H, Urine Ketones Negative, Urine Occult Blood Negative, Urine Nitrite Negative, Urine Bilirubin Negative, Urine Urobilinogen Normal, Ur Leukocyte Esterase Negative, Urine RBC 0 SEEN, Urine WBC 0-5 SEEN, Ur Squamous Epith Cells 0 SEEN, Urine [place] 1+, Urine Mucus 0 SEEN Radiology Impression Chest X-Ray 04/01/21 21:45 IMPRESSION: No acute process Electronically Signed: Kristian Peraza MD at 23:42 EST , Service support , Assessment & Plan Assessment/Plan (1) Debility: (2) Acute dyspnea: (3) Hyperglycemia due to diabetes mellitus: PLAN: Debility/acute dyspnea PT and OT to work with patient. Case management consult for disposition. BNP is markedly low (32.1) Chest x-ray image was independently interpreted and I agree with radiologist impression of no acute cardiopulmonary process per Hyperglycemia due to diabetes mellitus. Patient with hyperglycemia on presentation. Subcutaneous insulin ordered at the emergency department. Basal and prandial insulin ordered. Accu-Chek QACHS with correction scale insulin ordered. Diabetic diet ordered. Elevated creatinine. Review of emergent department labs showed slightly elevated creatinine but within baseline. Continue Lasix and spironolactone. Trend BMP. Abnormal urinalysis Reportedly outpatient labs showed abnormal urinalysis. On presentation at the emergency department urinalysis showed 1+ bacteria, mild proteinuria and glucosuria with glucose of 1000. Urine culture ordered. No antibiotics at this time. CBC showed normal white counts but with bandemia of 1% and monocytosis. Trend CBC. Super morbid obesity BMI: 70.5 kilograms per meter square. Complicates care. Lifestyle modification recommended. DVT prophylaxis: Subcutaneous Lovenox ordered Charges/Coding Visit Charges OBSV E&M: 27344 Initial observation care L3
[2021-04-02 01:16] LABS: Bedside Glucose 233 mg/dL (70-110)
[2021-04-02] MEDS: Levothyroxine 88 MCG Tablet PO (05:07)
[2021-04-02] MEDS: Nystatin Powder 15gm Bottle 1 APPLIC TOPICAL (05:07)
[2021-04-02] MEDS: Insulin Lispro 100 UNIT/ML INSULN.PEN 22 UNIT SC (08:07)
[2021-04-02 08:12] LABS: Absolute Lymphocyte Count 3.11 X10^3/uL (0.83-4.51); Absolute Neutrophil Count 3.7 X10^3/uL (2.0-7.7); Basophil# 0.03 X10^3/uL; Basophil% 0.4 % (0-1); Eosinophil# 0.21 X10^3/uL; Eosinophils% 2.6 % (0-5); Hematocrit 42.1 % (37-47); Hemoglobin 13.8 g/dL (12.0-15.0); Lymphocyte # 3.11 X10^3/ul (0.83-4.51); Lymphocyte % 39.2 % (19-41); Mean Corp Hgb Conc 32.8 g/dL (32-36); Mean Corpuscular Hgb 28.8 pg (27.0-32.0); Mean Corpuscular Volume 87.7 fL (81-99); Mean Platelet Vol. 9.2 fl (6.2-12.0); Monocyte# 0.79 X10^3/uL; Monocyte% 9.9 % (0-10); NRBC Flagged by Analyzer 0 % (0-5); Neutrophil # 3.74 X10^3/uL (2.7-7.7); Neutrophil % 47.1 % (47-70); Platelet Count 245 K/mm3 (150-450); RBC Distribution Width CV 14.2 % (11.6-14.6); RBC Distribution Width SD 45.5 fl (35.1-43.9); White Blood Count 7.9 K/mm3 (4.4-11.0)
[2021-04-02 08:15] LABS: Bedside Glucose 214 mg/dL (70-110)
[2021-04-02 08:44] LABS: Anion Gap 8 (5-15); BUN 40 mg/dL (7-18); BUN/Creat Ratio 46.1 RATIO (10-20); Calcium,Total 8.8 mg/dL (8.5-10.1); Chloride 104 mmol/L (98-107); Creatinine, Serum 0.87 mg/dL (0.55-1.02); EST Glomerular Filtration Rate 71 mL/min (>60); Est Glom Filt Rate - Afr Amer 86 mL/min (>60); Estimated Creatinine Clearance 178.29 ml/min; Glucose 213 mg/dL (74-106); Potassium 4.1 mmol/L (3.5-5.1); Sodium Level 137 mmol/L (136-145); Thyroid Stim Hormone (TSH) 4.83 uIU/mL (0.358-3.74)
[2021-04-02] MEDS: Furosemide 40 MG Tablet PO (08:45)
[2021-04-02] MEDS: Aspirin 81 MG TAB.CHEW PO (08:45)
[2021-04-02] MEDS: Carvedilol 12.5 MG Tablet PO (08:45)
[2021-04-02] MEDS: Potassium Chloride Oral Tablet 10 MEQ PO (08:45)
[2021-04-02] MEDS: Clopidogrel Bisulfate 75 MG Tablet PO (08:46)
[2021-04-02] MEDS: Enoxaparin 40 MG/0.4 ML Syringe SC (08:46)
[2021-04-02] MEDS: Spironolactone 25 MG Tablet PO (08:46)
[2021-04-02] MEDS: Pantoprazole Sodium 40 MG Tablet PO (08:46)
[2021-04-02 08:48] LABS: Hemoglobin A1c 9.3 % (3.8-5.6)
--- NOTE | 2021-04-02 10:42 | CASEMGMT ---
Addendum entered by Liss Roche 04/02/21 11:33: ELE CHEUNG back into pt room to discuss outpt therapy per hospitalist request. Pt states I don't feel like I need it. Updated hospitalist. Original Note: ELE CHEUNG Assessment: Face to Face with pt for initial transition planning/care coordination assessment. ELE CHEUNG introduced self and role at [facility], pt voices understanding and consents to assessment. Pt is A/O x4 and answers all questions appropriately at this time. Pt sitting up in chair in no distress. Care providers, pharmacy, and demographics verified/updated. Admitting Dx: Debility and FTT PCP:Suresh Specialists:Corina, cardio; annie Dobbins Preferred Pharmacy: [facility] Insurance: My Care CRSC, [facility] Prescription Benefit: yes LW/HPOA: Pt denies having a LW/DPOA and denies need for info regarding AD. Noted [employer] lists pt has a LW but pt denies. LNOK: Kiesha Baltazar, sister; Chalo Nguyễn, sister Living Arrangements: Pt lives alone in a ground level apt with no steps to enter. Pt reports she is I in ADL's and denies concerns at home. Transportation: Pt utilizes her insurance for transportation to medical appts. DME/HHC/SNF: Pt has a walk in shower, cane, rollator but doesn't use, grab bars in the bathroom and in shower and call lights in the bathroom and bedroom. Pt states she has had HHC through [place] in the past and denies SNF stays. Pt states no concerns with going home at time of dc. Discussed that pt was admitted with debility and pt states she is much better today. She denies need for HHC. She is aware that if she should change her mind once dc'd, she may contact her PCP. Pt verbalizes understanding. Pt states no further concerns/needs. CM to follow. Advised pt to ask CM if any further question/concerns/needs arise, voices understanding. Pt Goal: Home Plan: Home
[2021-04-02] MEDS: Insulin Lispro 100 UNIT/ML INSULN.PEN 16 UNIT SC (11:51)
[2021-04-02 11:56] LABS: Bedside Glucose 307 mg/dL (70-110)
--- NOTE | 2021-04-02 12:48 | PCM.DC.SUM ---
Providers Date of Admission: 04/01/21 Primary Care Physician: Mike Prince Reason For Visit: DEBILITY AND ADULT FAILURE TO THRIVE Diagnosis Discharge Diagnosis (1) Debility: Status: Acute Code(s): R53.81 - Other malaise (2) Acute dyspnea: Status: Acute Code(s): R06.00 - Dyspnea, unspecified (3) Hyperglycemia due to diabetes mellitus: Status: Acute Code(s): E11.65 - Type 2 diabetes mellitus with hyperglycemia Medications at Discharge Home Medications pantoprazole 40 mg PO BID 07/21/14 ropinirole 0.5 mg PO QHS 07/21/14 spironolactone 25 mg PO DAILY 07/21/14 nitroglycerin 0.4 mg SUBLINGUAL PRN PRN 03/30/17 insulin aspart U-100 100 unit/mL (3 mL) subcutaneous pen See Rx Instructions SC TID ml 08/24/17 insulin detemir U-100 100 unit/mL (3 mL) subcutaneous pen 49 units SC BID ml 08/24/17 dapagliflozin 5 mg tablet 5 mg PO QAM 10/18/18 dicyclomine 20 mg tablet 20 mg PO Q6H PRN tab 10/18/18 hydroxyzine HCl 25 mg tablet 25 mg PO QHS 05/29/20 aspirin 81 mg chewable tablet 81 mg PO DAILY #90 tab 07/16/20 levothyroxine 88 mcg tablet 88 mcg PO DAILY #1 tablet 08/19/20 atorvastatin 40 mg tablet 40 mg PO QHS #90 tab 02/04/21 carvedilol 12.5 mg tablet 12.5 mg PO BID #180 tab 02/04/21 clopidogrel 75 mg tablet 75 mg PO DAILY #90 tab 02/04/21 furosemide 40 mg tablet 40 mg PO BID #180 tab 02/04/21 potassium chloride 10 mEq capsule,extended release 10 meq PO DAILY #90 cap 02/04/21 Hospital Course Operations None Procedures None Summary of Care Provided Minutes Spent on Discharge: 25 Hospital Course: Ms. Baltazar is a 55-year-old white female who presented to the emergency department [facility] complaining of dysuria with urinary frequency. She evidently had been seen by her PCP the day prior and was given a prescription for an unknown antibiotics which she did not start because her pharmacy was closed. She reported earlier that day she had eaten macaroni and cheese biscuits and popcorn chicken and her initial blood sugars were approximately 150 but after eating a sugar-free campos pie on that evening her blood sugar elevated to 600. She had taken 40 units of insulin before coming to the ED at 9:30 PM but had not rechecked her blood sugar after her insulin was taken. Her blood sugars were in the 400s for the EMS her work-up otherwise was essentially normal and they did attempt to ambulate the patient to discharge her home but she had difficulty doing so at that time therefore she was admitted with the concern that she would need usp or rehab at discharge and the patient was amenable to this at that time. After admission and being hospitalized through the night I reevaluated her on the morning of 04/02/2021 and she was interested in trying to go home. She states she overall felt much better. Her blood sugars were moved and her fasting blood sugar on the day of discharge was 213. She is on quite a bit of insulin at home so I did discuss with her possible consideration of follow-up with endocrinology and she was amenable to this. Information for Dr. João Velázquez was given to her at discharge. I feel she could potentially benefit from U500 insulin. No medication changes were made at discharge. Her hemoglobin A1c was assessed during her hospitalization and found to be 9.3. She was evaluated by physical and Occupational Therapy. She did extremely well with OT and no further therapy was recommended. Physical therapy did recommend outpatient therapy of the patient was resistant to these ideas. She deferred any referrals at the time of discharge for physical therapy. She was discharged home in stable condition with instruction to follow-up with her PCP in 1 to 2 weeks. As well as given referral for endocrinology. Discharge diagnoses: Debility Dyspnea and resolved DM-2 uncontrolled Acute hyperglycemia-improved UTI-recently diagnosed and has antibiotics pending RAFAEL-resolved CAD Hypertension HPL Restless leg syndrome Hypothyroidism Super morbid obesity JEWELS Anxiety Bilateral cataracts Osteoarthritis History of kidney stones Chronic right bundle branch block Physical Exam Const alert, oriented x3 and no apparent distress Constitutional Narrative: Super morbidly obese middle-aged white female sitting up in bed, denies any complaints, states she feels much better, nontoxic General Appearance: cooperative, comfortable, well kempt and well developed Orientation / Consciousness: awake Exam Limitations: no limitations Nutritional Appearance: morbidly obese HEENT normocephalic, head/scalp atraumatic, hearing grossly normal bilaterally and moist oral mucous membranes HEENT Narrative: Mallampati 4, no thrush, poor dentition Eyes PERRL, EOMs intact bilaterally and conjunctivae normal Eyes Narrative: No scleral icterus Neck supple Neck Narrative: Short thick neck, trachea midline, no thyroid enlargement Resp normal respiratory effort, no retractions, no use of accessory muscles and clear to auscultation bilaterally Resp Narrative: Distant breath sounds secondary to body habitus Auscultation: Negative for crackles, rales, rhonchi or wheezes Cardio regular rate, regular rhythm, S1 normal heart sound, S2 normal heart sound, no murmurs, no rub, no gallops, no clicks and no JVD Cardio Narrative: Distant heart tones secondary to body habitus Extremity no clubbing, cyanosis or edema Neuro oriented x3, moves all extremities and no focal motor deficits Sensorium / Orientation: awake and alert Speech: speech normal Psych affect normal Weight / BMI Weight Weight: 158.304 kg Body Mass Index (BMI) 70.4 ABG / Lab / Microbiology Data Result Diagrams: 04/02/21 07:50 04/02/21 07:50 Laboratory: Laboratory Results - last 24 hr 04/01/21 22:00: WBC 7.2, RBC 4.86, Hgb 14.3, Hct 42.6, MCV 87.7, MCH 29.4, MCHC 33.6, RDW Std Deviation 45.2 H, RDW Coeff of Veronica 14.0, Plt Count 260, MPV 9.3, Immature Gran % (Auto) 1.000 H, Neut % (Auto) 54.5, Lymph % (Auto) 31.8, [place] % (Auto) 10.2 H, Eos % (Auto) 2.1, Baso % (Auto) 0.4, Absolute Neuts (auto) 3.9, Absolute Lymphs (auto) 2.29, Nucleated RBC % 0 04/01/21 22:00: D-Dimer Quant (PE/DVT) 0.42 04/01/21 22:00: Sodium 139, Potassium 4.4, Chloride 102, Carbon Dioxide 28.0, Anion Gap 9, BUN 39 H, Creatinine 1.20 H, Estim Creat Clear Calc 129.34, Est GFR (MDRD) Af Amer 59 L, Est GFR (MDRD) Non-Af 49 L, BUN/Creatinine Ratio 32.5 H, Glucose 330 H, Calcium 8.7, Total Bilirubin 0.30, AST 13 L, ALT 35, Alkaline Phosphatase 137 H, Total Protein 6.7, Albumin 2.9 L, Globulin 3.8, Albumin/Globulin Ratio 0.8 L 04/01/21 22:00: B-Natriuretic Peptide 32.1 04/01/21 22:14: Urine Color Yellow, Urine Clarity Clear, Urine pH 5.0, Ur Specific [place] 1.010, Urine Protein 15 H, Urine Glucose (UA) 1000 H, Urine Ketones Negative, Urine Occult Blood Negative, Urine Nitrite Negative, Urine Bilirubin Negative, Urine Urobilinogen Normal, Ur Leukocyte Esterase Negative, Urine RBC 0 SEEN, Urine WBC 0-5 SEEN, Ur Squamous Epith Cells 0 SEEN, Urine Bacteria 1+, Urine Mucus 0 SEEN 04/02/21 01:11: POC Glucose 233 H 04/02/21 07:50: WBC 7.9, RBC 4.80, Hgb 13.8, Hct 42.1, MCV 87.7, MCH 28.8, MCHC 32.8, RDW Std Deviation 45.5 H, RDW Coeff of Veronica 14.2, Plt Count 245, MPV 9.2, Immature Gran % (Auto) 0.800, Neut % (Auto) 47.1, Lymph % (Auto) 39.2, [place] % (Auto) 9.9, Eos % (Auto) 2.6, Baso % (Auto) 0.4, Absolute Neuts (auto) 3.7, Absolute Lymphs (auto) 3.11, Nucleated RBC % 0 04/02/21 07:50: Sodium 137, Potassium 4.1, Chloride 104, Carbon Dioxide 25.0, Anion Gap 8, BUN 40 H, Creatinine 0.87, Estim Creat Clear Calc 178.29, Est GFR (MDRD) Af Amer 86, Est GFR (MDRD) Non-Af 71, BUN/Creatinine Ratio 46.1 H, Glucose 213 H, Calcium 8.8, TSH 4.83 H 04/02/21 07:50: Hemoglobin A1c 9.3 H 04/02/21 08:06: POC Glucose 214 H 04/02/21 11:50: POC Glucose 307 H Microbiology: Microbiology 04/01/21 22:14 Urine, Catheterized Urine Culture - Preliminary GNR lactose investigation manager Radiography Diagnostic Testing: Radiology Impression Chest X-Ray 04/01/21 21:45 IMPRESSION: No acute process Electronically Signed: Kristian Peraza MD at 23:42 EST , Service support , D/C Instructions Discharge Diet: Low fat / Low cholesterol, 1800 Calorie Control Diet, 8 Cup Fluid Restriction and 2000 mg Sodium Diet Discharge Activity: Return to Normal Activity Return to work on: 04/05/21 Meaningful Use Info Meaningful Use Diagnoses (Choose all that apply): None applicable Discharge Plan Admission Admit Date/Time: 04/01/21 23:52 Primary Reason for Your Visit: Hyperglycemia/debility Attending Provider: Carrie Torres Primary Care Provider: Mike Prince Discharge Orders/Prescriptions Prescriptions: Continued insulin aspart U-100 [Novolog Flexpen U-100 Insulin] 100 unit/mL insulin pen See Rx Instructions SC TID RF: 0 insulin detemir U-100 [Levemir FlexTouch U-100 Insuln] 100 unit/mL (3 mL) insulin pen 49 units SC BID RF: 0 dapagliflozin 5 mg tablet 5 mg PO QAM RF: 0 dicyclomine 20 mg tablet 20 mg PO Q6H PRN (Reason: ibs) RF: 0 hydroxyzine HCl 25 mg tablet 25 mg PO QHS RF: 0 spironolactone 25 MG tablet 25 mg PO DAILY RF: 0 ropinirole 0.25 MG tablet 0.5 mg PO QHS RF: 0 pantoprazole 40 MG tablet 40 mg PO BID RF: 0 nitroglycerin 0.4 MG tablet 0.4 mg SUBLINGUAL PRN PRN (Reason: chest pain) RF: 0 aspirin 81 mg tablet,chewable 81 mg PO DAILY Qty: 90 RF: 3 levothyroxine 88 mcg tablet 88 mcg PO DAILY Qty: 1 RF: 0 atorvastatin 40 mg tablet 40 mg PO QHS Qty: 90 RF: 3 carvedilol 12.5 mg tablet 12.5 mg PO BID Qty: 180 RF: 3 clopidogrel 75 mg tablet 75 mg PO DAILY Qty: 90 RF: 3 furosemide 40 mg tablet 40 mg PO BID Qty: 180 RF: 3 potassium chloride 10 mEq capsule, extended release 10 meq PO DAILY Qty: 90 RF: 3 Referrals / Follow Up: João Velázquez MD [STAFF PHYSICIAN] - Within 3 Months (Call for appointment to get help with better diabetes control) Mike Prince [Primary Care Provider] - Disposition Disposition (needs filled in before D/C Order can be placed): Home, Self Care Charges/Coding Visit Charges Inpatient E&M: 37754 Disch Hosp
== END 2021-04-02 17:05 | disposition home or self-care (01) ==
LOC: ED 23:56 → MS3 04-02 00:03
PROVIDERS: Admitting Provider Hospitalist; Emergency Provider Student in an Organized Health Care Education/Training Program; Visit Provider Internal Medicine
DX: E11.65 Type 2 diabetes mellitus with hyperglycemia (principal); R30.0 Dysuria; R35.0 Frequency of micturition; F32.A Depression, unspecified; F41.9 Anxiety disorder, unspecified; I25.10 Atherosclerotic heart disease of native coronary artery without angina pectoris; K50.90 Crohn's disease, unspecified, without complications; I10 Essential (primary) hypertension; K21.9 Gastro-esophageal reflux disease without esophagitis; M19.90 Unspecified osteoarthritis, unspecified site; G47.33 Obstructive sleep apnea (adult) (pediatric); E66.01 Morbid (severe) obesity due to excess calories; E03.9 Hypothyroidism, unspecified; Z68.45 Body mass index [BMI] 70 or greater, adult; E78.5 Hyperlipidemia, unspecified; Z79.899 Other long term (current) drug therapy; Z79.4 Long term (current) use of insulin; Z79.02 Long term (current) use of antithrombotics/antiplatelets; Z79.890 Hormone replacement therapy; Z87.891 Personal history of nicotine dependence; R06.00 Dyspnea, unspecified
CPT/HCPCS: 71045; 80048; 80053; 81001; 82962; 83036; 83880; 84443; 85025; 85379; 87086; 87088; 87186; 93005; 96372; 97162; 97166; 99218; 99285; A4216; G0378

== ENCOUNTER → 2022-03-21 | Outpatient (CLI) | payer MEDICARE, MEDICAID, SELFPAY ==
--- NOTE | 2022-03-21 14:15 | US_ITS ---
STUDY: RENAL ULTRASOUND - COMPLETE REASON FOR EXAM: Female, 56 years old. UTI TECHNIQUE: Ultrasound evaluation of the kidneys was performed with real-time and static gore-scale imaging. COMPARISON: CTA chest 05/25/2020. FINDINGS: RIGHT KIDNEY: Normal location of the right kidney, which is normal in size. The right kidney measures 9.2 x 6.0 x 4.9 cm. There is a normal cortex of the right kidney. The renal cortex measures 1.3 cm. There is no right renal mass or cyst. There are no right renal calculi. There is no right hydronephrosis. DISTAL RIGHT URETER: There is non-visualization of the distal right ureter. There is no demonstrated right ureterovesical junction calculus. There is a visualized right ureteral jet. LEFT KIDNEY: Normal location of the left kidney, which is normal in size. The left kidney measures 10.4 x 5.8 x 6.1 cm. There is a normal cortex of the left kidney. The renal cortex measures 1.2 cm. There is no left renal mass or cyst. There are no left renal calculi. There is no left hydronephrosis. DISTAL LEFT URETER: There is non-visualization of the distal left ureter. There is no demonstrated left ureterovesical junction calculus. There is nonvisualization of the left ureteral jet. BLADDER: The distended urinary bladder has a volume of 479 ml. The empty urinary bladder has a volume of 0 ml. There is a normal 4 mm wall thickness of the distended urinary bladder. There is no demonstrated mass within the urinary bladder. There are no demonstrated bladder calculi. US/Kidney and Bladder IMPRESSION: Normal ultrasound of the kidneys and urinary bladder. Electronically Signed: Rodrigo Hood MD at 8:54 EST ,
== END | disposition home or self-care (01) ==
LOC: US 14:13
PROVIDERS: Referring Provider Urology; Visit Provider Urology
DX: N39.0 Urinary tract infection, site not specified (principal)
CPT/HCPCS: 76770

== ENCOUNTER 2022-05-31 12:41 | Emergency (ER) | payer MEDICARE, MEDICAID, SELFPAY ==
[2022-05-31 12:44] VITALS: BP 143/70; PULSE 72; RESP 16; TEMP 36.5; O2SAT 98; BMI 66.4
--- NOTE | 2022-05-31 12:51 | ED.RN ---
THIS RN CHECKED PT BLOOD SUGAR. READING SAID HIGH >600. AWARE.
[2022-05-31 12:52] VITALS: BP 143/70; PULSE 70; RESP 22; O2SAT 96
--- NOTE | 2022-05-31 12:59 | ED.RN ---
PT TOLD THIS RN TO CALL SISTERS ON CONTACT LIST, ESTIVEN SINGH AND TOÑITO VERGARA. PT UPDATE GIVEN TO RANULFO AT 1259, PT AWARE.
--- NOTE | 2022-05-31 13:00 | EDS_ITS ---
HPI History of Present Illness Chief Complaint: Hyperglycemia Informant: patient Onset/Context/Timing Onset: Today Narrative Narrative: Patient presents because blood sugar was high at adult daycare. She said it was 300 after breakfast this morning and she felt fine, she states 3-400 is her norm every day. She takes her diabetes pills and insulins like they are prescribed including today. She states at adult daycare, she was feeling lightheaded and nauseated, so they checked her blood sugar and it read somewhere around 600. She was transported here and here in the ER, after EMS placed an IV and started IV fluids, it is reading high which is above 600. Patient has no other focal symptoms or recent illness or falls or injuries. [facility] Medical History Anxiety and depression Atherosclerosis of coronary artery of [place] heart without angina pectoris Cataracts, bilateral Crohn's disease Decreased radial pulse Degenerative disc disease Essential hypertension GERD (gastroesophageal reflux disease) History of kidney stones HLD (hyperlipidemia) Hyperglycemia due to diabetes mellitus Hypothyroidism Hypothyroidism Injury of right radial artery Morbid obesity Numbness of right hand Obstructive sleep apnea JEWELS on CPAP Osteoarthritis Pain of right hand Paroxysmal SVT (supraventricular tachycardia) Right bundle branch block (RBBB) SVT (supraventricular tachycardia) Type 2 diabetes mellitus Home Medications pantoprazole 40 mg tablet,delayed release 40 mg PO BID acid reflux 07/21/14 [History Last Taken 06/15/20] ropinirole 0.25 mg tablet 0.5 mg PO QHS restless legs 07/21/14 [History Last Taken 05/12/19] spironolactone 25 mg tablet 25 mg PO DAILY water pill 07/21/14 [History Last Taken 05/13/19] nitroglycerin 0.4 mg sublingual tablet 0.4 mg sublingual PRN PRN chest pain 03/30/17 [History Last Taken 03/30/17] insulin aspart U-100 100 unit/mL (3 mL) subcutaneous pen (Novolog FlexPen U-100 Insulin aspart) See Rx Instructions subcut TID 08/24/17 [History Last Taken 05/13/19] insulin detemir U-100 100 unit/mL (3 mL) subcutaneous pen (Levemir FlexTouch U- 100 Insulin) 49 units subcut BID 08/24/17 [History Last Taken 05/13/19] dapagliflozin 5 mg tablet 5 mg PO QAM 10/18/18 [History Last Taken 05/13/19] dicyclomine 20 mg tablet 20 mg PO Q6H PRN ibs 10/18/18 [History Last Taken 05/13/19] hydroxyzine HCl 25 mg tablet 25 mg PO QHS 05/29/20 [History Last Taken Unknown] aspirin 81 mg chewable tablet 81 mg PO DAILY heart health #90 tabs 07/16/20 [Rx Last Taken Unknown] levothyroxine 88 mcg tablet 88 mcg PO DAILY #1 TAB 08/19/20 [Rx Last Taken Unknown] atorvastatin 40 mg tablet 40 mg PO QHS cholesterol #90 tabs 02/04/21 [Rx Last Taken Unknown] carvedilol 12.5 mg tablet 12.5 mg PO BID #180 tabs 02/04/21 [Rx Last Taken Unknown] clopidogrel 75 mg tablet 75 mg PO DAILY #90 tabs 02/04/21 [Rx Last Taken Unknow n] furosemide 40 mg tablet 40 mg PO BID #180 tabs 02/04/21 [Rx Last Taken Unknown] potassium chloride 10 mEq capsule,extended release 10 meq PO DAILY #90 caps 02/04/21 [Rx Last Taken Unknown] Allergy/AdvReac Type Severity Reaction Status Date / Time isosorbide [From Imdur] Allergy Severe Diarrhea Verified 05/31/22 12:53 lisinopril [From Zestril] Allergy Anaphylaxis Verified 05/31/22 12:53 metoprolol tartrate Allergy Anaphylaxis Verified 05/31/22 12:53 [From Lopressor] bupropion [From Wellbutrin] AdvReac Other Verified 05/31/22 12:53 desvenlafaxine AdvReac Other Verified 05/31/22 12:53 enalapril maleate AdvReac Swelling Verified 05/31/22 12:53 [From Vasotec] enalaprilat dihydrate AdvReac Swelling Verified 05/31/22 12:53 [From Vasotec] levetiracetam [From Keppra] AdvReac Swelling Verified 05/31/22 12:53 metformin AdvReac Diarrhea Verified 05/31/22 12:53 oxcarbazepine AdvReac Other Verified 05/31/22 12:53 [From Trileptal] pregabalin [From Lyrica] AdvReac Abd Verified 05/31/22 12:53 cramps/diarrhea rofecoxib [From Vioxx] AdvReac Swelling Verified 05/31/22 12:53 Family History Sister Asthma Arthritis Diabetes Hypertension High cholesterol Heart disease Sleep apnea Brother Diabetes Hypertension CAD (coronary artery disease) CABG Cancer lymphoma Mother Diabetes Hypertension CVA (cerebral vascular accident) CAD (coronary artery disease) Grandmother Heart disease Father CVA (cerebral vascular accident) Surgical History History of bilateral salpingo-oophorectomy (BSO) History of carpal tunnel release History of cholecystectomy History of coronary artery stent placement (06/15/20) History of removal of cyst History of umbilical hernia repair Social History Smoking Status: Former smoker how long ago did patient quit smokin alcohol intake: never substance use type: does not use caffeine: No ROS ROS ED Constitutional Constitutional ED: Denies chills or fever(s) Eyes Eyes: Denies change in vision or diplopia ENT ENT ED: Denies rhinorrhea or sore throat Cardiovascular Cardiovascular: Reports lightheadedness; Denies chest pain or palpitations Respiratory/Chest Respiratory/Chest: Denies cough or dyspnea Gastrointestinal Gastrointestinal: Reports nausea; Denies abdominal pain or diarrhea Genitourinary Genitourinary ED: Denies dysuria or hematuria Musculoskeletal Musculoskeletal: Denies back pain or neck pain Integumentary Denies abscess or rash Neurologic Neurologic: Denies headache(s), paresthesias or weakness Psychiatric Psychiatric: Denies anxiety or suicidal thoughts EXAM Physical Exam Const Vital Signs: 05/31/22 12:44 05/31/22 12:52 05/31/22 13:01 Temperature 97.7 F L Temperature Source Temporal Pulse Rate 72 70 Respiratory Rate 16 22 H Respiratory Effort Short of Breath Labored Respiratory Pattern Normal Blood Pressure 143/70 H 143/70 H Blood Pressure Mean 94 94 Pulse Ox 98 96 Oxygen Delivery Method Room Air Room Air 05/31/22 14:23 05/31/22 15:10 Temperature Temperature Source Pulse Rate 65 60 Respiratory Rate 19 H 20 H Respiratory Effort Respiratory Pattern Blood Pressure 137/73 H 125/74 H Blood Pressure Mean 94 91 Pulse Ox 92 94 Oxygen Delivery Method Room Air Room Air Positive well nourished and well developed Constitutional Narrative: Morbidly obese General Appearance ED: well developed and NAD HEENT Reports moist mucous membranes normocephalic and atraumatic Eyes PERRL and EOMs intact bilaterally Neck full ROM and supple Resp normal respiratory effort and clear to auscultation bilaterally Cardio regular rate, regular rhythm and no murmurs Rate: Negative for tachycardic GI non-tender and non-distended Auscultation: normoactive bowel sounds Palpation: soft Back/Spine no CVA tenderness General Back: other FROM Extremity normal to inspection General Extremety ED: Negative for pulses abnormal or tenderness General Extremity: Negative for pulses abnormal Neuro oriented x3, CN's II-XII intact bilaterally and no sensory deficits noted Sensorium / Orientation: awake and alert Motor Exam: strength 5/5 throughout Psych mental status grossly normal Skin no rashes or lesions noted and no wounds MDM MDM MDM Narrative Medical decision making narrative: Glucose returned at 591, patient was given 1.5 L of IV fluid, IV insulin, and dose of Zanaflex that she takes at home and requested because she was having cramping in her feet. After all of this we get her blood sugar down to 300 and she is feeling much better. She was a little prerenal which could have also been causing the cramping. We fix that with the IV fluids, she is stable for discharge home advised to follow-up with her PCP (or pv design and installation technician) for reevaluation of her poorly controlled diabetes. Lab Data Attestation: I reviewed the patient's lab results. Labs: Laboratory Results - last 24 hr 05/31/22 05/31/22 05/31/22 12:49 13:08 14:05 Sodium 130 L Potassium 3.8 Chloride 93 L Carbon Dioxide 25.0 Anion Gap 12 BUN 44 H Creatinine 1.27 H Estim Creat Clear Calc 113.73 Est GFR (MDRD) Af Amer 56 L Est GFR (MDRD) Non-Af 46 L BUN/Creatinine Ratio 34.6 H Glucose 591 H* Calcium 9.1 POC Glucose > 500 H* 437 H 05/31/22 15:00 Sodium Potassium Chloride Carbon Dioxide Anion Gap BUN Creatinine Estim Creat Clear Calc Est GFR (MDRD) Af Amer Est GFR (MDRD) Non-Af BUN/Creatinine Ratio Glucose Calcium POC Glucose 391 H Discharge Plan Triage Chief Complaint: Hyperglycemia ED Provider: Delvis Bentley Dx/Rx/DC Orders Clinical Impression: Uncontrolled type 2 diabetes mellitus with hyperglycemia, Mild dehydration Instructions: Managing Type 2 Diabetes Prescriptions: No Action insulin aspart U-100 [Novolog FlexPen U-100 Insulin] 100 unit/mL insulin pen See Rx Instructions SC TID Label Comments: 19U q am, 14U q afternoon, 19U q evening SC TID Rx Instructions: 22 UNITS IN THE AM, 16 AT NOON, 30 UNITS IN THE EVENING insulin detemir U-100 [Levemir FlexTouch U-100 Insuln] 100 unit/mL (3 mL) insulin pen 49 units SC BID dapagliflozin 5 mg tablet 5 mg PO QAM dicyclomine 20 mg tablet 20 mg PO Q6H PRN (Reason: ibs) hydroxyzine HCl 25 mg tablet 25 mg PO QHS Rx Instructions: 1/2 tab tid spironolactone 25 MG tablet 25 mg PO DAILY Label Comments: water pill ropinirole 0.25 MG tablet 0.5 mg PO QHS Label Comments: restless legs pantoprazole 40 MG tablet 40 mg PO BID Label Comments: acid reflux/gerd nitroglycerin 0.4 MG tablet 0.4 mg SUBLINGUAL PRN PRN (Reason: chest pain) aspirin 81 mg tablet,chewable 81 mg PO DAILY Qty: 90 3RF levothyroxine 88 mcg tablet 88 mcg PO DAILY Qty: 1 0RF atorvastatin 40 mg tablet 40 mg PO QHS Qty: 90 3RF carvedilol 12.5 mg tablet 12.5 mg PO BID Qty: 180 3RF Rx Instructions: must administer with a meal/food clopidogrel 75 mg tablet 75 mg PO DAILY Qty: 90 3RF furosemide 40 mg tablet 40 mg PO BID Qty: 180 3RF potassium chloride 10 mEq capsule, extended release 10 meq PO DAILY Qty: 90 3RF Primary Care Provider: Mike Prince Referrals: Mike Prince [Primary Care Provider] - As soon as possible Disposition Disposition: Home, Self Care
[2022-05-31] MEDS: 0.9% Normal Saline 1,000 ML 999 ML IV (13:11)
[2022-05-31] MEDS: Ondansetron 4 MG/2 ML Vial IV (13:12)
[2022-05-31 13:35] LABS: Anion Gap 12 (5-15); BUN 44 mg/dL (7-18); BUN/Creat Ratio 34.6 RATIO (10-20); Calcium,Total 9.1 mg/dL (8.5-10.1); Chloride 93 mmol/L (98-107); Creatinine, Serum 1.27 mg/dL (0.55-1.02); EST Glomerular Filtration Rate 46 mL/min (>60); Est Glom Filt Rate - Afr Amer 56 mL/min (>60); Estimated Creatinine Clearance 113.73 ml/min; Glucose 591 mg/dL (74-106); Potassium 3.8 mmol/L (3.5-5.1); Sodium Level 130 mmol/L (136-145)
[2022-05-31 14:05] LABS: Bedside Glucose > 500 mg/dL (74-106)
[2022-05-31] MEDS: tiZANidine HCl 2 MG Tablet PO (14:09)
[2022-05-31 14:23] VITALS: BP 137/73; PULSE 65; RESP 19; O2SAT 92
[2022-05-31 14:56] LABS: Bedside Glucose 437 mg/dL (74-106)
[2022-05-31 15:10] VITALS: BP 125/74; PULSE 60; RESP 20; O2SAT 94
[2022-05-31 15:21] LABS: Bedside Glucose 391 mg/dL (74-106)
[2022-05-31 15:29] VITALS: BP 124/75; PULSE 62; RESP 22; O2SAT 94
--- NOTE | 2022-05-31 16:18 | NURSING ---
CALLED [facility], ETA IS 90 MIN
--- NOTE | 2022-05-31 16:41 | ED.RN ---
THIS RN CALLED BETH (PT'S SISTER) TO ASK FOR RIDE. BETH UNABLE TO COME GET PT. THIS RN CALLED [facility] FOR A RIDE. [facility] UNABLE TO COME GET PT.
--- NOTE | 2022-05-31 16:43 | ED.RN ---
PT REQUEST THAT THIS RN CALL BETH (PT'S SISTER). THIS RN CALLD BETH (PT'S SISTER) AT 1643. BETH MADE AWARE THAT PHYSICIANS IS COMING TO GET PT WITH AN ETA 60 MIN FOR WHEELCHAIR TRANSPORT.
[2022-05-31 17:07] VITALS: RESP 18
== END 2022-05-31 17:29 | disposition home or self-care (01) ==
PROVIDERS: Emergency Provider Emergency Medicine; Visit Provider Emergency Medicine
DX: E11.65 Type 2 diabetes mellitus with hyperglycemia (principal); Z79.4 Long term (current) use of insulin; E86.0 Dehydration; I10 Essential (primary) hypertension; I25.10 Atherosclerotic heart disease of native coronary artery without angina pectoris; E78.5 Hyperlipidemia, unspecified; E03.9 Hypothyroidism, unspecified; Z95.5 Presence of coronary angioplasty implant and graft; Z79.02 Long term (current) use of antithrombotics/antiplatelets; Z79.82 Long term (current) use of aspirin; Z79.899 Other long term (current) drug therapy; Z87.891 Personal history of nicotine dependence
CPT/HCPCS: 80048; 82962; 96361; 96374; 99285; J2405

== ENCOUNTER 2022-06-01 18:21 | Emergency (ER) | payer MEDICARE, MEDICAID, SELFPAY ==
[2022-06-01 18:22] VITALS: BP 157/75; PULSE 77; RESP 19; TEMP 36.3; O2SAT 96; BMI 67.6
--- NOTE | 2022-06-01 18:56 | EDS_ITS ---
HPI History of Present Illness Chief Complaint: Hyperglycemia Informant: patient Narrative Narrative: 56-year-old female presenting with elevated blood sugar. Patient was seen in the ED yesterday for similar complaints. She states she has been taking her medications as directed. She states she has felt nauseated and not well today. She checked her blood sugar and it was 600. She has had no recent changes to her medications but is scheduled to see an head stock transfer clerk in June due to uncontrolled diabetes. Prior similar symptoms: Yes Recent Illness/Hospitalization: No PFSH PFSH Medical History Anxiety and depression Atherosclerosis of coronary artery of [place] heart without angina pectoris Cataracts, bilateral Crohn's disease Decreased radial pulse Degenerative disc disease Essential hypertension GERD (gastroesophageal reflux disease) History of kidney stones HLD (hyperlipidemia) Hyperglycemia due to diabetes mellitus Hypothyroidism Hypothyroidism Injury of right radial artery Morbid obesity Numbness of right hand Obstructive sleep apnea JEWELS on CPAP Osteoarthritis Pain of right hand Paroxysmal SVT (supraventricular tachycardia) Right bundle branch block (RBBB) SVT (supraventricular tachycardia) Type 2 diabetes mellitus Home Medications pantoprazole 40 mg tablet,delayed release 40 mg PO BID acid reflux 07/21/14 [History Last Taken 06/15/20] ropinirole 0.25 mg tablet 0.5 mg PO QHS restless legs 07/21/14 [History Last Taken 05/12/19] spironolactone 25 mg tablet 25 mg PO DAILY water pill 07/21/14 [History Last Taken 05/13/19] nitroglycerin 0.4 mg sublingual tablet 0.4 mg sublingual PRN PRN chest pain 1 05/30/16 [History Last Taken 03/30/17] insulin aspart U-100 100 unit/mL (3 mL) subcutaneous pen (Novolog FlexPen U-100 Insulin aspart) See Rx Instructions subcut TID 08/24/17 [History Last Taken 05/13/19] insulin detemir U-100 100 unit/mL (3 mL) subcutaneous pen (Levemir FlexTouch U- 100 Insulin) 49 units subcut BID 08/24/17 [History Last Taken 05/13/19] dapagliflozin 5 mg tablet 5 mg PO QAM 10/18/18 [History Last Taken 05/13/19] dicyclomine 20 mg tablet 20 mg PO Q6H PRN ibs 10/18/18 [History Last Taken 05/13/19] hydroxyzine HCl 25 mg tablet 25 mg PO QHS 05/29/20 [History Last Taken Unknown] aspirin 81 mg chewable tablet 81 mg PO DAILY heart health #90 tabs 07/16/20 [Rx Last Taken Unknown] levothyroxine 88 mcg tablet 88 mcg PO DAILY #1 TAB 08/19/20 [Rx Last Taken Unknown] atorvastatin 40 mg tablet 40 mg PO QHS cholesterol #90 tabs 02/04/21 [Rx Last Taken Unknown] carvedilol 12.5 mg tablet 12.5 mg PO BID #180 tabs 02/04/21 [Rx Last Taken Unknown] clopidogrel 75 mg tablet 75 mg PO DAILY #90 tabs 02/04/21 [Rx Last Taken Unknown] furosemide 40 mg tablet 40 mg PO BID #180 tabs 02/04/21 [Rx Last Taken Unknown] potassium chloride 10 mEq capsule,extended release 10 meq PO DAILY #90 caps 01/08 [Rx Last Taken Unknown] Allergy/AdvReac Type Severity Reaction Status Date / Time isosorbide [From Imdur] Allergy Severe Diarrhea Verified 06/01/22 18:29 lisinopril [From Zestril] Allergy Anaphylaxis Verified 06/01/22 18:29 metoprolol tartrate Allergy Anaphylaxis Verified 06/01/22 18:29 [From Lopressor] bupropion [From Wellbutrin] AdvReac Other Verified 06/01/22 18:29 desvenlafaxine AdvReac Other Verified 06/01/22 18:29 enalapril maleate AdvReac Swelling Verified 06/01/22 18:29 [From Vasotec] enalaprilat dihydrate AdvReac Swelling Verified 06/01/22 18:29 [From Vasotec] levetiracetam [From Keppra] AdvReac Swelling Verified 06/01/22 18:29 metformin AdvReac Diarrhea Verified 06/01/22 18:29 oxcarbazepine AdvReac Other Verified 06/01/22 18:29 [From Trileptal] pregabalin [From Lyrica] AdvReac Abd Verified 06/01/22 18:29 cramps/diarrhea rofecoxib [From Vioxx] AdvReac Swelling Verified 06/01/22 18:29 Family History Sister Asthma Arthritis Diabetes Hypertension High cholesterol Heart disease Sleep apnea Brother Diabetes Hypertension CAD (coronary artery disease) CABG Cancer lymphoma Mother Diabetes Hypertension CVA (cerebral vascular accident) CAD (coronary artery disease) Grandmother Heart disease Father CVA (cerebral vascular accident) Surgical History History of bilateral salpingo-oophorectomy (BSO) History of carpal tunnel release History of cholecystectomy History of coronary artery stent placement (06/15/20) History of removal of cyst History of umbilical hernia repair Social History Smoking Status: Former smoker how long ago did patient quit smokin alcohol intake: never substance use type: does not use caffeine: No ROS ROS ED Constitutional Constitutional ED: Denies fever(s) Eyes Eyes: Denies change in vision ENT ENT ED: Denies rhinorrhea or sore throat Cardiovascular Cardiovascular: Denies chest pain or palpitations Respiratory/Chest Respiratory/Chest: Denies cough or dyspnea Gastrointestinal Gastrointestinal: Reports nausea; Denies abdominal pain, diarrhea or vomiting Genitourinary Genitourinary ED: Denies dysuria Musculoskeletal Musculoskeletal: Denies myalgias Integumentary Denies rash Neurologic Neurologic: Denies headache(s) Psychiatric Psychiatric: Denies suicidal thoughts EXAM Physical Exam Const Vital Signs: 06/01/22 18:22 06/01/22 20:33 06/01/22 23:22 Temperature 97.3 F L Temperature Source Temporal Pulse Rate 77 Respiratory Rate 19 H Blood Pressure 157/75 H 147/72 H Blood Pressure Mean 102 97 Pulse Ox 96 99 Oxygen Delivery Method Room Air Room Air Room Air Positive well nourished and well developed General Appearance ED: well developed HEENT Reports normocephalic and head/scalp atraumatic Eyes PERRL and EOMs intact bilaterally Neck supple General: Negative for tenderness Chest Wall inspection of chest normal Resp normal respiratory effort and clear to auscultation bilaterally Cardio regular rate and regular rhythm GI non-tender and non-distended GI Narrative: Soft obese, nontender Palpation: soft; Negative for guarding or rebound tenderness present no CVA tenderness Extremity normal to inspection Neuro oriented x3 Sensorium / Orientation: alert Psych mental status grossly normal MDM MDM MDM Narrative Medical decision making narrative: Patient was given IV fluids, Zofran. CBC unremarkable. Chemistries show BUN 35. Anion gap is normal. Glucose 461. Lipase is normal. EKG is sinus rhythm, right bundle branch block, unchanged from previous. Troponin and delta troponin are normal. Chest x-ray read by myself and radiology shows no acute process. She was given IV fluids, insulin subcutaneously. Repeat blood sugar 444. She was given additional subcutaneous insulin. Repeat blood sugar 349. Patient is feeling improved. She has follow-up scheduled with endocrinology. Advised to follow-up as scheduled. Advised to return to ED for worsening complaints. Lab Data Attestation: I reviewed the patient's lab results. Labs: Laboratory Results - last 24 hr 06/01/22 06/01/22 06/01/22 19:00 19:00 21:06 WBC 7.7 RBC 4.57 Hgb 13.3 Hct 41.0 MCV 89.7 MCH 29.1 MCHC 32.4 RDW Std Deviation 42.7 RDW Coeff of Veronica 13.1 Plt Count 230 MPV 9.8 Immature Gran % (Auto) 0.500 Neut % (Auto) 55.2 Lymph % (Auto) 33.5 [place] % (Auto) 8.1 Eos % (Auto) 2.3 Baso % (Auto) 0.4 Absolute Neuts (auto) 4.2 Absolute Lymphs (auto) 2.57 Nucleated RBC % 0 Sodium 135 L Potassium 3.9 Chloride 103 Carbon Dioxide 25.0 Anion Gap 7 BUN 35 H Creatinine 0.92 Estim Creat Clear Calc 159.73 Est GFR (MDRD) Af Amer 80 Est GFR (MDRD) Non-Af 66 BUN/Creatinine Ratio 37.9 H Glucose 461 H* Calcium 8.6 Total Bilirubin 0.30 AST 18 ALT 31 Alkaline Phosphatase 137 H Troponin I High Sens 7 Total Protein 6.1 L Albumin 2.8 L Globulin 3.3 Albumin/Globulin Ratio 0.8 L Lipase 42 L POC Glucose 444 H 06/01/22 06/01/22 21:25 23:36 WBC RBC Hgb Hct MCV MCH MCHC RDW Std Deviation RDW Coeff of Veronica Plt Count MPV Immature Gran % (Auto) Neut % (Auto) Lymph % (Auto) [place] % (Auto) Eos % (Auto) Baso % (Auto) Absolute Neuts (auto) Absolute Lymphs (auto) Nucleated RBC % Sodium Potassium Chloride Carbon Dioxide Anion Gap BUN Creatinine Estim Creat Clear Calc Est GFR (MDRD) Af Amer Est GFR (MDRD) Non-Af BUN/Creatinine Ratio Glucose Calcium Total Bilirubin AST ALT Alkaline Phosphatase Troponin I High Sens 6 Total Protein Albumin Globulin Albumin/Globulin Ratio Lipase POC Glucose 349 H Radiography Chest X-Ray - ED: 1 View, Read by ED Physician and Read by Radiologist Diagnostic Testing: Clinical Impression(s) from Imaging Studies Chest X-Ray 06/01/22 19:15 IMPRESSION: No radiographic evidence of acute cardiopulmonary disease. Electronically Signed: Maryan Tovar MD at 19:34 EST Reading Location ID and State: [id number] / Tel , Service support , EKG Initial EKG: Attestation: I personally reviewed and interpreted this EKG as follows: Interpretation: Sinus Rhythm and RBBB Discharge Plan Triage Chief Complaint: Hyperglycemia ED Provider: Nevaeh Darden Dx/Rx/DC Orders Clinical Impression: Hyperglycemia Instructions: ED Diabetic Hyperglycemia Prescriptions: No Action insulin aspart U-100 [Novolog FlexPen U-100 Insulin] 100 unit/mL insulin pen See Rx Instructions SC TID Label Comments: 19U q am, 14U q afternoon, 19U q evening SC TID Rx Instructions: 22 UNITS IN THE AM, 16 AT NOON, 30 UNITS IN THE EVENING insulin detemir U-100 [Levemir FlexTouch U-100 Insuln] 100 unit/mL (3 mL) insulin pen 49 units SC BID dapagliflozin 5 mg tablet 5 mg PO QAM dicyclomine 20 mg tablet 20 mg PO Q6H PRN (Reason: ibs) hydroxyzine HCl 25 mg tablet 25 mg PO QHS Rx Instructions: 1/2 tab tid spironolactone 25 MG tablet 25 mg PO DAILY Label Comments: water pill ropinirole 0.25 MG tablet 0.5 mg PO QHS Label Comments: restless legs pantoprazole 40 MG tablet 40 mg PO BID Label Comments: acid reflux/gerd nitroglycerin 0.4 MG tablet 0.4 mg SUBLINGUAL PRN PRN (Reason: chest pain) aspirin 81 mg tablet,chewable 81 mg PO DAILY Qty: 90 3RF levothyroxine 88 mcg tablet 88 mcg PO DAILY Qty: 1 0RF atorvastatin 40 mg tablet 40 mg PO QHS Qty: 90 3RF carvedilol 12.5 mg tablet 12.5 mg PO BID Qty: 180 3RF Rx Instructions: must administer with a meal/food clopidogrel 75 mg tablet 75 mg PO DAILY Qty: 90 3RF furosemide 40 mg tablet 40 mg PO BID Qty: 180 3RF potassium chloride 10 mEq capsule, extended release 10 meq PO DAILY Qty: 90 3RF Primary Care Provider: Mike Prince Referrals: Mike Prince [Primary Care Provider] - Disposition Disposition: Home, Self Care
[2022-06-01] MEDS: Ondansetron 4 MG/2 ML Vial IV (19:07)
[2022-06-01] MEDS: 0.9% Normal Saline 1,000 ML 1000 ML IV (19:07)
[2022-06-01 19:12] LABS: Absolute Lymphocyte Count 2.57 X10^3/uL (0.83-4.51); Absolute Neutrophil Count 4.2 X10^3/uL (2.0-7.7); Basophil# 0.03 X10^3/uL; Basophil% 0.4 % (0-1); Eosinophil# 0.18 X10^3/uL; Eosinophils% 2.3 % (0-5); Hemoglobin 13.3 g/dL (12.0-15.0); Lymphocyte # 2.57 X10^3/ul (0.83-4.51); Lymphocyte % 33.5 % (19-41); Mean Corp Hgb Conc 32.4 g/dL (32-36); Mean Corpuscular Hgb 29.1 pg (27.0-32.0); Mean Corpuscular Volume 89.7 fL (81-99); Mean Platelet Vol. 9.8 fl (6.2-12.0); Monocyte# 0.62 X10^3/uL; Monocyte% 8.1 % (0-10); NRBC Flagged by Analyzer 0 % (0-5); Neutrophil # 4.23 X10^3/uL (2.7-7.7); Neutrophil % 55.2 % (47-70); Platelet Count 230 K/mm3 (150-450); RBC Distribution Width CV 13.1 % (11.6-14.6); RBC Distribution Width SD 42.7 fl (35.1-43.9); Red Blood Count 4.57 M/mm3 (4.2-5.4); White Blood Count 7.7 K/mm3 (4.4-11.0)
--- NOTE | 2022-06-01 19:15 | RAD_ITS ---
INDICATION: sob EXAMINATION/TECHNIQUE: X-RAY - XR Chest 1 View COMPARISON: 04/01/2021 FINDINGS: LINES/DEVICES: None. LUNGS: No consolidation, edema or effusion. No pneumothorax. MEDIASTINUM AND CARDIOVASCULAR STRUCTURES: Cardiac silhouette not enlarged. Central airways and mediastinal contour are unremarkable. BONES AND SOFT TISSUES: Unremarkable. RAD/Chest 1 View (Portable) IMPRESSION: No radiographic evidence of acute cardiopulmonary disease. Electronically Signed: Maryan Tovar MD at 19:34 EST Reading Location ID and State: [id number] / Tel , Service support ,
[2022-06-01 19:34] LABS: ALB/GLOB Ratio 0.8 RATIO (0.9-2.4); AST(SGOT) 18 U/L (15-37); Alanine Aminotransfer ALT/SGPT 31 U/L (13-56); Albumin, Serum 2.8 g/dL (3.2-5.0); Alkaline Phosphatase 137 U/L (45-117); Anion Gap 7 (5-15); BUN 35 mg/dL (7-18); BUN/Creat Ratio 37.9 RATIO (10-20); Calcium,Total 8.6 mg/dL (8.5-10.1); Chloride 103 mmol/L (98-107); Creatinine, Serum 0.92 mg/dL (0.55-1.02); EST Glomerular Filtration Rate 66 mL/min (>60); Est Glom Filt Rate - Afr Amer 80 mL/min (>60); Estimated Creatinine Clearance 159.73 ml/min; Globulin 3.3 g/dL (2.2-4.2); Glucose 461 mg/dL (74-106); Lipase 42 U/L (73-393); Potassium 3.9 mmol/L (3.5-5.1); Protein, Total 6.1 g/dL (6.4-8.2); Sodium Level 135 mmol/L (136-145); Troponin-I HS (w/2H Reflex) 7 pg/mL (3.0-54.0)
[2022-06-01] MEDS: Insulin Lispro 100 UNIT/ML INSULN.PEN 15 UNIT SC (20:17)
[2022-06-01 20:33] VITALS: BP 147/72
[2022-06-01 21:07] LABS: Reflex Troponin-HS? (from REC) Y
[2022-06-01 21:25] LABS: Bedside Glucose 444 mg/dL (74-106)
[2022-06-01 22:04] LABS: Troponin-I HS 6 pg/mL (3.0-54.0)
[2022-06-01] MEDS: Insulin Lispro 100 UNIT/ML INSULN.PEN 10 UNIT SC (22:48)
[2022-06-01 23:22] VITALS: O2SAT 99
[2022-06-01 23:56] LABS: Bedside Glucose 349 mg/dL (74-106)
[2022-06-02 01:09] VITALS: O2SAT 99
== END 2022-06-02 01:09 | disposition home or self-care (01) ==
PROVIDERS: Emergency Provider Emergency Medicine; Visit Provider Emergency Medicine
DX: E11.65 Type 2 diabetes mellitus with hyperglycemia (principal); Z79.4 Long term (current) use of insulin; I25.10 Atherosclerotic heart disease of native coronary artery without angina pectoris; I10 Essential (primary) hypertension; E78.5 Hyperlipidemia, unspecified; G47.33 Obstructive sleep apnea (adult) (pediatric); E03.9 Hypothyroidism, unspecified; Z95.5 Presence of coronary angioplasty implant and graft; Z79.82 Long term (current) use of aspirin; Z79.899 Other long term (current) drug therapy; Z87.891 Personal history of nicotine dependence
CPT/HCPCS: 71045; 80053; 82962; 83690; 84484; 85025; 93005; 96361; 96374; 99284; J2405

== ENCOUNTER 2022-07-11 17:50 | Emergency (ER) | payer MEDICARE, MEDICAID, SELFPAY ==
[2022-07-11 17:53] VITALS: BP 128/58; PULSE 67; RESP 17; TEMP 36.6; O2SAT 97; BMI 45.3
--- NOTE | 2022-07-11 18:07 | EKG12_ITS ---
Test Reason : DYSRHYTHMIA Blood Pressure : / mmHG Vent. Rate : 063 BPM Atrial Rate : 063 BPM P-R Int : 154 ms QRS Dur : 138 ms QT Int : 448 ms P-R-T Axes : 049 -21 -01 degrees QTc Int : 458 ms Normal sinus rhythm Right bundle branch block Abnormal ECG Confirmed by HEATH ROSENBERG, JESÚS ([id number]), web content editor LOLA HERRING ([id number]) on 07/13/2022 10:23:19 AM Referred By: AN Confirmed By:JESÚS JOE MD
--- NOTE | 2022-07-11 18:09 | ED.VIS.DYS ---
HPI History of Present Illness Chief Complaint: Shortness of Breath Informant: patient Onset/Context/Timing Onset: Days (3 to 4 days) Context: gradual Current Severity: Mild Maximum Severity: Moderate Associated Symptoms cough and chills; Negative for fever Chest Pain: Positive for None Narrative Narrative: Patient presents via EMS secondary to shortness of breath. She reports increasing shortness of breath over the past 3 to 4 days. She denies chest pain. She has had a dry cough and chills. She states she feels like she is wheezing. She does not carry a diagnosis of asthma or COPD, but states in the past she has had inhalers. She is not currently using inhalers. [facility] Medical History Anxiety and depression Atherosclerosis of coronary artery of [place] heart without angina pectoris Cataracts, bilateral Crohn's disease Decreased radial pulse Degenerative disc disease Essential hypertension GERD (gastroesophageal reflux disease) History of kidney stones HLD (hyperlipidemia) Hyperglycemia due to diabetes mellitus Hypothyroidism Injury of right radial artery Morbid obesity Numbness of right hand Obstructive sleep apnea JEWELS on CPAP Osteoarthritis Pain of right hand Paroxysmal SVT (supraventricular tachycardia) Right bundle branch block (RBBB) SVT (supraventricular tachycardia) Type 2 diabetes mellitus Home Medications pantoprazole 40 mg tablet,delayed release 40 mg PO BID acid reflux 07/21/14 [History Last Taken 06/15/20] ropinirole 0.25 mg tablet 0.5 mg PO QHS restless legs 07/21/14 [History Last Taken 05/12/19] spironolactone 25 mg tablet 25 mg PO DAILY water pill 07/21/14 [History Last Taken 05/13/19] nitroglycerin 0.4 mg sublingual tablet 0.4 mg sublingual PRN PRN chest pain 03/30/17 [History Last Taken 03/30/17] insulin aspart U-100 100 unit/mL (3 mL) subcutaneous pen (Novolog FlexPen U-100 Insulin aspart) See Rx Instructions subcut TID 08/24/17 [History Last Taken 05/13/19] insulin detemir U-100 100 unit/mL (3 mL) subcutaneous pen (Levemir FlexTouch U-100 Insulin) 49 units subcut BID 08/24/17 [History Last Taken 05/13/19] dapagliflozin 5 mg tablet 5 mg PO QAM 10/18/18 [History Last Taken 05/13/19] dicyclomine 20 mg tablet 20 mg PO Q6H PRN ibs 10/18/18 [History Last Taken 05/13/19] hydroxyzine HCl 25 mg tablet 25 mg PO QHS 05/29/20 [History Last Taken Unknown] aspirin 81 mg chewable tablet 81 mg PO DAILY heart health #90 tabs 07/16/20 [Rx Last Taken Unknown] levothyroxine 88 mcg tablet 88 mcg PO DAILY #1 TAB 08/19/20 [Rx Last Taken Unknown] atorvastatin 40 mg tablet 40 mg PO QHS cholesterol #90 tabs 02/04/21 [Rx Last Taken Unknown] carvedilol 12.5 mg tablet 12.5 mg PO BID #180 tabs 02/04/21 [Rx Last Taken Unknown] clopidogrel 75 mg tablet 75 mg PO DAILY #90 tabs 02/04/21 [Rx Last Taken Unknown] furosemide 40 mg tablet 40 mg PO BID #180 tabs 02/04/21 [Rx Last Taken Unknown] potassium chloride 10 mEq capsule,extended release 10 meq PO DAILY #90 caps 02/04/21 [Rx Last Taken Unknown] Allergy/AdvReac Type Severity Reaction Status Date / Time isosorbide [From Imdur] Allergy Severe Diarrhea Verified 06/01/22 18:29 lisinopril [From Zestril] Allergy Anaphylaxis Verified 06/01/22 18:29 metoprolol tartrate Allergy Anaphylaxis Verified 06/01/22 18:29 [From Lopressor] bupropion [From Wellbutrin] AdvReac Other Verified 06/01/22 18:29 desvenlafaxine AdvReac Other Verified 06/01/22 18:29 enalapril maleate AdvReac Swelling Verified 06/01/22 18:29 [From Vasotec] enalaprilat dihydrate AdvReac Swelling Verified 06/01/22 18:29 [From Vasotec] levetiracetam [From Keppra] AdvReac Swelling Verified 06/01/22 18:29 metformin AdvReac Diarrhea Verified 06/01/22 18:29 oxcarbazepine AdvReac Other Verified 06/01/22 18:29 [From Trileptal] pregabalin [From Lyrica] AdvReac Abd Verified 06/01/22 18:29 cramps/diarrhea rofecoxib [From Vioxx] AdvReac Swelling Verified 06/01/22 18:29 Family History Sister Asthma Arthritis Diabetes Hypertension High cholesterol Heart disease Sleep apnea Brother Diabetes Hypertension CAD (coronary artery disease) CABG Cancer lymphoma Mother Diabetes Hypertension CVA (cerebral vascular accident) CAD (coronary artery disease) Grandmother Heart disease Father CVA (cerebral vascular accident) Surgical History History of bilateral salpingo-oophorectomy (BSO) History of carpal tunnel release History of cholecystectomy History of coronary artery stent placement (06/15/20) History of removal of cyst History of umbilical hernia repair Social History Smoking Status: Former smoker how long ago did patient quit smokin alcohol intake: never substance use type: does not use caffeine: No ROS ROS ED Constitutional Constitutional ED: Reports chills; Denies fever(s) Eyes Eyes: Denies change in vision or discharge from eye(s) ENT ENT ED: Denies discharge from eye(s), rhinorrhea or sore throat Cardiovascular Cardiovascular: Denies chest pain or palpitations Respiratory/Chest Respiratory/Chest: Reports cough and dyspnea; Denies sputum Gastrointestinal Gastrointestinal: Denies abdominal pain, diarrhea, nausea or vomiting Genitourinary Genitourinary ED: Denies dysuria Musculoskeletal Musculoskeletal: Denies back pain or extremity pain Integumentary Denies Abrasions or rash Neurologic Neurologic: Denies headache(s) or weakness Psychiatric Psychiatric: Denies anxiety or depression Allergic/Immunologic Allergic/Immunologic ED: Denies lip swelling or urticaria EXAM Physical Exam Const Vital Signs: 07/11/22 17:53 07/11/22 18:34 07/11/22 18:36 Temperature 97.9 F 97.9 F Temperature Source Temporal Temporal Pulse Rate 67 64 Respiratory Rate 17 15 Respiratory Effort Normal Non-Labored Respiratory Depth Normal Respiratory Pattern Normal Blood Pressure 128/58 H 128/63 H Blood Pressure Mean 81 84 Pulse Ox 97 93 Oxygen Delivery Method Room Air Room Air Room Air 07/11/22 18:17 07/11/22 18:17 07/11/22 20:10 Temperature 98.4 F Temperature Source Temporal Pulse Rate 68 59 L Respiratory Rate 24 H 22 H 17 Respiratory Effort Normal Non-Labored Short of Breath Respiratory Depth Shallow Respiratory Pattern Tachypnea Normal Blood Pressure 132/65 H Blood Pressure Mean 87 Pulse Ox 99 99 Oxygen Delivery Method Room Air Room Air 07/11/22 20:10 Temperature Temperature Source Pulse Rate Respiratory Rate Respiratory Effort Respiratory Depth Respiratory Pattern Blood Pressure Blood Pressure Mean Pulse Ox 99 Oxygen Delivery Method Room Air Positive well nourished and well developed General Appearance ED: well developed HEENT Reports normocephalic and head/scalp atraumatic Eyes PERRL and EOMs intact bilaterally Neck supple Chest Wall inspection of chest normal and palpation of chest normal Resp normal respiratory effort Resp Narrative: Mild expiratory wheezing on the right. Diminished air movement bilateral bases. Cardio regular rate and regular rhythm GI Auscultation: hypoactive bowel sounds Palpation: soft Extremity Extremity Narrative: 2+ bilateral lower extremity edema, symmetric. Neuro oriented x3 Neuro Narrative: No focal neurodeficits. Sensorium / Orientation: alert Psych mental status grossly normal Skin no rashes or lesions noted MDM MDM MDM Narrative Medical decision making narrative: Patient placed on groundwater monitoring technician. EKG obtained to evaluate for cardiac ischemia/arrhythmia. Chest x-ray obtained to evaluate for lung pathology such as pneumonia. Blood work obtained to evaluate for leukocytosis, anemia, electrolyte derangement. Troponin obtained to evaluate for cardiac ischemia and BNP obtained to evaluate for CHF. Patient was given a DuoNeb treatment. Lab Data Attestation: I reviewed the patient's lab results. Labs: Laboratory Results - last 24 hr 07/11/22 07/11/22 07/11/22 18:30 18:30 18:30 WBC 6.4 RBC 4.76 Hgb 14.0 Hct 42.8 MCV 89.9 MCH 29.4 MCHC 32.7 RDW Std Deviation 42.7 RDW Coeff of Veronica 13.0 Plt Count 256 MPV 8.8 Immature Gran % (Auto) 0.300 Neut % (Auto) 55.4 Lymph % (Auto) 30.3 [place] % (Auto) 10.3 H Eos % (Auto) 3.4 Baso % (Auto) 0.3 Absolute Neuts (auto) 3.6 Absolute Lymphs (auto) 1.95 Nucleated RBC % 0 Sodium 140 Potassium 3.2 L Chloride 104 Carbon Dioxide 26.0 Anion Gap 10 BUN 32 H Creatinine 1.03 H Estim Creat Clear Calc 95.87 Est GFR (MDRD) Af Amer 71 Est GFR (MDRD) Non-Af 58 L BUN/Creatinine Ratio 31.1 H Glucose 217 H Calcium 8.7 Troponin I High Sens 6 B-Natriuretic Peptide 12.4 Radiography Chest X-Ray - ED: 1 View, Read by ED Physician, Chronic Changes and No Infiltrates Diagnostic Testing: Clinical Impression(s) from Imaging Studies Chest X-Ray 07/11/22 18:21 IMPRESSION: Degenerative changes, as described above. No demonstrated acute cardiopulmonary process. No major interval change. Electronically Signed: Nino Moody DO at 18:46 EST Reading Location ID and State: [address] [place] [address] Tel [phone], Service support , EKG Initial EKG: Attestation: I personally reviewed and interpreted this EKG as follows: Interpretation: Sinus Rhythm (Sinus at 63 with right bundle branch block. Unchanged when compared to prior study. No acute ischemia.) Differential Diagnosis Chest pain/SOB: ACS ACS: Positive for no evidence of ACS based on cardiac biomarkers and EKG without ischemia, pneumonia Reason(s) pneumonia less likely: Positive for no infiltrate on CXR, no elevation in WBC count and no noted fever and CHF Reason(s) CHF less likely: Positive for no evidence of fluid overload on CXR and BtNP not significantly elevated over normal/baseline Treatment and Re-Evaluation :: On repeat evaluation patient does feel improved after DuoNeb treatment. Lung sounds are clear. CBC and chemistry studies are largely unremarkable. Potassium is slightly low at 3.2 and this is replaced orally. Troponin is normal at 6 and BNP is normal. Chest x-ray per my interpretation reveals no evidence of infiltrate. Radiology interpretation is reviewed and agrees. EKG with no ischemia. Swab for COVID and influenza is negative. I do believe patient has a viral URI with some bronchospasm. Given her diabetes history we will avoid steroids if at all possible. I will treat her with a albuterol inhaler and she will continue supportive care at home. Discharge Plan Triage Chief Complaint: Shortness of Breath ED Provider: Ena Spaulding Dx/Rx/DC Orders Clinical Impression: Viral URI with cough, Acute bronchospasm Instructions: ED Bronchitis with Wheezing (Adult) Prescriptions: No Action insulin aspart U-100 [Novolog FlexPen U-100 Insulin] 100 unit/mL insulin pen See Rx Instructions SC TID Label Comments: 19U q am, 14U q afternoon, 19U q evening SC TID Rx Instructions: 22 UNITS IN THE AM, 16 AT NOON, 30 UNITS IN THE EVENING insulin detemir U-100 [Levemir FlexTouch U-100 Insuln] 100 unit/mL (3 mL) insulin pen 49 units SC BID dapagliflozin 5 mg tablet 5 mg PO QAM dicyclomine 20 mg tablet 20 mg PO Q6H PRN (Reason: ibs) hydroxyzine HCl 25 mg tablet 25 mg PO QHS Rx Instructions: 1/2 tab tid spironolactone 25 MG tablet 25 mg PO DAILY Label Comments: water pill ropinirole 0.25 MG tablet 0.5 mg PO QHS Label Comments: restless legs pantoprazole 40 MG tablet 40 mg PO BID Label Comments: acid reflux/gerd nitroglycerin 0.4 MG tablet 0.4 mg SUBLINGUAL PRN PRN (Reason: chest pain) aspirin 81 mg tablet,chewable 81 mg PO DAILY Qty: 90 3RF levothyroxine 88 mcg tablet 88 mcg PO DAILY Qty: 1 0RF atorvastatin 40 mg tablet 40 mg PO QHS Qty: 90 3RF carvedilol 12.5 mg tablet 12.5 mg PO BID Qty: 180 3RF Rx Instructions: must administer with a meal/food clopidogrel 75 mg tablet 75 mg PO DAILY Qty: 90 3RF furosemide 40 mg tablet 40 mg PO BID Qty: 180 3RF potassium chloride 10 mEq capsule, extended release 10 meq PO DAILY Qty: 90 3RF Primary Care Provider: Mike Prince Referrals: Mike Prince [Primary Care Provider] - 1 Week if not improving Disposition Disposition: Home, Self Care
[2022-07-11 18:17] VITALS: PULSE 68; RESP 22; RESP 24; O2SAT 99
[2022-07-11] MEDS: Ipratropium/Albuterol Sulfate 3 ML AMPUL.NEB INHALATION (18:17)
--- NOTE | 2022-07-11 18:21 | RAD_ITS ---
STUDY: X-RAY CHEST REASON FOR EXAM: Female, 56 years old. No evidence of breath for 2 days. TECHNIQUE: Single AP portable view of the chest. COMPARISON: June 01, 2022. FINDINGS: The lungs are clear and expanded. There is no demonstrated pleural abnormality. Normal size heart. Normal mediastinum and [place]. Normal visualized pulmonary arteries. There is atherosclerotic calcification of the aortic arch with tortuosity. There are diffuse degenerative changes of the visualized thoracic spine. There is degenerative osteoarthritis of the bilateral shoulders. There is no demonstrated abnormality of the visualized soft tissue structures of the upper abdomen. RAD/Chest 1 View (Portable) IMPRESSION: Degenerative changes, as described above. No demonstrated acute cardiopulmonary process. No major interval change. Electronically Signed: Nino Moody DO at 18:46 EST ,
[2022-07-11 18:34] VITALS: BP 128/63; PULSE 64; RESP 15; TEMP 36.6; O2SAT 93
[2022-07-11 18:36] LABS: Absolute Lymphocyte Count 1.95 X10^3/uL (0.83-4.51); Absolute Neutrophil Count 3.6 X10^3/uL (2.0-7.7); Basophil# 0.02 X10^3/uL; Basophil% 0.3 % (0-1); Eosinophil# 0.22 X10^3/uL; Eosinophils% 3.4 % (0-5); Hematocrit 42.8 % (37-47); Lymphocyte # 1.95 X10^3/ul (0.83-4.51); Lymphocyte % 30.3 % (19-41); Mean Corp Hgb Conc 32.7 g/dL (32-36); Mean Corpuscular Hgb 29.4 pg (27.0-32.0); Mean Corpuscular Volume 89.9 fL (81-99); Mean Platelet Vol. 8.8 fl (6.2-12.0); Monocyte# 0.66 X10^3/uL; Monocyte% 10.3 % (0-10); NRBC Flagged by Analyzer 0 % (0-5); Neutrophil # 3.56 X10^3/uL (2.7-7.7); Neutrophil % 55.4 % (47-70); Platelet Count 256 K/mm3 (150-450); RBC Distribution Width SD 42.7 fl (35.1-43.9); Red Blood Count 4.76 M/mm3 (4.2-5.4); White Blood Count 6.4 K/mm3 (4.4-11.0)
[2022-07-11 18:53] LABS: Anion Gap 10 (5-15); BUN 32 mg/dL (7-18); BUN/Creat Ratio 31.1 RATIO (10-20); Calcium,Total 8.7 mg/dL (8.5-10.1); Chloride 104 mmol/L (98-107); Creatinine, Serum 1.03 mg/dL (0.55-1.02); EST Glomerular Filtration Rate 58 mL/min (>60); Est Glom Filt Rate - Afr Amer 71 mL/min (>60); Estimated Creatinine Clearance 95.87 ml/min; Glucose 217 mg/dL (74-106); Potassium 3.2 mmol/L (3.5-5.1); Sodium Level 140 mmol/L (136-145); Troponin-I HS 6 pg/mL (3.0-54.0)
[2022-07-11 18:58] LABS: BNP,B-Type NATRIURETIC PEPTIDE 12.4 pg/mL (0-100)
[2022-07-11 20:10] VITALS: BP 132/65; PULSE 59; RESP 17; TEMP 36.9; O2SAT 99
[2022-07-11] MEDS: Albuterol Sulfate 8 gm Inhaler (60 puffs) 2 PUFF INHALATION (20:16)
[2022-07-11] MEDS: Potassium Chloride Oral Tablet 20 MEQ 40 MEQ PO (20:16)
== END 2022-07-11 20:51 | disposition home or self-care (01) ==
PROVIDERS: Emergency Provider Emergency Medicine; Visit Provider Emergency Medicine
DX: J06.9 Acute upper respiratory infection, unspecified (principal); J98.01 Acute bronchospasm; I25.10 Atherosclerotic heart disease of native coronary artery without angina pectoris; G47.33 Obstructive sleep apnea (adult) (pediatric); Z95.5 Presence of coronary angioplasty implant and graft; Z87.891 Personal history of nicotine dependence
CPT/HCPCS: 71045; 80048; 83880; 84484; 85025; 87428; 93005; 94640; 99252; 99285; A4216; G0463

== ENCOUNTER 2023-04-03 15:58 | Emergency (ER) | payer MEDICARE, MEDICAID, SELFPAY ==
[2023-04-03 16:00] VITALS: PULSE 75; RESP 14; TEMP 36.3; O2SAT 96; BMI 63.7
[2023-04-03 16:06] VITALS: BP 128/96; PULSE 75; RESP 14; O2SAT 99
[2023-04-03 16:24] LABS: Absolute Lymphocyte Count 2.95 X10^3/uL (0.83-4.51); Absolute Neutrophil Count 5.8 X10^3/uL (2.0-7.7); Basophil# 0.05 X10^3/uL; Basophil% 0.5 % (0-1); Eosinophil# 0.18 X10^3/uL; Eosinophils% 1.8 % (0-5); Hematocrit 47.4 % (37-47); Hemoglobin 15.9 g/dL (12.0-15.0); Lymphocyte # 2.95 X10^3/ul (0.83-4.51); Lymphocyte % 30.3 % (19-41); Mean Corp Hgb Conc 33.5 g/dL (32-36); Mean Corpuscular Hgb 29.4 pg (27.0-32.0); Mean Corpuscular Volume 87.6 fL (81-99); Mean Platelet Vol. 9.2 fl (6.2-12.0); Monocyte# 0.67 X10^3/uL; Monocyte% 6.9 % (0-10); NRBC Flagged by Analyzer 0 % (0-5); Neutrophil # 5.83 X10^3/uL (2.7-7.7); Neutrophil % 59.8 % (47-70); Platelet Count 301 K/mm3 (150-450); RBC Distribution Width CV 13.2 % (11.6-14.6); RBC Distribution Width SD 42.3 fl (35.1-43.9); Red Blood Count 5.41 M/mm3 (4.2-5.4); White Blood Count 9.8 K/mm3 (4.4-11.0)
[2023-04-03 16:38] LABS: Anion Gap 7 (5-15); BUN 29 mg/dL (7-18); BUN/Creat Ratio 22.3 RATIO (10-20); Calcium,Total 9.5 mg/dL (8.5-10.1); Chloride 98 mmol/L (98-107); EST Glomerular Filtration Rate 45 mL/min (>60); Est Glom Filt Rate - Afr Amer 54 mL/min (>60); Estimated Creatinine Clearance 105.33 ml/min; Glucose 285 mg/dL (74-106); Potassium 3.9 mmol/L (3.5-5.1); Sodium Level 135 mmol/L (136-145)
--- NOTE | 2023-04-03 16:48 | EX.ED.DYSGE1 ---
HPI <JERI Mayes - Last Filed: 04/03/23 17:33> History of Present Illness Chief Complaint: Hyperglycemia Narrative Narrative: Patient is a 57-year-old female with history of morbid obesity, hypertension, hyperlipidemia, type 2 diabetes, hyperlipidemia presents to the emergency department concerning for elevated blood sugar. Patient states she took her sugar, it was greater than 400 today, she called the managed care analyst return to go to the emergency department. Patient denies any fever or chills, denies any nausea or vomiting, she states she has been urinating more frequently. Patient denies any chest pain, infectious-like symptoms PFSH <JERI Mayes - Last Filed: 04/03/23 17:33> [facility] Medical History Anxiety and depression Atherosclerosis of coronary artery of [place] heart without angina pectoris Cataracts, bilateral Crohn's disease Decreased radial pulse Degenerative disc disease Essential hypertension GERD (gastroesophageal reflux disease) History of kidney stones HLD (hyperlipidemia) Hyperglycemia due to diabetes mellitus Hypothyroidism Injury of right radial artery Morbid obesity Numbness of right hand Obstructive sleep apnea JEWELS on CPAP Osteoarthritis Pain of right hand Paroxysmal SVT (supraventricular tachycardia) Right bundle branch block (RBBB) SVT (supraventricular tachycardia) Type 2 diabetes mellitus Home Medications pantoprazole 40 mg tablet,delayed release 40 mg PO BID acid reflux 07/21/14 [History Last Taken 06/15/20] ropinirole 0.25 mg tablet 0.5 mg PO QHS restless legs 07/21/14 [History Last Taken 05/12/19] spironolactone 25 mg tablet 25 mg PO DAILY water pill 07/21/14 [History Last Taken 05/13/19] nitroglycerin 0.4 mg sublingual tablet 0.4 mg sublingual PRN PRN chest pain 03/30/17 [History Last Taken 03/30/17] insulin aspart U-100 100 unit/mL (3 mL) subcutaneous pen (Novolog FlexPen U-100 Insulin aspart) See Rx Instructions subcut TID 08/24/17 [History Last Taken 05/13/19] dapagliflozin propanediol 5 mg tablet 5 mg PO QAM 10/18/18 [History Last Taken 05/13/19] hydroxyzine HCl 25 mg tablet 25 mg PO QHS 05/29/20 [History Last Taken Unknown] levothyroxine 88 mcg tablet 88 mcg PO DAILY #1 TAB 08/19/20 [Rx Last Taken Unknown] atorvastatin 40 mg tablet 40 mg PO QHS cholesterol #90 tabs 02/04/21 [Rx Last Taken Unknown] carvedilol 12.5 mg tablet 12.5 mg PO BID #180 tabs 02/04/21 [Rx Last Taken Unknown] clopidogrel 75 mg tablet 75 mg PO DAILY #90 tabs 02/04/21 [Rx Last Taken Unknown] furosemide 40 mg tablet 40 mg PO BID #180 tabs 02/04/21 [Rx Last Taken Unknown] potassium chloride 10 mEq capsule,extended release 10 meq PO DAILY #90 caps 02/04/21 [Rx Last Taken Unknown] aspirin 81 mg chewable tablet 81 mg PO .every other day heart health 04/03/23 [History Last Taken Unknown] Allergy/AdvReac Type Severity Reaction Status Date / Time isosorbide [From Imdur] Allergy Severe Diarrhea Verified 04/03/23 16:00 lisinopril [From Zestril] Allergy Anaphylaxis Verified 04/03/23 16:00 metoprolol tartrate Allergy Anaphylaxis Verified 04/03/23 16:00 [From Lopressor] bupropion [From Wellbutrin] AdvReac Other Verified 04/03/23 16:00 desvenlafaxine AdvReac Other Verified 04/03/23 16:00 enalapril maleate AdvReac Swelling Verified 04/03/23 16:00 [From Vasotec] enalaprilat dihydrate AdvReac Swelling Verified 04/03/23 16:00 [From Vasotec] levetiracetam [From Keppra] AdvReac Swelling Verified 04/03/23 16:00 metformin AdvReac Diarrhea Verified 04/03/23 16:00 oxcarbazepine AdvReac Other Verified 04/03/23 16:00 [From Trileptal] pregabalin [From Lyrica] AdvReac Abd Verified 04/03/23 16:00 cramps/diarrhea rofecoxib [From Vioxx] AdvReac Swelling Verified 04/03/23 16:00 Family History Sister Asthma Arthritis Diabetes Hypertension High cholesterol Heart disease Sleep apnea Brother Diabetes Hypertension CAD (coronary artery disease) CABG Cancer lymphoma Mother Diabetes Hypertension CVA (cerebral vascular accident) CAD (coronary artery disease) Grandmother Heart disease Father CVA (cerebral vascular accident) Surgical History History of bilateral salpingo-oophorectomy (BSO) History of carpal tunnel release History of cholecystectomy History of coronary artery stent placement (06/15/20) History of removal of cyst History of umbilical hernia repair Social History Smoking Status: Former smoker how long ago did patient quit smokin alcohol intake: never substance use type: does not use caffeine: No ROS <JERI Mayes - Last Filed: 04/03/23 17:33> ROS ED ROS Narrative Constitutional: Negative for fever, chills, weight loss, weakness Eyes: Negative for vision loss, vision change, double vision ENT: Negative for any sore throat, ear pain, congestion Cardiovascular: Negative for any chest pain, tightness, palpitations Respiratory: Negative for any cough, sputum production, hemoptysis, dyspnea, dyspnea on exertion, orthopnea Gastrointestinal: Negative for any abdominal pain, nausea, vomiting, diarrhea, constipation, blood in stool, blood in vomit : Negative for any urinary frequency, dysuria, retention, blood in urine Muscle skeletal: Negative for any myalgias, arthralgias, neck pain, back pain Neurological: Negative for any headache, syncope, numbness or tingling, dizziness Skin: Negative for any rashes, lumps, itching, abrasions, lacerations Psychiatric: Negative for any depression, anxiety, stress, suicidal ideation, homicidal ideation Hematologic: Negative for any easy bruising, excessive bruising, easy bleeding. Positive for elevated blood sugar Allergies: Negative for any eczema, hives, rash EXAM <JERI Mayes - Last Filed: 04/03/23 17:33> Physical Exam Narrative Exam Narrative: Vital signs reviewed. Patient is no obvious distress, do not smell any ketones, patient not tachypneic, tachycardic. Patient is generally well. HEET: Head normocephalic atraumatic, TMs clear bilaterally. Posterior pharynx is clear, moist mucous membranes. Nares clear bilaterally. Neck: Supple with no lymphadenopathy or tenderness. No signs of meningismus. Cardiac: Regular rate and rhythm no murmurs gallops or rubs, equal peripheral pulses bilaterally. Respiratory: Lungs clear to auscultation bilaterally. No chest tenderness. Abdomen: Soft, nontender, nondistended. No abdominal bruit or pulsatile masses. No hepatosplenomegaly Extremities: No peripheral edema, no signs of gross trauma or deformity. Active full range of motion of all extremities. Neuro: Cranial nerves II through XII intact, no focal neurological deficits. Skin: Clean dry and intact with no rash, purpura, petechiae, vesicles or pustules. Backs/flank: No CVA tenderness, no midline spinal tenderness, no deformity. Psych: Normal mood and affect. No SI, HI or acute psychosis. Const Vital Signs: 04/03/23 16:00 04/03/23 16:06 04/03/23 16:13 Temperature 97.4 F L Temperature Source Temporal Pulse Rate 75 75 Respiratory Rate 14 14 Respiratory Pattern Normal Blood Pressure 128/96 H Blood Pressure Mean 106 Pulse Ox 96 99 Oxygen Delivery Method Room Air Room Air <Dr. Jaxon Michel MD - Last Filed: 04/03/23 17:24> Physical Exam Const Vital Signs: 04/03/23 16:00 04/03/23 16:06 04/03/23 16:13 Temperature 97.4 F L Temperature Source Temporal Pulse Rate 75 75 Respiratory Rate 14 14 Respiratory Pattern Normal Blood Pressure 128/96 H Blood Pressure Mean 106 Pulse Ox 96 99 Oxygen Delivery Method Room Air Room Air [facility] <JERI Mayes - Last Filed: 04/03/23 17:33> [facility] Lab Data Labs: Laboratory Results - last 24 hr 04/03/23 04/03/23 16:04 16:40 WBC 9.8 RBC 5.41 H Hgb 15.9 H Hct 47.4 H MCV 87.6 MCH 29.4 MCHC 33.5 RDW Std Deviation 42.3 RDW Coeff of Veronica 13.2 Plt Count 301 MPV 9.2 Immature Gran % (Auto) 0.700 Neut % (Auto) 59.8 Lymph % (Auto) 30.3 Boyd % (Auto) 6.9 Eos % (Auto) 1.8 Baso % (Auto) 0.5 Absolute Neuts (auto) 5.8 Absolute Lymphs (auto) 2.95 Nucleated RBC % 0 Sodium 135 L Potassium 3.9 Chloride 98 Carbon Dioxide 30.0 Anion Gap 7 BUN 29 H Creatinine 1.30 H Estim Creat Clear Calc 105.33 Est GFR (MDRD) Af Amer 54 L Est GFR (MDRD) Non-Af 45 L BUN/Creatinine Ratio 22.3 H Glucose 285 H Calcium 9.5 Urine Color Yellow Urine Clarity Clear Urine pH 6.0 Ur Specific [place] 1.015 Urine Protein Negative Urine Glucose (UA) 1000 H Urine Ketones Negative Urine Occult Blood Negative Urine Nitrite Negative Urine Bilirubin Negative Urine Urobilinogen Normal Ur Leukocyte Esterase Negative Urine RBC 0 SEEN Urine WBC 0 SEEN Ur Squamous Epith Cells 0 SEEN Urine Bacteria 0 SEEN Urine Mucus 0 SEEN Acetone Level NEGATIVE Treatment and Re-Evaluation :: Patient appears generally well, patient appears nontoxic, vital signs are stable. Presenting to the emergency department with complaints of concern for elevated blood sugar. Differential diagnose includes DKA, hyperglycemia, urinary tract infection, blood glucose machine malfunction. Patient will receive some basic laboratory values, patient CBC was unremarkable, chemistries show a creatinine of 1.30, this is baseline, patient's blood glucose was 285. Patient's acetone level was negative. No evidence of DKA. She will be given IV fluids. She will provide a urine sample to ensure there is no infection. Patient remained stable. Patient's urinalysis was negative for any infection. At this time, patient responded well to fluids, she will follow-up closely with her PCP. She will keep a close eye on her sugars, take her medications as prescribed. She is happy with the plan of care, given return precautions. Patient stable for discharge. <Dr. Jaxon Michel MD - Last Filed: 04/03/23 17:24> [facility] Narrative Medical decision making narrative: I have personally performed a face to face assessment of the patient and have reviewed the BRY Note. I performed a substantive portion of the visit including all aspects of the following. My lopez findings include: History is 57-year-old female history of diabetes has had elevated blood sugars recently. Denies any illness. No dysuria. No fever. No vomiting or diarrhea. Exam is [well-appearing 57-year-old female. Vital signs are stable afebrile. She does not look septic toxic or in any distress. Pulse ox is 99% on room air no signs of hypoxia. HEENT exam unremarkable. Neck nontender. Lungs clear equal symmetrical. Heart regular rhythm no murmur. Rate about 75. Chest were nontender. Abdomen obese, soft, nontender, nondistended, normal bowel sounds without peritoneal signs. Patient is moving all 4 extremities. Nontender no edema. No redness. Neurologically she is awake alert with no focal motor deficits.] Medical Decision Making [middle-aged diabetic female with elevated blood sugars. CBC is unremarkable. Chemistries are blood sugar of 285 normal gap of 7. Serum acetone is negative. UA is pending. Patient be discharged home with outpatient follow-up.] Other additions or changes: [None] Lab Data Labs: Laboratory Results - last 24 hr 04/03/23 04/03/23 16:04 16:40 WBC 9.8 RBC 5.41 H Hgb 15.9 H Hct 47.4 H MCV 87.6 MCH 29.4 MCHC 33.5 RDW Std Deviation 42.3 RDW Coeff of Veronica 13.2 Plt Count 301 MPV 9.2 Immature Gran % (Auto) 0.700 Neut % (Auto) 59.8 Lymph % (Auto) 30.3 Boyd % (Auto) 6.9 Eos % (Auto) 1.8 Baso % (Auto) 0.5 Absolute Neuts (auto) 5.8 Absolute Lymphs (auto) 2.95 Nucleated RBC % 0 Sodium 135 L Potassium 3.9 Chloride 98 Carbon Dioxide 30.0 Anion Gap 7 BUN 29 H Creatinine 1.30 H Estim Creat Clear Calc 105.33 Est GFR (MDRD) Af Amer 54 L Est GFR (MDRD) Non-Af 45 L BUN/Creatinine Ratio 22.3 H Glucose 285 H Calcium 9.5 Urine Color Yellow Urine Clarity Clear Urine pH 6.0 Ur Specific [place] 1.015 Urine Protein Negative Urine Glucose (UA) 1000 H Urine Ketones Negative Urine Occult Blood Negative Urine Nitrite Negative Urine Bilirubin Negative Urine Urobilinogen Normal Ur Leukocyte Esterase Negative Urine RBC 0 SEEN Urine WBC 0 SEEN Ur Squamous Epith Cells 0 SEEN Urine Bacteria 0 SEEN Urine Mucus 0 SEEN Acetone Level NEGATIVE Discharge Plan Triage Chief Complaint: Hyperglycemia ED Midlevel Provider: Babak Baxter ED Provider: Jaxon Michel Dx/Rx/DC Orders Clinical Impression: Type 2 diabetes mellitus, Acute hyperglycemia Instructions: Blood Sugar Check Steps, ED Diabetic Hyperglycemia Prescriptions: No Action insulin aspart U-100 [Novolog FlexPen U-100 Insulin] 100 unit/mL insulin pen See Rx Instructions SC TID Patient Comments: 19U q am, 14U q afternoon, 19U q evening SC TID Rx Instructions: 22 UNITS IN THE AM, 16 AT NOON, 30 UNITS IN THE EVENING dapagliflozin propanediol 5 mg tablet 5 mg PO QAM hydroxyzine HCl 25 mg tablet 25 mg PO QHS Rx Instructions: 1/2 tab tid spironolactone 25 MG tablet 25 mg PO DAILY Patient Comments: water pill ropinirole 0.25 MG tablet 0.5 mg PO QHS Patient Comments: restless legs pantoprazole 40 MG tablet 40 mg PO BID Patient Comments: acid reflux/gerd nitroglycerin 0.4 MG tablet 0.4 mg SUBLINGUAL PRN PRN (Reason: chest pain) aspirin 81 mg tablet,chewable 81 mg PO .every other day levothyroxine 88 mcg tablet 88 mcg PO DAILY Qty: 1 0RF atorvastatin 40 mg tablet 40 mg PO QHS Qty: 90 3RF carvedilol 12.5 mg tablet 12.5 mg PO BID Qty: 180 3RF Rx Instructions: must administer with a meal/food clopidogrel 75 mg tablet 75 mg PO DAILY Qty: 90 3RF furosemide 40 mg tablet 40 mg PO BID Qty: 180 3RF potassium chloride 10 mEq capsule, extended release 10 meq PO DAILY Qty: 90 3RF Primary Care Provider: Mike Prince Referrals: Mike Prince MD [Primary Care Provider] -
[2023-04-03 16:53] LABS: Bacteria 0 SEEN /hpf (None Seen); Mucous, Urine 0 SEEN /hpf (<or=2+); Red Blood Cells-Urine 0 SEEN /hpf (0-5); Squamous Epithelial Cells - UA 0 SEEN /hpf (5-10); White Blood Cells 0 SEEN /hpf (0-5)
[2023-04-03 17:04] LABS: Color, Urine Yellow (Yellow); Glucose, Dipstick 1000 mg/dl (Normal); Ketone-Dipstick Negative (Negative); Leukocyte Esterase-Dipstick Negative /ul (Negative); Nitrite-Dipstick Negative (Negative); Occult Blood-Urine Negative /ul (Negative); Protein-Dipstick Negative (Negative); Specific Gravity, Urine 1.015 (1.002-1.030); Urine Bilirubin Dipstick Negative (Negative); Urine Clarity Clear (Clear); Urine Urobilinogen Normal (Normal)
[2023-04-03] MEDS: 0.9% Normal Saline (1000mL) 1,000 ML 999 ML IV (17:12)
[2023-04-03 17:53] VITALS: BP 151/81; PULSE 92; RESP 20; O2SAT 94
[2023-04-03 17:57] VITALS: BP 151/81; PULSE 92; RESP 20; TEMP 36.8; O2SAT 92
== END 2023-04-03 17:58 | disposition home or self-care (01) ==
PROVIDERS: Nurse Practitioner; Emergency Provider Emergency Medicine; PCP Family Medicine; Visit Provider Emergency Medicine
DX: E11.65 Type 2 diabetes mellitus with hyperglycemia (principal); E66.01 Morbid (severe) obesity due to excess calories; Z79.4 Long term (current) use of insulin; I10 Essential (primary) hypertension; I25.10 Atherosclerotic heart disease of native coronary artery without angina pectoris; E78.5 Hyperlipidemia, unspecified; Z95.5 Presence of coronary angioplasty implant and graft; Z79.02 Long term (current) use of antithrombotics/antiplatelets; Z79.82 Long term (current) use of aspirin; Z79.899 Other long term (current) drug therapy; Z87.891 Personal history of nicotine dependence; Z83.3 Family history of diabetes mellitus
CPT/HCPCS: 80048; 81001; 82009; 85025; 96360; 99284; J7030; A4216

== ENCOUNTER 2024-02-08 17:37 | Emergency (ER) | payer MEDICARE, MEDICAID, SELFPAY ==
[2024-02-08 17:40] VITALS: BP 173/59; PULSE 79; RESP 20; TEMP 37; O2SAT 99; BMI 69.2
--- NOTE | 2024-02-08 18:17 | EX.ED.DYSGE1 ---
HPI History of Present Illness Chief Complaint: Lower Extremity Injury Narrative Narrative: Patient is a 58-year-old female with past medical history of hyperglycemia, depression, Crohn's disease, JEWELS who presented to the emergency department with a chief complaint of right lower extremity redness and pain. Patient states that today she noted that she developed some redness and pain to her right lower extremity. Patient notes that she did not have any injuries to the lower extremities she states that is very warm to the touch. Patient denies any history of blood clots or any recent travel history.. Patient states that she not take anything for pain prior to arrival here. [facility] Medical History Hyperglycemia due to diabetes mellitus Decreased radial pulse Pain of right hand Injury of right radial artery Numbness of right hand Right bundle branch block (RBBB) Hypothyroidism Obstructive sleep apnea Type 2 diabetes mellitus Paroxysmal SVT (supraventricular tachycardia) Degenerative disc disease History of kidney stones SVT (supraventricular tachycardia) Crohn's disease Anxiety and depression Osteoarthritis JEWELS on CPAP GERD (gastroesophageal reflux disease) Atherosclerosis of coronary artery of [place] heart without angina pectoris Cataracts, bilateral HLD (hyperlipidemia) Morbid obesity Essential hypertension Home Medications ?Medication ?Instructions ?Recorded ?Last Taken ?Type pantoprazole 40 mg tablet,delayed 40 mg PO BID acid reflux 07/21/14 06/15/20 History release ropinirole 0.25 mg tablet 0.5 mg PO QHS restless legs 07/21/14 05/12/19 History spironolactone 25 mg tablet 25 mg PO DAILY water pill 07/21/14 05/13/19 History nitroglycerin 0.4 mg sublingual 0.4 mg sublingual PRN PRN chest 03/30/17 03/30/17 History tablet pain insulin aspart U-100 100 unit/mL See Rx Instructions subcut TID 08/24/17 05/13/19 History (3 mL) subcutaneous pen (Novolog FlexPen U-100 Insulin aspart) dapagliflozin propanediol 5 mg 5 mg PO QAM 10/18/18 05/13/19 History tablet hydroxyzine HCl 25 mg tablet 25 mg PO QHS 05/29/20 Unknown History levothyroxine 88 mcg tablet 88 mcg PO DAILY #1 TAB 08/19/20 Unknown Rx atorvastatin 40 mg tablet 40 mg PO QHS cholesterol #90 tabs 02/04/21 Unknown Rx carvedilol 12.5 mg tablet 12.5 mg PO BID #180 tabs 02/04/21 Unknown Rx clopidogrel 75 mg tablet 75 mg PO DAILY #90 tabs 02/04/21 Unknown Rx furosemide 40 mg tablet 40 mg PO BID #180 tabs 02/04/21 Unknown Rx potassium chloride 10 mEq 10 meq PO DAILY #90 caps 02/04/21 Unknown Rx capsule,extended release aspirin 81 mg chewable tablet 81 mg PO .every other day heart 04/03/23 Unknown History health doxycycline hyclate 100 mg capsule 100 mg PO BID 7 days #14 caps 02/08/24 Unknown Rx Allergy/AdvReac Type Severity Reaction Status Date / Time isosorbide (From Imdur) Allergy Severe Diarrhea Verified 02/08/24 17:39 lisinopril (From Zestril) Allergy Anaphylaxis Verified 02/08/24 17:39 metoprolol tartrate (From Allergy Anaphylaxis Verified 02/08/24 17:39 Lopressor) bupropion (From Wellbutrin) AdvReac Other Verified 02/08/24 17:39 desvenlafaxine AdvReac Other Verified 02/08/24 17:39 enalapril maleate (From AdvReac Swelling Verified 02/08/24 17:39 Vasotec) enalaprilat dihydrate (From AdvReac Swelling Verified 02/08/24 17:39 Vasotec) levetiracetam (From Keppra) AdvReac Swelling Verified 02/08/24 17:39 metformin AdvReac Diarrhea Verified 02/08/24 17:39 oxcarbazepine (From AdvReac Other Verified 02/08/24 17:39 Trileptal) pregabalin (From Lyrica) AdvReac Abd Verified 02/08/24 17:39 cramps/diarrhea rofecoxib (From Vioxx) AdvReac Swelling Verified 02/08/24 17:39 Family History Sister Asthma Arthritis Diabetes Hypertension High cholesterol Heart disease Sleep apnea Brother Diabetes Hypertension CAD (coronary artery disease) CABG Cancer lymphoma Mother Diabetes Hypertension CVA (cerebral vascular accident) CAD (coronary artery disease) Grandmother Heart disease Father CVA (cerebral vascular accident) Surgical History History of coronary artery stent placement (06/15/20) History of removal of cyst History of bilateral salpingo-oophorectomy (BSO) History of carpal tunnel release History of umbilical hernia repair History of cholecystectomy Social History Smoking Status: Former smoker how long ago did patient quit smokin alcohol intake: never substance use type: does not use caffeine: No ROS ROS ED ROS Narrative Constitutional: Denies any fevers, chills, headaches, lightness, dizziness Eyes: Denies any change in vision double vision blurry vision Cardiovascular: Denies chest pain Respiratory: Denies cough or wheezing shortness of breath Abdomen: Denies any abdominal pain nausea vomiting Neurological: Denies numbness, weakness, tingling Musculoskeletal: Complains of right lower leg pain as noted above Skin: Complains of redness to the right lower extremity as noted above EXAM Physical Exam Narrative Exam Narrative: General: Patient lying in bed rest comfortably did not appear to be in acute distress Head: Atraumatic, normocephalic Eyes: PERRL bilateral, EOMI bilateral, no conjunctival injection noted Neck: Soft, supple, trachea midline Cardiovascular: Regular rate and rhythm no murmurs gallops rubs noted Respiratory: Clear to auscultation bilaterally Extremities: +4/5 strength noted in the bilateral upper and lower extremities, DP pulses +2/4 in the bilateral extremities, no pedal edema on exam Neurological: Patient following commands knew that she was at [facility] years 2023 Skin: Patient has erythema and warmth to the distal aspect of the right lower jane. No petechia no purpura no sloughing of the skin noted cellulitic in nature Const Vital Signs: 02/08/24 17:40 Temperature 98.6 F Temperature Source Oral Pulse Rate 79 Respiratory Rate 20 H Blood Pressure 173/59 H Blood Pressure Mean 97 Pulse Ox 99 Oxygen Delivery Method Room Air MDM MDM MDM Narrative Medical decision making narrative: Patient is a 58-year-old female who presents to the emergency department the chief complaint of right lower extremity pain and redness. Patient will have workup performed here on the differential diagnose includes Melamin to ankle fracture, although feel that this is less likely as she did not have any injuries, cellulitis, erysipelas. Once workup is obtained reviewed she will be reevaluated. Patient given a gram of Rocephin, Tylenol for pain control. Patient x-rays reviewed of her tibia/fibula which showed subcutaneous edema or cellulitis without evidence of acute fracture or osteomyelitis. Patient x-ray of her ankle reviewed and showed the similar finding with soft tissue swelling degenerative changes no acute fracture no evidence of acute osteomyelitis. Discussed results with the patient she would like to go home at this point time. Patient was advised to take antibiotics as prescribed though sent to her pharmacy. Patient was encouraged to return with worsening symptoms or any concerns. All question concerns answered she was discharged home in stable condition. Radiography Diagnostic Testing: Clinical Impression(s) from Imaging Studies Ankle X-Ray 02/08/24 18:20 IMPRESSION: Soft tissue swelling and degenerative changes. No acute fracture. No evidence for acute osteomyelitis Electronically Signed: Rai Sneed MD at 19:03 EDT Reading Location ID and State: [facility] / [place] Tel , Service support , Tibia/Fibula X-Ray 02/08/24 18:20 IMPRESSION: Subcutaneous edema or cellulitis without evidence for acute fracture or osteomyelitis Electronically Signed: Rai Sneed MD at 19:01 EDT , Discharge Plan Triage Chief Complaint: Lower Extremity Injury ED Provider: Richard Hall Dx/Rx/DC Orders Clinical Impression: Cellulitis of leg, right Prescriptions: New doxycycline hyclate 100 mg capsule 100 mg PO BID 7 Days Qty: 14 0RF No Action insulin aspart U-100 [Novolog FlexPen U-100 Insulin] 100 unit/mL insulin pen See Rx Instructions SC TID Patient Comments: 19U q am, 14U q afternoon, 19U q evening SC TID Rx Instructions: 22 UNITS IN THE AM, 16 AT NOON, 30 UNITS IN THE EVENING dapagliflozin propanediol 5 mg tablet 5 mg PO QAM hydroxyzine HCl 25 mg tablet 25 mg PO QHS Rx Instructions: 1/2 tab tid spironolactone 25 MG tablet 25 mg PO DAILY Patient Comments: water pill ropinirole 0.25 MG tablet 0.5 mg PO QHS Patient Comments: restless legs pantoprazole 40 MG tablet 40 mg PO BID Patient Comments: acid reflux/gerd nitroglycerin 0.4 MG tablet 0.4 mg SUBLINGUAL PRN PRN (Reason: chest pain) aspirin 81 mg tablet,chewable 81 mg PO .every other day levothyroxine 88 mcg tablet 88 mcg PO DAILY Qty: 1 0RF atorvastatin 40 mg tablet 40 mg PO QHS Qty: 90 3RF carvedilol 12.5 mg tablet 12.5 mg PO BID Qty: 180 3RF Rx Instructions: must administer with a meal/food clopidogrel 75 mg tablet 75 mg PO DAILY Qty: 90 3RF furosemide 40 mg tablet 40 mg PO BID Qty: 180 3RF potassium chloride 10 mEq capsule, extended release 10 meq PO DAILY Qty: 90 3RF Primary Care Provider: Mike Prince Referrals: Mike Prince MD [Primary Care Provider] - Activity Restrictions/Additional Instructions: Take antibiotics as prescribed. Follow-up with your primary care physician outpatient setting. Return with worsening symptoms or other concerns. Print Language: Yoruba Disposition Disposition: Home, Self Care
--- NOTE | 2024-02-08 18:20 | RAD_ITS ---
STUDY: X-RAY - RIGHT ANKLE REASON FOR EXAM: Female, 58 years old. pain TECHNIQUE: 3 view(s) of the ankle. COMPARISON: None. FINDINGS: Normal visualized distal tibia and fibula. Normal medial and lateral malleoli. There are degenerative changes of the tibiotalar and talofibular joints Normal visualized talus. There is plantar calcaneal spurring and posterior enthesophyte The visualized subtalar, talonavicular, calcaneocuboid and tarsal articulations are normal. Nonspecific bilateral malleolus soft tissue swelling RAD/Ankle min 3 Views IMPRESSION: Soft tissue swelling and degenerative changes. No acute fracture. No evidence for acute osteomyelitis Electronically Signed: Ria Sneed MD at 19:03 EDT ,
--- NOTE | 2024-02-08 18:20 | RAD_ITS ---
STUDY: X-RAY - RIGHT TIBIA AND FIBULA REASON FOR EXAM: Female, 58 years old. REDNESS, PAIN TECHNIQUE: 4 view(s) of the tibia and fibula were obtained. COMPARISON: None. FINDINGS: Normal visualized tibia. Normal visualized fibula. There is diffuse subcutaneous edema or cellulitis of the anterior calf. RAD/Tibia & Fibula 2 Views IMPRESSION: Subcutaneous edema or cellulitis without evidence for acute fracture or osteomyelitis Electronically Signed: Rai Sneed MD at 19:01 EDT ,
[2024-02-08] MEDS: Acetaminophen 500 MG Tablet 1000 MG PO (18:36)
[2024-02-08] MEDS: Ceftriaxone 1 GM/50 ML BAG IV (18:36)
[2024-02-08 20:51] LABS: Bedside Glucose 320 mg/dL (74-106)
== END 2024-02-08 22:41 | disposition home or self-care (01) ==
PROVIDERS: Emergency Provider Emergency Medicine; PCP Family Medicine; Referring Provider Emergency Medicine; Visit Provider Emergency Medicine
DX: L03.115 Cellulitis of right lower limb (principal); E11.9 Type 2 diabetes mellitus without complications; I25.10 Atherosclerotic heart disease of native coronary artery without angina pectoris; G47.33 Obstructive sleep apnea (adult) (pediatric); Z87.891 Personal history of nicotine dependence
CPT/HCPCS: 73590; 73610; 82962; 96365; 96366; 99282; A4216

== ENCOUNTER 2024-08-11 02:10 | Emergency (ER) | payer MEDICARE, MEDICAID, SELFPAY ==
[2024-08-11 02:12] VITALS: BP 153/54; PULSE 64; RESP 12; TEMP 36.6; O2SAT 98; BMI 66.7
--- NOTE | 2024-08-11 02:14 | EKG12_ITS ---
Test Reason : CP Blood Pressure : */* mmHG Vent. Rate : 63 BPM Atrial Rate : 63 BPM P-R Int : 162 ms QRS Dur : 138 ms QT Int : 446 ms P-R-T Axes : 38 -22 2 degrees QTcB Int : 456 ms Normal sinus rhythm Right bundle branch block Abnormal ECG Confirmed by BULL ROSENBERG, DAVID ([id number]), editor dictionary LOLA HERRING ([id number]) on 08/12/2024 6:03:25 AM Referred By: BB Confirmed By: DAVID GOTTLIEB MD
--- NOTE | 2024-08-11 02:16 | ED.VIS.CHEST ---
HPI History of Present Illness Chief Complaint: Chest Pain Informant: patient and EMS Narrative Narrative: 58-year-old female brought by EMS around 2 AM for chest tightness that started within the last 1 or 2 hours while awake and lying down. Better with sitting up, EMS did an EKG that they sent prehospital the looked unremarkable and gave her aspirin and she states it is further improved right now. She did not have any nitroglycerin at home. She has a history of stents in her heart. They replaced remotely. Has been compliant with her medications. Is hoarse right now due to a cough she has had recently no fevers or chills or dyspnea. She states she felt a little sweaty tonight. Concerned that this could be her heart. No other symptoms. [facility] Medical History Hyperglycemia due to diabetes mellitus Decreased radial pulse Pain of right hand Injury of right radial artery Numbness of right hand Right bundle branch block (RBBB) Hypothyroidism Obstructive sleep apnea Type 2 diabetes mellitus Paroxysmal SVT (supraventricular tachycardia) Degenerative disc disease History of kidney stones SVT (supraventricular tachycardia) Crohn's disease Anxiety and depression Osteoarthritis JEWELS on CPAP GERD (gastroesophageal reflux disease) Atherosclerosis of coronary artery of [place] heart without angina pectoris Cataracts, bilateral HLD (hyperlipidemia) Morbid obesity Essential hypertension Home Medications ?Medication ?Instructions ?Recorded ?Last Taken ?Type pantoprazole 40 mg tablet,delayed 40 mg PO BID acid reflux 07/21/14 06/15/20 History release ropinirole 0.25 mg tablet 0.5 mg PO QHS restless legs 07/21/14 05/12/19 History spironolactone 25 mg tablet 25 mg PO DAILY water pill 07/21/14 05/13/19 History nitroglycerin 0.4 mg sublingual 0.4 mg sublingual PRN PRN chest 03/30/17 03/30/17 History tablet pain insulin aspart U-100 100 unit/mL See Rx Instructions subcut TID 08/24/17 05/13/19 History (3 mL) subcutaneous pen (Novolog FlexPen U-100 Insulin aspart) dapagliflozin propanediol 5 mg 5 mg PO QAM 10/18/18 05/13/19 History tablet hydroxyzine HCl 25 mg tablet 25 mg PO QHS 05/29/20 Unknown History levothyroxine 88 mcg tablet 88 mcg PO DAILY #1 TAB 08/19/20 Unknown Rx atorvastatin 40 mg tablet 40 mg PO QHS cholesterol #90 tabs 02/04/21 Unknown Rx carvedilol 12.5 mg tablet 12.5 mg PO BID #180 tabs 02/04/21 Unknown Rx clopidogrel 75 mg tablet 75 mg PO DAILY #90 tabs 02/04/21 Unknown Rx furosemide 40 mg tablet 40 mg PO BID #180 tabs 02/04/21 Unknown Rx potassium chloride 10 mEq 10 meq PO DAILY #90 caps 02/04/21 Unknown Rx capsule,extended release aspirin 81 mg chewable tablet 81 mg PO .every other day heart 04/03/23 Unknown History health doxycycline hyclate 100 mg capsule 100 mg PO BID 7 days #14 caps 02/08/24 Unknown Rx Allergy/AdvReac Type Severity Reaction Status Date / Time isosorbide (From Imdur) Allergy Severe Diarrhea Verified 08/11/24 02:19 lisinopril (From Zestril) Allergy Anaphylaxis Verified 08/11/24 02:19 metoprolol tartrate (From Allergy Anaphylaxis Verified 08/11/24 02:19 Lopressor) bupropion (From Wellbutrin) AdvReac Other Verified 08/11/24 02:19 desvenlafaxine AdvReac Other Verified 08/11/24 02:19 enalapril maleate (From AdvReac Swelling Verified 08/11/24 02:19 Vasotec) enalaprilat dihydrate (From AdvReac Swelling Verified 08/11/24 02:19 Vasotec) levetiracetam (From Keppra) AdvReac Swelling Verified 08/11/24 02:19 metformin AdvReac Diarrhea Verified 08/11/24 02:19 oxcarbazepine (From AdvReac Other Verified 08/11/24 02:19 Trileptal) pregabalin (From Lyrica) AdvReac Abd Verified 08/11/24 02:19 cramps/diarrhea rofecoxib (From Vioxx) AdvReac Swelling Verified 08/11/24 02:19 Family History Sister Asthma Arthritis Diabetes Hypertension High cholesterol Heart disease Sleep apnea Brother Diabetes Hypertension CAD (coronary artery disease) CABG Cancer lymphoma Mother Diabetes Hypertension CVA (cerebral vascular accident) CAD (coronary artery disease) Grandmother Heart disease Father CVA (cerebral vascular accident) Surgical History History of coronary artery stent placement (06/15/20) History of removal of cyst History of bilateral salpingo-oophorectomy (BSO) History of carpal tunnel release History of umbilical hernia repair History of cholecystectomy Social History Smoking Status: Former smoker how long ago did patient quit smokin alcohol intake: never substance use type: does not use caffeine: No ROS ROS ED Constitutional Constitutional ED: Reports sweats; Denies chills or fever(s) Eyes Eyes: Denies change in vision or diplopia ENT ENT ED: Reports hoarseness; Denies rhinorrhea or sore throat Cardiovascular Cardiovascular: Reports as per HPI and chest pain; Denies palpitations Respiratory/Chest Respiratory/Chest: Reports cough; Denies dyspnea Gastrointestinal Gastrointestinal: Denies abdominal pain, diarrhea, nausea or vomiting Genitourinary Genitourinary ED: Denies dysuria or hematuria Musculoskeletal Musculoskeletal: Denies back pain or neck pain Integumentary Denies abscess or rash Neurologic Neurologic: Denies headache(s), paresthesias or weakness Psychiatric Psychiatric: Denies anxiety or suicidal thoughts EXAM Physical Exam Const Vital Signs: 08/11/24 02:12 08/11/24 02:15 08/11/24 02:18 Temperature 97.8 F Temperature Source Oral Pulse Rate 64 Respiratory Rate 12 Respiratory Effort Normal Non-Labored Blood Pressure 153/54 H Blood Pressure Mean 87 Pulse Ox 98 96 Oxygen Delivery Method Room Air Room Air 08/11/24 03:11 08/11/24 04:00 Temperature Temperature Source Pulse Rate 69 69 Respiratory Rate 18 18 Respiratory Effort Blood Pressure 131/54 H 152/63 H Blood Pressure Mean 79 92 Pulse Ox 97 97 Oxygen Delivery Method Positive well nourished and well developed Constitutional Narrative: Morbid obesity. Well-appearing in no distress. General Appearance ED: well developed and NAD HEENT Reports moist mucous membranes HEENT Narrative: Hoarse voice. No stridor. normocephalic and atraumatic Eyes PERRL and EOMs intact bilaterally Neck full ROM and supple Resp normal respiratory effort and clear to auscultation bilaterally Cardio regular rate, regular rhythm and no murmurs Rate: Negative for tachycardic GI non-tender and non-distended Auscultation: normoactive bowel sounds Palpation: soft Back/Spine no CVA tenderness General Back: other FROM Extremity normal to inspection General Extremety ED: Yes edema; Negative for pulses abnormal or tenderness General Extremity: edema bilateral lower extremity Details: mild; Negative for pulses abnormal Neuro oriented x3, CN's II-XII intact bilaterally and no sensory deficits noted Sensorium / Orientation: awake and alert Motor Exam: strength 5/5 throughout Psych mental status grossly normal Skin no rashes or lesions noted and no wounds Heart Score History: Slightly/Non-Suspicious ECG: Nonspecific Repolarization Age: >45 - <65 years Risk Factors: >/= 3 Risk Factors or History of CAD Troponin: </= Normal Limit Score: 4 MDM MDM MDM Narrative Medical decision making narrative: 1 view chest x-ray my interpretation is normal, her EKG shows a stable right bundle branch block with no acute injury pattern or changes compared with her old EKG. Her chest tightness gradually resolved without any other treatment. Her initial troponin is 21 which is just out of the normal range, there is no prior readings available for her. Repeat troponin 2 hours later, it went down to 19. Under the circumstances, I do not think we need a third, and she is stable for discharge home. Lab Data Attestation: I reviewed the patient's lab results. Labs: Laboratory Results - last 24 hr 08/11/24 08/11/24 02:10 04:13 WBC 8.3 RBC 5.07 Hgb 14.7 Hct 44.5 MCV 87.8 MCH 29.0 MCHC 33.0 RDW Std Deviation 45.1 H RDW Coeff of Veronica 14.3 Plt Count 279 MPV 9.2 Immature Gran % (Auto) 0.500 Neut % (Auto) 51.1 Lymph % (Auto) 33.5 [place] % (Auto) 10.8 H Eos % (Auto) 3.7 Baso % (Auto) 0.4 Absolute Neuts (auto) 4.2 Absolute Lymphs (auto) 2.78 Nucleated RBC % 0 Sodium 142 Potassium 3.4 Chloride 104 Carbon Dioxide 24.6 Anion Gap 13 BUN 15 Creatinine 1.07 Estim Creat Clear Calc 77.06 Est GFR (MDRD) Non-Af 59 L BUN/Creatinine Ratio 13.6 Glucose 155 H Calcium 8.8 Troponin T High Sens 21 H Troponin T Hi Sens 2 Hr 19 H Radiography Diagnostic Testing: Clinical Impression(s) from Imaging Studies Chest X-Ray 08/11/24 02:40 IMPRESSION: No acute cardiopulmonary process is demonstrated. If there is persistent pain or clinical concern, short-term follow-up chest CT evaluation may be considered. Reading [facility] Rhythm Strip Rhythm Strip: Sinus Rhythm Rate: 65 Ectopy: None EKG Initial EKG: Attestation: I personally reviewed and interpreted this EKG as follows: Interpretation: Sinus Rhythm, No Acute Injury Pattern, RBBB and Inverted T-Waves (ant-sept, likely related to RBBB) Prior EKG tracings: available for review Prior: Unchanged Discharge Plan Triage Chief Complaint: Chest Pain ED Provider: Delvis Bentley Dx/Rx/DC Orders Clinical Impression: Chest tightness Instructions: ED Chest Pain, Noncardiac Prescriptions: No Action insulin aspart U-100 [Novolog FlexPen U-100 Insulin] 100 unit/mL insulin pen See Rx Instructions SC TID Patient Comments: 19U q am, 14U q afternoon, 19U q evening SC TID Rx Instructions: 22 UNITS IN THE AM, 16 AT NOON, 30 UNITS IN THE EVENING dapagliflozin propanediol 5 mg tablet 5 mg PO QAM hydroxyzine HCl 25 mg tablet 25 mg PO QHS Rx Instructions: 1/2 tab tid spironolactone 25 MG tablet 25 mg PO DAILY Patient Comments: water pill ropinirole 0.25 MG tablet 0.5 mg PO QHS Patient Comments: restless legs pantoprazole 40 MG tablet 40 mg PO BID Patient Comments: acid reflux/gerd nitroglycerin 0.4 MG tablet 0.4 mg SUBLINGUAL PRN PRN (Reason: chest pain) aspirin 81 mg tablet,chewable 81 mg PO .every other day doxycycline hyclate 100 mg capsule 100 mg PO BID 7 Days Qty: 14 0RF levothyroxine 88 mcg tablet 88 mcg PO DAILY Qty: 1 0RF atorvastatin 40 mg tablet 40 mg PO QHS Qty: 90 3RF carvedilol 12.5 mg tablet 12.5 mg PO BID Qty: 180 3RF Rx Instructions: must administer with a meal/food clopidogrel 75 mg tablet 75 mg PO DAILY Qty: 90 3RF furosemide 40 mg tablet 40 mg PO BID Qty: 180 3RF potassium chloride 10 mEq capsule, extended release 10 meq PO DAILY Qty: 90 3RF Primary Care Provider: Mike Prince Referrals: Mike Prince MD [Primary Care Provider] - 3-5 Days if not improving (And/or your electric truck driver) Print Language: Gibraltarian Disposition Disposition: Home, Self Care
[2024-08-11 02:18] VITALS: O2SAT 96
[2024-08-11 02:24] LABS: Absolute Lymphocyte Count 2.78 X10^3/uL (0.83-4.51); Absolute Neutrophil Count 4.2 X10^3/uL (2.0-7.7); Basophil# 0.03 X10^3/uL; Basophil% 0.4 % (0-1); Eosinophil# 0.31 X10^3/uL; Eosinophils% 3.7 % (0-5); Hematocrit 44.5 % (37-47); Hemoglobin 14.7 g/dL (12.0-15.0); Lymphocyte # 2.78 X10^3/ul (0.83-4.51); Lymphocyte % 33.5 % (19-41); Mean Corpuscular Volume 87.8 fL (81-99); Mean Platelet Vol. 9.2 fl (6.2-12.0); Monocyte% 10.8 % (0-10); NRBC Flagged by Analyzer 0 % (0-5); Neutrophil # 4.24 X10^3/uL (2.7-7.7); Neutrophil % 51.1 % (47-70); Platelet Count 279 K/mm3 (150-450); RBC Distribution Width CV 14.3 % (11.6-14.6); RBC Distribution Width SD 45.1 fl (35.1-43.9); Red Blood Count 5.07 M/mm3 (4.2-5.4); White Blood Count 8.3 K/mm3 (4.4-11.0)
--- NOTE | 2024-08-11 02:40 | RAD_ITS ---
PROCEDURE: Portable upright chest radiograph, one view 08/11/2024 REASON FOR EXAM: CHEST PAIN TECHNIQUE: Portable upright chest radiograph was obtained. COMPARISON: None available FINDINGS: The cardiomediastinal silhouette is within normal limits. Bones are osteopenic, grossly intact. Monitoring leads overlie the chest. No pneumothorax, focal airspace consolidation, or pleural effusion. RAD/Chest 1 View (Portable) IMPRESSION: No acute cardiopulmonary process is demonstrated. If there is persistent pain or clinical concern, short-term follow-up chest CT evaluation may be considered. Reading Location: [facility]
[2024-08-11 02:48] LABS: Troponin T High Sensitivity 21 ng/L (<=14)
[2024-08-11 03:05] LABS: Anion Gap 13 (5-15); BUN 15 mg/dL (4-19); BUN/Creat Ratio 13.6 RATIO (10-20); Calcium,Total 8.8 mg/dL (7.6-11.0); Carbon Dioxide 24.6 mmol/L (21.0-32.0); Chloride 104 mmol/L (98-108); Creatinine, Serum 1.07 mg/dL (0.70-1.20); EST Glomerular Filtration Rate 59 (>60); Estimated Creatinine Clearance 77.06 ml/min (50-250); Glucose 155 mg/dL (70-99); Potassium 3.4 mmol/L (3.3-5.1); Sodium Level 142 mmol/L (133-145)
[2024-08-11 03:11] VITALS: BP 131/54; PULSE 69; RESP 18; O2SAT 97
[2024-08-11 04:00] VITALS: BP 152/63; PULSE 69; RESP 18; O2SAT 97
[2024-08-11 04:34] LABS: Troponin T High Sens 2 HR 19 ng/L (<=14)
[2024-08-11 04:42] VITALS: BP 147/61; PULSE 72; RESP 18; TEMP 36.6; O2SAT 97
== END 2024-08-11 05:52 | disposition home or self-care (01) ==
PROVIDERS: Emergency Provider Emergency Medicine; PCP Family Medicine; Visit Provider Emergency Medicine
DX: R07.89 Other chest pain (principal); K50.90 Crohn's disease, unspecified, without complications; E66.01 Morbid (severe) obesity due to excess calories; E11.9 Type 2 diabetes mellitus without complications; I25.10 Atherosclerotic heart disease of native coronary artery without angina pectoris; G47.33 Obstructive sleep apnea (adult) (pediatric); Z87.891 Personal history of nicotine dependence; Z95.5 Presence of coronary angioplasty implant and graft
CPT/HCPCS: 71045; 80048; 84484; 85025; 93005; 99285; A4216

== ENCOUNTER 2025-01-06 21:57 | Emergency (ER) | payer MEDICARE, MEDICAID, SELFPAY ==
[2025-01-06 21:59] VITALS: BP 107/49; PULSE 72; RESP 16; TEMP 36.6; O2SAT 93; BMI 64.4
--- NOTE | 2025-01-06 23:09 | RAD_ITS ---
PROCEDURE: HIP, UNI W/ PELVIS 2-3 VIEWS 01/06/2025 REASON FOR EXAM: PAIN TECHNIQUE: Procedure Code: [facility] Modality: DX Procedure: HIP, UNI W/ PELVIS 2-3 VIEWS Laterality: COMPARISON: 06/05/2019. FINDINGS: Mild osteopenia of the visualized bones. Degenerative joint disease. No fracture or dislocation is seen. No lytic or blastic bone lesion is noted. RAD/HIP, UNI W/ Pelvis 2-3 Views IMPRESSION: No evidence for acute abnormality. [facility] [place] [id number]
--- NOTE | 2025-01-06 23:09 | EKG12_ITS ---
Test Reason : DYSRHTYHMIA Blood Pressure : */* mmHG Vent. Rate : 65 BPM Atrial Rate : 65 BPM P-R Int : 170 ms QRS Dur : 128 ms QT Int : 456 ms P-R-T Axes : 59 -18 8 degrees QTcB Int : 474 ms Normal sinus rhythm Right bundle branch block Abnormal ECG Confirmed by Arden Garces ([id number]), editor index OLLA HERRING ([id number]) on 01/07/2025 11:05:57 AM Referred By: Confirmed By: Arden Garces
--- NOTE | 2025-01-06 23:09 | CT_ITS ---
PROCEDURE: BRAIN/HEAD WITHOUT CONTRAST 01/06/2025 REASON FOR EXAM: DIZZINESS TECHNIQUE: Procedure Code: CTBR Modality: CT Procedure: BRAIN/HEAD WITHOUT CONTRAST Coronal and Sagittal reconstruction series were provided. One or more dose reduction techniques were used (e.g., Automated exposure control, adjustment of the mA and/or kV according to patient size, use of iterative reconstruction technique. COMPARISON: 07/01/2018. FINDINGS: No acute intracranial hemorrhage. No midline shift. The ventricles are normal in size and configuration. No extra-axial fluid collection is identified. No fracture. The calvarium is intact. Moderate mucosal thickening within the right sphenoid sinus. CT/Brain/Head without Contrast IMPRESSION: No CT evidence of an acute intracranial abnormality. Right sphenoid sinusitis. Reading Location: [id number]
[2025-01-06] MEDS: 0.9% Normal Saline (1000mL) 1,000 ML 999 ML IV (23:17)
[2025-01-06] MEDS: Ketorolac 30 MG/ML Syringe IV (23:18)
[2025-01-06 23:23] LABS: Hematocrit 42.1 % (37-47); Hemoglobin 13.9 g/dL (12.0-15.0); Immature Granulocytes Count 0.030 X10^3/uL (0.0-0.0); Mean Corp Hgb Conc 33.0 g/dL (32-36); Mean Corpuscular Volume 91.3 fL (81-99); Mean Platelet Vol. 9.5 fl (6.2-12.0); NRBC Flagged by Analyzer 0 % (0-5); Platelet Count 259 K/mm3 (150-450); RBC Distribution Width CV 14.3 % (11.6-14.6); RBC Distribution Width SD 47.5 fl (35.1-43.9); Red Blood Count 4.61 M/mm3 (4.2-5.4); White Blood Count 12.6 K/mm3 (4.4-11.0)
--- NOTE | 2025-01-06 23:40 | RAD_ITS ---
PROCEDURE: LUMBAR SPINE 2 OR 3 VIEWS 01/06/2025 REASON FOR EXAM: PAIN TECHNIQUE: Procedure Code: RADSPLL Modality: DX Procedure: LUMBAR SPINE 2 OR 3 VIEWS COMPARISON: None. FINDINGS: Mild degenerative dextroscoliosis apex at L3. Grade 1 anterolisthesis of L4 on L5. Mildly exaggerated lumbar lordosis. There are diffuse spondylotic changes. Findings are demonstrated to by diffuse disc space narrowing, osteophyte formation and degenerative endplate sclerosis. There is diffuse facet joint arthropathy with secondary bilateral neural foramina narrowing. No fracture or dislocation is seen. No aggressive lytic or blastic bony lesion is noted. RAD/Lumbar Spine 2 or 3 Views IMPRESSION: Diffuse spondylosis. [facility]
[2025-01-06 23:53] LABS: Mucous, Urine 0 SEEN /hpf (<or=2+)
[2025-01-06 23:58] LABS: Color, Urine Red (Yellow); Glucose, Dipstick 1000 mg/dl (Normal); Ketone-Dipstick Negative (Negative); Leukocyte Esterase-Dipstick 500 /ul (Negative); Nitrite-Dipstick Negative (Negative); Occult Blood-Urine 250 /ul (Negative); Protein-Dipstick 100 mg/dl (Negative); Specific Gravity, Urine 1.015 (1.002-1.030); Urine Bilirubin Dipstick Negative (Negative)
[2025-01-07 00:06] LABS: Magnesium 1.8 mg/dL (1.5-2.2)
[2025-01-07 00:09] LABS: Anion Gap 11 (5-15); BUN 18 mg/dL (4-19); BUN/Creat Ratio 14.7 RATIO (10-20); Calcium,Total 7.0 mg/dL (7.6-11.0); Carbon Dioxide 17.4 mmol/L (21.0-32.0); Chloride 112 mmol/L (98-108); Estimated Creatinine Clearance 66.76 ml/min (50-250); Glucose 227 mg/dL (70-99); Potassium 4.7 mmol/L (3.3-5.1)
[2025-01-07 00:11] LABS: Red Blood Cells-Urine > 100 SEEN /hpf (0-5); Squamous Epithelial Cells - UA 0-5 SEEN /hpf (5-10)
[2025-01-07 00:35] LABS: SITE Not entered; VBG BASE EXCESS 4 mmol/L (-1.0-3.5); VBG PO2 64 mmHg (25-40); VBG SO2 94 % (50-70); VBG TCO2 29 mmol/L (23-33)
[2025-01-07 01:00] VITALS: BP 122/42; PULSE 78; RESP 18; O2SAT 95
[2025-01-07 01:56] VITALS: O2SAT 95
--- NOTE | 2025-01-07 02:38 | EX.ED.DYSGE1 ---
HPI History of Present Illness Chief Complaint: Fall Informant: patient and EMS Narrative Narrative: Patient is a 59-year-old female with past medical history of hypertension hyperlipidemia and insulin-dependent diabetes. She states this evening she was standing next to her bed changing the bed sheets when she began to feel dizzy. She describes the dizziness as a sense of motion and states everything was spinning. Secondary to this she lost her balance and fell to the floor. She denies striking her head or any loss of consciousness. She reports she is on Plavix but denies any other true blood thinners such as Coumadin Eliquis or Xarelto. She states that she was not on the floor for long but had difficulty getting up and secondary to this EMS was called and she was brought in for evaluation. [facility] Medical History Hyperglycemia due to diabetes mellitus Decreased radial pulse Pain of right hand Injury of right radial artery Numbness of right hand Right bundle branch block (RBBB) Hypothyroidism Obstructive sleep apnea Type 2 diabetes mellitus Paroxysmal SVT (supraventricular tachycardia) Degenerative disc disease History of kidney stones SVT (supraventricular tachycardia) Crohn's disease Anxiety and depression Osteoarthritis JEWELS on CPAP GERD (gastroesophageal reflux disease) Atherosclerosis of coronary artery of [place] heart without angina pectoris Cataracts, bilateral HLD (hyperlipidemia) Morbid obesity Essential hypertension Home Medications ?Medication ?Instructions ?Recorded ?Last Taken ?Type pantoprazole 40 mg tablet,delayed 40 mg PO BID acid reflux 07/21/14 06/15/20 History release ropinirole 0.25 mg tablet 0.5 mg PO QHS restless legs 07/21/14 05/12/19 History spironolactone 25 mg tablet 25 mg PO DAILY water pill 07/21/14 05/13/19 History nitroglycerin 0.4 mg sublingual 0.4 mg sublingual PRN PRN chest 03/30/17 03/30/17 History tablet pain insulin aspart U-100 100 unit/mL See Rx Instructions subcut TID 08/24/17 05/13/19 History (3 mL) subcutaneous pen (Novolog FlexPen U-100 Insulin aspart) dapagliflozin propanediol 5 mg 5 mg PO QAM 10/18/18 05/13/19 History tablet hydroxyzine HCl 25 mg tablet 25 mg PO QHS 05/29/20 Unknown History levothyroxine 88 mcg tablet 88 mcg PO DAILY #1 TAB 08/19/20 Unknown Rx atorvastatin 40 mg tablet 40 mg PO QHS cholesterol #90 tabs 02/04/21 Unknown Rx carvedilol 12.5 mg tablet 12.5 mg PO BID #180 tabs 02/04/21 Unknown Rx clopidogrel 75 mg tablet 75 mg PO DAILY #90 tabs 02/04/21 Unknown Rx furosemide 40 mg tablet 40 mg PO BID #180 tabs 02/04/21 Unknown Rx potassium chloride 10 mEq 10 meq PO DAILY #90 caps 02/04/21 Unknown Rx capsule,extended release aspirin 81 mg chewable tablet 81 mg PO .every other day heart 04/03/23 Unknown History health doxycycline hyclate 100 mg capsule 100 mg PO BID 7 days #14 caps 02/08/24 Unknown Rx cephalexin 500 mg capsule 500 mg PO TID 7 days #21 caps 01/07/25 Unknown Rx diazepam 5 mg tablet (Valium) 2.5 mg (1/2 x 5 mg) PO TID PRN 01/07/25 Unknown Rx Dizziness/vertigo #10 tabs Allergy/AdvReac Type Severity Reaction Status Date / Time isosorbide (From Imdur) Allergy Severe Diarrhea Verified 01/06/25 21:58 lisinopril (From Zestril) Allergy Anaphylaxis Verified 01/06/25 21:58 metoprolol tartrate (From Allergy Anaphylaxis Verified 01/06/25 21:58 Lopressor) bupropion (From Wellbutrin) AdvReac Other Verified 01/06/25 21:58 desvenlafaxine AdvReac Other Verified 01/06/25 21:58 enalapril maleate (From AdvReac Swelling Verified 01/06/25 21:58 Vasotec) enalaprilat dihydrate (From AdvReac Swelling Verified 01/06/25 21:58 Vasotec) levetiracetam (From Keppra) AdvReac Swelling Verified 01/06/25 21:58 metformin AdvReac Diarrhea Verified 01/06/25 21:58 oxcarbazepine (From AdvReac Other Verified 01/06/25 21:58 Trileptal) pregabalin (From Lyrica) AdvReac Abd Verified 01/06/25 21:58 cramps/diarrhea rofecoxib (From Vioxx) AdvReac Swelling Verified 01/06/25 21:58 Family History Sister Asthma Arthritis Diabetes Hypertension High cholesterol Heart disease Sleep apnea Brother Diabetes Hypertension CAD (coronary artery disease) CABG Cancer lymphoma Mother Diabetes Hypertension CVA (cerebral vascular accident) CAD (coronary artery disease) Grandmother Heart disease Father CVA (cerebral vascular accident) Surgical History History of coronary artery stent placement (06/15/20) History of removal of cyst History of bilateral salpingo-oophorectomy (BSO) History of carpal tunnel release History of umbilical hernia repair History of cholecystectomy Social History Smoking Status: Former smoker how long ago did patient quit smokin alcohol intake: never substance use type: does not use caffeine: No ROS ROS ED Constitutional Constitutional ED: Denies chills or fever(s) Eyes Eyes: Denies blurry vision or change in vision ENT ENT ED: Reports other Details: Negative tinnitus ; Denies ear pain Cardiovascular Cardiovascular: Reports other Details: Negative syncope ; Denies chest pain, palpitations or racing heartbeat Respiratory/Chest Respiratory/Chest: Denies cough or dyspnea Gastrointestinal Gastrointestinal: Denies abdominal pain, diarrhea, nausea or vomiting Genitourinary Genitourinary ED: Reports dysuria Musculoskeletal Musculoskeletal: Reports back pain and other Details: Positive right hip pain ; Denies neck pain Integumentary Denies Abrasions or rash Neurologic Neurologic: Reports other Details: Positive dizziness ; Denies headache(s) or paresthesias Hematologic/Lymphatic Hematologic/Lymphatic: Reports easy bleeding and easy bruising EXAM Physical Exam Const Vital Signs: 01/06/25 21:59 01/06/25 22:04 01/07/25 01:00 Temperature 97.8 F Temperature Source Oral Pulse Rate 72 78 Respiratory Rate 16 18 Respiratory Effort Normal Non-Labored Respiratory Depth Normal Respiratory Pattern Normal Blood Pressure 107/49 L 122/42 H Blood Pressure Mean 68 68 Pulse Ox 93 95 Oxygen Delivery Method Room Air 01/07/25 02:59 Temperature 97.8 F Temperature Source Pulse Rate 75 Respiratory Rate 20 H Respiratory Effort Respiratory Depth Respiratory Pattern Blood Pressure 130/48 H Blood Pressure Mean 75 Pulse Ox 94 Oxygen Delivery Method Positive well nourished, well developed and obese General Appearance ED: well developed; Negative for pallor Nutritional Appearance: obese HEENT HEENT Narrative: Normocephalic atraumatic No signs of depressed or basilar skull fracture Eyes PERRL and EOMs intact bilaterally General Eye ED: Negative for scleral icterus Neck supple Neck Narrative: No bony deformity or step-off of the cervical spine; no midline tenderness to palpation Resp normal respiratory effort and clear to auscultation bilaterally Resp Narrative: Breath sounds are diminished throughout but overall clear to auscultation without signs of respiratory distress Cardio regular rate and regular rhythm Rate: other Other Details: Heart is regular rate and rhythm Radial and carotid pulses are equal and symmetric GI normal to inspection, nondistended, normoactive bowel sounds, non-tender, non-distended and no masses GI Narrative: No voluntary guarding no rigidity or pulsatile mass Auscultation: normoactive bowel sounds Palpation: soft Back/Spine Back/Spine Narrative: No bony deformity or step-off of the thoracic or lumbar spine but there is midline lower lumbar pain with palpation No overlying abrasions or ecchymosis noted Extremity Extremity Narrative: Pelvis is stable there is no shortening or external rotation of either lower extremity Patient does have mild pain on palpation along the right greater trochanter; no overlying abrasions or ecchymosis or soft tissue swelling or hematoma Patient can move both upper extremities without difficulty or pain All compartments are soft and compressible going against compartment syndrome No signs of long bone injury such as bony deformity or joint effusion Neuro oriented x3, CN's II-XII intact bilaterally and no sensory deficits noted Neuro Narrative: GCS of 15 Cranial nerves II through XII are grossly intact without focal neurologic deficit No pronator drift no dysmetria no truncal ataxia NIH stroke scale score of 0 Horizontal nystagmus is noted as well as positive Hallpike Kathleen exam Sensorium / Orientation: alert Motor Exam: strength 5/5 throughout Psych mental status grossly normal Skin no rashes or lesions noted and no wounds General Skin Exam: Negative for jaundice or pallor MDM MDM MDM Narrative Medical decision making narrative: Patient arrived to the ER with stable vitals and no signs of acute trauma. She reported that she became dizzy which she described as a sense of motion while she was trying to change the bed sheets. History and exam is most consistent with peripheral vertigo. In order to ensure that there was not a traumatic subarachnoid or subdural hemorrhage a noncontrast head CT was obtained. With pain in the low back and right hip in order to rule out a lumbar compression fracture or a pubic rami or femoral neck fracture x-rays ordered as well. As she did report dysuria in order to check for acute kidney injury or acute blood loss anemia or UTI I did like to perform basic laboratory study. White count slightly elevated 12.6 correlating with infection but otherwise no sign of anemia or acute kidney injury. Urine sample did show changes consistent with infection. Patient was given IV fluid as well as oral Valium and 1 g of IV Rocephin. After receiving these she did report feeling better and was able to ambulate with her cane at her baseline without further exacerbation of dizziness. Therefore at this time she is not showing vital sign or laboratory changes concerning for urosepsis. He did not have a traumatic subarachnoid or subdural hemorrhage. The dizziness has improved so I have low concern for vertebrobasilar insufficiency or posterior circulation stroke. Therefore at this time I feel with oral medication to help control vertigo as well as UTI she is otherwise safe for discharge History & Record Review Discussion w/independent historian: Patient Lab Data Attestation: I reviewed the patient's lab results. Labs: Laboratory Results - last 24 hr 01/06/25 01/06/25 23:17 23:45 WBC 12.6 H RBC 4.61 Hgb 13.9 Hct 42.1 MCV 91.3 MCH 30.2 MCHC 33.0 RDW Std Deviation 47.5 H RDW Coeff of Veronica 14.3 Plt Count 259 MPV 9.5 Immature Gran % (Auto) 0.200 Neut % (Auto) 79.6 H Lymph % (Auto) 11.8 L Dixon % (Auto) 7.3 Eos % (Auto) 0.9 Baso % (Auto) 0.2 Absolute Neuts (auto) 10.0 H Absolute Lymphs (auto) 1.48 Nucleated RBC % 0 Sodium 141 Potassium 4.7 Chloride 112 H Carbon Dioxide 17.4 L Anion Gap 11 BUN 18 Creatinine 1.19 Estim Creat Clear Calc 66.76 Est GFR (MDRD) Non-Af 52 L BUN/Creatinine Ratio 14.7 Glucose 227 H Calcium 7.0 L Magnesium 1.8 Urine Color Red Urine Clarity Cloudy Urine pH 6.0 Ur Specific [place] 1.015 Urine Protein 100 H Urine Glucose (UA) 1000 H Urine Ketones Negative Urine Occult Blood 250 H Urine Nitrite Negative Urine Bilirubin Negative Urine Urobilinogen Normal Ur Leukocyte Esterase 500 H Urine RBC > 100 SEEN Urine WBC 50-100 SEEN Ur Squamous Epith Cells 0-5 SEEN Urine Bacteria 2+ Urine Mucus 0 SEEN ABG Data ABG results: ABG 01/07/25 00:31 Specimen Type LAST Sample Site Not entered VBG pH 7.48 H VBG pO2 64 H VBG HCO3 28 H VBG Total CO2 29 VBG O2 Sat (Calc) 94 H VBG Base Excess 4 H POC Mix VBG pCO2 Pt Tmp 36.8 L O2 Delivery Device Room Air Radiography Diagnostic Testing: Clinical Impression(s) from Imaging Studies Brain CT 01/06/25 23:09 IMPRESSION: No CT evidence of an acute intracranial abnormality. Right sphenoid sinusitis. Reading Location: -[id number] Hip/Pelvis X-Ray 01/06/25 23:09 IMPRESSION: No evidence for acute abnormality. Reading Location: [place] [id number] Lumbar Spine X-Ray 01/06/25 23:40 IMPRESSION: Diffuse spondylosis. Reading Location: [place] [id number] Right hip x-ray with 1 view pelvis as interpreted by the emergency medicine physician reveals degenerative changes without acute fracture or dislocation Lumbar spine x-ray as interpreted by the emergency medicine physician reveals arthritic changes without acute compression fracture Discharge Plan Triage Chief Complaint: Fall Other Complaint: Dizziness Female C/O ED Provider: Bennie Sanchez Dx/Rx/DC Orders Clinical Impression: Peripheral vertigo, UTI (urinary tract infection), HLD (hyperlipidemia), Essential hypertension, Morbid obesity Instructions: Urinary Tract Infections in Women, ED Vertigo, Unspecified Prescriptions: New diazepam [Valium] 5 mg tablet 2.5 mg PO TID PRN (Reason: Dizziness/vertigo) Qty: 10 0RF cephalexin 500 mg capsule 500 mg PO TID 7 Days Qty: 21 0RF No Action insulin aspart U-100 [Novolog FlexPen U-100 Insulin] 100 unit/mL insulin pen See Rx Instructions SC TID Patient Comments: 19U q am, 14U q afternoon, 19U q evening SC TID Rx Instructions: 22 UNITS IN THE AM, 16 AT NOON, 30 UNITS IN THE EVENING dapagliflozin propanediol 5 mg tablet 5 mg PO QAM hydroxyzine HCl 25 mg tablet 25 mg PO QHS Rx Instructions: 1/2 tab tid spironolactone 25 MG tablet 25 mg PO DAILY Patient Comments: water pill ropinirole 0.25 MG tablet 0.5 mg PO QHS Patient Comments: restless legs pantoprazole 40 MG tablet 40 mg PO BID Patient Comments: acid reflux/gerd nitroglycerin 0.4 MG tablet 0.4 mg SUBLINGUAL PRN PRN (Reason: chest pain) aspirin 81 mg tablet,chewable 81 mg PO .every other day doxycycline hyclate 100 mg capsule 100 mg PO BID 7 Days Qty: 14 0RF levothyroxine 88 mcg tablet 88 mcg PO DAILY Qty: 1 0RF atorvastatin 40 mg tablet 40 mg PO QHS Qty: 90 3RF carvedilol 12.5 mg tablet 12.5 mg PO BID Qty: 180 3RF Rx Instructions: must administer with a meal/food clopidogrel 75 mg tablet 75 mg PO DAILY Qty: 90 3RF furosemide 40 mg tablet 40 mg PO BID Qty: 180 3RF potassium chloride 10 mEq capsule, extended release 10 meq PO DAILY Qty: 90 3RF Primary Care Provider: Mike Prince Referrals: Mike Prince MD [Primary Care Provider] - Activity Restrictions/Additional Instructions: Please take the Valium as directed for any further dizzy/vertigo symptoms as well as the Keflex to resolve your urinary tract infection. If you feel symptoms are worsening despite treatment or you have any further concerns please return to the ER for repeat evaluation Print Language: Bulgarian Disposition Disposition: Home, Self Care Discharge Date/Time: 01/07/25 03:34
[2025-01-07 02:59] VITALS: BP 130/48; PULSE 75; RESP 20; TEMP 36.6; O2SAT 94
== END 2025-01-07 03:34 | disposition home or self-care (01) ==
PROVIDERS: Emergency Provider Emergency Medicine; PCP Family Medicine; Visit Provider Emergency Medicine
DX: H81.399 Other peripheral vertigo, unspecified ear (principal); E66.01 Morbid (severe) obesity due to excess calories; E11.9 Type 2 diabetes mellitus without complications; Z79.4 Long term (current) use of insulin; I10 Essential (primary) hypertension; M54.50 Low back pain, unspecified; M25.551 Pain in right hip; N39.0 Urinary tract infection, site not specified; E78.5 Hyperlipidemia, unspecified; W19.XXXA Unspecified fall, initial encounter; E03.9 Hypothyroidism, unspecified; F41.9 Anxiety disorder, unspecified; F32.A Depression, unspecified; K21.9 Gastro-esophageal reflux disease without esophagitis; I25.10 Atherosclerotic heart disease of native coronary artery without angina pectoris; G47.33 Obstructive sleep apnea (adult) (pediatric); Z95.5 Presence of coronary angioplasty implant and graft; Z79.02 Long term (current) use of antithrombotics/antiplatelets; Z79.82 Long term (current) use of aspirin; Z79.890 Hormone replacement therapy; Z79.899 Other long term (current) drug therapy; Z87.891 Personal history of nicotine dependence
CPT/HCPCS: 70450; 72100; 73502; 80048; 81001; 82803; 83735; 85025; 87086; 87088; 93005; 96365; 96366; 96375; 96376; 99285; A4216